=== PATIENT | female | born 1960 | race Caucasian/White ===

== ENCOUNTER 2016-05-03 08:12 | Day surgery (SDC) | payer MEDICAID ==
[~2016-05-03 08:12] MED LIST: Lactated Ringers 1,000 ML IV SCH; Lidocaine 1%/Sod Bicarbonate in NS 8.4% 1 ML Syringe IV PRN; Sodium Chloride 0.9% 10 ML Syringe FLUSH PRN
--- NOTE | 2016-05-03 09:00 | PCM.PREANE ---
Preanesthetic Assessment - Physical Assessment NPO Status Date: 05/02/16 NPO Status Time: 19:00 O2 Sat by Pulse Oximetry: 88 Respiratory Rate: 16 Vital Signs: Last Vital Signs Temp 36.2 C 05/03/16 08:25 Pulse 84 05/03/16 08:25 Resp 16 05/03/16 08:25 BP 141/78 H 05/03/16 08:25 Pulse Ox 88 L 05/03/16 08:25 Height: 1.63 m Weight: 106.594 kg - Allergies Allergies/Adverse Reactions: Allergies Allergy/AdvReac Type Severity Reaction Status Date / Time No Known Allergies Allergy Verified 05/03/16 08:53 PreAnesthesia Questionnaire Other HEENT History: dentures Cardiovascular History: Reports: High cholesterol, Hypertension, Other (see below) Other Cardiovascular History: edema Respiratory History: Reports: Asthma, COPD, SOB Gastrointestinal History: Reports: GERD Genitourinary History: Reports: Urinary incontinence Other Genitourinary History: benighn microscopic hematuria, kidney lesion [employer]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 Musculoskeletal History: Reports: None Neurological History: Reports: None Psychiatric History: Reports: Schizophrenia, Other (see below) Other Psychiatric History: schizophrenia Endocrine/Metabolic History: Reports: None Hematologic History: Reports: None Immunologic History: Reports: None Oncologic (Cancer) History: Reports: None Dermatologic History: Reports: None - Past Surgical History Head Surgeries/Procedures: Reports: None HEENT Surgical History: Reports: Oral surgery Female Surgical History: Reports: Tubal ligation - SUBSTANCE USE Smoking Status *Q: Current Every Day Smoker Recreational Drug Use History: No - HOME MEDS Home Medications: Home Meds Albuterol [Proair HFA] 2 puff INH Q4H PRN 05/02/16 [History] Aspirin 81 mg PO DAILY 05/02/16 [History] Benztropine Mesylate 1 mg PO BID 05/02/16 [History] Budesonide [Pulmicort] 1 dose NEB BID 05/02/16 [History] Enalapril [Vasotec] 10 mg PO DAILY 05/02/16 [History] Fish Oil/Friendship-3 Fatty Acids [Fish Oil 1,000 MG] 1,000 mg PO BID 05/02/16 [ History] Formoterol [Perforomist] 1 dose NEB BID 05/02/16 [History] Furosemide [Furosemide] 20 mg PO DAILY 05/02/16 [History] Lurasidone HCl [Latuda] 80 mg PO DAILY 05/02/16 [History] Naltrexone HCl [Revia] 50 mg PO DAILY 05/02/16 [History] Omeprazole Magnesium [Prilosec Otc] 20 mg PO DAILY 05/02/16 [History] Oxybutynin 5 mg PO DAILY 05/02/16 [History] PARoxetine HCl [Paroxetine HCl] 40 mg PO BEDTIME 05/02/16 [History] Tiotropium [Spiriva Handihaler] 1 puff INH DAILY 05/02/16 [History] amLODIPine [Norvasc] 5 mg PO DAILY 05/02/16 [History] atorvaSTATin Calcium [Atorvastatin Calcium] 20 mg PO DAILY 05/02/16 [History] hydrOXYzine Pamoate [Hydroxyzine Pamoate] 25 mg PO BID 05/02/16 [History] risperiDONE 3 mg PO BID 05/02/16 [History] - CURRENT (IN HOUSE) MEDS Current Meds: Current Medications Lactated Ringer's (Ringers, Lactated) 1,000 mls @ 125 mls/hr IV ASDIRECTED KENNETH Lidocaine/Sodium Bicarbonate (Buffered Lidocaine 1% In Ns 8.4%) 0.25 ml IV ONETIME PRN PRN Reason: Prior to IV Start Sodium Chloride (Saline Flush) 10 ml FLUSH ASDIRECTED PRN PRN Reason: Keep Vein Open Preanesthetic Assessment - ANESTHESIA/TRANSFUSION/FAMILY HX Anesthesia/Transfusion History: No Prior Transfusion(s), Prior Anesthesia ( reports no problems ) Family History of Anesthesia Reaction: No Type of Transfusion Reactions: Reports: Unknown - REVIEW OF SYSTEMS Constitutional: Reports: no symptoms SOLDERER FURNACE: Reports: no symptoms Respiratory: Reports: no symptoms (asthma), shortness of breath (COPD (used inhalers today)) Cardiovascular: Reports: no symptoms GI: Reports: no symptoms Other: Reports: None, Depression (ETOH abuse hx), Anxiety (Schizophrenia) - PHYSICAL ASSESSMENT O2 Sat by Pulse Oximetry: 88 RR: 16 Vital Signs: Last Vital Signs Temp 36.2 C 05/03/16 08:25 Pulse 84 05/03/16 08:25 Resp 16 05/03/16 08:25 BP 141/78 H 05/03/16 08:25 Pulse Ox 88 L 05/03/16 08:25 Height: 1.63 m Weight: 106.594 kg NPO Status Date: 05/02/16 NPO Status Time: 19:00 ASA Class: 3 Mental Status: Alert & Oriented x3 Airway Class: Mallampati = 2 Dentition: Reports: Dentures (upper and lower dentures ) ROM/Head Extension: Full Respiratory Status: lungs clear to auscultation bilaterally Cardiovascular Status: regular rate & rhythm, normal S1, S2, no murmur, blood pressure WNL - ALLERGIES Allergies/Adverse Reactions: Allergies Allergy/AdvReac Type Severity Reaction Status Date / Time No Known Allergies Allergy Verified 05/03/16 08:53 - BLOOD Blood Available: No Product(s) Available: None - ANESTHESIA PLAN Preop Beta Paul: No Anesthesia Type Planned: MAC - ACKNOWLEDGEMENTS Pt an Appropriate Candidate for the Planned Anesthesia: Yes Alternatives and Risks of Anesthesia Discussed w Pt/Guardian: Yes Pt/Guardian Understands and Agrees with Anesthesia Plan: Yes
[2016-05-03] MEDS ORDERED: Propofol 200 MG/20 ML SDV ONE ×2 (09:18→09:31)
[2016-05-03] MEDS ORDERED: fentaNYL 100 MCG/2 ML SDV ONE (09:19)
[2016-05-03] MEDS ORDERED: Lidocaine 1% 4 ML ONE (09:19)
[2016-05-03] MEDS ORDERED: Midazolam 1 MG/ML 2 ML SDV ONE (09:19)
--- NOTE | 2016-05-03 09:35 | PCM.OPNOTE ---
- General Post-Op/Procedure Note Date of Surgery/Procedure: 05/03/16 Operative Procedure(s): colonoscopy with sigmoid polypectomy using cold forceps Findings: 6 mm sigmoid polyp at 25 cm Pre Op Diagnosis: screening Post-Op Diagnosis: diminuitive sigmoid polyp Anesthesia Technique: General ET tube, Local Primary Surgeon: Dayne Arora Pathology: sigmoid polyp EBL in mLs: 0 Complications: None Condition: Good Free Text/Narrative:: after adequate IV sedation and analgesia was obtained the patient was placed on her left side. Perianal inspection and rectal examination were performed and were unremarkable. A lubricated colonoscope was inserted into the rectum then advanced under direct vision with air insufflation as necessary to the cecum without difficulty. The bowel preparation was adequate. The cecum, right colon, transverse, and descending colons were endoscopically normal with no mass lesions or inflammatory changes seen. The sigmoid at 26 cm from the anal verge had a 6 mm polyp, which was removed with cold forceps. The specimen was retrieved and the polypectomy site was hemostatic. The distal sigmoid and rectum in both views was endoscopically normal. Air was removed, as I finished the procedure, which she tolerated well. 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
--- NOTE | 2016-05-03 09:43 | PCM48HPAN ---
Post Anesthesia Note - EVALUATION WITHIN 48HRS OF ANESTHETIC Vital Signs in Normal Range: Yes Patient Participated in Evaluation: Yes Respiratory Function Stable: Yes Airway Patent: Yes Cardiovascular Function Stable: Yes Hydration Status Stable: Yes Pain Control Satisfactory: Yes Nausea and Vomiting Control Satisfactory: Yes Mental Status Recovered: Yes
[2016-05-03 10:13] VITALS: BP 137/98
== END 2016-05-03 10:01 | disposition home or self-care (01) ==
LOC: JD.SDS 08:12
PROVIDERS: ATTEND Surgery
DX: Z12.11 Encounter for screening for malignant neoplasm of colon (principal); D12.5 Benign neoplasm of sigmoid colon; J45.909 Unspecified asthma, uncomplicated; J44.9 Chronic obstructive pulmonary disease, unspecified; R60.0 Localized edema; R73.01 Impaired fasting glucose; K21.9 Gastro-esophageal reflux disease without esophagitis; F10.21 Alcohol dependence, in remission; E78.5 Hyperlipidemia, unspecified; N28.9 Disorder of kidney and ureter, unspecified; R06.02 Shortness of breath; F17.200 Nicotine dependence, unspecified, uncomplicated; R32 Unspecified urinary incontinence; Z79.899 Other long term (current) drug therapy; Z79.82 Long term (current) use of aspirin; Z79.51 Long term (current) use of inhaled steroids
CPT/HCPCS: 45380; J3010; J7120; 00810; J2250; J2704

== ENCOUNTER 2019-10-29 13:15 | Inpatient (IN) | payer MEDICAID ==
[2019-10-29] MEDS ORDERED: Sodium Chloride 0.9% 1,000 ML IV SCH (13:45)
[2019-10-29] MEDS: Sodium Chloride 0.9% 10 ML Syringe FLUSH PRN (14:01)
--- NOTE | 2019-10-29 14:01 | EDM.PDOC ---
ED HPI GENERAL MEDICAL PROBLEM - General Chief Complaint: Behavioral/Psych Stated Complaint: [facility] Time Seen by Provider: 10/29/19 13:43 Source of Information: Reports: EMS, RN Notes Reviewed - History of Present Illness INITIAL COMMENTS - FREE TEXT/NARRATIVE: 59 yr old female has been brought by EMS with AMS. The call was for abd pain and constipation. EMS found patient lying on bathroom floor, "unable to stand or walk" When EMS threatened to cut the wall to get a cot in to get her she did manage to get up and walk to the cot. Upon arrival to ED only mumbles when asked questions. Her nurse and I are unable to get any meaningful information from her. - Related Data Allergies Allergy/AdvReac Type Severity Reaction Status Date / Time No Known Allergies Allergy Verified 10/29/19 13:35 Home Meds: Home Meds Albuterol [Proair HFA] 2 puff INH Q4H PRN 05/02/16 [History] Aspirin 81 mg PO DAILY 05/02/16 [History] Benztropine Mesylate 1 mg PO BID 05/02/16 [History] Budesonide [Pulmicort] 1 dose NEB BID 05/02/16 [History] Enalapril [Vasotec] 10 mg PO DAILY 05/02/16 [History] Fish Oil/[place]-3 Fatty Acids [Fish Oil 1,000 MG] 1,000 mg PO BID 05/02/16 [History] Formoterol [Perforomist] 1 dose NEB BID 05/02/16 [History] Furosemide 20 mg PO DAILY 05/02/16 [History] Lurasidone HCl [Latuda] 80 mg PO DAILY 05/02/16 [History] Naltrexone HCl [Revia] 50 mg PO DAILY 05/02/16 [History] Omeprazole Magnesium [Prilosec Otc] 20 mg PO DAILY 05/02/16 [History] Oxybutynin 5 mg PO DAILY 05/02/16 [History] PARoxetine HCL [Paroxetine HCl] 40 mg PO BEDTIME 05/02/16 [History] Tiotropium [Spiriva Handihaler] 1 puff INH DAILY 05/02/16 [History] amLODIPine [Norvasc] 5 mg PO DAILY 05/02/16 [History] atorvaSTATin Calcium [Atorvastatin Calcium] 20 mg PO DAILY 05/02/16 [History] hydrOXYzine pamoate [Hydroxyzine Pamoate] 25 mg PO BID 05/02/16 [History] risperiDONE 3 mg PO BID 05/02/16 [History] Past Medical History Other HEENT History: dentures Cardiovascular History: Reports: High Cholesterol, Hypertension, Other (See Below) Other Cardiovascular History: edema Respiratory History: Reports: Asthma, COPD, SOB Gastrointestinal History: Reports: GERD Genitourinary History: Reports: Urinary Incontinence Other Genitourinary History: benighn microscopic hematuria, kidney lesion HANSARD REPORTER History: Reports: None Musculoskeletal History: Reports: None Neurological History: Reports: None Psychiatric History: Reports: Schizophrenia, Other (See Below) Other Psychiatric History: schizophrenia Endocrine/Metabolic History: Reports: None Hematologic History: Reports: None Immunologic History: Reports: None Oncologic (Cancer) History: Reports: None Dermatologic History: Reports: None - Past Surgical History Head Surgeries/Procedures: Reports: None HEENT Surgical History: Reports: Oral Surgery Female Surgical History: Reports: Tubal Ligation Social & Family History - Tobacco Use Smoking Status *Q: Current Every Day Smoker Years of Tobacco use: 40 Packs/Tins Daily: 1 - Caffeine Use Caffeine Use: Reports: None - Recreational Drug Use Recreational Drug Use: Yes Recreational Drug Type: Reports: Other (see below) Other Recreational Drug Type: Drain-O ED ROS GENERAL - Review of Systems Review Of Systems: Unable To Obtain Reason Not Obtained: altered mental status - Physical Exam Exam: See Below EKG INTERPRETATION EKG Date: 10/29/19 Rhythm: Other (sinus tachycardia) [place]: Normal P-Wave: Present QRS: Normal ST-T: Other (nonspecific st changes) Course - Vital Signs Last Recorded V/S: Last Vital Signs Temp Pulse 131 H 10/29/19 13:45 Resp 24 H 10/29/19 13:45 BP 78/44 L 10/29/19 13:45 Pulse Ox 93 L 10/29/19 13:45 - Orders/Labs/Meds Orders: Active Orders 24 hr Category Date Time Status EKG 12 Lead [EKG Documentation Completion] [RC] STAT Care 10/29/19 13:54 Active Insert Pickering Catheter [Insert Urinary Catheter] [OM.PC] Care 10/29/19 15:00 Ordered Q24H Peripheral IV Care [RC] . DIRECTED Care 10/29/19 13:45 Active Urinary Catheter Assessment [RC] ASDIRECTED Care 10/29/19 14:51 Active CULTURE BLOOD [BC] Stat Lab 10/29/19 14:53 Received CULTURE BLOOD [BC] Stat Lab 10/29/19 15:05 Received INR,PT,PROTHROMBIN TIME [COAG] Stat Lab 10/29/19 14:40 Ordered LACTIC ACID W/ REFLEX [LACTATE SEPSIS W/ REFLEX] [CHEM] Lab 10/29/19 16:45 Ordered Routine Lactated Ringers [Ringers, Lactated] 1,000 ml Med 10/29/19 16:38 Active IV .BOLUS Lactated Ringers [Ringers, Lactated] 1,000 ml Med 10/29/19 16:42 Ordered IV .BOLUS Sodium Chloride 0.9% [Normal Saline] 1,000 ml Med 10/29/19 13:45 Active IV ONETIME Sodium Chloride 0.9% [Saline Flush] Med 10/29/19 13:44 Active 10 ml FLUSH ASDIRECTED PRN Peripheral IV Insertion Adult [OM.PC] Stat Oth 10/29/19 13:44 Ordered Medication Orders Sodium Chloride (Normal Saline) 1,000 mls @ 999 mls/hr IV ONETIME KENNETH Last Admin: 10/29/19 14:01 Dose: 999 mls/hr Documented by: JEFF Lactated Ringer's (Ringers, Lactated) 1,000 mls @ 999 mls/hr IV .BOLUS ONE Stop: 10/29/19 17:38 Lactated Ringer's (Ringers, Lactated) 1,000 mls @ 999 mls/hr IV .BOLUS ONE Stop: 10/29/19 17:42 Sodium Chloride (Saline Flush) 10 ml FLUSH ASDIRECTED PRN PRN Reason: Keep Vein Open Last Admin: 10/29/19 14:01 Dose: 10 ml Documented by: JEFF Labs: Laboratory Tests 10/29/19 10/29/19 10/29/19 Range/Units 13:45 13:45 13:45 WBC 21.90 H (3.98-10.04) K/mm3 RBC 5.97 H (3.98-5.22) M/mm3 Hgb 17.0 H D (11.2-15.7) gm/dl Hct 51.1 H (34.1-44.9) % MCV 85.6 (79.4-94.8) fl MCH 28.5 (25.6-32.2) pg MCHC 33.3 (32.2-35.5) g/dl RDW Std Deviation 44.6 (36.4-46.3) fL Plt Count 532 H D (182-369) K/mm3 MPV 9.1 L (9.4-12.3) fl Neut % (Auto) 75.9 H (34.0-71.1) % Lymph % (Auto) 20.7 (19.3-51.7) % [place] % (Auto) 2.1 L (4.7-12.5) % Eos % (Auto) 0.6 L (0.7-5.8) Baso % (Auto) 0.2 (0.1-1.2) % Neut # (Auto) 16.63 H (1.56-6.13) K/mm3 Lymph # (Auto) 4.53 H (1.18-3.74) K/mm3 [place] # (Auto) 0.45 H (0.24-0.36) K/mm3 Eos # (Auto) 0.13 (0.04-0.36) K/mm3 Baso # (Auto) 0.05 (0.01-0.08) K/mm3 Manual Slide Review Abnormal smear Sodium 134 L (136-145) mEq/L Potassium 4.5 (3.5-5.1) mEq/L Chloride 98 (98-107) mEq/L Carbon Dioxide 21 (21-32) mEq/L Anion Gap 19.5 H (5-15) BUN 14 (7-18) mg/dL Creatinine 1.4 H (0.55-1.02) mg/dL Est Cr Clr Drug Dosing TNP Estimated GFR (MDRD) 38 (>60) mL/min BUN/Creatinine Ratio 10.0 L (14-18) Glucose 281 H (74-106) mg/dL Lactic Acid 4.0 H* (0.4-2.0) mmol/L Calcium 9.4 (8.5-10.1) mg/dL Total Bilirubin 1.0 (0.2-1.0) mg/dL AST 37 (15-37) U/L ALT 47 (14-59) U/L Alkaline Phosphatase 173 H (46-116) U/L C-Reactive Protein (<1.0) mg/dL NT-Pro-B Natriuret Pep (0-125) pg/mL Total Protein 7.3 (6.4-8.2) g/dl Albumin 3.3 L (3.4-5.0) g/dl Globulin 4.0 gm/dL Albumin/Globulin Ratio 0.8 L (1-2) Urine Color (Yellow) Urine Appearance (Clear) Urine pH (5.0-8.0) Ur Specific [place] (1.005-1.030) Urine Protein (Negative) Urine Glucose (UA) (Negative) Urine Ketones (Negative) Urine Occult Blood (Negative) Urine Nitrite (Negative) Urine Bilirubin (Negative) Urine Urobilinogen (0.2-1.0) Ur Leukocyte Esterase (Negative) U Hyaline Cast (Auto) (0-5) /lpf Urine RBC (0-5) /hpf Urine WBC (0-5) /hpf Ur Squamous Epith Cells (0-5) /hpf Urine Bacteria (FEW) /hpf Urine Mucus (FEW) /hpf Salicylates (2.8-20) mg/dL Urine Opiates Screen (FWROSH=703) Ur Buprenorphine Scrn (CUTOFF=10) Ur Oxycodone Screen (KIL1QV=010) Urine Methadone Screen (SAGSWO=742) Ur Propoxyphene Screen (BZUDXV=819) Acetaminophen (10-30) ug/mL Ur Barbiturates Screen (ABMGNP=351) Ur Tricyclics Screen (GYGJGS=114) Ur Phencyclidine Scrn (CUTOFF=25) Ur Amphetamine Screen (GHFDLT=850) U Methamphetamines Scrn (NRBUQL=809) U Benzodiazepines Scrn (KOFZQR=325) U Cocaine Metab Screen (ZXZLRU=599) U Marijuana (THC) Screen (CUTOFF=50) Ethyl Alcohol 0.00 (0.00) gm% SARS-CoV-2 RNA (ALEXIA) (NEGATIVE) 10/29/19 10/29/19 10/29/19 Range/Units 13:45 13:45 13:45 WBC (3.98-10.04) K/mm3 RBC (3.98-5.22) M/mm3 Hgb (11.2-15.7) gm/dl Hct (34.1-44.9) % MCV (79.4-94.8) fl MCH (25.6-32.2) pg MCHC (32.2-35.5) g/dl RDW Std Deviation (36.4-46.3) fL Plt Count (182-369) K/mm3 MPV (9.4-12.3) fl Neut % (Auto) (34.0-71.1) % Lymph % (Auto) (19.3-51.7) % [place] % (Auto) (4.7-12.5) % Eos % (Auto) (0.7-5.8) Baso % (Auto) (0.1-1.2) % Neut # (Auto) (1.56-6.13) K/mm3 Lymph # (Auto) (1.18-3.74) K/mm3 [place] # (Auto) (0.24-0.36) K/mm3 Eos # (Auto) (0.04-0.36) K/mm3 Baso # (Auto) (0.01-0.08) K/mm3 Manual Slide Review Sodium (136-145) mEq/L Potassium (3.5-5.1) mEq/L Chloride (98-107) mEq/L Carbon Dioxide (21-32) mEq/L Anion Gap (5-15) BUN (7-18) mg/dL Creatinine (0.55-1.02) mg/dL Est Cr Clr Drug Dosing Estimated GFR (MDRD) (>60) mL/min BUN/Creatinine Ratio (14-18) Glucose (74-106) mg/dL Lactic Acid (0.4-2.0) mmol/L Calcium (8.5-10.1) mg/dL Total Bilirubin (0.2-1.0) mg/dL AST (15-37) U/L ALT (14-59) U/L Alkaline Phosphatase (46-116) U/L C-Reactive Protein 1.6 H* (<1.0) mg/dL NT-Pro-B Natriuret Pep (0-125) pg/mL Total Protein (6.4-8.2) g/dl Albumin (3.4-5.0) g/dl Globulin gm/dL Albumin/Globulin Ratio (1-2) Urine Color (Yellow) Urine Appearance (Clear) Urine pH (5.0-8.0) Ur Specific [place] (1.005-1.030) Urine Protein (Negative) Urine Glucose (UA) (Negative) Urine Ketones (Negative) Urine Occult Blood (Negative) Urine Nitrite (Negative) Urine Bilirubin (Negative) Urine Urobilinogen (0.2-1.0) Ur Leukocyte Esterase (Negative) U Hyaline Cast (Auto) (0-5) /lpf Urine RBC (0-5) /hpf Urine WBC (0-5) /hpf Ur Squamous Epith Cells (0-5) /hpf Urine Bacteria (FEW) /hpf Urine Mucus (FEW) /hpf Salicylates 8.6 (2.8-20) mg/dL Urine Opiates Screen (AZBWWH=881) Ur Buprenorphine Scrn (CUTOFF=10) Ur Oxycodone Screen (PIY2ZJ=295) Urine Methadone Screen (CWMXZV=262) Ur Propoxyphene Screen (TOXREN=772) Acetaminophen 0 L (10-30) ug/mL Ur Barbiturates Screen (HUOCTN=111) Ur Tricyclics Screen (BGGVMJ=549) Ur Phencyclidine Scrn (CUTOFF=25) Ur Amphetamine Screen (MBJOJP=156) U Methamphetamines Scrn (KGKQZM=938) U Benzodiazepines Scrn (WNVJDJ=375) U Cocaine Metab Screen (NPPVSO=818) U Marijuana (THC) Screen (CUTOFF=50) Ethyl Alcohol (0.00) gm% SARS-CoV-2 RNA (ALEXIA) (NEGATIVE) 10/29/19 10/29/19 10/29/19 Range/Units 13:45 15:11 16:00 WBC (3.98-10.04) K/mm3 RBC (3.98-5.22) M/mm3 Hgb (11.2-15.7) gm/dl Hct (34.1-44.9) % MCV (79.4-94.8) fl MCH (25.6-32.2) pg MCHC (32.2-35.5) g/dl RDW Std Deviation (36.4-46.3) fL Plt Count (182-369) K/mm3 MPV (9.4-12.3) fl Neut % (Auto) (34.0-71.1) % Lymph % (Auto) (19.3-51.7) % [place] % (Auto) (4.7-12.5) % Eos % (Auto) (0.7-5.8) Baso % (Auto) (0.1-1.2) % Neut # (Auto) (1.56-6.13) K/mm3 Lymph # (Auto) (1.18-3.74) K/mm3 [place] # (Auto) (0.24-0.36) K/mm3 Eos # (Auto) (0.04-0.36) K/mm3 Baso # (Auto) (0.01-0.08) K/mm3 Manual Slide Review Sodium (136-145) mEq/L Potassium (3.5-5.1) mEq/L Chloride (98-107) mEq/L Carbon Dioxide (21-32) mEq/L Anion Gap (5-15) BUN (7-18) mg/dL Creatinine (0.55-1.02) mg/dL Est Cr Clr Drug Dosing Estimated GFR (MDRD) (>60) mL/min BUN/Creatinine Ratio (14-18) Glucose (74-106) mg/dL Lactic Acid (0.4-2.0) mmol/L Calcium (8.5-10.1) mg/dL Total Bilirubin (0.2-1.0) mg/dL AST (15-37) U/L ALT (14-59) U/L Alkaline Phosphatase (46-116) U/L C-Reactive Protein (<1.0) mg/dL NT-Pro-B Natriuret Pep 122 (0-125) pg/mL Total Protein (6.4-8.2) g/dl Albumin (3.4-5.0) g/dl Globulin gm/dL Albumin/Globulin Ratio (1-2) Urine Color (Yellow) Urine Appearance (Clear) Urine pH (5.0-8.0) Ur Specific [place] (1.005-1.030) Urine Protein (Negative) Urine Glucose (UA) (Negative) Urine Ketones (Negative) Urine Occult Blood (Negative) Urine Nitrite (Negative) Urine Bilirubin (Negative) Urine Urobilinogen (0.2-1.0) Ur Leukocyte Esterase (Negative) U Hyaline Cast (Auto) (0-5) /lpf Urine RBC (0-5) /hpf Urine WBC (0-5) /hpf Ur Squamous Epith Cells (0-5) /hpf Urine Bacteria (FEW) /hpf Urine Mucus (FEW) /hpf Salicylates (2.8-20) mg/dL Urine Opiates Screen Negative (DJVNNC=250) Ur Buprenorphine Scrn Negative (CUTOFF=10) Ur Oxycodone Screen Negative (KNF6EG=063) Urine Methadone Screen Negative (ORWWFH=612) Ur Propoxyphene Screen Negative (GCDYKP=446) Acetaminophen (10-30) ug/mL Ur Barbiturates Screen Negative (PQWGEJ=097) Ur Tricyclics Screen Negative (KPYAJK=849) Ur Phencyclidine Scrn Negative (CUTOFF=25) Ur Amphetamine Screen Negative (WAKXMZ=344) U Methamphetamines Scrn Negative (MEQSYB=296) U Benzodiazepines Scrn Negative (DNCQUR=953) U Cocaine Metab Screen Negative (WYXQFI=618) U Marijuana (THC) Screen Negative (CUTOFF=50) Ethyl Alcohol (0.00) gm% SARS-CoV-2 RNA (ALEXIA) Negative (NEGATIVE) 10/29/19 Range/Units 16:00 WBC (3.98-10.04) K/mm3 RBC (3.98-5.22) M/mm3 Hgb (11.2-15.7) gm/dl Hct (34.1-44.9) % MCV (79.4-94.8) fl MCH (25.6-32.2) pg MCHC (32.2-35.5) g/dl RDW Std Deviation (36.4-46.3) fL Plt Count (182-369) K/mm3 MPV (9.4-12.3) fl Neut % (Auto) (34.0-71.1) % Lymph % (Auto) (19.3-51.7) % [place] % (Auto) (4.7-12.5) % Eos % (Auto) (0.7-5.8) Baso % (Auto) (0.1-1.2) % Neut # (Auto) (1.56-6.13) K/mm3 Lymph # (Auto) (1.18-3.74) K/mm3 [place] # (Auto) (0.24-0.36) K/mm3 Eos # (Auto) (0.04-0.36) K/mm3 Baso # (Auto) (0.01-0.08) K/mm3 Manual Slide Review Sodium (136-145) mEq/L Potassium (3.5-5.1) mEq/L Chloride (98-107) mEq/L Carbon Dioxide (21-32) mEq/L Anion Gap (5-15) BUN (7-18) mg/dL Creatinine (0.55-1.02) mg/dL Est Cr Clr Drug Dosing Estimated GFR (MDRD) (>60) mL/min BUN/Creatinine Ratio (14-18) Glucose (74-106) mg/dL Lactic Acid (0.4-2.0) mmol/L Calcium (8.5-10.1) mg/dL Total Bilirubin (0.2-1.0) mg/dL AST (15-37) U/L ALT (14-59) U/L Alkaline Phosphatase (46-116) U/L C-Reactive Protein (<1.0) mg/dL NT-Pro-B Natriuret Pep (0-125) pg/mL Total Protein (6.4-8.2) g/dl Albumin (3.4-5.0) g/dl Globulin gm/dL Albumin/Globulin Ratio (1-2) Urine Color Lisa H (Yellow) Urine Appearance Slt cloudy H (Clear) Urine pH 7.0 (5.0-8.0) Ur Specific [place] 1.020 (1.005-1.030) Urine Protein 2+ H (Negative) Urine Glucose (UA) Trace H (Negative) Urine Ketones Trace H (Negative) Urine Occult Blood 2+ H (Negative) Urine Nitrite Negative (Negative) Urine Bilirubin 2+ H (Negative) Urine Urobilinogen 4.0 H (0.2-1.0) Ur Leukocyte Esterase Negative (Negative) U Hyaline Cast (Auto) 10-20 H (0-5) /lpf Urine RBC 30-40 H (0-5) /hpf Urine WBC 0-5 (0-5) /hpf Ur Squamous Epith Cells 5-10 H (0-5) /hpf Urine Bacteria Moderate H (FEW) /hpf Urine Mucus Moderate H (FEW) /hpf Salicylates (2.8-20) mg/dL Urine Opiates Screen (IFYGQV=443) Ur Buprenorphine Scrn (CUTOFF=10) Ur Oxycodone Screen (TZR4LT=314) Urine Methadone Screen (OGRIWT=066) Ur Propoxyphene Screen (DFWSIV=043) Acetaminophen (10-30) ug/mL Ur Barbiturates Screen (LAANKV=375) Ur Tricyclics Screen (SNISEO=773) Ur Phencyclidine Scrn (CUTOFF=25) Ur Amphetamine Screen (UPDGWG=187) U Methamphetamines Scrn (DGWIEF=005) U Benzodiazepines Scrn (DJNLRV=067) U Cocaine Metab Screen (JBDHWW=558) U Marijuana (THC) Screen (CUTOFF=50) Ethyl Alcohol (0.00) gm% SARS-CoV-2 RNA (ALEXIA) (NEGATIVE) Meds: Medications Generic Name Dose Route Start Last Admin Trade Name Freq PRN Reason Stop Dose Admin Sodium Chloride 1,000 mls @ 999 mls/hr 10/29/19 13:45 10/29/19 14:01 Normal Saline IV 999 mls/hr ONETIME KENNETH Administration Lactated Ringer's 1,000 mls @ 999 mls/hr 10/29/19 16:38 Ringers, Lactated IV 10/29/19 17:38 .BOLUS ONE Lactated Ringer's 1,000 mls @ 999 mls/hr 10/29/19 16:42 Ringers, Lactated IV 10/29/19 17:42 .BOLUS ONE Sodium Chloride 10 ml 10/29/19 13:44 10/29/19 14:01 Saline Flush FLUSH 10 ml ASDIRECTED PRN Administration Keep Vein Open Discontinued Medications Generic Name Dose Route Start Last Admin Trade Name Freq PRN Reason Stop Dose Admin Ceftriaxone Sodium 2 gm/ 100 mls @ 200 mls/hr 10/29/19 14:44 10/29/19 16:31 Sodium Chloride IV 10/29/19 15:13 200 mls/hr ONETIME ONE Administration Lactated Ringer's 1,000 mls @ 999 mls/hr 10/29/19 14:51 10/29/19 15:09 Ringers, Lactated IV 10/29/19 15:51 999 mls/hr .BOLUS ONE Administration - Re-Assessments/Exams Free Text/Narrative Re-Assessment/Exam: 10/29/19 14:12. BP has dropped to 60's systolic, however heart has dropped from low 130's on arrival to 126 and trending down, receiving IV NS bolus. Initial working dx was some type of overdose or toxic ingestion with strong psych. hx. and hx from EMS of "ingesting drano." Now I am more concerned for sepsis with WBC of 21,900. Lactic acid and other labs pending. Will continue to bolus fluid. Pt is more alert now from arrival, answering simple questions which she did not do on arrival. 14:45. Lactic acid is 4. Blood cultures times 2 have been ordered. CXR shows possible lower lobe infiltrates. Rocephin 2 grams IV given. Have ordered cath urine. Still not collected. Will get this collected as soon as possible, leave indwelling pickering to moniter urine output. 10/29/19 15:32. 102/63. heart rate 117. still no meaningful urine output. 10/29/19 16:12 Much more alert. vitals have continued to improve. 123/83 117. 10/29/19 16:35 Ua has some bacteria but otherwise neg for infection. Will order a urine culture. Urine drug screen neg. Covid neg. Pt has been admitted to ICU. As noted mental status has greatly improved from arrival. Good cap refill at time of last recheck about 15 minutes ago. 10/29/19 16:44. 2nd liter of fluid about it, fluid infusion slowed while rocephin infusing, 2nd liter of LR ordered for the next hr which will give her a total of 3 liters in the first 4 to 4 1/2 hrs. Departure - Departure Time of Disposition: 15:30 Disposition: Admitted As Inpatient 66 Condition: Critical Clinical Impression: Sepsis Qualifiers: Sepsis type: sepsis due to unspecified organism Sepsis acute organ dysfunction status: unspecified Qualified Code(s): A41.9 - Sepsis, unspecified organism Pneumonia Qualifiers: Pneumonia type: due to unspecified organism Altered mental status Qualifiers: Altered mental status type: unspecified Qualified Code(s): R41.82 - Altered mental status, unspecified Schizophrenia Qualifiers: Schizophrenia type: unspecified Qualified Code(s): F20.9 - Schizophrenia, unspecified - Discharge Information Referrals: PCP,Unknown [Primary Care Provider] - Forms: ED Department Discharge Sepsis Event Note (ED) - Evaluation Sepsis Screening Result: No Definite Risk - Focused Exam Vital Signs: Vital Signs Pulse Resp BP Pulse Ox Pulse Ox 10/29/19 13:45 131 H 24 H 78/44 L 93 L 10/29/19 13:39 88 L 10/29/19 13:29 135 H 28 H 100/84 92 L ED Communication - Discussed Case With (1) Discussed Case With (1): Admitting Provider (Dr Lopes, decision to admit at about 15:40.) - My Orders Last 24 Hours: My Active Orders 10/29/19 13:44 Sodium Chloride 0.9% [Saline Flush] 10 ml FLUSH ASDIRECTED PRN Peripheral IV Insertion Adult [OM.PC] Stat 10/29/19 13:45 Peripheral IV Care [RC] . DIRECTED Sodium Chloride 0.9% [Normal Saline] 1,000 ml IV ONETIME 10/29/19 13:54 EKG 12 Lead [EKG Documentation Completion] [RC] STAT 10/29/19 14:40 INR,PT,PROTHROMBIN TIME [COAG] Stat 10/29/19 14:51 Urinary Catheter Assessment [RC] ASDIRECTED 10/29/19 14:53 CULTURE BLOOD [BC] Stat 10/29/19 15:00 Insert Pickering Catheter [Insert Urinary Catheter] [OM.PC] Q24H 10/29/19 15:05 CULTURE BLOOD [BC] Stat 10/29/19 16:38 Lactated Ringers [Ringers, Lactated] 1,000 ml IV .BOLUS 10/29/19 16:42 Lactated Ringers [Ringers, Lactated] 1,000 ml IV .BOLUS 10/29/19 16:45 LACTIC ACID W/ REFLEX [LACTATE SEPSIS W/ REFLEX] [CHEM] Routine - Assessment/Plan Last 24 Hours: My Active Orders 10/29/19 13:44 Sodium Chloride 0.9% [Saline Flush] 10 ml FLUSH ASDIRECTED PRN Peripheral IV Insertion Adult [OM.PC] Stat 10/29/19 13:45 Peripheral IV Care [RC] . DIRECTED Sodium Chloride 0.9% [Normal Saline] 1,000 ml IV ONETIME 10/29/19 13:54 EKG 12 Lead [EKG Documentation Completion] [RC] STAT 10/29/19 14:40 INR,PT,PROTHROMBIN TIME [COAG] Stat 10/29/19 14:51 Urinary Catheter Assessment [RC] ASDIRECTED 10/29/19 14:53 CULTURE BLOOD [BC] Stat 10/29/19 15:00 Insert [place]ering Catheter [Insert Urinary Catheter] [OM.PC] Q24H 10/29/19 15:05 CULTURE BLOOD [BC] Stat 10/29/19 16:38 Lactated Ringers [Ringers, Lactated] 1,000 ml IV .BOLUS 10/29/19 16:42 Lactated Ringers [Ringers, Lactated] 1,000 ml IV .BOLUS 10/29/19 16:45 LACTIC ACID W/ REFLEX [LACTATE SEPSIS W/ REFLEX] [CHEM] Routine
--- NOTE | 2019-10-29 14:33 | CR ---
Chest: Portable view of the chest was obtained. Comparison: Prior chest x-ray of 09/1313 Haziness within both lung bases is seen. Difficult to exclude bibasilar areas of pneumonia. Heart is felt to be slightly prominent. Upper mediastinum is normal. Bony structures are grossly intact. Impression: 1. Possible bibasilar areas of pneumonia. Recommend follow-up PA and lateral views of the chest to confirm if patient can cooperate. Diagnostic code #3 This report was dictated in MDT
[2019-10-29] MEDS ORDERED: cefTRIAXone 2 GM in Sodium Chloride 0.9% 100 ML IV ONE (14:44)
[2019-10-29] MEDS ORDERED: Lactated Ringers 1,000 ML IV ONE ×3 (14:51→16:42)
[2019-10-29] MEDS ORDERED: Lactated Ringers 1,000 ML ONE (16:26)
[2019-10-29] MEDS ORDERED: cefTRIAXone 2 GM AdvVial IV ONE (16:26)
[2019-10-29] MEDS ORDERED: Sodium Chloride 0.9% 100 ML ONE (16:26)
[2019-10-29] MEDS ORDERED: Ondansetron 4 MG/2 ML SDV IV PRN (19:13)
[2019-10-29] MEDS ORDERED: Albuterol 0.083% 2.5 MG/3 ML Neb Soln NEB PRN (19:13)
[2019-10-29] MEDS ORDERED: Acetaminophen 325 MG Tab PO PRN (19:13)
--- NOTE | 2019-10-29 19:29 | PCM.HP.2 ---
H&P History of Present Illness - General Date of Service: 10/29/19 Admit Problem/Dx: Admission Diagnosis/Problem Admission Diagnosis/Problem Pneumonia - History of Present Illness Initial Comments - Free Text/Narative: 59-year-old patient with history of schizophrenia, asthma, COPD, benign microscopic hematuria, kidney lesion, hypertension was found on her bathroom floor by EMS with altered mental status. At time of interview patient did only give short answers therefore being a poor historian. Most of the history was obtained through the emergency department notes. Patient apparently called EMS secondary to abdominal pain and constipation. EMS found patient lying on the floor and unable to stand or walk. When EMS threatened to cut through the wall to get a cot in to get her out she did manage to get up and walk to the cot. Patient arrived to the emergency department and was only talking and mumbles at until given fluids. In the ICU patient was able to give short answers. She states that she had a seizure and that is why she was on the floor. Unknown when she last took her medications. In the emergency department patient was given a total of 3 L IV fluid boluses and she did have a little improvement in her mentation. On presentation to the emergency department pulse was 131, respiratory rate of 24, blood pressure was 78/44, pulse ox of 93. Initial labs showed WBC of 22, hemoglobin 17.0, platelet count 532, slightly low sodium at 134, anion gap of 19.5, BUN 14, creatinine 1.4. Initial lactic acid was 4.0. Glucose 281. Alcohol, salicylates, and acetaminophen were negative or therapeutic for salicylates. Urine drug screen was negative. UA was significant for 2+ protein, 2+ occult blood, 2+ bilirubin, urobilinogen elevated at 4.0, urine RBCs 30-40, urine WBC 0-5, hyaline casts 10- 20, epithelial cells 5-10, moderate bacteria and mucus. COVID negative initial C-reactive protein was 1.6 and BNP was 122. After fluid boluses in the emergency department the lactic acid actually went up to 5.3. Patient was given Rocephin in the emergency department, chest x-ray performed which showed possible bibasilar areas of pneumonia. Recommend follow-up PA and lateral views of the chest to confirm if patient can cooperate. - Related Data Allergies/Adverse Reactions: Allergies Allergy/AdvReac Type Severity Reaction Status Date / Time No Known Allergies Allergy Verified 10/30/19 01:10 Home Medications: Home Meds Albuterol [Proair HFA] 2 puff INH Q4H PRN 05/02/16 [History] Aspirin 81 mg PO DAILY 05/02/16 [History] Benztropine Mesylate 1 mg PO BID 05/02/16 [History] Budesonide [Pulmicort] 1 dose NEB BID 05/02/16 [History] Enalapril [Vasotec] 10 mg PO DAILY 05/02/16 [History] Fish Oil/[place]-3 Fatty Acids [Fish Oil 1,000 MG] 1,000 mg PO BID 05/02/16 [History] Formoterol [Perforomist] 1 dose NEB BID 05/02/16 [History] Furosemide 20 mg PO DAILY 05/02/16 [History] Lurasidone HCl [Latuda] 80 mg PO BEDTIME 05/02/16 [History] Naltrexone HCl [Revia] 50 mg PO DAILY 05/02/16 [History] Omeprazole Magnesium [Prilosec Otc] 20 mg PO DAILY 05/02/16 [History] Oxybutynin 5 mg PO DAILY 05/02/16 [History] PARoxetine HCL [Paroxetine HCl] 30 mg PO DAILY 05/02/16 [History] Tiotropium [Spiriva Handihaler] 1 puff INH DAILY 05/02/16 [History] amLODIPine [Norvasc] 5 mg PO DAILY 05/02/16 [History] atorvaSTATin Calcium [Atorvastatin Calcium] 20 mg PO DAILY 05/02/16 [History] hydrOXYzine pamoate [Hydroxyzine Pamoate] 25 mg PO BID 05/02/16 [History] risperiDONE 2 mg PO DAILY 05/02/16 [History] Potassium Chloride 20 meq PO DAILY 10/29/19 [History] risperiDONE [Risperdal] 1 mg PO BEDTIME 10/29/19 [History] Past Medical History Other HEENT History: dentures Cardiovascular History: Reports: High Cholesterol, Hypertension, Other (See Below) Other Cardiovascular History: edema Respiratory History: Reports: Asthma, COPD, SOB Gastrointestinal History: Reports: GERD Genitourinary History: Reports: Urinary Incontinence Other Genitourinary History: benighn microscopic hematuria, kidney lesion [employer] History: Reports: None Musculoskeletal History: Reports: None Neurological History: Reports: None Psychiatric History: Reports: Schizophrenia, Other (See Below) Other Psychiatric History: schizophrenia Endocrine/Metabolic History: Reports: None Hematologic History: Reports: None Immunologic History: Reports: None Oncologic (Cancer) History: Reports: None Dermatologic History: Reports: None - Past Surgical History Head Surgeries/Procedures: Reports: None HEENT Surgical History: Reports: Oral Surgery Female Surgical History: Reports: Tubal Ligation Social & Family History - Tobacco Use Smoking Status *Q: Current Every Day Smoker Years of Tobacco use: 40 Packs/Tins Daily: 1 - Caffeine Use Caffeine Use: Reports: None - Recreational Drug Use Recreational Drug Use: Yes Recreational Drug Type: Reports: Other (see below) Other Recreational Drug Type: Drain-O H&P Review of Systems - Review of Systems: Review Of Systems: Comprehensive ROS is negative, except as noted in HPI. Exam - Exam Exam: See Below - Vital Signs Vital Signs: Last Vital Signs Temp 97.8 F 10/29/19 18:17 Pulse 113 H 10/29/19 18:17 Resp 31 H 10/29/19 18:30 BP 117/81 10/29/19 18:30 Pulse Ox 94 L 10/29/19 18:30 Weight: 113.716 kg - Exam Quality Assessment: Supplemental Oxygen General: Severe Distress, Lethargic HEENT: Conjunctiva Clear, Mucosa Moist & [place] Neck: Supple, Trachea Midline Lungs: Rhonchi. No: Normal Respiratory Effort (Increased respiratory effort and rate with use of accessory muscles) Cardiovascular: Regular Rhythm, Tachycardia, Other (Difficult to auscultate secondary to morbid obesity and loud upper airway sounds) GI/Abdominal Exam: Distended (Morbidly obese), Tender (Diffusely tender without guarding or rebound.), Abnormal Bowel Sounds. No: Normal Bowel Sounds (Decreased bowel sounds) Neuro Extensive - Mental Status: Disorientation to Place, Disorientation to Time Psychiatric: Other - Patient Data Lab Results Last 24 hrs: Laboratory Results - last 24 hr 10/29/19 10/29/19 10/29/19 Range/Units 13:45 13:45 13:45 WBC 21.90 H (3.98-10.04) K/mm3 RBC 5.97 H (3.98-5.22) M/mm3 Hgb 17.0 H D (11.2-15.7) gm/dl Hct 51.1 H (34.1-44.9) % MCV 85.6 (79.4-94.8) fl MCH 28.5 (25.6-32.2) pg MCHC 33.3 (32.2-35.5) g/dl RDW Std Deviation 44.6 (36.4-46.3) fL Plt Count 532 H D (182-369) K/mm3 MPV 9.1 L (9.4-12.3) fl Neut % (Auto) 75.9 H (34.0-71.1) % Lymph % (Auto) 20.7 (19.3-51.7) % [place] % (Auto) 2.1 L (4.7-12.5) % Eos % (Auto) 0.6 L (0.7-5.8) Baso % (Auto) 0.2 (0.1-1.2) % Neut # (Auto) 16.63 H (1.56-6.13) K/mm3 Lymph # (Auto) 4.53 H (1.18-3.74) K/mm3 [place] # (Auto) 0.45 H (0.24-0.36) K/mm3 Eos # (Auto) 0.13 (0.04-0.36) K/mm3 Baso # (Auto) 0.05 (0.01-0.08) K/mm3 Manual Slide Review Abnormal smear PT (9.7-11.7) SECONDS INR Sodium 134 L (136-145) mEq/L Potassium 4.5 (3.5-5.1) mEq/L Chloride 98 (98-107) mEq/L Carbon Dioxide 21 (21-32) mEq/L Anion Gap 19.5 H (5-15) BUN 14 (7-18) mg/dL Creatinine 1.4 H (0.55-1.02) mg/dL Est Cr Clr Drug Dosing TNP Estimated GFR (MDRD) 38 (>60) mL/min BUN/Creatinine Ratio 10.0 L (14-18) Glucose 281 H (74-106) mg/dL Lactic Acid 4.0 H* (0.4-2.0) mmol/L Calcium 9.4 (8.5-10.1) mg/dL Total Bilirubin 1.0 (0.2-1.0) mg/dL AST 37 (15-37) U/L ALT 47 (14-59) U/L Alkaline Phosphatase 173 H (46-116) U/L C-Reactive Protein (<1.0) mg/dL NT-Pro-B Natriuret Pep (0-125) pg/mL Total Protein 7.3 (6.4-8.2) g/dl Albumin 3.3 L (3.4-5.0) g/dl Globulin 4.0 gm/dL Albumin/Globulin Ratio 0.8 L (1-2) Urine Color (Yellow) Urine Appearance (Clear) Urine pH (5.0-8.0) Ur Specific [place] (1.005-1.030) Urine Protein (Negative) Urine Glucose (UA) (Negative) Urine Ketones (Negative) Urine Occult Blood (Negative) Urine Nitrite (Negative) Urine Bilirubin (Negative) Urine Urobilinogen (0.2-1.0) Ur Leukocyte Esterase (Negative) U Hyaline Cast (Auto) (0-5) /lpf Urine RBC (0-5) /hpf Urine WBC (0-5) /hpf Ur Squamous Epith Cells (0-5) /hpf Urine Bacteria (FEW) /hpf Urine Mucus (FEW) /hpf Salicylates (2.8-20) mg/dL Urine Opiates Screen (CWGFLC=412) Ur Buprenorphine Scrn (CUTOFF=10) Ur Oxycodone Screen (KKM1CL=198) Urine Methadone Screen (ZKUCZS=067) Ur Propoxyphene Screen (IGVNEP=930) Acetaminophen (10-30) ug/mL Ur Barbiturates Screen (UCFTRG=908) Ur Tricyclics Screen (BQFQMC=281) Ur Phencyclidine Scrn (CUTOFF=25) Ur Amphetamine Screen (MTESJM=745) U Methamphetamines Scrn (MHBQLY=265) U Benzodiazepines Scrn (HCQCZP=010) U Cocaine Metab Screen (UJECPJ=745) U Marijuana (THC) Screen (CUTOFF=50) Ethyl Alcohol 0.00 (0.00) gm% SARS-CoV-2 RNA (ALEXIA) (NEGATIVE) 10/29/19 10/29/19 10/29/19 Range/Units 13:45 13:45 13:45 WBC (3.98-10.04) K/mm3 RBC (3.98-5.22) M/mm3 Hgb (11.2-15.7) gm/dl Hct (34.1-44.9) % MCV (79.4-94.8) fl MCH (25.6-32.2) pg MCHC (32.2-35.5) g/dl RDW Std Deviation (36.4-46.3) fL Plt Count (182-369) K/mm3 MPV (9.4-12.3) fl Neut % (Auto) (34.0-71.1) % Lymph % (Auto) (19.3-51.7) % [place] % (Auto) (4.7-12.5) % Eos % (Auto) (0.7-5.8) Baso % (Auto) (0.1-1.2) % Neut # (Auto) (1.56-6.13) K/mm3 Lymph # (Auto) (1.18-3.74) K/mm3 [place] # (Auto) (0.24-0.36) K/mm3 Eos # (Auto) (0.04-0.36) K/mm3 Baso # (Auto) (0.01-0.08) K/mm3 Manual Slide Review PT (9.7-11.7) SECONDS INR Sodium (136-145) mEq/L Potassium (3.5-5.1) mEq/L Chloride (98-107) mEq/L Carbon Dioxide (21-32) mEq/L Anion Gap (5-15) BUN (7-18) mg/dL Creatinine (0.55-1.02) mg/dL Est Cr Clr Drug Dosing Estimated GFR (MDRD) (>60) mL/min BUN/Creatinine Ratio (14-18) Glucose (74-106) mg/dL Lactic Acid (0.4-2.0) mmol/L Calcium (8.5-10.1) mg/dL Total Bilirubin (0.2-1.0) mg/dL AST (15-37) U/L ALT (14-59) U/L Alkaline Phosphatase (46-116) U/L C-Reactive Protein 1.6 H* (<1.0) mg/dL NT-Pro-B Natriuret Pep (0-125) pg/mL Total Protein (6.4-8.2) g/dl Albumin (3.4-5.0) g/dl Globulin gm/dL Albumin/Globulin Ratio (1-2) Urine Color (Yellow) Urine Appearance (Clear) Urine pH (5.0-8.0) Ur Specific [place] (1.005-1.030) Urine Protein (Negative) Urine Glucose (UA) (Negative) Urine Ketones (Negative) Urine Occult Blood (Negative) Urine Nitrite (Negative) Urine Bilirubin (Negative) Urine Urobilinogen (0.2-1.0) Ur Leukocyte Esterase (Negative) U Hyaline Cast (Auto) (0-5) /lpf Urine RBC (0-5) /hpf Urine WBC (0-5) /hpf Ur Squamous Epith Cells (0-5) /hpf Urine Bacteria (FEW) /hpf Urine Mucus (FEW) /hpf Salicylates 8.6 (2.8-20) mg/dL Urine Opiates Screen (XBMMXU=345) Ur Buprenorphine Scrn (CUTOFF=10) Ur Oxycodone Screen (NMJ1FF=776) Urine Methadone Screen (QJFJBU=832) Ur Propoxyphene Screen (IXAIJU=135) Acetaminophen 0 L (10-30) ug/mL Ur Barbiturates Screen (RAQGUR=083) Ur Tricyclics Screen (WKENIF=309) Ur Phencyclidine Scrn (CUTOFF=25) Ur Amphetamine Screen (HIXYIN=298) U Methamphetamines Scrn (RSLPZK=780) U Benzodiazepines Scrn (NPMOIR=414) U Cocaine Metab Screen (RKSXGH=621) U Marijuana (THC) Screen (CUTOFF=50) Ethyl Alcohol (0.00) gm% SARS-CoV-2 RNA (ALEXIA) (NEGATIVE) 10/29/19 10/29/19 10/29/19 Range/Units 13:45 15:11 16:00 WBC (3.98-10.04) K/mm3 RBC (3.98-5.22) M/mm3 Hgb (11.2-15.7) gm/dl Hct (34.1-44.9) % MCV (79.4-94.8) fl MCH (25.6-32.2) pg MCHC (32.2-35.5) g/dl RDW Std Deviation (36.4-46.3) fL Plt Count (182-369) K/mm3 MPV (9.4-12.3) fl Neut % (Auto) (34.0-71.1) % Lymph % (Auto) (19.3-51.7) % [place] % (Auto) (4.7-12.5) % Eos % (Auto) (0.7-5.8) Baso % (Auto) (0.1-1.2) % Neut # (Auto) (1.56-6.13) K/mm3 Lymph # (Auto) (1.18-3.74) K/mm3 [place] # (Auto) (0.24-0.36) K/mm3 Eos # (Auto) (0.04-0.36) K/mm3 Baso # (Auto) (0.01-0.08) K/mm3 Manual Slide Review PT (9.7-11.7) SECONDS INR Sodium (136-145) mEq/L Potassium (3.5-5.1) mEq/L Chloride (98-107) mEq/L Carbon Dioxide (21-32) mEq/L Anion Gap (5-15) BUN (7-18) mg/dL Creatinine (0.55-1.02) mg/dL Est Cr Clr Drug Dosing Estimated GFR (MDRD) (>60) mL/min BUN/Creatinine Ratio (14-18) Glucose (74-106) mg/dL Lactic Acid (0.4-2.0) mmol/L Calcium (8.5-10.1) mg/dL Total Bilirubin (0.2-1.0) mg/dL AST (15-37) U/L ALT (14-59) U/L Alkaline Phosphatase (46-116) U/L C-Reactive Protein (<1.0) mg/dL NT-Pro-B Natriuret Pep 122 (0-125) pg/mL Total Protein (6.4-8.2) g/dl Albumin (3.4-5.0) g/dl Globulin gm/dL Albumin/Globulin Ratio (1-2) Urine Color (Yellow) Urine Appearance (Clear) Urine pH (5.0-8.0) Ur Specific [place] (1.005-1.030) Urine Protein (Negative) Urine Glucose (UA) (Negative) Urine Ketones (Negative) Urine Occult Blood (Negative) Urine Nitrite (Negative) Urine Bilirubin (Negative) Urine Urobilinogen (0.2-1.0) Ur Leukocyte Esterase (Negative) U Hyaline Cast (Auto) (0-5) /lpf Urine RBC (0-5) /hpf Urine WBC (0-5) /hpf Ur Squamous Epith Cells (0-5) /hpf Urine Bacteria (FEW) /hpf Urine Mucus (FEW) /hpf Salicylates (2.8-20) mg/dL Urine Opiates Screen Negative (FPLXKO=384) Ur Buprenorphine Scrn Negative (CUTOFF=10) Ur Oxycodone Screen Negative (LZD9DV=009) Urine Methadone Screen Negative (PFOZNE=426) Ur Propoxyphene Screen Negative (OSKNCE=228) Acetaminophen (10-30) ug/mL Ur Barbiturates Screen Negative (JNLIHR=894) Ur Tricyclics Screen Negative (XUSSSG=025) Ur Phencyclidine Scrn Negative (CUTOFF=25) Ur Amphetamine Screen Negative (ZHZXNY=550) U Methamphetamines Scrn Negative (XIKWCV=036) U Benzodiazepines Scrn Negative (TVTTCB=752) U Cocaine Metab Screen Negative (NHEBHR=632) U Marijuana (THC) Screen Negative (CUTOFF=50) Ethyl Alcohol (0.00) gm% SARS-CoV-2 RNA (ALEXIA) Negative (NEGATIVE) 10/29/19 10/29/19 10/29/19 Range/Units 16:00 17:00 17:00 WBC (3.98-10.04) K/mm3 RBC (3.98-5.22) M/mm3 Hgb (11.2-15.7) gm/dl Hct (34.1-44.9) % MCV (79.4-94.8) fl MCH (25.6-32.2) pg MCHC (32.2-35.5) g/dl RDW Std Deviation (36.4-46.3) fL Plt Count (182-369) K/mm3 MPV (9.4-12.3) fl Neut % (Auto) (34.0-71.1) % Lymph % (Auto) (19.3-51.7) % [place] % (Auto) (4.7-12.5) % Eos % (Auto) (0.7-5.8) Baso % (Auto) (0.1-1.2) % Neut # (Auto) (1.56-6.13) K/mm3 Lymph # (Auto) (1.18-3.74) K/mm3 [place] # (Auto) (0.24-0.36) K/mm3 Eos # (Auto) (0.04-0.36) K/mm3 Baso # (Auto) (0.01-0.08) K/mm3 Manual Slide Review PT 12.1 H (9.7-11.7) SECONDS INR 1.13 Sodium (136-145) mEq/L Potassium (3.5-5.1) mEq/L Chloride (98-107) mEq/L Carbon Dioxide (21-32) mEq/L Anion Gap (5-15) BUN (7-18) mg/dL Creatinine (0.55-1.02) mg/dL Est Cr Clr Drug Dosing Estimated GFR (MDRD) (>60) mL/min BUN/Creatinine Ratio (14-18) Glucose (74-106) mg/dL Lactic Acid 5.3 H* (0.4-2.0) mmol/L Calcium (8.5-10.1) mg/dL Total Bilirubin (0.2-1.0) mg/dL AST (15-37) U/L ALT (14-59) U/L Alkaline Phosphatase (46-116) U/L C-Reactive Protein (<1.0) mg/dL NT-Pro-B Natriuret Pep (0-125) pg/mL Total Protein (6.4-8.2) g/dl Albumin (3.4-5.0) g/dl Globulin gm/dL Albumin/Globulin Ratio (1-2) Urine Color Lisa H (Yellow) Urine Appearance Slt cloudy H (Clear) Urine pH 7.0 (5.0-8.0) Ur Specific [place] 1.020 (1.005-1.030) Urine Protein 2+ H (Negative) Urine Glucose (UA) Trace H (Negative) Urine Ketones Trace H (Negative) Urine Occult Blood 2+ H (Negative) Urine Nitrite Negative (Negative) Urine Bilirubin 2+ H (Negative) Urine Urobilinogen 4.0 H (0.2-1.0) Ur Leukocyte Esterase Negative (Negative) U Hyaline Cast (Auto) 10-20 H (0-5) /lpf Urine RBC 30-40 H (0-5) /hpf Urine WBC 0-5 (0-5) /hpf Ur Squamous Epith Cells 5-10 H (0-5) /hpf Urine Bacteria Moderate H (FEW) /hpf Urine Mucus Moderate H (FEW) /hpf Salicylates (2.8-20) mg/dL Urine Opiates Screen (GDZINQ=393) Ur Buprenorphine Scrn (CUTOFF=10) Ur Oxycodone Screen (QSB5SG=715) Urine Methadone Screen (GPXYFN=378) Ur Propoxyphene Screen (THKRKX=291) Acetaminophen (10-30) ug/mL Ur Barbiturates Screen (HVCYNL=097) Ur Tricyclics Screen (AUZIFY=114) Ur Phencyclidine Scrn (CUTOFF=25) Ur Amphetamine Screen (GXDGXE=391) U Methamphetamines Scrn (ZANGKY=426) U Benzodiazepines Scrn (BACHFN=563) U Cocaine Metab Screen (TYIJNZ=353) U Marijuana (THC) Screen (CUTOFF=50) Ethyl Alcohol (0.00) gm% SARS-CoV-2 RNA (ALEXIA) (NEGATIVE) Result Diagrams: 10/30/19 05:58 10/30/19 05:58 EKG INTERPRETATION EKG Date: 10/29/19 Rhythm: Other [place]: Normal P-Wave: Present QRS: Normal ST-T: Other QT: Normal Comparison: NA - No Prior EKG Sepsis Event Note - Evaluation Sepsis Screening Result: Severe Sepsis Risk Current Stage of Sepsis: Septic Shock Possible Source of Sepsis: Pulmonary - Focused Exam Sepsis Event Note Statement: Focused Sepsis Exam Completed Vital Signs: Vital Signs Temp Pulse Pulse Resp BP BP Pulse Ox 10/29/19 18:30 31 H 117/81 94 L 10/29/19 18:17 97.8 F 113 H 34 H 122/69 94 L 10/29/19 18:15 33 H 145/97 H 10/29/19 18:00 31 H 152/116 H 10/29/19 17:45 27 H 141/79 H 10/29/19 17:30 29 H 142/93 H 92 L 10/29/19 17:15 32 H 118/85 92 L 10/29/19 16:45 33 H 132/118 H 10/29/19 16:30 30 H 123/83 93 L 10/29/19 16:15 33 H 136/99 H 91 L 10/29/19 16:00 32 H 110/77 91 L 10/29/19 15:45 32 H 98/64 92 L 10/29/19 15:30 30 H 102/63 10/29/19 15:15 33 H 75/28 L 91 L 10/29/19 14:45 35 H 66/43 L 92 L 10/29/19 14:30 35 H 64/38 L 92 L 10/29/19 14:00 32 H 56/47 L 93 L 10/29/19 13:45 131 H 24 H 78/44 L 93 L 10/29/19 13:39 10/29/19 13:29 135 H 28 H 100/84 92 L Pulse Ox 10/29/19 18:30 10/29/19 18:17 10/29/19 18:15 10/29/19 18:00 10/29/19 17:45 10/29/19 17:30 10/29/19 17:15 10/29/19 16:45 10/29/19 16:30 10/29/19 16:15 10/29/19 16:00 10/29/19 15:45 10/29/19 15:30 10/29/19 15:15 10/29/19 14:45 10/29/19 14:30 10/29/19 14:00 10/29/19 13:45 10/29/19 13:39 88 L 10/29/19 13:29 Respiratory Effort Without Exertion: Dyspneic, Hyperpnea, Labored Heart Sounds: Distant Capillary Refill, Detail: Greater than (>) 2 Seconds Pulse Description: 1+ [place] Peripheral Pulse Location: Posterior Tibial Skin Exam (Focused Sepsis): Normal Turgor, Unremarkable Date Exam was Performed: 10/29/19 Time Exam was Performed: 19:30 - Bedside Monitoring Fluid Bolus Goal: 3 L fluid bolus was given in the emergency department. Patient was started on 150 mL of normal saline in the ICU. Repeat lactic acid. Passive Leg Raise/Fluid Bolus: Not Performed Date Bedside Monitoring was Performed: 10/30/19 Time Bedside Monitoring was Performed: 13:04 - Problem List (1) Septic shock SNOMED Code(s): 42930166 ICD Code: A41.9 - SEPSIS, UNSPECIFIED ORGANISM; R65.21 - SEVERE SEPSIS WITH SEPTIC SHOCK Status: Acute Current Visit: Yes (2) Benign microscopic hematuria SNOMED Code(s): 453252143180216 ICD Code: R31.1 - BENIGN ESSENTIAL MICROSCOPIC HEMATURIA Status: Acute Current Visit: Yes (3) COPD (chronic obstructive pulmonary disease) SNOMED Code(s): 82812990 ICD Code: J44.9 - CHRONIC OBSTRUCTIVE PULMONARY DISEASE, UNSPECIFIED Status: Acute Current Visit: Yes (4) Pneumonia SNOMED Code(s): 981145283 ICD Code: J18.9 - PNEUMONIA, UNSPECIFIED ORGANISM Status: Acute Current Visit: Yes Qualifiers: Pneumonia type: due to unspecified organism (5) Schizophrenia SNOMED Code(s): 70018183 ICD Code: F20.9 - SCHIZOPHRENIA, UNSPECIFIED Status: Acute Current Visit: Yes Qualifiers: Schizophrenia type: unspecified Qualified Code(s): F20.9 - Schizophrenia, unspecified (6) Sepsis SNOMED Code(s): 89824531 ICD Code: A41.9 - SEPSIS, UNSPECIFIED ORGANISM Status: Acute Current Visit: Yes Qualifiers: Sepsis type: sepsis due to unspecified organism Sepsis acute organ dysfunction status: unspecified Qualified Code(s): A41.9 - Sepsis, unspecified organism (7) Abdominal pain SNOMED Code(s): 29261389 ICD Code: R10.9 - UNSPECIFIED ABDOMINAL PAIN Status: Acute Current Visit: Yes Problem List Initiated/Reviewed/Updated: Yes Orders Last 24hrs: Active Orders 24 hr Category Date Time Status Admission Status [Patient Status] [ADT] Routine ADT 10/29/19 18:06 Active EKG 12 Lead [EKG Documentation Completion] [RC] STAT Care 10/29/19 13:54 Active Insert [place] Catheter [Insert Urinary Catheter] [OM.PC] Care 10/29/19 15:00 Ordered Q24H Intake and Output Strict [RC] ASDIRECTED Care 10/29/19 19:23 Ordered Oxygen Therapy [RC] PRN Care 10/29/19 19:13 Ordered Peripheral IV Care [RC] . DIRECTED Care 10/29/19 13:45 Active RT Aerosol Therapy [RC] ASDIRECTED Care 10/29/19 19:19 Ordered Up With Assistance [RC] ASDIRECTED Care 10/29/19 19:13 Ordered Urinary Catheter Assessment [RC] ASDIRECTED Care 10/29/19 14:51 Active VTE/DVT Education [RC] PER UNIT ROUTINE Care 10/29/19 19:13 Ordered Vital Signs [RC] ASDIRECTED Care 10/29/19 19:13 Ordered OT Evaluation and Treatment [CONS] Routine Cons 10/29/19 19:24 Ordered PT Evaluation and Treatment [CONS] Routine Cons 10/29/19 19:24 Ordered Heart Healthy Diet [DIET] Diet 10/30/19 Breakfast Ordered BLOOD GAS ARTERIAL [BG] Routine Lab 10/29/19 19:17 Ordered C-REACTIVE PROTEIN [CHEM] AM Lab 10/30/19 05:11 Ordered C-REACTIVE PROTEIN [CHEM] AM Lab 10/31/19 05:11 Ordered C-REACTIVE PROTEIN [CHEM] AM Lab 11/01/19 05:11 Ordered C-REACTIVE PROTEIN [CHEM] AM Lab 11/02/19 05:11 Ordered CBC WITH AUTO DIFF [HEME] AM Lab 10/30/19 05:11 Ordered CBC WITH AUTO DIFF [HEME] AM Lab 10/31/19 05:11 Ordered CBC WITH AUTO DIFF [HEME] AM Lab 11/01/19 05:11 Ordered CBC WITH AUTO DIFF [HEME] AM Lab 11/02/19 05:11 Ordered COMPREHENSIVE METABOLIC PN,CMP [CHEM] AM Lab 10/30/19 05:11 Ordered COMPREHENSIVE METABOLIC PN,CMP [CHEM] AM Lab 10/31/19 05:11 Ordered COMPREHENSIVE METABOLIC PN,CMP [CHEM] AM Lab 11/01/19 05:11 Ordered COMPREHENSIVE METABOLIC PN,CMP [CHEM] AM Lab 11/02/19 05:11 Ordered CULTURE BLOOD [BC] Stat Lab 10/29/19 14:53 Received CULTURE BLOOD [BC] Stat Lab 10/29/19 15:05 Received CULTURE SPUTUM + SMEAR [RM] Routine Lab 10/29/19 19:17 Ordered GLYCOSYLATED HEMOGLOBIN,HGBA1C [CHEM] AM Lab 10/30/19 05:11 Ordered LACTATE SEPSIS W/ REFLEX [CHEM] Routine Lab 10/29/19 20:00 Ordered LEGIONELLA ANTIGEN [MREF] Routine Lab 10/29/19 19:23 Ordered MAGNESIUM [CHEM] AM Lab 10/30/19 05:11 Ordered MAGNESIUM [CHEM] AM Lab 10/31/19 05:11 Ordered MAGNESIUM [CHEM] AM Lab 11/01/19 05:11 Ordered MAGNESIUM [CHEM] AM Lab 11/02/19 05:11 Ordered PHOSPHORUS [CHEM] AM Lab 10/30/19 05:11 Ordered PHOSPHORUS [CHEM] AM Lab 10/31/19 05:11 Ordered PHOSPHORUS [CHEM] AM Lab 11/01/19 05:11 Ordered PHOSPHORUS [CHEM] AM Lab 11/02/19 05:11 Ordered PROCALCITONIN [REF] Routine Lab 10/29/19 19:24 Ordered REFLEX LACTIC ACID YES OR NO [CHEM] Routine Lab 10/29/19 17:35 Received STREP PNEUMONIAE ANTIGEN [MREF] Routine Lab 10/29/19 19:23 Ordered TSH [CHEM] AM Lab 10/30/19 05:11 Ordered UA W/MICROSCOPIC [URIN] Routine Lab 10/30/19 08:00 Ordered Acetaminophen [TylenoL] Med 10/29/19 19:13 Ordered 650 mg PO Q4H PRN Albuterol [Proventil Neb Soln] Med 10/29/19 19:13 Ordered 2.5 mg NEB Q2H PRN Albuterol/Ipratropium [DuoNeb 3.0-0.5 MG/3 ML] Med 10/29/19 19:13 Ordered 3 ml NEB Q4H PRN Azithromycin [Zithromax] 500 mg Med 10/29/19 19:30 Ordered Sodium Chloride 0.9% [Normal Saline (AdvBag)] 250 ml IV Q24H Enoxaparin [Lovenox] Med 10/29/19 19:15 Ordered 40 mg SUBCUT Q12H Ondansetron [Zofran] Med 10/29/19 19:13 Ordered 4 mg IV Q4H PRN Sodium Chloride 0.9% [Normal Saline] 1,000 ml Med 10/29/19 19:15 Ordered IV ASDIRECTED Sodium Chloride 0.9% [Normal Saline] 1,000 ml Med 10/29/19 13:45 Active IV ONETIME Sodium Chloride 0.9% [Saline Flush] Med 10/29/19 13:44 Active 10 ml FLUSH ASDIRECTED PRN cefTRIAXone [Rocephin] 2 gm Med 10/30/19 16:00 Ordered Sodium Chloride 0.9% [Normal Saline] 100 ml IV Q24H Peripheral IV Insertion Adult [OM.PC] Stat Oth 10/29/19 13:44 Ordered Resuscitation Status Routine Resus Stat 10/29/19 19:13 Ordered Medication Orders Acetaminophen (Tylenol) 650 mg PO Q4H PRN PRN Reason: Pain (Mild 1-3)/fever Albuterol (Proventil Neb Soln) 2.5 mg NEB Q2H PRN PRN Reason: Shortness Of Breath/wheezing Albuterol/Ipratropium (Duoneb 3.0-0.5 Mg/3 Ml) 3 ml NEB Q4H PRN PRN Reason: Shortness Of Breath/wheezing Enoxaparin Sodium (Lovenox) 40 mg SUBCUT Q12H [facility] Sodium Chloride (Normal Saline) 1,000 mls @ 999 mls/hr IV ONETIME KENNETH Last Admin: 10/29/19 14:01 Dose: 999 mls/hr Documented by: JEFF Sodium Chloride (Normal Saline) 1,000 mls @ 150 mls/hr IV ASDIRECTED KENNETH Azithromycin 500 mg/ Sodium (Chloride) 250 mls @ 250 mls/hr IV Q24H [facility] Stop: 11/01/19 19:31 Ceftriaxone Sodium 2 gm/ (Sodium Chloride) 100 mls @ 200 mls/hr IV Q24H [facility] Ondansetron HCl (Zofran) 4 mg IV Q4H PRN PRN Reason: Nausea/Vomiting Sodium Chloride (Saline Flush) 10 ml FLUSH ASDIRECTED PRN PRN Reason: Keep Vein Open Last Admin: 10/29/19 14:01 Dose: 10 ml Documented by: JEFF Assessment/Plan Comment:: Assessment Septic shock likely secondary to bilateral pneumonia History of COPD/asthma Altered mental status * Patient found on floor in the bathroom after possibly having a seizure. * Hypotensive, tachycardic, tachypneic and hypoxic on arrival to emergency department. * Patient received 3 L IV bolus in emergency department. * Initial lactic acid 4.0 increasing to 5.3 after fluid bolus. * Initial WBC 22,000, 76% neutrophils, no bandemia, C-reactive protein 1.6 * Altered mental status, patient is very lethargic. * Patient is in critical condition and currently has a poor outcome predicted. High risk of mortality. Plan * Patient will be made to the ICU for critical care. * Continue aggressive IV rehydration with normal saline at 150 mL/h. * Repeat lactic acid every 3 hours until 2.0 or below. * Continue Rocephin 2 g IV every 24 hours. * Start azithromycin 500 mg IV every 24 hours x3 days * Follow blood cultures. * Get sputum Gram stain and cultures. * Legionella and strep urinary antigens. * Procalcitonin. * Repeat UA in the morning. * PT and OT evaluation when stable. * RT to eval and treat. Incentive spirometry and Acapella when able to comply. * Consider BiPAP if not improving. * ABG * Strict I's and O's. * Repeat CBC, CMP, C-reactive protein, magnesium, and phosphorus in the morning. Abdominal pain Microscopic hematuria, benign * Patient's initial complaint when calling EMS was abdominal pain and constipation. * Patient does exhibit tenderness to palpation throughout the abdomen. * Bowel sounds difficult to appreciate secondary to upper airway noise. Plan * Monitor abdominal tenderness overnight. * If pain and tenderness seems to worsen will consider CT scan in the morning. * Monitor urine output closely. * Repeat UA in the morning. * Regular diet as tolerated. History of schizophrenia * Unknown last time she took her medications. Plan * Reconcile home meds and if able to take oral medication tonight. * Follow closely. VTE prophylaxis: Enoxaparin 40 mg subcu twice daily CODE STATUS: DNI - wants CPR. Patient was confused at time of CODE STATUS. Will clarify with boyfriend if she is ever discussed CODE STATUS with him in the past. Disposition: Admit to ICU in critical condition. Length of stay will likely be greater than 96 hours. - Mortality Measure Prognosis:: Poor
[2019-10-29] MEDS ORDERED: Azithromycin 500 MG in Sodium Chloride 0.9% 250 ML IV SCH (20:00)
[2019-10-29] MEDS ORDERED: Albuterol 6.7 GM Inhaler INH PRN (20:05)
[2019-10-29] MEDS: Sodium Chloride 0.9% 1,000 ML IV SCH (20:12)
[2019-10-29] MEDS: Enoxaparin 40 MG/0.4 ML Syringe SUBCUT SCH (20:24)
[2019-10-29] MEDS: hydrOXYzine HCl 25 MG Tab PO SCH (20:40)
[2019-10-29] MEDS: Benztropine 1 MG Tab PO SCH (20:40)
[2019-10-29] MEDS: risperiDONE 1 MG Tab PO SCH (20:45)
[2019-10-29] MEDS: Budesonide 0.5 MG/2 ML Neb Susp NEB SCH (21:16)
[2019-10-30] MEDS: Sodium Chloride 0.9% 1,000 ML IV SCH (02:47)
[2019-10-30] MEDS: Budesonide 0.5 MG/2 ML Neb Susp NEB SCH ×2 (05:58→18:09)
[2019-10-30 07:06] LABS: HEMOGLOBIN A1C 6.1 % (4.50-6.20)
[2019-10-30] MEDS ORDERED: LORazepam 2 MG/ML SDV IVPUSH PRN (07:48)
[2019-10-30] MEDS: Lurasidone Hcl [Latuda] 80 MG PO SCH ×2 (07:49→20:26)
[2019-10-30] MEDS ORDERED: Iopamidol 612 MG/ML 50 ML SDV IVPUSH ONE (07:52)
[2019-10-30] MEDS ORDERED: Iopamidol 612 MG/ML 100 ML Bottle IVPUSH ONE (07:52)
[2019-10-30] MEDS ORDERED: Sodium Chloride 0.9% 10 ML Syringe FLUSH PRN (07:52)
[2019-10-30] MEDS ORDERED: LORazepam 2 MG/ML SDV ONE (08:14)
[2019-10-30] MEDS: Enoxaparin 40 MG/0.4 ML Syringe SUBCUT SCH ×2 (08:46→20:08)
[2019-10-30] MEDS ORDERED: Glycopyrrolate 15.6 MCG Cap.W.Dev Kit of 6 IH SCH (09:00)
--- NOTE | 2019-10-30 09:06 | CT ---
CT abdomen and pelvis Technique: Multiple axial sections were obtained from above the dome of the diaphragm inferiorly through the pubic symphysis. Intravenous contrast was utilized. No oral contrast has been given. Delayed images were also obtained. Findings: Visualized lung bases shows mild right basilar atelectasis. Liver contains no focal parenchymal abnormality. Spleen appears within normal limits. Left adrenal gland appears nodular in appearance which is most likely benign if patient has no primary carcinoma. Right adrenal gland appears within normal limits. Pancreas appears within normal limits. Gallbladder contains no calcified gallstones. Kidneys show symmetric contrast enhancement. Several scattered low-density lesions are noted within the left kidney which are most likely due to small cysts. Contrast noted within both nondilated ureters on delayed images as well as contrast seen within the bladder. Noguera catheter is noted within the bladder. Inflammatory changes is seen around the descending colon and sigmoid colon. Diffuse bowel wall thickening is seen. These findings are suspicious for localized colitis. Increased stool is noted within portions of the rectosigmoid region. Minimal amount of fluid within the abdomen is seen involving the pelvis and right sided abdomen. Appendix not definitely visualized. Bone window settings were reviewed which show scattered degenerative change within the spine. No acute osseous finding is appreciated. Impression: 1. Findings as described above suspicious for colitis within portions of the descending and sigmoid colon. Fluid is seen within the pelvis and right abdomen most likely reactive from the colonic process. 2. Increased stool within the rectosigmoid region. 3. Nodularity within the left adrenal gland most likely benign if patient has no primary carcinoma. 4. Other findings believed to be nonacute as noted above. Diagnostic code #3 This report was dictated in MDT
[2019-10-30] MEDS: risperiDONE 1 MG Tab PO SCH (09:56)
[2019-10-30] MEDS: Aspirin 81 MG Tab.Chew PO SCH (09:56)
[2019-10-30] MEDS: Benztropine 1 MG Tab PO SCH ×2 (09:56→20:26)
[2019-10-30] MEDS: PARoxetine 20 MG Tab PO SCH (09:56)
[2019-10-30] MEDS: hydrOXYzine HCl 25 MG Tab PO SCH ×2 (09:56→20:25)
[2019-10-30] MEDS ORDERED: Furosemide 20 MG/2 ML VIAL IVPUSH ONE ×2 (10:36→12:09)
[2019-10-30] MEDS ORDERED: Sodium Chloride 0.9% 1,000 ML IV SCH (10:45)
[2019-10-30] MEDS: Nicotine 21 MG/24 Hr Patch TRDERM SCH (10:53)
[2019-10-30] MEDS ORDERED: LORazepam 2 MG/ML SDV IVPUSH ONE (11:51)
[2019-10-30] MEDS ORDERED: Albuterol/Ipratropium 3.0-0.5 MG/3 ML Neb Soln ONE (12:20)
[2019-10-30] MEDS: Albuterol/Ipratropium 3.0-0.5 MG/3 ML Neb Soln NEB SCH ×4 (12:28→21:20)
--- NOTE | 2019-10-30 13:15 | PCM.PN ---
- General Info Date of Service: 10/30/19 Admission Dx/Problem (Free Text): Admission Diagnosis/Problem Admission Diagnosis/Problem Pneumonia Subjective Update: Patient continues to have significant tachypnea, tachycardia, and altered mental status. She is afebrile. Blood pressure has been stable. This morning was noted that she continued to have abdominal pain, therefore CT scan of the abdomen was performed with contrast. Findings suspicious for colitis within portions of the descending and sigmoid colon. Fluid is seen within the pelvis and right abdomen most likely reactive from the colonic process. Increased stool within the rectosigmoid region. Nodularity with in the left adrenal gland most likely benign if patient has no primary carcinoma. Patient was very raspy early on and was felt that she had fluid overload. Lasix a total of 40 mg were given IV. RT did deep suctioning, DuoNeb every 4 hours, and we placed her on BiPAP. Patient did have improvement in her work of breathing but she did not have a significant improvement in her tachypnea. CT of the head was performed which showed no acute process. I spoke with her Sister Rosalva Miller about her CODE STATUS. I was concerned that Rosita did not understand the implications of a DO NOT INTUBATE when I discussed with her on the night of admission. Rosalva agreed to that her sister would want to be intubated if it was in anticipation of a reversible process. Therefore, I will change her back to full code with intubation if necessary. Functional Status: Denies: Pain Controlled - Review of Systems General: Reports: Weakness. Denies: Fever Neurological: Reports: Confusion - Patient Data Vitals - Most Recent: Last Vital Signs Temp 97.5 F 10/30/19 11:56 Pulse 113 H 10/29/19 18:17 Resp 52 H 10/30/19 11:56 BP 107/79 10/30/19 11:56 Pulse Ox 91 L 10/30/19 12:46 Weight - Most Recent: 113.716 kg I&O - Last 24 Hours: Intake & Output 10/29/19 10/30/19 10/30/19 22:59 06:59 14:59 Intake Total 250 4315 Output Total 1150 600 550 Balance -900 3715 -550 Lab Results Last 24 Hours: Laboratory Results - last 24 hr 10/29/19 10/29/19 10/29/19 Range/Units 13:45 13:45 13:45 WBC 21.90 H (3.98-10.04) K/mm3 RBC 5.97 H (3.98-5.22) M/mm3 Hgb 17.0 H D (11.2-15.7) gm/dl Hct 51.1 H (34.1-44.9) % MCV 85.6 (79.4-94.8) fl MCH 28.5 (25.6-32.2) pg MCHC 33.3 (32.2-35.5) g/dl RDW Std Deviation 44.6 (36.4-46.3) fL Plt Count 532 H D (182-369) K/mm3 MPV 9.1 L (9.4-12.3) fl Neut % (Auto) 75.9 H (34.0-71.1) % Lymph % (Auto) 20.7 (19.3-51.7) % Dickens % (Auto) 2.1 L (4.7-12.5) % Eos % (Auto) 0.6 L (0.7-5.8) Baso % (Auto) 0.2 (0.1-1.2) % Neut # (Auto) 16.63 H (1.56-6.13) K/mm3 Lymph # (Auto) 4.53 H (1.18-3.74) K/mm3 Dickens # (Auto) 0.45 H (0.24-0.36) K/mm3 Eos # (Auto) 0.13 (0.04-0.36) K/mm3 Baso # (Auto) 0.05 (0.01-0.08) K/mm3 Manual Slide Review Abnormal smear PT (9.7-11.7) SECONDS INR Puncture Site ABG pH (7.35-7.45) ABG pCO2 (35.0-45.0) mmHg ABG pO2 (80.0-100.0) mmHg ABG HCO3 (22.0-26.0) meq/L ABG O2 Saturation (96.0-97.0) % ABG Base Excess (-2-2.0) VBG pH (7.30-7.40) VBG pCO2 (41-51) mmHg VBG pO2 (40-80) mmHG VBG HCO3 (22-26) meq/L VBG O2 Saturation VBG Base Excess (-4.0-2.0) A-a Gradient mmHg O2 Delivery Device Oxygen Flow Rate FiO2 (21.00-100.00) % Sodium 134 L (136-145) mEq/L Potassium 4.5 (3.5-5.1) mEq/L Chloride 98 (98-107) mEq/L Carbon Dioxide 21 (21-32) mEq/L Anion Gap 19.5 H (5-15) BUN 14 (7-18) mg/dL Creatinine 1.4 H (0.55-1.02) mg/dL Est Cr Clr Drug Dosing TNP Estimated GFR (MDRD) 38 (>60) mL/min BUN/Creatinine Ratio 10.0 L (14-18) Glucose 281 H (74-106) mg/dL Hemoglobin A1c (4.50-6.20) % Lactic Acid 4.0 H* (0.4-2.0) mmol/L Calcium 9.4 (8.5-10.1) mg/dL Phosphorus (2.6-4.7) mg/dL Magnesium (1.8-2.4) mg/dl Total Bilirubin 1.0 (0.2-1.0) mg/dL AST 37 (15-37) U/L ALT 47 (14-59) U/L Alkaline Phosphatase 173 H (46-116) U/L Creatine Kinase (26-192) U/L C-Reactive Protein (<1.0) mg/dL NT-Pro-B Natriuret Pep (0-125) pg/mL Total Protein 7.3 (6.4-8.2) g/dl Albumin 3.3 L (3.4-5.0) g/dl Globulin 4.0 gm/dL Albumin/Globulin Ratio 0.8 L (1-2) TSH 3rd Generation (0.358-3.74) uIU/mL Urine Color (Yellow) Urine Appearance (Clear) Urine pH (5.0-8.0) Ur Specific [place] (1.005-1.030) Urine Protein (Negative) Urine Glucose (UA) (Negative) Urine Ketones (Negative) Urine Occult Blood (Negative) Urine Nitrite (Negative) Urine Bilirubin (Negative) Urine Urobilinogen (0.2-1.0) Ur Leukocyte Esterase (Negative) U Hyaline Cast (Auto) (0-5) /lpf Urine RBC (0-5) /hpf Urine WBC (0-5) /hpf Ur Epithelial Cells (0-5) /hpf Ur Squamous Epith Cells (0-5) /hpf Urine Bacteria (FEW) /hpf Urine Mucus (FEW) /hpf Salicylates (2.8-20) mg/dL Urine Opiates Screen (INOASF=542) Ur Buprenorphine Scrn (CUTOFF=10) Ur Oxycodone Screen (YZS7ZS=205) Urine Methadone Screen (HIQZUV=806) Ur Propoxyphene Screen (DQQXJN=212) Acetaminophen (10-30) ug/mL Ur Barbiturates Screen (EZMFCW=755) Ur Tricyclics Screen (TEFFSC=737) Ur Phencyclidine Scrn (CUTOFF=25) Ur Amphetamine Screen (XCVTYG=082) U Methamphetamines Scrn (DKCRBE=382) U Benzodiazepines Scrn (CAMUAJ=688) U Cocaine Metab Screen (BBEYPM=871) U Marijuana (THC) Screen (CUTOFF=50) Ethyl Alcohol 0.00 (0.00) gm% SARS-CoV-2 RNA (ALEXIA) (NEGATIVE) 10/29/19 10/29/19 10/29/19 Range/Units 13:45 13:45 13:45 WBC (3.98-10.04) K/mm3 RBC (3.98-5.22) M/mm3 Hgb (11.2-15.7) gm/dl Hct (34.1-44.9) % MCV (79.4-94.8) fl MCH (25.6-32.2) pg MCHC (32.2-35.5) g/dl RDW Std Deviation (36.4-46.3) fL Plt Count (182-369) K/mm3 MPV (9.4-12.3) fl Neut % (Auto) (34.0-71.1) % Lymph % (Auto) (19.3-51.7) % Dickens % (Auto) (4.7-12.5) % Eos % (Auto) (0.7-5.8) Baso % (Auto) (0.1-1.2) % Neut # (Auto) (1.56-6.13) K/mm3 Lymph # (Auto) (1.18-3.74) K/mm3 Dickens # (Auto) (0.24-0.36) K/mm3 Eos # (Auto) (0.04-0.36) K/mm3 Baso # (Auto) (0.01-0.08) K/mm3 Manual Slide Review PT (9.7-11.7) SECONDS INR Puncture Site ABG pH (7.35-7.45) ABG pCO2 (35.0-45.0) mmHg ABG pO2 (80.0-100.0) mmHg ABG HCO3 (22.0-26.0) meq/L ABG O2 Saturation (96.0-97.0) % ABG Base Excess (-2-2.0) VBG pH (7.30-7.40) VBG pCO2 (41-51) mmHg VBG pO2 (40-80) mmHG VBG HCO3 (22-26) meq/L VBG O2 Saturation VBG Base Excess (-4.0-2.0) A-a Gradient mmHg O2 Delivery Device Oxygen Flow Rate FiO2 (21.00-100.00) % Sodium (136-145) mEq/L Potassium (3.5-5.1) mEq/L Chloride (98-107) mEq/L Carbon Dioxide (21-32) mEq/L Anion Gap (5-15) BUN (7-18) mg/dL Creatinine (0.55-1.02) mg/dL Est Cr Clr Drug Dosing Estimated GFR (MDRD) (>60) mL/min BUN/Creatinine Ratio (14-18) Glucose (74-106) mg/dL Hemoglobin A1c (4.50-6.20) % Lactic Acid (0.4-2.0) mmol/L Calcium (8.5-10.1) mg/dL Phosphorus (2.6-4.7) mg/dL Magnesium (1.8-2.4) mg/dl Total Bilirubin (0.2-1.0) mg/dL AST (15-37) U/L ALT (14-59) U/L Alkaline Phosphatase (46-116) U/L Creatine Kinase (26-192) U/L C-Reactive Protein 1.6 H* (<1.0) mg/dL NT-Pro-B Natriuret Pep (0-125) pg/mL Total Protein (6.4-8.2) g/dl Albumin (3.4-5.0) g/dl Globulin gm/dL Albumin/Globulin Ratio (1-2) TSH 3rd Generation (0.358-3.74) uIU/mL Urine Color (Yellow) Urine Appearance (Clear) Urine pH (5.0-8.0) Ur Specific [place] (1.005-1.030) Urine Protein (Negative) Urine Glucose (UA) (Negative) Urine Ketones (Negative) Urine Occult Blood (Negative) Urine Nitrite (Negative) Urine Bilirubin (Negative) Urine Urobilinogen (0.2-1.0) Ur Leukocyte Esterase (Negative) U Hyaline Cast (Auto) (0-5) /lpf Urine RBC (0-5) /hpf Urine WBC (0-5) /hpf Ur Epithelial Cells (0-5) /hpf Ur Squamous Epith Cells (0-5) /hpf Urine Bacteria (FEW) /hpf Urine Mucus (FEW) /hpf Salicylates 8.6 (2.8-20) mg/dL Urine Opiates Screen (ZGDODD=651) Ur Buprenorphine Scrn (CUTOFF=10) Ur Oxycodone Screen (CQL8FP=365) Urine Methadone Screen (VQFWKC=447) Ur Propoxyphene Screen (DWYGBW=838) Acetaminophen 0 L (10-30) ug/mL Ur Barbiturates Screen (MVJGDU=634) Ur Tricyclics Screen (XTVIWG=893) Ur Phencyclidine Scrn (CUTOFF=25) Ur Amphetamine Screen (RZUZGW=798) U Methamphetamines Scrn (NFBILM=761) U Benzodiazepines Scrn (BQNAFU=804) U Cocaine Metab Screen (UPYIKC=991) U Marijuana (THC) Screen (CUTOFF=50) Ethyl Alcohol (0.00) gm% SARS-CoV-2 RNA (ALEXIA) (NEGATIVE) 10/29/19 10/29/19 10/29/19 Range/Units 13:45 13:45 15:11 WBC (3.98-10.04) K/mm3 RBC (3.98-5.22) M/mm3 Hgb (11.2-15.7) gm/dl Hct (34.1-44.9) % MCV (79.4-94.8) fl MCH (25.6-32.2) pg MCHC (32.2-35.5) g/dl RDW Std Deviation (36.4-46.3) fL Plt Count (182-369) K/mm3 MPV (9.4-12.3) fl Neut % (Auto) (34.0-71.1) % Lymph % (Auto) (19.3-51.7) % Dickens % (Auto) (4.7-12.5) % Eos % (Auto) (0.7-5.8) Baso % (Auto) (0.1-1.2) % Neut # (Auto) (1.56-6.13) K/mm3 Lymph # (Auto) (1.18-3.74) K/mm3 Dickens # (Auto) (0.24-0.36) K/mm3 Eos # (Auto) (0.04-0.36) K/mm3 Baso # (Auto) (0.01-0.08) K/mm3 Manual Slide Review PT (9.7-11.7) SECONDS INR Puncture Site ABG pH (7.35-7.45) ABG pCO2 (35.0-45.0) mmHg ABG pO2 (80.0-100.0) mmHg ABG HCO3 (22.0-26.0) meq/L ABG O2 Saturation (96.0-97.0) % ABG Base Excess (-2-2.0) VBG pH (7.30-7.40) VBG pCO2 (41-51) mmHg VBG pO2 (40-80) mmHG VBG HCO3 (22-26) meq/L VBG O2 Saturation VBG Base Excess (-4.0-2.0) A-a Gradient mmHg O2 Delivery Device Oxygen Flow Rate FiO2 (21.00-100.00) % Sodium (136-145) mEq/L Potassium (3.5-5.1) mEq/L Chloride (98-107) mEq/L Carbon Dioxide (21-32) mEq/L Anion Gap (5-15) BUN (7-18) mg/dL Creatinine (0.55-1.02) mg/dL Est Cr Clr Drug Dosing Estimated GFR (MDRD) (>60) mL/min BUN/Creatinine Ratio (14-18) Glucose (74-106) mg/dL Hemoglobin A1c (4.50-6.20) % Lactic Acid (0.4-2.0) mmol/L Calcium (8.5-10.1) mg/dL Phosphorus (2.6-4.7) mg/dL Magnesium (1.8-2.4) mg/dl Total Bilirubin (0.2-1.0) mg/dL AST (15-37) U/L ALT (14-59) U/L Alkaline Phosphatase (46-116) U/L Creatine Kinase 126 (26-192) U/L C-Reactive Protein (<1.0) mg/dL NT-Pro-B Natriuret Pep 122 (0-125) pg/mL Total Protein (6.4-8.2) g/dl Albumin (3.4-5.0) g/dl Globulin gm/dL Albumin/Globulin Ratio (1-2) TSH 3rd Generation (0.358-3.74) uIU/mL Urine Color (Yellow) Urine Appearance (Clear) Urine pH (5.0-8.0) Ur Specific [place] (1.005-1.030) Urine Protein (Negative) Urine Glucose (UA) (Negative) Urine Ketones (Negative) Urine Occult Blood (Negative) Urine Nitrite (Negative) Urine Bilirubin (Negative) Urine Urobilinogen (0.2-1.0) Ur Leukocyte Esterase (Negative) U Hyaline Cast (Auto) (0-5) /lpf Urine RBC (0-5) /hpf Urine WBC (0-5) /hpf Ur Epithelial Cells (0-5) /hpf Ur Squamous Epith Cells (0-5) /hpf Urine Bacteria (FEW) /hpf Urine Mucus (FEW) /hpf Salicylates (2.8-20) mg/dL Urine Opiates Screen (NZGTDC=604) Ur Buprenorphine Scrn (CUTOFF=10) Ur Oxycodone Screen (DQW1PZ=473) Urine Methadone Screen (LDLNNR=818) Ur Propoxyphene Screen (WGNPGI=656) Acetaminophen (10-30) ug/mL Ur Barbiturates Screen (LOKUHW=023) Ur Tricyclics Screen (MHVWZA=351) Ur Phencyclidine Scrn (CUTOFF=25) Ur Amphetamine Screen (PWRFID=602) U Methamphetamines Scrn (SKBWKT=211) U Benzodiazepines Scrn (QBYMVV=884) U Cocaine Metab Screen (JFLGUP=521) U Marijuana (THC) Screen (CUTOFF=50) Ethyl Alcohol (0.00) gm% SARS-CoV-2 RNA (ALEXIA) Negative (NEGATIVE) 10/29/19 10/29/1910/28/20 Range/Units 16:00 16:00 17:00 WBC (3.98-10.04) K/mm3 RBC (3.98-5.22) M/mm3 Hgb (11.2-15.7) gm/dl Hct (34.1-44.9) % MCV (79.4-94.8) fl MCH (25.6-32.2) pg MCHC (32.2-35.5) g/dl RDW Std Deviation (36.4-46.3) fL Plt Count (182-369) K/mm3 MPV (9.4-12.3) fl Neut % (Auto) (34.0-71.1) % Lymph % (Auto) (19.3-51.7) % Dickens % (Auto) (4.7-12.5) % Eos % (Auto) (0.7-5.8) Baso % (Auto) (0.1-1.2) % Neut # (Auto) (1.56-6.13) K/mm3 Lymph # (Auto) (1.18-3.74) K/mm3 Dick[place] # (Auto) (0.24-0.36) K/mm3 Eos # (Auto) (0.04-0.36) K/mm3 Baso # (Auto) (0.01-0.08) K/mm3 Manual Slide Review PT 12.1 H (9.7-11.7) SECONDS INR 1.13 Puncture Site ABG pH (7.35-7.45) ABG pCO2 (35.0-45.0) mmHg ABG pO2 (80.0-100.0) mmHg ABG HCO3 (22.0-26.0) meq/L ABG O2 Saturation (96.0-97.0) % ABG Base Excess (-2-2.0) VBG pH (7.30-7.40) VBG pCO2 (41-51) mmHg VBG pO2 (40-80) mmHG VBG HCO3 (22-26) meq/L VBG O2 Saturation VBG Base Excess (-4.0-2.0) A-a Gradient mmHg O2 Delivery Device Oxygen Flow Rate FiO2 (21.00-100.00) % Sodium (136-145) mEq/L Potassium (3.5-5.1) mEq/L Chloride (98-107) mEq/L Carbon Dioxide (21-32) mEq/L Anion Gap (5-15) BUN (7-18) mg/dL Creatinine (0.55-1.02) mg/dL Est Cr Clr Drug Dosing Estimated GFR (MDRD) (>60) mL/min BUN/Creatinine Ratio (14-18) Glucose (74-106) mg/dL Hemoglobin A1c (4.50-6.20) % Lactic Acid (0.4-2.0) mmol/L Calcium (8.5-10.1) mg/dL Phosphorus (2.6-4.7) mg/dL Magnesium (1.8-2.4) mg/dl Total Bilirubin (0.2-1.0) mg/dL AST (15-37) U/L ALT (14-59) U/L Alkaline Phosphatase (46-116) U/L Creatine Kinase (26-192) U/L C-Reactive Protein (<1.0) mg/dL NT-Pro-B Natriuret Pep (0-125) pg/mL Total Protein (6.4-8.2) g/dl Albumin (3.4-5.0) g/dl Globulin gm/dL Albumin/Globulin Ratio (1-2) TSH 3rd Generation (0.358-3.74) uIU/mL Urine Color Lisa H (Yellow) Urine Appearance Slt cloudy H (Clear) Urine pH 7.0 (5.0-8.0) Ur Specific [place] 1.020 (1.005-1.030) Urine Protein 2+ H (Negative) Urine Glucose (UA) Trace H (Negative) Urine Ketones Trace H (Negative) Urine Occult Blood 2+ H (Negative) Urine Nitrite Negative (Negative) Urine Bilirubin 2+ H (Negative) Urine Urobilinogen 4.0 H (0.2-1.0) Ur Leukocyte Esterase Negative (Negative) U Hyaline Cast (Auto) 10-20 H (0-5) /lpf Urine RBC 30-40 H (0-5) /hpf Urine WBC 0-5 (0-5) /hpf Ur Epithelial Cells (0-5) /hpf Ur Squamous Epith Cells 5-10 H (0-5) /hpf Urine Bacteria Moderate H (FEW) /hpf Urine Mucus Moderate H (FEW) /hpf Salicylates (2.8-20) mg/dL Urine Opiates Screen Negative (CXIQUP=385) Ur Buprenorphine Scrn Negative (CUTOFF=10) Ur Oxycodone Screen Negative (WLT6TX=898) Urine Methadone Screen Negative (UNIFGS=873) Ur Propoxyphene Screen Negative (GPTXFH=632) Acetaminophen (10-30) ug/mL Ur Barbiturates Screen Negative (YNJHAW=075) Ur Tricyclics Screen Negative (KGVOYS=201) Ur Phencyclidine Scrn Negative (CUTOFF=25) Ur Amphetamine Screen Negative (INURAC=838) U Methamphetamines Scrn Negative (PJQDBQ=456) U Benzodiazepines Scrn Negative (NEMMYQ=226) U Cocaine Metab Screen Negative (FKGPOW=177) U Marijuana (THC) Screen Negative (CUTOFF=50) Ethyl Alcohol (0.00) gm% SARS-CoV-2 RNA (ALEXIA) (NEGATIVE) 10/29/19 10/29/19 10/29/19 Range/Units 17:00 19:45 22:50 WBC (3.98-10.04) K/mm3 RBC (3.98-5.22) M/mm3 Hgb (11.2-15.7) gm/dl Hct (34.1-44.9) % MCV (79.4-94.8) fl MCH (25.6-32.2) pg MCHC (32.2-35.5) g/dl RDW Std Deviation (36.4-46.3) fL Plt Count (182-369) K/mm3 MPV (9.4-12.3) fl Neut % (Auto) (34.0-71.1) % Lymph % (Auto) (19.3-51.7) % [place] % (Auto) (4.7-12.5) % Eos % (Auto) (0.7-5.8) Baso % (Auto) (0.1-1.2) % Neut # (Auto) (1.56-6.13) K/mm3 Lymph # (Auto) (1.18-3.74) K/mm3 [place] # (Auto) (0.24-0.36) K/mm3 Eos # (Auto) (0.04-0.36) K/mm3 Baso # (Auto) (0.01-0.08) K/mm3 Manual Slide Review PT (9.7-11.7) SECONDS INR Puncture Site ABG pH (7.35-7.45) ABG pCO2 (35.0-45.0) mmHg ABG pO2 (80.0-100.0) mmHg ABG HCO3 (22.0-26.0) meq/L ABG O2 Saturation (96.0-97.0) % ABG Base Excess (-2-2.0) VBG pH 7.36 (7.30-7.40) VBG pCO2 39.1 L (41-51) mmHg VBG pO2 47.0 (40-80) mmHG VBG HCO3 21.6 L (22-26) meq/L VBG O2 Saturation 78.0 VBG Base Excess -3.0 (-4.0-2.0) A-a Gradient mmHg O2 Delivery Device Nasal cannula Oxygen Flow Rate 3.0 FiO2 (21.00-100.00) % Sodium (136-145) mEq/L Potassium (3.5-5.1) mEq/L Chloride (98-107) mEq/L Carbon Dioxide (21-32) mEq/L Anion Gap (5-15) BUN (7-18) mg/dL Creatinine (0.55-1.02) mg/dL Est Cr Clr Drug Dosing Estimated GFR (MDRD) (>60) mL/min BUN/Creatinine Ratio (14-18) Glucose (74-106) mg/dL Hemoglobin A1c (4.50-6.20) % Lactic Acid 5.3 H* 3.3 H* (0.4-2.0) mmol/L Calcium (8.5-10.1) mg/dL Phosphorus (2.6-4.7) mg/dL Magnesium (1.8-2.4) mg/dl Total Bilirubin (0.2-1.0) mg/dL AST (15-37) U/L ALT (14-59) U/L Alkaline Phosphatase (46-116) U/L Creatine Kinase (26-192) U/L C-Reactive Protein (<1.0) mg/dL NT-Pro-B Natriuret Pep (0-125) pg/mL Total Protein (6.4-8.2) g/dl Albumin (3.4-5.0) g/dl Globulin gm/dL Albumin/Globulin Ratio (1-2) TSH 3rd Generation (0.358-3.74) uIU/mL Urine Color (Yellow) Urine Appearance (Clear) Urine pH (5.0-8.0) Ur Specific [place] (1.005-1.030) Urine Protein (Negative) Urine Glucose (UA) (Negative) Urine Ketones (Negative) Urine Occult Blood (Negative) Urine Nitrite (Negative) Urine Bilirubin (Negative) Urine Urobilinogen (0.2-1.0) Ur Leukocyte Esterase (Negative) U Hyaline Cast (Auto) (0-5) /lpf Urine RBC (0-5) /hpf Urine WBC (0-5) /hpf Ur Epithelial Cells (0-5) /hpf Ur Squamous Epith Cells (0-5) /hpf Urine Bacteria (FEW) /hpf Urine Mucus (FEW) /hpf Salicylates (2.8-20) mg/dL Urine Opiates Screen (XCDCUE=198) Ur Buprenorphine Scrn (CUTOFF=10) Ur Oxycodone Screen (RWX0YH=607) Urine Methadone Screen (NVLBIU=016) Ur Propoxyphene Screen (RGIMIH=792) Acetaminophen (10-30) ug/mL Ur Barbiturates Screen (WCGGWO=866) Ur Tricyclics Screen (YHOJRJ=215) Ur Phencyclidine Scrn (CUTOFF=25) Ur Amphetamine Screen (IQEIRD=770) U Methamphetamines Scrn (GTFCBA=511) U Benzodiazepines Scrn (FLPKKH=031) U Cocaine Metab Screen (KOVIQD=582) U Marijuana (THC) Screen (CUTOFF=50) Ethyl Alcohol (0.00) gm% SARS-CoV-2 RNA (ALEXIA) (NEGATIVE) 10/29/19 10/30/19 10/30/19 Range/Units 22:53 02:36 05:58 WBC 23.62 H (3.98-10.04) K/mm3 RBC 5.75 H (3.98-5.22) M/mm3 Hgb 16.3 H (11.2-15.7) gm/dl Hct 48.4 H (34.1-44.9) % MCV 84.2 (79.4-94.8) fl MCH 28.3 (25.6-32.2) pg MCHC 33.7 (32.2-35.5) g/dl RDW Std Deviation 43.8 (36.4-46.3) fL Plt Count 346 D (182-369) K/mm3 MPV 9.2 L (9.4-12.3) fl Neut % (Auto) 91.4 H (34.0-71.1) % Lymph % (Auto) 3.6 L (19.3-51.7) % Dick[place] % (Auto) 4.5 L (4.7-12.5) % Eos % (Auto) 0 L (0.7-5.8) Baso % (Auto) 0.1 (0.1-1.2) % Neut # (Auto) 21.60 H (1.56-6.13) K/mm3 Lymph # (Auto) 0.84 L (1.18-3.74) K/mm3 [place] # (Auto) 1.07 H (0.24-0.36) K/mm3 Eos # (Auto) 0.00 L (0.04-0.36) K/mm3 Baso # (Auto) 0.02 (0.01-0.08) K/mm3 Manual Slide Review Abnormal smear PT (9.7-11.7) SECONDS INR Puncture Site ABG pH (7.35-7.45) ABG pCO2 (35.0-45.0) mmHg ABG pO2 (80.0-100.0) mmHg ABG HCO3 (22.0-26.0) meq/L ABG O2 Saturation (96.0-97.0) % ABG Base Excess (-2-2.0) VBG pH (7.30-7.40) VBG pCO2 (41-51) mmHg VBG pO2 (40-80) mmHG VBG HCO3 (22-26) meq/L VBG O2 Saturation VBG Base Excess (-4.0-2.0) A-a Gradient mmHg O2 Delivery Device Oxygen Flow Rate FiO2 (21.00-100.00) % Sodium (136-145) mEq/L Potassium (3.5-5.1) mEq/L Chloride (98-107) mEq/L Carbon Dioxide (21-32) mEq/L Anion Gap (5-15) BUN (7-18) mg/dL Creatinine (0.55-1.02) mg/dL Est Cr Clr Drug Dosing Estimated GFR (MDRD) (>60) mL/min BUN/Creatinine Ratio (14-18) Glucose (74-106) mg/dL Hemoglobin A1c (4.50-6.20) % Lactic Acid 2.9 H* 2.3 H* (0.4-2.0) mmol/L Calcium (8.5-10.1) mg/dL Phosphorus (2.6-4.7) mg/dL Magnesium (1.8-2.4) mg/dl Total Bilirubin (0.2-1.0) mg/dL AST (15-37) U/L ALT (14-59) U/L Alkaline Phosphatase (46-116) U/L Creatine Kinase (26-192) U/L C-Reactive Protein (<1.0) mg/dL NT-Pro-B Natriuret Pep (0-125) pg/mL Total Protein (6.4-8.2) g/dl Albumin (3.4-5.0) g/dl Globulin gm/dL Albumin/Globulin Ratio (1-2) TSH 3rd Generation (0.358-3.74) uIU/mL Urine Color (Yellow) Urine Appearance (Clear) Urine pH (5.0-8.0) Ur Specific [place] (1.005-1.030) Urine Protein (Negative) Urine Glucose (UA) (Negative) Urine Ketones (Negative) Urine Occult Blood (Negative) Urine Nitrite (Negative) Urine Bilirubin (Negative) Urine Urobilinogen (0.2-1.0) Ur Leukocyte Esterase (Negative) U Hyaline Cast (Auto) (0-5) /lpf Urine RBC (0-5) /hpf Urine WBC (0-5) /hpf Ur Epithelial Cells (0-5) /hpf Ur Squamous Epith Cells (0-5) /hpf Urine Bacteria (FEW) /hpf Urine Mucus (FEW) /hpf Salicylates (2.8-20) mg/dL Urine Opiates Screen (DWEJQP=920) Ur Buprenorphine Scrn (CUTOFF=10) Ur Oxycodone Screen (NCH6VD=942) Urine Methadone Screen (WYZHLM=593) Ur Propoxyphene Screen (YWAPXM=479) Acetaminophen (10-30) ug/mL Ur Barbiturates Screen (YMGROK=535) Ur Tricyclics Screen (CZBHVD=700) Ur Phencyclidine Scrn (CUTOFF=25) Ur Amphetamine Screen (YJSVHL=601) U Methamphetamines Scrn (NSVCSX=103) U Benzodiazepines Scrn (TCTUED=013) U Cocaine Metab Screen (KXCLSP=158) U Marijuana (THC) Screen (CUTOFF=50) Ethyl Alcohol (0.00) gm% SARS-CoV-2 RNA (ALEXIA) (NEGATIVE) 10/30/19 10/30/19 10/30/19 Range/Units 05:58 05:58 05:58 WBC (3.98-10.04) K/mm3 RBC (3.98-5.22) M/mm3 Hgb (11.2-15.7) gm/dl Hct (34.1-44.9) % MCV (79.4-94.8) fl MCH (25.6-32.2) pg MCHC (32.2-35.5) g/dl RDW Std Deviation (36.4-46.3) fL Plt Count (182-369) K/mm3 MPV (9.4-12.3) fl Neut % (Auto) (34.0-71.1) % Lymph % (Auto) (19.3-51.7) % [place] % (Auto) (4.7-12.5) % Eos % (Auto) (0.7-5.8) Baso % (Auto) (0.1-1.2) % Neut # (Auto) (1.56-6.13) K/mm3 Lymph # (Auto) (1.18-3.74) K/mm3 [place] # (Auto) (0.24-0.36) K/mm3 Eos # (Auto) (0.04-0.36) K/mm3 Baso # (Auto) (0.01-0.08) K/mm3 Manual Slide Review PT (9.7-11.7) SECONDS INR Puncture Site ABG pH (7.35-7.45) ABG pCO2 (35.0-45.0) mmHg ABG pO2 (80.0-100.0) mmHg ABG HCO3 (22.0-26.0) meq/L ABG O2 Saturation (96.0-97.0) % ABG Base Excess (-2-2.0) VBG pH (7.30-7.40) VBG pCO2 (41-51) mmHg VBG pO2 (40-80) mmHG VBG HCO3 (22-26) meq/L VBG O2 Saturation VBG Base Excess (-4.0-2.0) A-a Gradient mmHg O2 Delivery Device Oxygen Flow Rate FiO2 (21.00-100.00) % Sodium 137 (136-145) mEq/L Potassium 4.3 (3.5-5.1) mEq/L Chloride 104 (98-107) mEq/L Carbon Dioxide 20 L (21-32) mEq/L Anion Gap 17.3 H (5-15) BUN 19 H (7-18) mg/dL Creatinine 1.2 H (0.55-1.02) mg/dL Est Cr Clr Drug Dosing 45.42 Estimated GFR (MDRD) 46 (>60) mL/min BUN/Creatinine Ratio 15.8 (14-18) Glucose 188 H (74-106) mg/dL Hemoglobin A1c 6.10 (4.50-6.20) % Lactic Acid 2.1 H* (0.4-2.0) mmol/L Calcium 8.0 L (8.5-10.1) mg/dL Phosphorus 2.7 (2.6-4.7) mg/dL Magnesium 1.9 (1.8-2.4) mg/dl Total Bilirubin 1.2 H (0.2-1.0) mg/dL AST 56 H (15-37) U/L ALT 41 (14-59) U/L Alkaline Phosphatase 121 H (46-116) U/L Creatine Kinase (26-192) U/L C-Reactive Protein 18.2 H* (<1.0) mg/dL NT-Pro-B Natriuret Pep (0-125) pg/mL Total Protein 5.9 L (6.4-8.2) g/dl Albumin 2.4 L (3.4-5.0) g/dl Globulin 3.5 gm/dL Albumin/Globulin Ratio 0.7 L (1-2) TSH 3rd Generation 0.866 (0.358-3.74) uIU/mL Urine Color (Yellow) Urine Appearance (Clear) Urine pH (5.0-8.0) Ur Specific [place] (1.005-1.030) Urine Protein (Negative) Urine Glucose (UA) (Negative) Urine Ketones (Negative) Urine Occult Blood (Negative) Urine Nitrite (Negative) Urine Bilirubin (Negative) Urine Urobilinogen (0.2-1.0) Ur Leukocyte Esterase (Negative) U Hyaline Cast (Auto) (0-5) /lpf Urine RBC (0-5) /hpf Urine WBC (0-5) /hpf Ur Epithelial Cells (0-5) /hpf Ur Squamous Epith Cells (0-5) /hpf Urine Bacteria (FEW) /hpf Urine Mucus (FEW) /hpf Salicylates (2.8-20) mg/dL Urine Opiates Screen (DUMXMK=906) Ur Buprenorphine Scrn (CUTOFF=10) Ur Oxycodone Screen (GBL9EG=117) Urine Methadone Screen (ZPLLPK=317) Ur Propoxyphene Screen (SASOXX=469) Acetaminophen (10-30) ug/mL Ur Barbiturates Screen (HARPAR=737) Ur Tricyclics Screen (ONKMZQ=987) Ur Phencyclidine Scrn (CUTOFF=25) Ur Amphetamine Screen (YQOSDK=695) U Methamphetamines Scrn (ADCGTJ=583) U Benzodiazepines Scrn (THEXNC=444) U Cocaine Metab Screen (GUGCWM=088) U Marijuana (THC) Screen (CUTOFF=50) Ethyl Alcohol (0.00) gm% SARS-CoV-2 RNA (ALEXIA) (NEGATIVE) 10/30/19 10/30/19 10/30/19 Range/Units 06:55 09:11 12:53 WBC (3.98-10.04) K/mm3 RBC (3.98-5.22) M/mm3 Hgb (11.2-15.7) gm/dl Hct (34.1-44.9) % MCV (79.4-94.8) fl MCH (25.6-32.2) pg MCHC (32.2-35.5) g/dl RDW Std Deviation (36.4-46.3) fL Plt Count (182-369) K/mm3 MPV (9.4-12.3) fl Neut % (Auto) (34.0-71.1) % Lymph % (Auto) (19.3-51.7) % [place] % (Auto) (4.7-12.5) % Eos % (Auto) (0.7-5.8) Baso % (Auto) (0.1-1.2) % Neut # (Auto) (1.56-6.13) K/mm3 Lymph # (Auto) (1.18-3.74) K/mm3 [place] # (Auto) (0.24-0.36) K/mm3 Eos # (Auto) (0.04-0.36) K/mm3 Baso # (Auto) (0.01-0.08) K/mm3 Manual Slide Review PT (9.7-11.7) SECONDS INR Puncture Site Rt radial ABG pH 7.39 (7.35-7.45) ABG pCO2 37.4 (35.0-45.0) mmHg ABG pO2 66.0 L (80.0-100.0) mmHg ABG HCO3 22.0 (22.0-26.0) meq/L ABG O2 Saturation 92.1 L (96.0-97.0) % ABG Base Excess -2.0 (-2-2.0) VBG pH (7.30-7.40) VBG pCO2 (41-51) mmHg VBG pO2 (40-80) mmHG VBG HCO3 (22-26) meq/L VBG O2 Saturation VBG Base Excess (-4.0-2.0) A-a Gradient 101 mmHg O2 Delivery Device Bipap 12/6 Oxygen Flow Rate FiO2 30.00 (21.00-100.00) % Sodium (136-145) mEq/L Potassium (3.5-5.1) mEq/L Chloride (98-107) mEq/L Carbon Dioxide (21-32) mEq/L Anion Gap (5-15) BUN (7-18) mg/dL Creatinine (0.55-1.02) mg/dL Est Cr Clr Drug Dosing Estimated GFR (MDRD) (>60) mL/min BUN/Creatinine Ratio (14-18) Glucose (74-106) mg/dL Hemoglobin A1c (4.50-6.20) % Lactic Acid 2.0 (0.4-2.0) mmol/L Calcium (8.5-10.1) mg/dL Phosphorus (2.6-4.7) mg/dL Magnesium (1.8-2.4) mg/dl Total Bilirubin (0.2-1.0) mg/dL AST (15-37) U/L ALT (14-59) U/L Alkaline Phosphatase (46-116) U/L Creatine Kinase (26-192) U/L C-Reactive Protein (<1.0) mg/dL NT-Pro-B Natriuret Pep (0-125) pg/mL Total Protein (6.4-8.2) g/dl Albumin (3.4-5.0) g/dl Globulin gm/dL Albumin/Globulin Ratio (1-2) TSH 3rd Generation (0.358-3.74) uIU/mL Urine Color Lisa H (Yellow) Urine Appearance Slt cloudy H (Clear) Urine pH 5.5 (5.0-8.0) Ur Specific [place] 1.025 (1.005-1.030) Urine Protein 1+ H (Negative) Urine Glucose (UA) Negative (Negative) Urine Ketones 1+ H (Negative) Urine Occult Blood Trace-intact H (Negative) Urine Nitrite Positive H (Negative) Urine Bilirubin 2+ H (Negative) Urine Urobilinogen >=8.0 H (0.2-1.0) Ur Leukocyte Esterase Negative (Negative) U Hyaline Cast (Auto) (0-5) /lpf Urine RBC 0-5 (0-5) /hpf Urine WBC 0-5 (0-5) /hpf Ur Epithelial Cells Not seen (0-5) /hpf Ur Squamous Epith Cells (0-5) /hpf Urine Bacteria Few (FEW) /hpf Urine Mucus Not seen (FEW) /hpf Salicylates (2.8-20) mg/dL Urine Opiates Screen (YHNVAR=029) Ur Buprenorphine Scrn (CUTOFF=10) Ur Oxycodone Screen (JYE4CS=679) Urine Methadone Screen (XIYTAN=968) Ur Propoxyphene Screen (SFJSNK=990) Acetaminophen (10-30) ug/mL Ur Barbiturates Screen (OWLIVN=128) Ur Tricyclics Screen (DIGBLH=758) Ur Phencyclidine Scrn (CUTOFF=25) Ur Amphetamine Screen (FLIXYQ=934) U Methamphetamines Scrn (HNQZZG=355) U Benzodiazepines Scrn (AJXIZX=502) U Cocaine Metab Screen (APDJJC=207) U Marijuana (THC) Screen (CUTOFF=50) Ethyl Alcohol (0.00) gm% SARS-CoV-2 RNA (ALEXIA) (NEGATIVE) Luis Miguel Results Last 24 Hours: Microbiology 10/29/19 14:53 Anaerobic Blood Culture - Final Blood Med Orders - Current: Current Medications Acetaminophen (Tylenol) 650 mg PO Q4H PRN PRN Reason: Pain (Mild 1-3)/fever Albuterol (Proventil Neb Soln) 2.5 mg NEB Q2H PRN PRN Reason: Shortness Of Breath/wheezing Albuterol (Proventil Hfa) 0 gm INH Q4H PRN PRN Reason: Shortness of Breath Albuterol/Ipratropium (Duoneb 3.0-0.5 Mg/3 Ml) 3 ml NEB Q4H PRN PRN Reason: Shortness Of Breath/wheezing Albuterol/Ipratropium (Duoneb 3.0-0.5 Mg/3 Ml) 3 ml NEB Q4HRRT [facility] Last Admin: 10/30/19 12:28 Dose: 3 ml Documented by: Aspirin (Aspirin) 81 mg PO DAILY [facility] Last Admin: 10/30/19 09:56 Dose: Not Given Documented by: Benztropine Mesylate (Cogentin) 1 mg PO BID [facility] Last Admin: 10/30/19 09:56 Dose: Not Given Documented by: Budesonide (Pulmicort) 0.5 mg NEB BIDRT [facility] Last Admin: 10/30/19 05:58 Dose: 0.5 mg Documented by: Enoxaparin Sodium (Lovenox) 40 mg SUBCUT Q12H [facility] Last Admin: 10/30/19 08:46 Dose: 40 mg Documented by: Glycopyrrolate (Seebri Neohaler) 15.6 mcg IH BID [facility] Last Admin: 10/30/19 09:12 Dose: Not Given Documented by: Hydroxyzine HCl (Atarax) 25 mg PO BID [facility] Last Admin: 10/30/19 09:56 Dose: Not Given Documented by: Ceftriaxone Sodium 2 gm/ (Sodium Chloride) 100 mls @ 200 mls/hr IV Q24H [facility] Azithromycin 500 mg/ Sodium (Chloride) 250 mls @ 250 mls/hr IV Q24H [facility] Stop: 10/31/19 20:59 Lorazepam (Ativan) 1 mg IVPUSH Q15M PRN PRN Reason: Other Last Admin: 10/30/19 08:47 Dose: 1 mg Documented by: Miscellaneous Information (Remove Patch) 1 ea TRDERM Q24H [facility] Nicotine (Habitrol) 21 mg TRDERM Q24H [facility] Last Admin: 10/30/19 10:53 Dose: 21 mg Documented by: Ondansetron HCl (Zofran) 4 mg IV Q4H PRN PRN Reason: Nausea/Vomiting Paroxetine HCl (Paxil) 30 mg PO DAILY [facility] Last Admin: 10/30/19 09:56 Dose: Not Given Documented by: Lurasidone Hcl [ (Latuda] 80 Mg) 0 each PO BEDTIME [facility] Last Admin: 10/30/19 07:49 Dose: Not Given Documented by: Risperidone (Risperidal) 2 mg PO DAILY [facility] Last Admin: 10/30/19 09:56 Dose: Not Given Documented by: Sodium Chloride (Saline Flush) 10 ml FLUSH ASDIRECTED PRN PRN Reason: Keep Vein Open Last Admin: 10/29/19 14:01 Dose: 10 ml Documented by: Discontinued Medications Albuterol/Ipratropium (Duoneb 3.0-0.5 Mg/3 Ml) Confirm Administered Dose 3 ml .ROUTE .STK-MED ONE Stop: 10/30/19 12:21 Last Admin: 10/30/19 12:24 Dose: Not Given Documented by: Ceftriaxone Sodium (Rocephin) Confirm Administered Dose 2 gm IV .STK-MED ONE Stop: 10/29/19 16:27 Last Admin: 10/29/19 19:17 Dose: Not Given Documented by: Furosemide (Lasix) 20 mg IVPUSH ONETIME ONE Stop: 10/30/19 10:37 Last Admin: 10/30/19 10:53 Dose: 20 mg Documented by: Furosemide (Lasix) 20 mg IVPUSH NOW ONE Stop: 10/30/19 12:10 Last Admin: 10/30/19 12:20 Dose: 20 mg Documented by: Sodium Chloride (Normal Saline) 1,000 mls @ 999 mls/hr IV ONETIME [facility] Last Admin: 10/29/19 14:01 Dose: 999 mls/hr Documented by: Ceftriaxone Sodium 2 gm/ (Sodium Chloride) 100 mls @ 200 mls/hr IV ONETIME ONE Stop: 10/29/19 15:13 Last Admin: 10/29/19 16:31 Dose: 200 mls/hr Documented by: Lactated Ringer's (Ringers, Lactated) 1,000 mls @ 999 mls/hr IV .BOLUS ONE Stop: 10/29/19 15:51 Last Admin: 10/29/19 15:09 Dose: 999 mls/hr Documented by: Lactated Ringer's (Ringers, Lactated) 1,000 mls @ 999 mls/hr IV .BOLUS ONE Stop: 10/29/19 17:38 Last Admin: 10/29/19 17:05 Dose: 999 mls/hr Documented by: Lactated Ringer's (Ringers, Lactated) 1,000 mls @ 999 mls/hr IV .BOLUS ONE Stop: 10/29/19 17:42 Last Admin: 10/29/19 17:33 Dose: Not Given Documented by: Sodium Chloride (Normal Saline) Confirm Administered Dose 100 mls @ as directed .ROUTE .STK-MED ONE Stop: 10/29/19 16:27 Last Admin: 10/29/19 19:17 Dose: Not Given Documented by: Lactated Ringer's (Ringers, Lactated) Confirm Administered Dose 1,000 mls @ as directed .ROUTE .STK-MED ONE Stop: 10/29/19 16:27 Last Admin: 10/29/19 19:17 Dose: Not Given Documented by: Sodium Chloride (Normal Saline) 1,000 mls @ 150 mls/hr IV ASDIRECTED KENNETH Last Admin: 10/30/19 02:47 Dose: 150 mls/hr Documented by: Azithromycin 500 mg/ Sodium (Chloride) 250 mls @ 250 mls/hr IV Q24H [facility] Stop: 11/01/19 20:01 Last Admin: 10/29/19 20:18 Dose: 250 mls/hr Documented by: Sodium Chloride (Normal Saline) 1,000 mls @ 75 mls/hr IV ASDIRECTED KENNETH Iopamidol (Isovue-300 (61%)) 50 ml IVPUSH ONETIME ONE Stop: 10/30/19 07:53 Last Admin: 10/30/19 08:36 Dose: 50 ml Documented by: Iopamidol (Isovue-300 (61%)) 100 ml IVPUSH ONETIME ONE Stop: 10/30/19 07:53 Last Admin: 10/30/19 08:37 Dose: 100 ml Documented by: Lorazepam (Ativan) Confirm Administered Dose 2 mg .ROUTE .STK-MED ONE Stop: 10/30/19 08:15 Last Admin: 10/30/19 08:47 Dose: Not Given Documented by: Lorazepam (Ativan) 1 mg IVPUSH ONETIME ONE Stop: 10/30/19 11:52 Last Admin: 10/30/19 11:58 Dose: 1 mg Documented by: Atorvastatin 20 Mg 0 each PO DAILY [facility] Sodium Chloride (Saline Flush) 10 ml FLUSH ONETIME PRN PRN Reason: IV FLUSH Last Admin: 10/30/19 08:37 Dose: 10 ml Documented by: - Exam General: Alert, Oriented HEENT: Pupils Equal, Mucous Membr. Moist/[place] Lungs: Crackles (Throughout), Rhonchi. No: Normal Respiratory Effort (Increased respiratory rate with abdominal breathing and retractions.) Cardiovascular: Regular Rhythm, Tachycardia GI/Abdominal Exam: Distended, Tender (Diffusely tender worse in the left lower quadrant), Abnormal Bowel Sounds (Decreased) Extremities: Normal Capillary Refill, Pedal Edema (1-2+.) Peripheral Pulses: 1+: Posterior Tibial (L), Posterior Tibial (R), Dorsalis Pedis (L), Dorsalis Pedis (R) Skin: Warm, Dry, Intact Psy/Mental Status: Other (Obtunded) Sepsis Event Note - Evaluation Sepsis Screening Result: Severe Sepsis Risk - Focused Exam Vital Signs: Vital Signs Temp Resp BP Pulse Ox Pulse Ox Pulse Ox 10/30/19 12:46 91 L 10/30/19 12:40 90 L 10/30/19 12:28 91 L 10/30/19 11:56 97.5 F 52 H 107/79 93 L 10/30/19 08:00 97.5 F 18 112/76 92 L 10/30/19 07:00 25 H 91 L 10/30/19 05:59 95 10/30/19 05:00 27 H 95 10/30/19 04:01 94 L 10/30/19 04:00 97.8 F 30 H 110/75 94 L 10/30/19 03:00 93 L 10/30/19 02:00 35 H - Problem List & Annotations (1) Septic shock SNOMED Code(s): 47727781 Code(s): A41.9 - SEPSIS, UNSPECIFIED ORGANISM; R65.21 - SEVERE SEPSIS WITH SEPTIC SHOCK Status: Acute Current Visit: Yes (2) Benign microscopic hematuria SNOMED Code(s): 657423741862263 Code(s): R31.1 - BENIGN ESSENTIAL MICROSCOPIC HEMATURIA Status: Acute Current Visit: Yes (3) COPD (chronic obstructive pulmonary disease) SNOMED Code(s): 30354326 Code(s): J44.9 - CHRONIC OBSTRUCTIVE PULMONARY DISEASE, UNSPECIFIED Status: Acute Current Visit: Yes (4) Pneumonia SNOMED Code(s): 246197520 Code(s): J18.9 - PNEUMONIA, UNSPECIFIED ORGANISM Status: Acute Current Visit: Yes Qualifiers: Pneumonia type: due to unspecified organism (5) Schizophrenia SNOMED Code(s): 01338326 Code(s): F20.9 - SCHIZOPHRENIA, UNSPECIFIED Status: Acute Current Visit: Yes Qualifiers: Schizophrenia type: unspecified Qualified Code(s): F20.9 - Schizophrenia, unspecified (6) Sepsis SNOMED Code(s): 03814119 Code(s): A41.9 - SEPSIS, UNSPECIFIED ORGANISM Status: Acute Current Visit: Yes Qualifiers: Sepsis type: sepsis due to unspecified organism Sepsis acute organ dysfunct ion status: unspecified Qualified Code(s): A41.9 - Sepsis, unspecified organism (7) Abdominal pain SNOMED Code(s): 34869913 Code(s): R10.9 - UNSPECIFIED ABDOMINAL PAIN Status: Acute Current Visit: Yes - Problem List Review Problem List Initiated/Reviewed/Updated: Yes - My Orders Last 24 Hours: My Active Orders 10/29/19 16:00 LEGIONELLA ANTIGEN [MREF] Routine STREP PNEUMONIAE ANTIGEN [MREF] Routine 10/29/19 17:00 PROCALCITONIN [REF] Routine 10/29/19 19:13 Oxygen Therapy [RC] PRN Up With Assistance [RC] ASDIRECTED VTE/DVT Education [RC] Vital Signs [RC] Q4HR Acetaminophen [TylenoL] 650 mg PO Q4H PRN Albuterol [Proventil Neb Soln] 2.5 mg NEB Q2H PRN Albuterol/Ipratropium [DuoNeb 3.0-0.5 MG/3 ML] 3 ml NEB Q4H PRN Ondansetron [Zofran] 4 mg IV Q4H PRN Resuscitation Status Routine 10/29/19 19:17 CULTURE SPUTUM + SMEAR [RM] Routine 10/29/19 19:19 RT Aerosol Therapy [RC] ASDIRECTED 10/29/19 19:23 Intake and Output Strict [RC] Q2HR 10/29/19 19:24 OT Evaluation and Treatment [CONS] Routine PT Evaluation and Treatment [CONS] Routine 10/29/19 20:00 Enoxaparin [Lovenox] 40 mg SUBCUT Q12H 10/29/19 20:05 Albuterol [Proventil HFA] 0 gm INH Q4H PRN 10/29/19 20:45 risperiDONE [RisperiDAL] 2 mg PO DAILY 10/29/19 21:00 Benztropine [Cogentin] 1 mg PO BID Budesonide [Pulmicort] 0.5 mg NEB BIDRT Patient's Own Medication [Ptom] 0 each PO BEDTIME hydrOXYzine HCL [Atarax] 25 mg PO BID 10/30/19 Breakfast Heart Healthy Diet [DIET] 10/30/19 07:48 LORazepam [Ativan] 1 mg IVPUSH Q15M PRN 10/30/19 09:00 Aspirin 81 mg PO DAILY Glycopyrrolate [Seebri Neohaler] 15.6 mcg IH BID PARoxetine [Paxil] 30 mg PO DAILY 10/30/19 11:00 Nicotine [Habitrol] 21 mg TRDERM Q24H 10/30/19 12:15 RT BiPAP/CPAP [RC] ASDIRECTED Suction Nasopharyngeal (RT) [RT Suction Artificial Airway] [RC] ASDIRECTED 10/30/19 12:40 Head wo Cont [CT] Stat 10/30/19 13:13 CXR [Chest 1V Frontal] [CR] Routine 10/30/19 14:00 Albuterol/Ipratropium [DuoNeb 3.0-0.5 MG/3 ML] 3 ml NEB Q4HRRT 10/30/19 16:00 cefTRIAXone [Rocephin] 2 gm Sodium Chloride 0.9% [Normal Saline] 100 ml IV Q24H 10/30/19 20:00 Azithromycin [Zithromax] 500 mg Sodium Chloride 0.9% [Normal Saline] 250 ml IV Q24H 10/31/19 05:11 C-REACTIVE PROTEIN [CHEM] AM CBC WITH AUTO DIFF [HEME] AM COMPREHENSIVE METABOLIC PN,CMP [CHEM] AM MAGNESIUM [CHEM] AM PHOSPHORUS [CHEM] AM 10/31/19 11:00 Remove Patch 1 ea TRDERM Q24H 11/01/19 05:11 C-REACTIVE PROTEIN [CHEM] AM CBC WITH AUTO DIFF [HEME] AM COMPREHENSIVE METABOLIC PN,CMP [CHEM] AM MAGNESIUM [CHEM] AM PHOSPHORUS [CHEM] AM 11/02/19 05:11 C-REACTIVE PROTEIN [CHEM] AM CBC WITH AUTO DIFF [HEME] AM COMPREHENSIVE METABOLIC PN,CMP [CHEM] AM MAGNESIUM [CHEM] AM PHOSPHORUS [CHEM] AM - Assessment Assessment:: 10/29/2019 Septic shock likely secondary to bilateral pneumonia History of COPD/asthma Altered mental status * Patient found on floor in the bathroom after possibly having a seizure. * Hypotensive, tachycardic, tachypneic and hypoxic on arrival to emergency department. * Patient received 3 L IV bolus in emergency department. * Initial lactic acid 4.0 increasing to 5.3 after fluid bolus. * Initial WBC 22,000, 76% neutrophils, no bandemia, C-reactive protein 1.6 * Altered mental status, patient is very lethargic. * Patient is in critical condition and currently has a poor outcome predicted. High risk of mortality. Abdominal pain Microscopic hematuria, benign * Patient's initial complaint when calling EMS was abdominal pain and constipation. * Patient does exhibit tenderness to palpation throughout the abdomen. * Bowel sounds difficult to appreciate secondary to upper airway noise. 10/30/2019 * Patient is not improved with the large amount of IV fluids. She has actually had worsening respiratory status requiring IV Lasix. Respiratory rate has had some improvement with vigorous pulmonary toilet, bronchodilation, and diuretics. Unfortunately, this is likely going to cause some intravascular hypovolemia. * Lactic acid did drop to 2.0 this morning with the IV fluids. * This afternoon renal function did worsen with a creatinine of 1.6. * WBC worsened and has been stable today at 23,000. Still no bands or toxic granulations. Neutrophils 90%, absolute neutrophils 21,000. * ABG on BiPAP: pH 7.39, PCO2 37.4, PO2 of 66, bicarb 22 -which is reassuring. * Respiratory rate still in the upper 30s to 40s and heart rate 120s to 130s. * Confirmed CODE STATUS with sister. She states that Rosita has several mental health issues and she likely did not understand the catastrophic results of not being intubated. * CT abdomen and pelvis with contrast. Findings suspicious for colitis within portions of the descending and sigmoid colon. Fluid is seen within the pelvis and right abdomen most likely reactive from the colonic process. Increased stool within the rectosigmoid region. Nodularity with in the left adrenal gland most likely benign if patient has no primary carcinoma. * CT of the of the head: No acute findings - Plan Plan:: Plan * Patient will be made to the ICU for critical care. * Restart IV fluids at D5 half-normal saline at 50 mL/h * Give 500 mL normal saline bolus * Monitor urine output, renal function, vital signs, bedside monitoring to determine fluid status. * Switch antibiotics to more broad-spectrum because of increasing C-reactive protein and white count. * Start Levaquin, cefepime, and vancomycin. * Follow blood cultures. * Get sputum Gram stain and cultures. * Legionella and strep urinary antigens pending * Procalcitonin pending * Incentive spirometry and Acapella when able to comply. * Continue BiPAP * ABG as needed * Strict I's and O's. * Repeat CBC, CMP, C-reactive protein, magnesium, and phosphorus in the morning. * Repeat UA in the morning. * N.p.o. until tomorrow alert VTE prophylaxis: Enoxaparin 40 mg subcu twice daily CODE STATUS: DNI - wants CPR. Patient was confused at time of CODE STATUS. Will clarify with boyfriend if she is ever discussed CODE STATUS with him in the past. Disposition: Admit to ICU in critical condition. Length of stay will likely be greater than 96 hours.
--- NOTE | 2019-10-30 13:39 | CT ---
Head CT Technique: Multiple axial sections through the brain were obtained. Intravenous contrast was not utilized. Comparison: No prior intracranial imaging is available. Findings: Ventricles along with basal cisterns and sulci over the convexities are within normal limits for the patient's age. No abnormal parenchymal densities are seen. No evidence of intracranial hemorrhage. No midline shift or mass-effect is appreciated. Bone window settings were reviewed. Mild mucosal thickening is seen within the anterior ethmoid and frontal sinuses. Minimal mucosal thickening is seen within the right maxillary sinus. Visualized mastoid sinuses are clear. No acute calvarial finding is seen. Impression: 1. Nothing acute is appreciated on noncontrast head CT exam. 2. Minimal sinus findings most likely chronic. Diagnostic code #2 This report was dictated in MDT
--- NOTE | 2019-10-30 13:39 | CR ---
Chest: Portable view of the chest was obtained. Comparison: Prior chest x-ray of 10/29/19 is available. Slight parenchymal density is seen within the right lung base. This appears to be improved from previous exam. Minimal parenchymal density with the left lung base which is also felt to be improved from prior exam. Upper lungs are clear. Heart size is normal. Tortuous thoracic aorta is seen. Bony structures are grossly intact. Impression: 1. Mild areas of increased density within both lung bases which are improved from previous study. 2. Nothing acute is otherwise seen. Diagnostic code #3 This report was dictated in MDT
[2019-10-30] MEDS: LORazepam 2 MG/ML SDV IVPUSH PRN ×2 (15:21→20:20)
[2019-10-30] MEDS ORDERED: cefTRIAXone 2 GM in Sodium Chloride 0.9% 100 ML IV SCH (16:00)
[2019-10-30] MEDS ORDERED: Cefepime 2 GM in Premix Bag 1 BAG IV SCH (19:30)
[2019-10-30] MEDS ORDERED: Vancomycin 1.5 GM in Sodium Chloride 0.9% 500 ML IV ONE (19:45)
[2019-10-30] MEDS ORDERED: Azithromycin 500 MG in Sodium Chloride 0.9% 250 ML IV SCH (20:00)
[2019-10-30] MEDS ORDERED: Levofloxacin/Dextrose 5%-Water 750 MG in Premix Bag 1 BAG IV SCH (20:00)
[2019-10-30] MEDS: Dextrose 5%-0.45% NaCl 1,000 ML IV SCH (20:05)
[2019-10-30] MEDS: Sodium Chloride 0.9% 10 ML Syringe FLUSH PRN (20:09)
[2019-10-30] MEDS ORDERED: Sodium Chloride 0.9% 500 ML IV ONE (21:10)
[2019-10-30] MEDS ORDERED: 50% Dextrose in Water 50 ML Syringe IVPUSH PRN (21:12)
[2019-10-30] MEDS: Glycopyrrolate 15.6 MCG Cap.W.Dev Kit of 6 IH SCH (21:21)
[2019-10-30] MEDS: Insulin Lispro 100 Units/ML 3 ML Vial SUBCUT SCH (22:25)
[2019-10-31] MEDS: LORazepam 2 MG/ML SDV IVPUSH PRN ×6 (01:32→21:06)
[2019-10-31] MEDS: Albuterol/Ipratropium 3.0-0.5 MG/3 ML Neb Soln NEB SCH ×4 (05:17→20:38)
[2019-10-31] MEDS: Budesonide 0.5 MG/2 ML Neb Susp NEB SCH ×2 (05:17→18:19)
[2019-10-31] MEDS: Insulin Lispro 100 Units/ML 3 ML Vial SUBCUT SCH ×3 (06:30→17:37)
[2019-10-31 07:30] LABS: HEMOGLOBIN A1C 6.1 % (4.50-6.20)
[2019-10-31] MEDS: Enoxaparin 40 MG/0.4 ML Syringe SUBCUT SCH ×2 (07:58→21:06)
[2019-10-31] MEDS: Aspirin 81 MG Tab.Chew PO SCH (08:03)
[2019-10-31] MEDS: Benztropine 1 MG Tab PO SCH ×2 (08:03→20:28)
[2019-10-31] MEDS: risperiDONE 1 MG Tab PO SCH (08:03)
[2019-10-31] MEDS: PARoxetine 20 MG Tab PO SCH (08:03)
[2019-10-31] MEDS: hydrOXYzine HCl 25 MG Tab PO SCH ×2 (08:03→20:28)
[2019-10-31] MEDS ORDERED: metroNIDAZOLE/Normal Saline 500 MG in Premix Bag 1 BAG IV SCH (09:30)
[2019-10-31] MEDS ORDERED: Cefepime 2 GM in Premix Bag 1 BAG IV SCH ×2 (09:45→10:00)
[2019-10-31] MEDS: Glycopyrrolate 15.6 MCG Cap.W.Dev Kit of 6 IH SCH ×2 (09:47→22:35)
[2019-10-31] MEDS: Dextrose 5%-0.45% NaCl 1,000 ML IV SCH (09:50)
[2019-10-31] MEDS ORDERED: Iopamidol 755 Mg/ML 100 ML Bottle IVPUSH ONE (11:20)
[2019-10-31] MEDS ORDERED: Sodium Chloride 0.9% 10 ML Syringe FLUSH PRN (11:20)
[2019-10-31] MEDS ORDERED: Piperacillin/Tazobactam 4.5 GM in Sodium Chloride 0.9% 100 ML IV ONE (11:30)
[2019-10-31] MEDS ORDERED: Sodium Chloride 0.9% 100 ML IV SCH (11:30)
[2019-10-31] MEDS: Nicotine 21 MG/24 Hr Patch TRDERM SCH (11:39)
[2019-10-31] MEDS: Vancomycin 1 GM, Vancomycin 250 MG in Sodium Chloride 0.9% 250 ML IV SCH ×2 (11:39→21:05)
--- NOTE | 2019-10-31 11:41 | CT ---
CT chest Technique: Multiple axial sections through the chest were obtained. Intravenous contrast was utilized. Findings: Pulmonary arteries are fairly well opacified. No filling defects are seen to indicate pulmonary embolism. Aorta shows atherosclerotic plaque with no aneurysm or dissection. No ulcerating plaque is seen. Mediastinum shows small lymph nodes which are believed to be within normal limits. No axillary adenopathy is seen. No pericardial thickening is seen. Small amount of ascites is seen around the liver. Mild increased density noted within the right lung base with differential including pneumonia as well as atelectasis. Lungs otherwise are clear. Bone window settings were reviewed which shows mild scattered degenerative change within the spine. No acute osseous finding is appreciated. Impression: 1. No findings of pulmonary embolism. 2. Aorta shows atherosclerotic change with no dissection or aneurysm. No discrete ulcerating plaque is seen. 3. Increased density within the right lung base which may represent pneumonia or prominent atelectasis. 4. Other findings as noted above believed to be nonacute and incidental. Diagnostic code #3 This report was dictated in MDT
[2019-10-31] MEDS: Piperacillin/Tazobactam 4.5 GM in Sodium Chloride 0.9% 100 ML IV SCH (19:03)
--- NOTE | 2019-10-31 20:01 | PCM.PN ---
- General Info Date of Service: 10/31/19 Admission Dx/Problem (Free Text): Admission Diagnosis/Problem Admission Diagnosis/Problem Pneumonia Subjective Update: Patient continues to be minimally responsive. She is getting Ativan for anxiety and to help her regulate on the BiPAP. She has been afebrile overnight. Yesterday her strep pneumoniae antigen was positive and her MRSA screen today was positive. Functional Status: Reports: Other (Sedated) - Patient Data Vitals - Most Recent: Last Vital Signs Temp 97.5 F 10/31/19 16:00 Pulse 113 H 10/29/19 18:17 Resp 35 H 10/31/19 16:00 BP 113/72 10/31/19 16:00 Pulse Ox 96 10/31/19 18:20 Weight - Most Recent: 113.716 kg I&O - Last 24 Hours: Intake & Output 10/31/19 10/31/19 10/31/19 06:59 14:59 22:59 Intake Total 1131 1019 Output Total 450 450 250 Balance 681 -450 769 Imaging Impressions - Last 24 Hours: CT angio chest: 1. No findings of pulmonary embolism. 2. Aorta shows atherosclerotic changes with no dissection or aneurysm. No discrete ulcerating plaque is seen. 3. Increased density within the right lung base which may represent pneumonia or prominent atelectasis. 4. Other findings as noted. Not believed to be acute. Lab Results Last 24 Hours: Laboratory Results - last 24 hr 10/30/19 10/31/19 10/31/19 Range/Units 22:08 04:45 04:47 WBC 23.17 H (3.98-10.04) K/mm3 RBC 5.63 H (3.98-5.22) M/mm3 Hgb 15.6 (11.2-15.7) gm/dl Hct 48.3 H (34.1-44.9) % MCV 85.8 (79.4-94.8) fl MCH 27.7 (25.6-32.2) pg MCHC 32.3 (32.2-35.5) g/dl RDW Std Deviation 46.8 H (36.4-46.3) fL Plt Count 359 (182-369) K/mm3 MPV 10.0 (9.4-12.3) fl Neut % (Auto) 88.3 H (34.0-71.1) % Lymph % (Auto) 5.3 L (19.3-51.7) % [place] % (Auto) 6.0 (4.7-12.5) % Eos % (Auto) 0 L (0.7-5.8) Baso % (Auto) 0.1 (0.1-1.2) % Neut # (Auto) 20.45 H (1.56-6.13) K/mm3 Lymph # (Auto) 1.22 (1.18-3.74) K/mm3 [place] # (Auto) 1.40 H (0.24-0.36) K/mm3 Eos # (Auto) 0.01 L (0.04-0.36) K/mm3 Baso # (Auto) 0.02 (0.01-0.08) K/mm3 Manual Slide Review Abnormal smear D-Dimer, Quantitative 1.26 H (0.19-0.50) mg/L Puncture Site ABG pH (7.35-7.45) ABG pCO2 (35.0-45.0) mmHg ABG pO2 (80.0-100.0) mmHg ABG HCO3 (22.0-26.0) meq/L ABG O2 Saturation (96.0-97.0) % ABG Base Excess (-2-2.0) A-a Gradient mmHg O2 Delivery Device Oxygen Flow Rate FiO2 (21.00-100.00) % Sodium (136-145) mEq/L Potassium (3.5-5.1) mEq/L Chloride (98-107) mEq/L Carbon Dioxide (21-32) mEq/L Anion Gap (5-15) BUN (7-18) mg/dL Creatinine (0.55-1.02) mg/dL Est Cr Clr Drug Dosing mL/min Estimated GFR (MDRD) (>60) mL/min BUN/Creatinine Ratio (14-18) Glucose (74-106) mg/dL POC Glucose 189 H (70-105) mg/dL Hemoglobin A1c (4.50-6.20) % Lactic Acid (0.4-2.0) mmol/L Calcium (8.5-10.1) mg/dL Phosphorus (2.6-4.7) mg/dL Magnesium (1.8-2.4) mg/dl Total Bilirubin (0.2-1.0) mg/dL AST (15-37) U/L ALT (14-59) U/L Alkaline Phosphatase (46-116) U/L Ammonia (11-32) umol/L C-Reactive Protein (<1.0) mg/dL Total Protein (6.4-8.2) g/dl Albumin (3.4-5.0) g/dl Globulin gm/dL Albumin/Globulin Ratio (1-2) Procalcitonin (<0.10) ng/mL SARS-CoV-2 RNA (ALEXIA) (NEGATIVE) MRSA (PCR) 10/31/19 10/31/19 10/31/19 Range/Units 04:47 04:47 04:47 WBC (3.98-10.04) K/mm3 RBC (3.98-5.22) M/mm3 Hgb (11.2-15.7) gm/dl Hct (34.1-44.9) % MCV (79.4-94.8) fl MCH (25.6-32.2) pg MCHC (32.2-35.5) g/dl RDW Std Deviation (36.4-46.3) fL Plt Count (182-369) K/mm3 MPV (9.4-12.3) fl Neut % (Auto) (34.0-71.1) % Lymph % (Auto) (19.3-51.7) % [place] % (Auto) (4.7-12.5) % Eos % (Auto) (0.7-5.8) Baso % (Auto) (0.1-1.2) % Neut # (Auto) (1.56-6.13) K/mm3 Lymph # (Auto) (1.18-3.74) K/mm3 [place] # (Auto) (0.24-0.36) K/mm3 Eos # (Auto) (0.04-0.36) K/mm3 Baso # (Auto) (0.01-0.08) K/mm3 Manual Slide Review D-Dimer, Quantitative (0.19-0.50) mg/L Puncture Site ABG pH (7.35-7.45) ABG pCO2 (35.0-45.0) mmHg ABG pO2 (80.0-100.0) mmHg ABG HCO3 (22.0-26.0) meq/L ABG O2 Saturation (96.0-97.0) % ABG Base Excess (-2-2.0) A-a Gradient mmHg O2 Delivery Device Oxygen Flow Rate FiO2 (21.00-100.00) % Sodium 141 (136-145) mEq/L Potassium 3.4 L (3.5-5.1) mEq/L Chloride 106 (98-107) mEq/L Carbon Dioxide 26 (21-32) mEq/L Anion Gap 12.4 (5-15) BUN 23 H (7-18) mg/dL Creatinine 1.3 H (0.55-1.02) mg/dL Est Cr Clr Drug Dosing 41.93 mL/min Estimated GFR (MDRD) 42 (>60) mL/min BUN/Creatinine Ratio 17.7 (14-18) Glucose 195 H (74-106) mg/dL POC Glucose (70-105) mg/dL Hemoglobin A1c 6.10 (4.50-6.20) % Lactic Acid (0.4-2.0) mmol/L Calcium 8.2 L (8.5-10.1) mg/dL Phosphorus 2.4 L (2.6-4.7) mg/dL Magnesium 2.1 (1.8-2.4) mg/dl Total Bilirubin 1.1 H (0.2-1.0) mg/dL AST 61 H (15-37) U/L ALT 40 (14-59) U/L Alkaline Phosphatase 103 (46-116) U/L Ammonia (11-32) umol/L C-Reactive Protein 35.8 H* (<1.0) mg/dL Total Protein 5.9 L (6.4-8.2) g/dl Albumin 1.9 L (3.4-5.0) g/dl Globulin 4.0 gm/dL Albumin/Globulin Ratio 0.5 L (1-2) Procalcitonin 12.07 H (<0.10) ng/mL SARS-CoV-2 RNA (ALEXIA) (NEGATIVE) MRSA (PCR) 10/31/19 10/31/19 10/31/19 Range/Units 06:28 08:10 08:40 WBC (3.98-10.04) K/mm3 RBC (3.98-5.22) M/mm3 Hgb (11.2-15.7) gm/dl Hct (34.1-44.9) % MCV (79.4-94.8) fl MCH (25.6-32.2) pg MCHC (32.2-35.5) g/dl RDW Std Deviation (36.4-46.3) fL Plt Count (182-369) K/mm3 MPV (9.4-12.3) fl Neut % (Auto) (34.0-71.1) % Lymph % (Auto) (19.3-51.7) % [place] % (Auto) (4.7-12.5) % Eos % (Auto) (0.7-5.8) Baso % (Auto) (0.1-1.2) % Neut # (Auto) (1.56-6.13) K/mm3 Lymph # (Auto) (1.18-3.74) K/mm3 [place] # (Auto) (0.24-0.36) K/mm3 Eos # (Auto) (0.04-0.36) K/mm3 Baso # (Auto) (0.01-0.08) K/mm3 Manual Slide Review D-Dimer, Quantitative (0.19-0.50) mg/L Puncture Site ABG pH (7.35-7.45) ABG pCO2 (35.0-45.0) mmHg ABG pO2 (80.0-100.0) mmHg ABG HCO3 (22.0-26.0) meq/L ABG O2 Saturation (96.0-97.0) % ABG Base Excess (-2-2.0) A-a Gradient mmHg O2 Delivery Device Oxygen Flow Rate FiO2 (21.00-100.00) % Sodium (136-145) mEq/L Potassium (3.5-5.1) mEq/L Chloride (98-107) mEq/L Carbon Dioxide (21-32) mEq/L Anion Gap (5-15) BUN (7-18) mg/dL Creatinine (0.55-1.02) mg/dL Est Cr Clr Drug Dosing mL/min Estimated GFR (MDRD) (>60) mL/min BUN/Creatinine Ratio (14-18) Glucose (74-106) mg/dL POC Glucose 165 H (70-105) mg/dL Hemoglobin A1c (4.50-6.20) % Lactic Acid (0.4-2.0) mmol/L Calcium (8.5-10.1) mg/dL Phosphorus (2.6-4.7) mg/dL Magnesium (1.8-2.4) mg/dl Total Bilirubin (0.2-1.0) mg/dL AST (15-37) U/L ALT (14-59) U/L Alkaline Phosphatase (46-116) U/L Ammonia (11-32) umol/L C-Reactive Protein (<1.0) mg/dL Total Protein (6.4-8.2) g/dl Albumin (3.4-5.0) g/dl Globulin gm/dL Albumin/Globulin Ratio (1-2) Procalcitonin (<0.10) ng/mL SARS-CoV-2 RNA ([facility]EXIA) Negative (NEGATIVE) MRSA (PCR) Positive H 10/31/19 10/31/19 10/31/19 Range/Units 09:55 10:00 10:00 WBC (3.98-10.04) K/mm3 RBC (3.98-5.22) M/mm3 Hgb (11.2-15.7) gm/dl Hct (34.1-44.9) % MCV (79.4-94.8) fl MCH (25.6-32.2) pg MCHC (32.2-35.5) g/dl RDW Std Deviation (36.4-46.3) fL Plt Count (182-369) K/mm3 MPV (9.4-12.3) fl Neut % (Auto) (34.0-71.1) % Lymph % (Auto) (19.3-51.7) % [place] % (Auto) (4.7-12.5) % Eos % (Auto) (0.7-5.8) Baso % (Auto) (0.1-1.2) % Neut # (Auto) (1.56-6.13) K/mm3 Lymph # (Auto) (1.18-3.74) K/mm3 [place] # (Auto) (0.24-0.36) K/mm3 Eos # (Auto) (0.04-0.36) K/mm3 Baso # (Auto) (0.01-0.08) K/mm3 Manual Slide Review D-Dimer, Quantitative (0.19-0.50) mg/L Puncture Site Lt radial ABG pH 7.41 (7.35-7.45) ABG pCO2 38.0 (35.0-45.0) mmHg ABG pO2 69.0 L (80.0-100.0) mmHg ABG HCO3 23.9 (22.0-26.0) meq/L ABG O2 Saturation 93.5 L (96.0-97.0) % ABG Base Excess 0.1 (-2-2.0) A-a Gradient 111 mmHg O2 Delivery Device Bipap Oxygen Flow Rate 3.0 FiO2 32.00 (21.00-100.00) % Sodium (136-145) mEq/L Potassium (3.5-5.1) mEq/L Chloride (98-107) mEq/L Carbon Dioxide (21-32) mEq/L Anion Gap (5-15) BUN (7-18) mg/dL Creatinine (0.55-1.02) mg/dL Est Cr Clr Drug Dosing mL/min Estimated GFR (MDRD) (>60) mL/min BUN/Creatinine Ratio (14-18) Glucose (74-106) mg/dL POC Glucose (70-105) mg/dL Hemoglobin A1c (4.50-6.20) % Lactic Acid 1.6 (0.4-2.0) mmol/L Calcium (8.5-10.1) mg/dL Phosphorus (2.6-4.7) mg/dL Magnesium (1.8-2.4) mg/dl Total Bilirubin (0.2-1.0) mg/dL AST (15-37) U/L ALT (14-59) U/L Alkaline Phosphatase (46-116) U/L Ammonia < 10 L (11-32) umol/L C-Reactive Protein (<1.0) mg/dL Total Protein (6.4-8.2) g/dl Albumin (3.4-5.0) g/dl Globulin gm/dL Albumin/Globulin Ratio (1-2) Procalcitonin (<0.10) ng/mL SARS-CoV-2 RNA (ALEXIA) (NEGATIVE) MRSA (PCR) 10/31/19 10/31/19 Range/Units 11:46 17:29 WBC (3.98-10.04) K/mm3 RBC (3.98-5.22) M/mm3 Hgb (11.2-15.7) gm/dl Hct (34.1-44.9) % MCV (79.4-94.8) fl MCH (25.6-32.2) pg MCHC (32.2-35.5) g/dl RDW Std Deviation (36.4-46.3) fL Plt Count (182-369) K/mm3 MPV (9.4-12.3) fl Neut % (Auto) (34.0-71.1) % Lymph % (Auto) (19.3-51.7) % [place] % (Auto) (4.7-12.5) % Eos % (Auto) (0.7-5.8) Baso % (Auto) (0.1-1.2) % Neut # (Auto) (1.56-6.13) K/mm3 Lymph # (Auto) (1.18-3.74) K/mm3 [place] # (Auto) (0.24-0.36) K/mm3 Eos # (Auto) (0.04-0.36) K/mm3 Baso # (Auto) (0.01-0.08) K/mm3 Manual Slide Review D-Dimer, Quantitative (0.19-0.50) mg/L Puncture Site ABG pH (7.35-7.45) ABG pCO2 (35.0-45.0) mmHg ABG pO2 (80.0-100.0) mmHg ABG HCO3 (22.0-26.0) meq/L ABG O2 Saturation (96.0-97.0) % ABG Base Excess (-2-2.0) A-a Gradient mmHg O2 Delivery Device Oxygen Flow Rate FiO2 (21.00-100.00) % Sodium (136-145) mEq/L Potassium (3.5-5.1) mEq/L Chloride (98-107) mEq/L Carbon Dioxide (21-32) mEq/L Anion Gap (5-15) BUN (7-18) mg/dL Creatinine (0.55-1.02) mg/dL Est Cr Clr Drug Dosing mL/min Estimated GFR (MDRD) (>60) mL/min BUN/Creatinine Ratio (14-18) Glucose (74-106) mg/dL POC Glucose 159 H 148 H (70-105) mg/dL Hemoglobin A1c (4.50-6.20) % Lactic Acid (0.4-2.0) mmol/L Calcium (8.5-10.1) mg/dL Phosphorus (2.6-4.7) mg/dL Magnesium (1.8-2.4) mg/dl Total Bilirubin (0.2-1.0) mg/dL AST (15-37) U/L ALT (14-59) U/L Alkaline Phosphatase (46-116) U/L Ammonia (11-32) umol/L C-Reactive Protein (<1.0) mg/dL Total Protein (6.4-8.2) g/dl Albumin (3.4-5.0) g/dl Globulin gm/dL Albumin/Globulin Ratio (1-2) Procalcitonin (<0.10) ng/mL SARS-CoV-2 RNA ([facility]EXIA) (NEGATIVE) MRSA (PCR) Luis Miguel Results Last 24 Hours: Microbiology 10/29/19 14:53 Aerobic Blood Culture - Preliminary Blood NO GROWTH AFTER 2 DAYS Anaerobic Blood Culture - Final 10/29/19 15:05 Aerobic Blood Culture - Preliminary Blood NO GROWTH AFTER 2 DAYS Anaerobic Blood Culture - Preliminary NO GROWTH AFTER 2 DAYS 10/29/19 16:00 Streptococcus pneumoniae Antigen (M - Final Urine 10/29/19 16:00 Legionella Urinary Antigen - Final Urine Med Orders - Current: Current Medications Acetaminophen (Tylenol) 650 mg PO Q4H PRN PRN Reason: Pain (Mild 1-3)/fever Albuterol (Proventil Neb Soln) 2.5 mg NEB Q2H PRN PRN Reason: Shortness Of Breath/wheezing Albuterol (Proventil Hfa) 0 gm INH Q4H PRN PRN Reason: Shortness of Breath Albuterol/Ipratropium (Duoneb 3.0-0.5 Mg/3 Ml) 3 ml NEB Q4H PRN PRN Reason: Shortness Of Breath/wheezing Albuterol/Ipratropium (Duoneb 3.0-0.5 Mg/3 Ml) 3 ml NEB Q6HRRT [facility] Last Admin: 10/31/19 16:46 Dose: 3 ml Documented by: Aspirin (Aspirin) 81 mg PO DAILY [facility] Last Admin: 10/31/19 08:03 Dose: Not Given Documented by: Benztropine Mesylate (Cogentin) 1 mg PO BID [facility] Last Admin: 10/31/19 08:03 Dose: Not Given Documented by: Budesonide (Pulmicort) 0.5 mg NEB BID@0600,1800 [facility] Last Admin: 10/31/19 18:19 Dose: 0.5 mg Documented by: Dextrose/Water (Dextrose 50% In Water) 50 ml IVPUSH ASDIRECTED PRN PRN Reason: Hypoglycemia Enoxaparin Sodium (Lovenox) 40 mg SUBCUT Q12H [facility] Last Admin: 10/31/19 07:58 Dose: 40 mg Documented by: Glycopyrrolate (Seebri Neohaler) 15.6 mcg IH BID@1000,2200 [facility] Last Admin: 10/31/19 09:47 Dose: Not Given Documented by: Hydroxyzine HCl (Atarax) 25 mg PO BID [facility] Last Admin: 10/31/19 08:03 Dose: Not Given Documented by: Dextrose/Sodium Chloride (Dextrose 5%-1/2 Ns) 1,000 mls @ 100 mls/hr IV ASDIRECTED [facility] Last Infusion: 10/31/19 16:13 Dose: 100 mls/hr Documented by: Vancomycin HCl 1 gm/Vancomycin HCl 250 mg/ Sodium Chloride 250 mls @ 166.667 mls/hr IV Q12H [facility] Last Admin: 10/31/19 11:39 Dose: 166.667 mls/hr Documented by: Levofloxacin/Dextrose 750 mg/ (Premix) 150 mls @ 100 mls/hr IV Q24H [facility] Piperacillin Sod/Tazobactam (Sod 4.5 gm/ Sodium Chloride) 100 mls @ 25 mls/hr IV Q8H [facility] Last Admin: 10/31/19 19:03 Dose: 25 mls/hr Documented by: Insulin Human Lispro (Humalog) 0 unit SUBCUT Q6HR [facility]; Protocol Last Admin: 10/31/19 17:37 Dose: Not Given Documented by: Lorazepam (Ativan) 1 mg IVPUSH Q2H PRN PRN Reason: Anxiety Last Admin: 10/31/19 17:58 Dose: 1 mg Documented by: Miscellaneous Information (Remove Patch) 1 ea TRDERM Q24H [facility] Last Admin: 10/31/19 11:39 Dose: 1 ea Documented by: Nicotine (Habitrol) 21 mg TRDERM Q24H [facility] Last Admin: 10/31/19 11:39 Dose: 21 mg Documented by: Ondansetron HCl (Zofran) 4 mg IV Q4H PRN PRN Reason: Nausea/Vomiting Paroxetine HCl (Paxil) 30 mg PO DAILY [facility] Last Admin: 10/31/19 08:03 Dose: Not Given Documented by: Lurasidone Hcl [ (Latuda] 80 Mg) 0 each PO BEDTIME [facility] Last Admin: 10/30/19 20:26 Dose: Not Given Documented by: Risperidone (Risperidal) 2 mg PO DAILY [facility] Last Admin: 10/31/19 08:03 Dose: Not Given Documented by: Sodium Chloride (Saline Flush) 10 ml FLUSH ASDIRECTED PRN PRN Reason: Keep Vein Open Last Admin: 10/30/19 20:09 Dose: 10 ml Documented by: Vancomycin HCl (Pharmacy To Dose - Vancomycin) 1 dose .XX ASDIRECTED PRN PRN Reason: RX TO DOSE VANCO Discontinued Medications Albuterol/Ipratropium (Duoneb 3.0-0.5 Mg/3 Ml) 3 ml NEB Q4HRRT [facility] Last Admin: 10/30/19 21:20 Dose: 3 ml Documented by: Albuterol/Ipratropium (Duoneb 3.0-0.5 Mg/3 Ml) Confirm Administered Dose 3 ml .ROUTE .STK-MED ONE Stop: 10/30/19 12:21 Last Admin: 10/30/19 12:24 Dose: Not Given Documented by: Budesonide (Pulmicort) 0.5 mg NEB BIDRT [facility] Last Admin: 10/30/19 05:58 Dose: 0.5 mg Documented by: Ceftriaxone Sodium (Rocephin) Confirm Administered Dose 2 gm IV .STK-MED ONE Stop: 10/29/19 16:27 Last Admin: 10/29/19 19:17 Dose: Not Given Documented by: Furosemide (Lasix) 20 mg IVPUSH ONETIME ONE Stop: 10/30/19 10:37 Last Admin: 10/30/19 10:53 Dose: 20 mg Documented by: Furosemide (Lasix) 20 mg IVPUSH NOW ONE Stop: 10/30/19 12:10 Last Admin: 10/30/19 12:20 Dose: 20 mg Documented by: Glycopyrrolate (Seebri Neohaler) 15.6 mcg IH BID [facility] Last Admin: 10/30/19 09:12 Dose: Not Given Documented by: Sodium Chloride (Normal Saline) 1,000 mls @ 999 mls/hr IV ONETIME [facility] Last Admin: 10/29/19 14:01 Dose: 999 mls/hr Documented by: Ceftriaxone Sodium 2 gm/ (Sodium Chloride) 100 mls @ 200 mls/hr IV ONETIME ONE Stop: 10/29/19 15:13 Last Admin: 10/29/19 16:31 Dose: 200 mls/hr Documented by: Lactated Ringer's (Ringers, Lactated) 1,000 mls @ 999 mls/hr IV .BOLUS ONE Stop: 10/29/19 15:51 Last Admin: 10/29/19 15:09 Dose: 999 mls/hr Documented by: Lactated Ringer's (Ringers, Lactated) 1,000 mls @ 999 mls/hr IV .BOLUS ONE Stop: 10/29/19 17:38 Last Admin: 10/29/19 17:05 Dose: 999 mls/hr Documented by: Lactated Ringer's (Ringers, Lactated) 1,000 mls @ 999 mls/hr IV .BOLUS ONE Stop: 10/29/19 17:42 Last Admin: 10/29/19 17:33 Dose: Not Given Documented by: Sodium Chloride (Normal Saline) Confirm Administered Dose 100 mls @ as directed .ROUTE .STK-MED ONE Stop: 10/29/19 16:27 Last Admin: 10/29/19 19:17 Dose: Not Given Documented by: Lactated Ringer's (Ringers, Lactated) Confirm Administered Dose 1,000 mls @ as directed .ROUTE .STK-MED ONE Stop: 10/29/19 16:27 Last Admin: 10/29/19 19:17 Dose: Not Given Documented by: Sodium Chloride (Normal Saline) 1,000 mls @ 150 mls/hr IV ASDIRECTED [facility] Last Admin: 10/30/19 02:47 Dose: 150 mls/hr Documented by: Azithromycin 500 mg/ Sodium (Chloride) 250 mls @ 250 mls/hr IV Q24H [facility] Stop: 11/01/19 20:01 Last Admin: 10/29/19 20:18 Dose: 250 mls/hr Documented by: Ceftriaxone Sodium 2 gm/ (Sodium Chloride) 100 mls @ 200 mls/hr IV Q24H [facility] Last Admin: 10/30/19 15:25 Dose: 200 mls/hr Documented by: Azithromycin 500 mg/ Sodium (Chloride) 250 mls @ 250 mls/hr IV Q24H [facility] Stop: 10/31/19 20:59 Sodium Chloride (Normal Saline) 1,000 mls @ 75 mls/hr IV ASDIRECTED [facility] Cefepime HCl 2 gm/ Premix 50 mls @ 100 mls/hr IV Q24H [facility] Last Admin: 10/30/19 20:13 Dose: 100 mls/hr Documented by: Levofloxacin/Dextrose 750 mg/ (Premix) 150 mls @ 100 mls/hr IV Q48H [facility] Last Admin: 10/30/19 20:45 Dose: 100 mls/hr Documented by: Vancomycin HCl 1.5 gm/ Sodium (Chloride) 500 mls @ 250 mls/hr IV ONETIME ONE Stop: 10/30/19 21:44 Last Admin: 10/30/19 22:28 Dose: 250 mls/hr Documented by: Sodium Chloride (Normal Saline) 500 mls @ 500 mls/hr IV BOLUS ONE Stop: 10/30/19 22:09 Last Admin: 10/30/19 21:36 Dose: 500 mls/hr Documented by: Vancomycin HCl 1 gm/ Sodium (Chloride) 250 mls @ 250 mls/hr IV Q12H [facility] Piperacillin Sod/Tazobactam (Sod 4.5 gm/ Sodium Chloride) 100 mls @ 200 mls/hr IV ONETIME ONE Stop: 10/31/19 11:59 Last Admin: 10/31/19 11:39 Dose: 200 mls/hr Documented by: Sodium Chloride (Normal Saline) 100 mls @ 75 mls/hr IV ASDIRECTED [facility] Stop: 10/31/19 13:00 Last Admin: 10/31/19 11:29 Dose: 75 mls/hr Documented by: Insulin Human Lispro ([facility]alog) [facility] Protocol Last Admin: 10/31/19 12:44 Dose: Not Given Documented by: Iopamidol (Isovue-300 (61%)) 50 ml IVPUSH ONETIME ONE Stop: 10/30/19 07:53 Last Admin: 10/30/19 08:36 Dose: 50 ml Documented by: Iopamidol (Isovue-300 (61%)) 100 ml IVPUSH ONETIME ONE Stop: 10/30/19 07:53 Last Admin: 10/30/19 08:37 Dose: 100 ml Documented by: Iopamidol (Isovue-370 (76%)) 100 ml IVPUSH ONETIME ONE Stop: 10/31/19 11:21 Last Admin: 10/31/19 11:28 Dose: 100 ml Documented by: Lorazepam (Ativan) 1 mg IVPUSH Q15M PRN PRN Reason: Other Last Admin: 10/30/19 08:47 Dose: 1 mg Documented by: Lorazepam (Ativan) Confirm Administered Dose 2 mg .ROUTE .STK-MED ONE Stop: 10/30/19 08:15 Last Admin: 10/30/19 08:47 Dose: Not Given Documented by: Lorazepam (Ativan) 1 mg IVPUSH ONETIME ONE Stop: 10/30/19 11:52 Last Admin: 10/30/19 11:58 Dose: 1 mg Documented by: Atorvastatin 20 Mg 0 each PO DAILY [facility] Sodium Chloride (Saline Flush) 10 ml FLUSH ONETIME PRN PRN Reason: IV FLUSH Last Admin: 10/30/19 08:37 Dose: 10 ml Documented by: Sodium Chloride (Saline Flush) 10 ml FLUSH ONETIME PRN PRN Reason: IV FLUSH Stop: 10/31/19 13:00 Last Admin: 10/31/19 11:29 Dose: 10 ml Documented by: - Exam Quality Assessment: Supplemental Oxygen (BiPAP) General: Moderate Distress, Sedated HEENT: Pupils Equal Neck: Supple Lungs: Normal Respiratory Effort (Increased respiratory rate and effort with increased use of accessory muscles) Cardiovascular: Regular Rhythm, No Murmurs, Tachycardia GI/Abdominal Exam: Soft, Distended (Morbidly obese), Tender (Diffusely tender), Abnormal Bowel Sounds (Decreased) Extremities: Normal Capillary Refill, Pedal Edema (1-2+) Skin: Warm, Dry, Intact Psy/Mental Status: Alert, Normal Affect, Normal Mood Sepsis Event Note - Evaluation Sepsis Screening Result: Severe Sepsis Risk - Focused Exam Vital Signs: Vital Signs Temp Resp BP Pulse Ox Pulse Ox 10/31/19 18:20 96 10/31/19 16:50 94 L 10/31/19 16:47 93 L 10/31/19 16:00 97.5 F 35 H 113/72 92 L 10/31/19 12:00 97.5 F 33 H 119/79 93 L 10/31/19 08:28 98 10/31/19 08:25 98 10/31/19 08:00 97.5 F 39 H 110/63 94 L - Problem List & Annotations (1) Septic shock SNOMED Code(s): 57852961 Code(s): A41.9 - SEPSIS, UNSPECIFIED ORGANISM; R65.21 - SEVERE SEPSIS WITH SEPTIC SHOCK Status: Acute Current Visit: Yes (2) Benign microscopic hematuria SNOMED Code(s): 171790174976497 Code(s): R31.1 - BENIGN ESSENTIAL MICROSCOPIC HEMATURIA Status: Acute Current Visit: Yes (3) COPD (chronic obstructive pulmonary disease) SNOMED Code(s): 25415730 Code(s): J44.9 - CHRONIC OBSTRUCTIVE PULMONARY DISEASE, UNSPECIFIED Status: Acute Current Visit: Yes (4) Pneumonia SNOMED Code(s): 743226773 Code(s): J18.9 - PNEUMONIA, UNSPECIFIED ORGANISM Status: Acute Current Visit: Yes Qualifiers: Pneumonia type: due to unspecified organism (5) Schizophrenia SNOMED Code(s): 48297678 Code(s): F20.9 - SCHIZOPHRENIA, UNSPECIFIED Status: Acute Current Visit: Yes Qualifiers: Schizophrenia type: unspecified Qualified Code(s): F20.9 - Schizophrenia, unspecified (6) Sepsis SNOMED Code(s): 04131718 Code(s): A41.9 - SEPSIS, UNSPECIFIED ORGANISM Status: Acute Current Visit: Yes Qualifiers: Sepsis type: sepsis due to unspecified organism Sepsis acute organ dysfunction status: unspecified Qualified Code(s): A41.9 - Sepsis, unspecified organism (7) Abdominal pain SNOMED Code(s): 77191744 Code(s): R10.9 - UNSPECIFIED ABDOMINAL PAIN Status: Acute Current Visit: Yes - Problem List Review Problem List Initiated/Reviewed/Updated: Yes - My Orders Last 24 Hours: My Active Orders 10/30/19 19:30 Dextrose 5%-0.45% NaCl [Dextrose 5%-1/2 NS] 1,000 ml IV ASDIRECTED Pharmacy to Dose - Vancomycin 1 dose .XX ASDIRECTED PRN 10/30/19 21:12 Blood Glucose Check, Bedside [RC] Q6HR Dextrose 50% in Water 50 ml IVPUSH ASDIRECTED PRN 10/30/19 22:00 Glycopyrrolate [Seebri Neohaler] 15.6 mcg IH BID@1000,2200 10/31/19 05:00 Albuterol/Ipratropium [DuoNeb 3.0-0.5 MG/3 ML] 3 ml NEB Q6HRRT 10/31/19 10:00 Vancomycin 1 gm Vancomycin 250 mg Sodium Chloride 0.9% [Normal Saline] 250 ml IV Q12H 10/31/19 11:00 Remove Patch 1 ea TRDERM Q24H 10/31/19 18:00 Insulin Lispro [HumaLOG] See Protocol SUBCUT Q6HR 10/31/19 19:30 Piperacillin/Tazobactam [Piperacil-Tazobact] 4.5 gm Sodium Chloride 0.9% [Normal Saline] 100 ml IV Q8H 10/31/19 20:00 Levofloxacin/Dextrose 5%-Water [Levaquin in D5W 750 MG/150 ML] 750 mg Premix Bag 1 bag IV Q24H 11/01/19 05:11 C-REACTIVE PROTEIN [CHEM] AM CBC WITH AUTO DIFF [HEME] AM COMPREHENSIVE METABOLIC PN,CMP [CHEM] AM MAGNESIUM [CHEM] AM PHOSPHORUS [CHEM] AM 11/01/19 09:00 VANCOMYCIN TROUGH [CHEM] Timed 11/02/19 05:11 C-REACTIVE PROTEIN [CHEM] AM CBC WITH AUTO DIFF [HEME] AM COMPREHENSIVE METABOLIC PN,CMP [CHEM] AM MAGNESIUM [CHEM] AM PHOSPHORUS [CHEM] AM - Assessment Assessment:: 10/29/2019 Septic shock likely secondary to bilateral pneumonia History of COPD/asthma Altered mental status * Patient found on floor in the bathroom after possibly having a seizure. * Hypotensive, tachycardic, tachypneic and hypoxic on arrival to emergency department. * Patient received 3 L IV bolus in emergency department. * Initial lactic acid 4.0 increasing to 5.3 after fluid bolus. * Initial WBC 22,000, 76% neutrophils, no bandemia, C-reactive protein 1.6 * Altered mental status, patient is very lethargic. * Patient is in critical condition and currently has a poor outcome predicted. High risk of mortality. Abdominal pain Microscopic hematuria, benign * Patient's initial complaint when calling EMS was abdominal pain and constipation. * Patient does exhibit tenderness to palpation throughout the abdomen. * Bowel sounds difficult to appreciate secondary to upper airway noise. 10/30/2019 * Patient is not improved with the large amount of IV fluids. She has actually had worsening respiratory status requiring IV Lasix. Respiratory rate has had some improvement with vigorous pulmonary toilet, bronchodilation, and d iuretics. Unfortunately, this is likely going to cause some intravascular hypovolemia. * Lactic acid did drop to 2.0 this morning with the IV fluids. * This afternoon renal function did worsen with a creatinine of 1.6. * WBC worsened and has been stable today at 23,000. Still no bands or toxic granulations. Neutrophils 90%, absolute neutrophils 21,000. * ABG on BiPAP: pH 7.39, PCO2 37.4, PO2 of 66, bicarb 22 -which is reassuring. * Respiratory rate still in the upper 30s to 40s and heart rate 120s to 130s. * Confirmed CODE STATUS with sister. She states that Rosita has several mental health issues and she likely did not understand the catastrophic results of not being intubated. * CT abdomen and pelvis with contrast. Findings suspicious for colitis within portions of the descending and sigmoid colon. Fluid is seen within the pelvis and right abdomen most likely reactive from the colonic process. Increased stool within the rectosigmoid region. Nodularity with in the left adrenal gland most likely benign if patient has no primary carcinoma. * CT of the of the head: No acute findings 10/31/2019 * Rosita is making some improvement today. Respiratory rate has decreased and her tachycardia has decreased. * Antibiotics were switched to Zosyn to cover both strep pneumoniae and colitis. * MRSA screen was positive. * Patient continues on vancomycin. * D-dimer was elevated at 1.[address] angio was done of the chest * CT angio chest: 1. No findings of pulmonary embolism. * 2. Aorta shows atherosclerotic changes with no dissection or aneurysm. No discrete ulcerating plaque is seen. * 3. Increased density within the right lung base which may represent pneumonia or prominent atelectasis. * 4. Other findings as noted. Not believed to be acute. * ABGs normal pH, PCO2, bicarb with a slightly low PO2. These are surprisingly good considering her respiratory rate. * Repeat lactic acid was 1.6. White count continues to be significantly elevated at 23,000. CRP 35.8. * Patient has significant hypoalbuminemia with albumin of 1.9 * Hypokalemiapotassium 3.4 * Hemoglobin A1c is 6.1 - Plan Plan:: Plan * D5 half-normal saline at 75 mL/h will increase to 100 mL/h if she does not take well p.o. throughout the day * Monitor urine output, renal function, vital signs, bedside monitoring to determine fluid status. * Switch antibiotics to more broad-spectrum because of increasing C-reactive protein and white count. * Levaquin, vancomycin, and Zosyn. * Follow blood cultures. * Unable to collect sputum for Gram stain and culture * Repeat procalcitonin * Incentive spirometry and Acapella when able to comply. * Continue BiPAP at 12/8 * ABG as needed * Strict I's and O's. * Repeat CBC, CMP, C-reactive protein, magnesium, and phosphorus in the morning. * Offer food and water when off BiPAP VTE prophylaxis: Enoxaparin 40 mg subcu twice daily CODE STATUS: Full code. Patient was confused at time of CODE STATUS. Clarified CODE STATUS with sister who stated that she would want to be a full code and likely did not understand the implications of DNI. Disposition: Admit to ICU in critical condition. Length of stay will likely be greater than 96 hours.
[2019-10-31] MEDS: Lurasidone Hcl [Latuda] 80 MG PO SCH (20:28)
[2019-10-31] MEDS: Levofloxacin/Dextrose 5%-Water 750 MG in Premix Bag 1 BAG IV SCH (21:06)
[2019-11-01] MEDS: Dextrose 5%-0.45% NaCl 1,000 ML IV SCH ×2 (00:44→12:20)
[2019-11-01] MEDS: Insulin Lispro 100 Units/ML 3 ML Vial SUBCUT SCH ×4 (00:48→18:20)
[2019-11-01] MEDS: Albuterol/Ipratropium 3.0-0.5 MG/3 ML Neb Soln NEB SCH ×4 (02:35→20:35)
[2019-11-01] MEDS: LORazepam 2 MG/ML SDV IVPUSH PRN ×2 (03:37→22:57)
[2019-11-01] MEDS: Piperacillin/Tazobactam 4.5 GM in Sodium Chloride 0.9% 100 ML IV SCH ×3 (03:38→19:41)
[2019-11-01] MEDS: Budesonide 0.5 MG/2 ML Neb Susp NEB SCH (06:01)
[2019-11-01] MEDS: Benztropine 1 MG Tab PO SCH ×3 (09:00→21:08)
[2019-11-01] MEDS: PARoxetine 20 MG Tab PO SCH ×2 (09:00→11:44)
[2019-11-01] MEDS: Glycopyrrolate 15.6 MCG Cap.W.Dev Kit of 6 IH SCH ×2 (09:28→21:36)
[2019-11-01] MEDS: Enoxaparin 40 MG/0.4 ML Syringe SUBCUT SCH ×2 (10:00→19:41)
[2019-11-01] MEDS ORDERED: Potassium Phosphates 30 MMOLE in Sodium Chloride 0.9% 500 ML IV ONE (10:30)
[2019-11-01] MEDS: Vancomycin 1 GM, Vancomycin 250 MG in Sodium Chloride 0.9% 250 ML IV SCH ×3 (10:57→19:31)
[2019-11-01] MEDS: risperiDONE 1 MG Tab PO SCH (11:40)
[2019-11-01] MEDS: hydrOXYzine HCl 25 MG Tab PO SCH ×2 (11:40→21:08)
[2019-11-01] MEDS: Aspirin 81 MG Tab.Chew PO SCH ×2 (11:44→12:22)
[2019-11-01] MEDS: Nicotine 21 MG/24 Hr Patch TRDERM SCH (11:44)
[2019-11-01] MEDS ORDERED: Furosemide 20 MG/2 ML VIAL IVPUSH ONE (12:44)
--- NOTE | 2019-11-01 16:08 | PCM.PN ---
- General Info Date of Service: 11/01/19 Admission Dx/Problem (Free Text): Admission Diagnosis/Problem Admission Diagnosis/Problem Pneumonia Subjective Update: Patient continues to be lethargic. She is waking up, but she is not following commands. She has had improvement in her respiratory and cardiac status. Functional Status: Reports: Other (Lethargic and not communicating) - Patient Data Vitals - Most Recent: Last Vital Signs Temp 97.5 F 11/01/19 12:00 Pulse 113 H 10/29/19 18:17 Resp 26 H 11/01/19 12:00 BP 125/75 11/01/19 12:00 Pulse Ox 94 L 11/01/19 12:00 Weight - Most Recent: 115.258 kg I&O - Last 24 Hours: Intake & Output 11/01/19 11/01/19 11/01/19 06:59 14:59 22:59 Intake Total 1425 240 Output Total 450 620 Balance 975 -380 Lab Results Last 24 Hours: Laboratory Results - last 24 hr 10/31/19 10/31/19 11/01/19 Range/Units 04:47 17:29 00:42 WBC (3.98-10.04) K/mm3 RBC (3.98-5.22) M/mm3 Hgb (11.2-15.7) gm/dl Hct (34.1-44.9) % MCV (79.4-94.8) fl MCH (25.6-32.2) pg MCHC (32.2-35.5) g/dl RDW Std Deviation (36.4-46.3) fL Plt Count (182-369) K/mm3 MPV (9.4-12.3) fl Neut % (Auto) (34.0-71.1) % Lymph % (Auto) (19.3-51.7) % [place] % (Auto) (4.7-12.5) % Eos % (Auto) (0.7-5.8) Baso % (Auto) (0.1-1.2) % Neut # (Auto) (1.56-6.13) K/mm3 Lymph # (Auto) (1.18-3.74) K/mm3 [place] # (Auto) (0.24-0.36) K/mm3 Eos # (Auto) (0.04-0.36) K/mm3 Baso # (Auto) (0.01-0.08) K/mm3 Manual Slide Review Sodium (136-145) mEq/L Potassium (3.5-5.1) mEq/L Chloride (98-107) mEq/L Carbon Dioxide (21-32) mEq/L Anion Gap (5-15) BUN (7-18) mg/dL Creatinine (0.55-1.02) mg/dL Est Cr Clr Drug Dosing mL/min Estimated GFR (MDRD) (>60) mL/min BUN/Creatinine Ratio (14-18) Glucose (74-106) mg/dL POC Glucose 148 H 109 H (70-105) mg/dL Calcium (8.5-10.1) mg/dL Phosphorus (2.6-4.7) mg/dL Magnesium (1.8-2.4) mg/dl Total Bilirubin (0.2-1.0) mg/dL AST (15-37) U/L ALT (14-59) U/L Alkaline Phosphatase (46-116) U/L C-Reactive Protein (<1.0) mg/dL Total Protein (6.4-8.2) g/dl Albumin (3.4-5.0) g/dl Globulin gm/dL Albumin/Globulin Ratio (1-2) Procalcitonin 12.07 H (<0.10) ng/mL Vancomycin Trough (10.0-20.0) 11/01/19 11/01/19 11/01/19 Range/Units 04:40 04:40 05:19 WBC 18.92 H (3.98-10.04) K/mm3 RBC 4.88 (3.98-5.22) M/mm3 Hgb 13.8 D (11.2-15.7) gm/dl Hct 42.1 (34.1-44.9) % MCV 86.3 (79.4-94.8) fl MCH 28.3 (25.6-32.2) pg MCHC 32.8 (32.2-35.5) g/dl RDW Std Deviation 45.9 (36.4-46.3) fL Plt Count 289 (182-369) K/mm3 MPV 10.0 (9.4-12.3) fl Neut % (Auto) 89.4 H (34.0-71.1) % Lymph % (Auto) 5.6 L (19.3-51.7) % [place] % (Auto) 4.2 L (4.7-12.5) % Eos % (Auto) 0.3 L (0.7-5.8) Baso % (Auto) 0.1 (0.1-1.2) % Neut # (Auto) 16.90 H (1.56-6.13) K/mm3 Lymph # (Auto) 1.06 L (1.18-3.74) K/mm3 [place] # (Auto) 0.80 H (0.24-0.36) K/mm3 Eos # (Auto) 0.06 (0.04-0.36) K/mm3 Baso # (Auto) 0.02 (0.01-0.08) K/mm3 Manual Slide Review Abnormal smear Sodium 143 (136-145) mEq/L Potassium 3.2 L (3.5-5.1) mEq/L Chloride 107 (98-107) mEq/L Carbon Dioxide 26 (21-32) mEq/L Anion Gap 13.2 (5-15) BUN 18 (7-18) mg/dL Creatinine 1.0 (0.55-1.02) mg/dL Est Cr Clr Drug Dosing 54.51 mL/min Estimated GFR (MDRD) 57 (>60) mL/min BUN/Creatinine Ratio 18.0 (14-18) Glucose 106 (74-106) mg/dL POC Glucose 89 (70-105) mg/dL Calcium 8.1 L (8.5-10.1) mg/dL Phosphorus 1.8 L (2.6-4.7) mg/dL Magnesium 2.2 (1.8-2.4) mg/dl Total Bilirubin 0.9 (0.2-1.0) mg/dL AST 48 H (15-37) U/L ALT 30 (14-59) U/L Alkaline Phosphatase 101 (46-116) U/L C-Reactive Protein 34.2 H* (<1.0) mg/dL Total Protein 5.6 L (6.4-8.2) g/dl Albumin 1.6 L (3.4-5.0) g/dl Globulin 4.0 gm/dL Albumin/Globulin Ratio 0.4 L (1-2) Procalcitonin (<0.10) ng/mL Vancomycin Trough (10.0-20.0) 11/01/19 11/01/19 Range/Units 09:27 11:50 WBC (3.98-10.04) K/mm3 RBC (3.98-5.22) M/mm3 Hgb (11.2-15.7) gm/dl Hct (34.1-44.9) % MCV (79.4-94.8) fl MCH (25.6-32.2) pg MCHC (32.2-35.5) g/dl RDW Std Deviation (36.4-46.3) fL Plt Count (182-369) K/mm3 MPV (9.4-12.3) fl Neut % (Auto) (34.0-71.1) % Lymph % (Auto) (19.3-51.7) % [place] % (Auto) (4.7-12.5) % Eos % (Auto) (0.7-5.8) Baso % (Auto) (0.1-1.2) % Neut # (Auto) (1.56-6.13) K/mm3 Lymph # (Auto) (1.18-3.74) K/mm3 [place] # (Auto) (0.24-0.36) K/mm3 Eos # (Auto) (0.04-0.36) K/mm3 Baso # (Auto) (0.01-0.08) K/mm3 Manual Slide Review Sodium (136-145) mEq/L Potassium (3.5-5.1) mEq/L Chloride (98-107) mEq/L Carbon Dioxide (21-32) mEq/L Anion Gap (5-15) BUN (7-18) mg/dL Creatinine (0.55-1.02) mg/dL Est Cr Clr Drug Dosing mL/min Estimated GFR (MDRD) (>60) mL/min BUN/Creatinine Ratio (14-18) Glucose (74-106) mg/dL POC Glucose 123 H (70-105) mg/dL Calcium (8.5-10.1) mg/dL Phosphorus (2.6-4.7) mg/dL Magnesium (1.8-2.4) mg/dl Total Bilirubin (0.2-1.0) mg/dL AST (15-37) U/L ALT (14-59) U/L Alkaline Phosphatase (46-116) U/L C-Reactive Protein (<1.0) mg/dL Total Protein (6.4-8.2) g/dl Albumin (3.4-5.0) g/dl Globulin gm/dL Albumin/Globulin Ratio (1-2) Procalcitonin (<0.10) ng/mL Vancomycin Trough 7.5 L (10.0-20.0) Luis Miguel Results Last 24 Hours: Microbiology 10/29/19 14:53 Aerobic Blood Culture - Preliminary Blood NO GROWTH AFTER 3 DAYS Anaerobic Blood Culture - Final 10/29/19 15:05 Aerobic Blood Culture - Preliminary Blood NO GROWTH AFTER 3 DAYS Anaerobic Blood Culture - Preliminary NO GROWTH AFTER 3 DAYS Med Orders - Current: Current Medications Acetaminophen (Tylenol) 650 mg PO Q4H PRN PRN Reason: Pain (Mild 1-3)/fever Albuterol (Proventil Neb Soln) 2.5 mg NEB Q2H PRN PRN Reason: Shortness Of Breath/wheezing Albuterol (Proventil Hfa) 0 gm INH Q4H PRN PRN Reason: Shortness of Breath Albuterol/Ipratropium (Duoneb 3.0-0.5 Mg/3 Ml) 3 ml NEB Q4H PRN PRN Reason: Shortness Of Breath/wheezing Albuterol/Ipratropium (Duoneb 3.0-0.5 Mg/3 Ml) 3 ml NEB Q6HRRT [facility] Last Admin: 11/01/19 09:21 Dose: 3 ml Documented by: Aspirin (Aspirin) 81 mg PO DAILY [facility] Last Admin: 11/01/19 12:22 Dose: Not Given Documented by: Benztropine Mesylate (Cogentin) 1 mg PO BID [facility] Last Admin: 11/01/19 09:00 Dose: Not Given Documented by: Budesonide (Pulmicort) 0.5 mg NEB BID@0600,1800 [facility] Last Admin: 11/01/19 06:01 Dose: 0.5 mg Documented by: Dextrose/Water (Dextrose 50% In Water) 50 ml IVPUSH ASDIRECTED PRN PRN Reason: Hypoglycemia Enoxaparin Sodium (Lovenox) 40 mg SUBCUT Q12H [facility] Last Admin: 11/01/19 10:00 Dose: 40 mg Documented by: Glycopyrrolate (Seebri Neohaler) 15.6 mcg IH BID@1000,2200 [facility] Last Admin: 11/01/19 09:28 Dose: Not Given Documented by: Hydroxyzine HCl (Atarax) 25 mg PO BID [facility] Last Admin: 11/01/19 11:40 Dose: Not Given Documented by: Dextrose/Sodium Chloride (Dextrose 5%-1/2 Ns) 1,000 mls @ 100 mls/hr IV ASDIRECTED [facility] Last Admin: 11/01/19 12:20 Dose: 100 mls/hr Documented by: Levofloxacin/Dextrose 750 mg/ (Premix) 150 mls @ 100 mls/hr IV Q24H [facility] Last Admin: 10/31/19 21:06 Dose: 100 mls/hr Documented by: Piperacillin Sod/Tazobactam (Sod 4.5 gm/ Sodium Chloride) 100 mls @ 25 mls/hr IV Q8H [facility] Last Admin: 11/01/19 12:28 Dose: 25 mls/hr Documented by: Vancomycin HCl 1 gm/Vancomycin HCl 250 mg/ Sodium Chloride 250 mls @ 166.667 mls/hr IV Q8H [facility] Last Admin: 11/01/19 10:57 Dose: 166.667 mls/hr Documented by: Insulin Human Lispro (Humalog) 0 unit SUBCUT Q6HR [facility]; Protocol Last Admin: 11/01/19 12:16 Dose: Not Given Documented by: Lorazepam (Ativan) 1 mg IVPUSH Q2H PRN PRN Reason: Anxiety Last Admin: 11/01/19 03:37 Dose: 1 mg Documented by: Miscellaneous Information (Remove Patch) 1 ea TRDERM Q24H [facility] Last Admin: 11/01/19 11:44 Dose: 1 ea Documented by: Nicotine (Habitrol) 21 mg TRDERM Q24H [facility] Last Admin: 11/01/19 11:44 Dose: 21 mg Documented by: Ondansetron HCl (Zofran) 4 mg IV Q4H PRN PRN Reason: Nausea/Vomiting Paroxetine HCl (Paxil) 30 mg PO DAILY [facility] Last Admin: 11/01/19 09:00 Dose: Not Given Documented by: Lurasidone Hcl [ (Latuda] 80 Mg) 0 each PO BEDTIME [facility] Last Admin: 10/31/19 20:28 Dose: Not Given Documented by: Risperidone (Risperidal) 2 mg PO DAILY [facility] Last Admin: 11/01/19 11:40 Dose: Not Given Documented by: Sodium Chloride (Saline Flush) 10 ml FLUSH ASDIRECTED PRN PRN Reason: Keep Vein Open Last Admin: 10/30/19 20:09 Dose: 10 ml Documented by: Vancomycin HCl (Pharmacy To Dose - Vancomycin) 1 dose .XX ASDIRECTED PRN PRN Reason: RX TO DOSE VANCO Discontinued Medications Albuterol/Ipratropium (Duoneb 3.0-0.5 Mg/3 Ml) 3 ml NEB Q4HRRT [facility] Last Admin: 10/30/19 21:20 Dose: 3 ml Documented by: Albuterol/Ipratropium (Duoneb 3.0-0.5 Mg/3 Ml) Confirm Administered Dose 3 ml .ROUTE .STK-MED ONE Stop: 10/30/19 12:21 Last Admin: 10/30/19 12:24 Dose: Not Given Documented by: Budesonide (Pulmicort) 0.5 mg NEB BIDRT [facility] Last Admin: 10/30/19 05:58 Dose: 0.5 mg Documented by: Ceftriaxone Sodium (Rocephin) Confirm Administered Dose 2 gm IV .STK-MED ONE Stop: 10/29/19 16:27 Last Admin: 10/29/19 19:17 Dose: Not Given Documented by: Furosemide (Lasix) 20 mg IVPUSH ONETIME ONE Stop: 10/30/19 10:37 Last Admin: 10/30/19 10:53 Dose: 20 mg Documented by: Furosemide (Lasix) 20 mg IVPUSH NOW ONE Stop: 10/30/19 12:10 Last Admin: 10/30/19 12:20 Dose: 20 mg Documented by: Furosemide (Lasix) 20 mg IVPUSH NOW ONE Stop: 11/01/19 12:45 Last Admin: 11/01/19 13:11 Dose: 20 mg Documented by: Glycopyrrolate (Seebri Neohaler) 15.6 mcg IH BID [facility] Last Admin: 10/30/19 09:12 Dose: Not Given Documented by: Sodium Chloride (Normal Saline) 1,000 mls @ 999 mls/hr IV ONETIME [facility] Last Admin: 10/29/19 14:01 Dose: 999 mls/hr Documented by: Ceftriaxone Sodium 2 gm/ (Sodium Chloride) 100 mls @ 200 mls/hr IV ONETIME ONE Stop: 10/29/19 15:13 Last Admin: 10/29/19 16:31 Dose: 200 mls/hr Documented by: Lactated Ringer's (Ringers, Lactated) 1,000 mls @ 999 mls/hr IV .BOLUS ONE Stop: 10/29/19 15:51 Last Admin: 10/29/19 15:09 Dose: 999 mls/hr Documented by: Lactated Ringer's (Ringers, Lactated) 1,000 mls @ 999 mls/hr IV .BOLUS ONE Stop: 10/29/19 17:38 Last Admin: 10/29/19 17:05 Dose: 999 mls/hr Documented by: Lactated Ringer's (Ringers, Lactated) 1,000 mls @ 999 mls/hr IV .BOLUS ONE Stop: 10/29/19 17:42 Last Admin: 10/29/19 17:33 Dose: Not Given Documented by: Sodium Chloride (Normal Saline) Confirm Administered Dose 100 mls @ as directed .ROUTE .STK-MED ONE Stop: 10/29/19 16:27 Last Admin: 10/29/19 19:17 Dose: Not Given Documented by: Lactated Ringer's (Ringers, Lactated) Confirm Administered Dose 1,000 mls @ as directed .ROUTE .STK-MED ONE Stop: 10/29/19 16:27 Last Admin: 10/29/19 19:17 Dose: Not Given Documented by: Sodium Chloride (Normal Saline) 1,000 mls @ 150 mls/hr IV ASDIRECTED [facility] Last Admin: 10/30/19 02:47 Dose: 150 mls/hr Documented by: Azithromycin 500 mg/ Sodium (Chloride) 250 mls @ 250 mls/hr IV Q24H [facility] Stop: 11/01/19 20:01 Last Admin: 10/29/19 20:18 Dose: 250 mls/hr Documented by: Ceftriaxone Sodium 2 gm/ (Sodium Chloride) 100 mls @ 200 mls/hr IV Q24H [facility] Last Admin: 10/30/19 15:25 Dose: 200 mls/hr Documented by: Azithromycin 500 mg/ Sodium (Chloride) 250 mls @ 250 mls/hr IV Q24H [facility] Stop: 10/31/19 20:59 Sodium Chloride (Normal Saline) 1,000 mls @ 75 mls/hr IV ASDIRECTED [facility] Cefepime HCl 2 gm/ Premix 50 mls @ 100 mls/hr IV Q24H [facility] Last Admin: 10/30/19 20:13 Dose: 100 mls/hr Documented by: Levofloxacin/Dextrose 750 mg/ (Premix) 150 mls @ 100 mls/hr IV Q48H [facility] Last Admin: 10/30/19 20:45 Dose: 100 mls/hr Documented by: Vancomycin HCl 1.5 gm/ Sodium (Chloride) 500 mls @ 250 mls/hr IV ONETIME ONE Stop: 10/30/19 21:44 Last Admin: 10/30/19 22:28 Dose: 250 mls/hr Documented by: Sodium Chloride (Normal Saline) 500 mls @ 500 mls/hr IV BOLUS ONE Stop: 10/30/19 22:09 Last Admin: 10/30/19 21:36 Dose: 500 mls/hr Documented by: Vancomycin HCl 1 gm/ Sodium (Chloride) 250 mls @ 250 mls/hr IV Q12H [facility] Vancomycin HCl 1 gm/Vancomycin HCl 250 mg/ Sodium Chloride 250 mls @ 166.667 mls/hr IV Q12H [facility] Last Admin: 11/01/19 12:17 Dose: Not Given Documented by: Piperacillin Sod/Tazobactam (Sod 4.5 gm/ Sodium Chloride) 100 mls @ 200 mls/hr IV ONETIME ONE Stop: 10/31/19 11:59 Last Admin: 10/31/19 11:39 Dose: 200 mls/hr Documented by: Sodium Chloride (Normal Saline) 100 mls @ 75 mls/hr IV ASDIRECTED [facility] Stop: 10/31/19 13:00 Last Admin: 10/31/19 11:29 Dose: 75 mls/hr Documented by: Potassium Phosphate 30 mmole/ (Sodium Chloride) 510 mls @ 102 mls/hr IV ONETIME ONE Stop: 11/01/19 15:29 Last Admin: 11/01/19 10:58 Dose: 102 mls/hr Documented by: Insulin Human Lispro (Humalog) 0 unit SUBCUT QIDACANDBED [facility]; Protocol Last Admin: 10/31/19 12:44 Dose: Not Given Documented by: Iopamidol (Isovue-300 (61%)) 50 ml IVPUSH ONETIME ONE Stop: 10/30/19 07:53 Last Admin: 10/30/19 08:36 Dose: 50 ml Documented by: Iopamidol (Isovue-300 (61%)) 100 ml IVPUSH ONETIME ONE Stop: 10/30/19 07:53 Last Admin: 10/30/19 08:37 Dose: 100 ml Documented by: Iopamidol (Isovue-370 (76%)) 100 ml IVPUSH ONETIME ONE Stop: 10/31/19 11:21 Last Admin: 10/31/19 11:28 Dose: 100 ml Documented by: Lorazepam (Ativan) 1 mg IVPUSH Q15M PRN PRN Reason: Other Last Admin: 10/30/19 08:47 Dose: 1 mg Documented by: Lorazepam (Ativan) Confirm Administered Dose 2 mg .ROUTE .STK-MED ONE Stop: 10/30/19 08:15 Last Admin: 10/30/19 08:47 Dose: Not Given Documented by: Lorazepam (Ativan) 1 mg IVPUSH ONETIME ONE Stop: 10/30/19 11:52 Last Admin: 10/30/19 11:58 Dose: 1 mg Documented by: Atorvastatin 20 Mg 0 each PO DAILY [facility] Sodium Chloride (Saline Flush) 10 ml FLUSH ONETIME PRN PRN Reason: IV FLUSH Last Admin: 10/30/19 08:37 Dose: 10 ml Documented by: Sodium Chloride (Saline Flush) 10 ml FLUSH ONETIME PRN PRN Reason: IV FLUSH Stop: 10/31/19 13:00 Last Admin: 10/31/19 11:29 Dose: 10 ml Documented by: - Exam Quality Assessment: Supplemental Oxygen, Urine Catheter General: Moderate Distress, Lethargic HEENT: Pupils Equal, Mucous Membr. Moist/[place] Neck: Supple Lungs: No: Normal Respiratory Effort (Increased respiratory rate and effort) Cardiovascular: Regular Rhythm, Tachycardia GI/Abdominal Exam: Distended (Morbidly obese), Tender (Diffusely tender) Extremities: Normal Capillary Refill, Pedal Edema Skin: Warm, Dry, Intact Sepsis Event Note - Evaluation Sepsis Screening Result: No Definite Risk - Focused Exam Vital Signs: Vital Signs Temp Resp BP Pulse Ox Pulse Ox 11/01/19 12:00 97.5 F 26 H 125/75 94 L 11/01/19 09:33 92 L 11/01/19 09:26 96 11/01/19 09:22 95 11/01/19 08:00 97.5 F 28 H 108/57 L 92 L 11/01/19 06:01 91 L - Problem List & Annotations (1) Septic shock SNOMED Code(s): 36218980 Code(s): A41.9 - SEPSIS, UNSPECIFIED ORGANISM; R65.21 - SEVERE SEPSIS WITH SEPTIC SHOCK Status: Acute Current Visit: Yes (2) Benign microscopic hematuria SNOMED Code(s): 208440485332996 Code(s): R31.1 - BENIGN ESSENTIAL MICROSCOPIC HEMATURIA Status: Acute Current Visit: Yes (3) COPD (chronic obstructive pulmonary disease) SNOMED Code(s): 09139832 Code(s): J44.9 - CHRONIC OBSTRUCTIVE PULMONARY DISEASE, UNSPECIFIED Status: Acute Current Visit: Yes (4) Pneumonia SNOMED Code(s): 484387458 Code(s): J18.9 - PNEUMONIA, UNSPECIFIED ORGANISM Status: Acute Current Visit: Yes Qualifiers: Pneumonia type: due to unspecified organism (5) Schizophrenia SNOMED Code(s): 65992252 Code(s): F20.9 - SCHIZOPHRENIA, UNSPECIFIED Status: Acute Current Visit: Yes Qualifiers: Schizophrenia type: unspecified Qualified Code(s): F20.9 - Schizophrenia, unspecified (6) Sepsis SNOMED Code(s): 38854574 Code(s): A41.9 - SEPSIS, UNSPECIFIED ORGANISM Status: Acute Current Visit: Yes Qualifiers: Sepsis type: sepsis due to unspecified organism Sepsis acute organ dysfunction status: unspecified Qualified Code(s): A41.9 - Sepsis, unspecified organism (7) Abdominal pain SNOMED Code(s): 13457926 Code(s): R10.9 - UNSPECIFIED ABDOMINAL PAIN Status: Acute Current Visit: Yes (8) Streptococcal pneumonia SNOMED Code(s): 58899074 Code(s): J15.4 - PNEUMONIA DUE TO OTHER STREPTOCOCCI Status: Acute Current Visit: Yes (9) Positive result for methicillin resistant Staphylococcus aureus (MRSA) screening SNOMED Code(s): 197790723 Code(s): Z22.322 - CARRIER OR SUSPECTED CARRIER OF METHICILLIN RESIS STAPH Status: Acute Current Visit: Yes - Problem List Review Problem List Initiated/Reviewed/Updated: Yes - My Orders Last 24 Hours: My Active Orders 10/31/19 18:00 Insulin Lispro [HumaLOG] See Protocol SUBCUT Q6HR 10/31/19 19:30 Piperacillin/Tazobactam [Piperacil-Tazobact] 4.5 gm Sodium Chloride 0.9% [Normal Saline] 100 ml IV Q8H 10/31/19 20:00 Levofloxacin/Dextrose 5%-Water [Levaquin in D5W 750 MG/150 ML] 750 mg Premix Bag 1 bag IV Q24H 11/01/19 10:30 Vancomycin 1 gm Vancomycin 250 mg Sodium Chloride 0.9% [Normal Saline] 250 ml IV Q8H 11/02/19 05:11 C-REACTIVE PROTEIN [CHEM] AM CBC WITH AUTO DIFF [HEME] AM COMPREHENSIVE METABOLIC PN,CMP [CHEM] AM MAGNESIUM [CHEM] AM PHOSPHORUS [CHEM] AM 11/03/19 09:30 VANCOMYCIN TROUGH [CHEM] Timed - Assessment Assessment:: 10/29/2019 Septic shock likely secondary to bilateral pneumonia History of COPD/asthma Altered mental status * Patient found on floor in the bathroom after possibly having a seizure. * Hypotensive, tachycardic, tachypneic and hypoxic on arrival to emergency department. * Patient received 3 L IV bolus in emergency department. * Initial lactic acid 4.0 increasing to 5.3 after fluid bolus. * Initial WBC 22,000, 76% neutrophils, no bandemia, C-reactive protein 1.6 * Altered mental status, patient is very lethargic. * Patient is in critical condition and currently has a poor outcome predicted. High risk of mortality. Abdominal pain Microscopic hematuria, benign * Patient's initial complaint when calling EMS was abdominal pain and constipation. * Patient does exhibit tenderness to palpation throughout the abdomen. * Bowel sounds difficult to appreciate secondary to upper airway noise. 10/30/2019 * Patient is not improved with the large amount of IV fluids. She has actually had worsening respiratory status requiring IV Lasix. Respiratory rate has had some improvement with vigorous pulmonary toilet, bronchodilation, and diuretics. Unfortunately, this is likely going to cause some intravascular h ypovolemia. * Lactic acid did drop to 2.0 this morning with the IV fluids. * This afternoon renal function did worsen with a creatinine of 1.6. * WBC worsened and has been stable today at 23,000. Still no bands or toxic granulations. Neutrophils 90%, absolute neutrophils 21,000. * ABG on BiPAP: pH 7.39, PCO2 37.4, PO2 of 66, bicarb 22 -which is reassuring. * Respiratory rate still in the upper 30s to 40s and heart rate 120s to 130s. * Confirmed CODE STATUS with sister. She states that Rosita has several mental health issues and she likely did not understand the catastrophic results of not being intubated. * CT abdomen and pelvis with contrast. Findings suspicious for colitis within portions of the descending and sigmoid colon. Fluid is seen within the pelvis and right abdomen most likely reactive from the colonic process. Increased stool within the rectosigmoid region. Nodularity with in the left adrenal gland most likely benign if patient has no primary carcinoma. * CT of the of the head: No acute findings 10/31/2019 * Rosita is making some improvement today. Respiratory rate has decreased and her tachycardia has decreased. * Antibiotics were switched to Zosyn to cover both strep pneumoniae and colitis. * MRSA screen was positive. * Patient continues on vancomycin. * D-dimer was elevated at 1.[address] angio was done of the chest * CT angio chest: 1. No findings of pulmonary embolism. * 2. Aorta shows atherosclerotic changes with no dissection or aneurysm. No discrete ulcerating plaque is seen. * 3. Increased density within the right lung base which may represent pneumonia or prominent atelectasis. * 4. Other findings as noted. Not believed to be acute. * ABGs normal pH, PCO2, bicarb with a slightly low PO2. These are surprisingly good considering her respiratory rate. * Repeat lactic acid was 1.6. White count continues to be significantly elevated at 23,000. CRP 35.8. * Patient has significant hypoalbuminemia with albumin of 1.9 * Hypokalemiapotassium 3.4 * Hemoglobin A1c is 6.1 11/01/2019 * Decrease in respiratory rate and tachycardia. * Patient weaned off of BiPAP and now on nasal cannula. * On Zosyn, Levaquin, and vancomycin. * Slowly improving mentation. * WBC 18.9, CRP 34.2, procalcitonin from yesterday 10/31 2011.07, phosphorus 1.8, potassium 3.2, estimated GFR 57, albumin 1.6 - Plan Plan:: Plan * D5 half-normal saline at 75 mL/h * Lasix 20 mg IV twice daily * Monitor urine output, renal function, vital signs, bedside monitoring to determine fluid status. * Levaquin, vancomycin, and Zosyn. * Follow blood cultures. * Unable to collect sputum for Gram stain and culture * Repeat procalcitonin tomorrow * Incentive spirometry and Acapella when able to comply. * FiO2 to keep SPO2 greater than 92% * ABG as needed * Strict I's and O's. * Repeat CBC, CMP, C-reactive protein, magnesium, and phosphorus in the morning. * Offer food and water when off BiPAP VTE prophylaxis: Enoxaparin 40 mg subcu twice daily CODE STATUS: Full code. Patient was confused at time of CODE STATUS. Clarified CODE STATUS with sister who stated that she would want to be a full code and likely did not understand the implications of DNI. Disposition: Admit to ICU in critical condition. Length of stay greater than 96 hours secondary to slow resolution and altered mental status..
[2019-11-01] MEDS: Levofloxacin/Dextrose 5%-Water 750 MG in Premix Bag 1 BAG IV SCH (19:41)
[2019-11-01] MEDS ORDERED: Furosemide 20 MG/2 ML VIAL IVPUSH SCH (21:00)
[2019-11-01] MEDS: Lurasidone Hcl [Latuda] 80 MG PO SCH (21:08)
[2019-11-02] MEDS: Insulin Lispro 100 Units/ML 3 ML Vial SUBCUT SCH ×4 (00:57→18:34)
[2019-11-02] MEDS: Dextrose 5%-0.45% NaCl 1,000 ML IV SCH (02:30)
[2019-11-02] MEDS: Piperacillin/Tazobactam 4.5 GM in Sodium Chloride 0.9% 100 ML IV SCH ×3 (02:36→20:12)
[2019-11-02] MEDS: Vancomycin 1 GM, Vancomycin 250 MG in Sodium Chloride 0.9% 250 ML IV SCH ×3 (02:36→18:34)
[2019-11-02] MEDS: Albuterol/Ipratropium 3.0-0.5 MG/3 ML Neb Soln NEB SCH ×4 (03:43→20:31)
[2019-11-02] MEDS: Budesonide 0.5 MG/2 ML Neb Susp NEB SCH ×5 (03:43→20:31)
[2019-11-02] MEDS: Potassium Chloride 10 MEQ in Premix Bag 1 BAG IV SCH ×4 (09:34→13:26)
[2019-11-02] MEDS: Aspirin 81 MG Tab.Chew PO SCH (09:35)
[2019-11-02] MEDS: risperiDONE 1 MG Tab PO SCH (09:35)
[2019-11-02] MEDS: Enoxaparin 40 MG/0.4 ML Syringe SUBCUT SCH ×2 (09:35→20:11)
[2019-11-02] MEDS: PARoxetine 20 MG Tab PO SCH (09:36)
[2019-11-02] MEDS: hydrOXYzine HCl 25 MG Tab PO SCH ×2 (09:37→20:11)
[2019-11-02] MEDS: Benztropine 1 MG Tab PO SCH ×2 (09:37→20:11)
[2019-11-02] MEDS: Furosemide 20 MG/2 ML VIAL IVPUSH SCH ×2 (09:37→20:11)
[2019-11-02] MEDS: Glycopyrrolate 15.6 MCG Cap.W.Dev Kit of 6 IH SCH ×2 (10:47→23:06)
[2019-11-02] MEDS: Nicotine 21 MG/24 Hr Patch TRDERM SCH (11:02)
[2019-11-02] MEDS ORDERED: Potassium Phosphates 30 MMOLE in Sodium Chloride 0.9% 500 ML IV ONE (13:00)
--- NOTE | 2019-11-02 14:26 | PCM.PN ---
- General Info Date of Service: 11/02/19 Admission Dx/Problem (Free Text): Admission Diagnosis/Problem Admission Diagnosis/Problem Pneumonia Subjective Update: Rosita is more awake, able to take orally, and is now off BiPAP. Functional Status: Reports: Pain Controlled. Denies: Ambulating - Review of Systems General: Reports: Weakness, Fatigue Pulmonary: Reports: Shortness of Breath, Cough - Patient Data Vitals - Most Recent: Last Vital Signs Temp 98.8 F 11/02/19 12:00 Pulse 113 H 10/29/19 18:17 Resp 34 H 11/02/19 12:00 BP 119/71 11/02/19 12:00 Pulse Ox 93 L 11/02/19 12:00 Weight - Most Recent: 115.345 kg I&O - Last 24 Hours: Intake & Output 11/01/19 11/02/19 11/02/19 22:59 06:59 14:59 Intake Total 1675 1275 Output Total 675 1025 845 Balance 1000 250 -845 Lab Results Last 24 Hours: Laboratory Results - last 24 hr 11/01/19 11/01/19 11/02/19 Range/Units 18:12 23:54 04:41 WBC 17.66 H (3.98-10.04) K/mm3 RBC 4.13 (3.98-5.22) M/mm3 Hgb 11.8 D (11.2-15.7) gm/dl Hct 36.0 (34.1-44.9) % MCV 87.2 (79.4-94.8) fl MCH 28.6 (25.6-32.2) pg MCHC 32.8 (32.2-35.5) g/dl RDW Std Deviation 45.6 (36.4-46.3) fL Plt Count 276 (182-369) K/mm3 MPV 10.0 (9.4-12.3) fl Neut % (Auto) 86.1 H (34.0-71.1) % Lymph % (Auto) 8.0 L (19.3-51.7) % [place] % (Auto) 5.4 (4.7-12.5) % Eos % (Auto) 0.1 L (0.7-5.8) Baso % (Auto) 0.1 (0.1-1.2) % Neut # (Auto) 15.20 H (1.56-6.13) K/mm3 Lymph # (Auto) 1.41 (1.18-3.74) K/mm3 [place] # (Auto) 0.96 H (0.24-0.36) K/mm3 Eos # (Auto) 0.02 L (0.04-0.36) K/mm3 Baso # (Auto) 0.01 (0.01-0.08) K/mm3 Manual Slide Review Abnormal smear Sodium (136-145) mEq/L Potassium (3.5-5.1) mEq/L Chloride (98-107) mEq/L Carbon Dioxide (21-32) mEq/L Anion Gap (5-15) BUN (7-18) mg/dL Creatinine (0.55-1.02) mg/dL Est Cr Clr Drug Dosing mL/min Estimated GFR (MDRD) (>60) mL/min BUN/Creatinine Ratio (14-18) Glucose (74-106) mg/dL POC Glucose 119 H 110 H (70-105) mg/dL Calcium (8.5-10.1) mg/dL Phosphorus (2.6-4.7) mg/dL Magnesium (1.8-2.4) mg/dl Total Bilirubin (0.2-1.0) mg/dL AST (15-37) U/L ALT (14-59) U/L Alkaline Phosphatase (46-116) U/L C-Reactive Protein (<1.0) mg/dL Total Protein (6.4-8.2) g/dl Albumin (3.4-5.0) g/dl Globulin gm/dL Albumin/Globulin Ratio (1-2) 11/02/19 11/02/19 11/02/19 Range/Units 04:41 06:16 12:17 WBC (3.98-10.04) K/mm3 RBC (3.98-5.22) M/mm3 Hgb (11.2-15.7) gm/dl Hct (34.1-44.9) % MCV (79.4-94.8) fl MCH (25.6-32.2) pg MCHC (32.2-35.5) g/dl RDW Std Deviation (36.4-46.3) fL Plt Count (182-369) K/mm3 MPV (9.4-12.3) fl Neut % (Auto) (34.0-71.1) % Lymph % (Auto) (19.3-51.7) % [place] % (Auto) (4.7-12.5) % Eos % (Auto) (0.7-5.8) Baso % (Auto) (0.1-1.2) % Neut # (Auto) (1.56-6.13) K/mm3 Lymph # (Auto) (1.18-3.74) K/mm3 [place] # (Auto) (0.24-0.36) K/mm3 Eos # (Auto) (0.04-0.36) K/mm3 Baso # (Auto) (0.01-0.08) K/mm3 Manual Slide Review Sodium 145 (136-145) mEq/L Potassium 2.8 L (3.5-5.1) mEq/L Chloride 108 H (98-107) mEq/L Carbon Dioxide 30 (21-32) mEq/L Anion Gap 9.8 (5-15) BUN 15 (7-18) mg/dL Creatinine 0.8 (0.55-1.02) mg/dL Est Cr Clr Drug Dosing 68.13 mL/min Estimated GFR (MDRD) > 60 (>60) mL/min BUN/Creatinine Ratio 18.8 H (14-18) Glucose 108 H (74-106) mg/dL POC Glucose 119 H 148 H (70-105) mg/dL Calcium 7.8 L (8.5-10.1) mg/dL Phosphorus 1.7 L (2.6-4.7) mg/dL Magnesium 1.9 (1.8-2.4) mg/dl Total Bilirubin 0.9 (0.2-1.0) mg/dL AST 65 H (15-37) U/L ALT 45 (14-59) U/L Alkaline Phosphatase 111 (46-116) U/L C-Reactive Protein 22.1 H* (<1.0) mg/dL Total Protein 5.3 L (6.4-8.2) g/dl Albumin 1.4 L (3.4-5.0) g/dl Globulin 3.9 gm/dL Albumin/Globulin Ratio 0.4 L (1-2) [place] Results Last 24 Hours: Microbiology 10/29/19 14:53 Aerobic Blood Culture - Preliminary Blood NO GROWTH AFTER 3 DAYS Anaerobic Blood Culture - Final 10/29/19 15:05 Aerobic Blood Culture - Preliminary Blood NO GROWTH AFTER 3 DAYS Anaerobic Blood Culture - Preliminary NO GROWTH AFTER 3 DAYS Med Orders - Current: Current Medications Acetaminophen (Tylenol) 650 mg PO Q4H PRN PRN Reason: Pain (Mild 1-3)/fever Albuterol (Proventil Neb Soln) 2.5 mg NEB Q2H PRN PRN Reason: Shortness Of Breath/wheezing Albuterol (Proventil Hfa) 0 gm INH Q4H PRN PRN Reason: Shortness of Breath Albuterol/Ipratropium (Duoneb 3.0-0.5 Mg/3 Ml) 3 ml NEB Q4H PRN PRN Reason: Shortness Of Breath/wheezing Albuterol/Ipratropium (Duoneb 3.0-0.5 Mg/3 Ml) 3 ml NEB Q6HRRT [facility] Last Admin: 11/02/19 08:07 Dose: 3 ml Documented by: Aspirin (Aspirin) 81 mg PO DAILY [facility] Last Admin: 11/02/19 09:35 Dose: 81 mg Documented by: Benztropine Mesylate (Cogentin) 1 mg PO BID [facility] Last Admin: 11/02/19 09:37 Dose: 1 mg Documented by: Budesonide (Pulmicort) 0.5 mg NEB BID [facility] Last Admin: 11/02/19 08:07 Dose: 0.5 mg Documented by: Dextrose/Water (Dextrose 50% In Water) 50 ml IVPUSH ASDIRECTED PRN PRN Reason: Hypoglycemia Enoxaparin Sodium (Lovenox) 40 mg SUBCUT Q12H [facility] Last Admin: 11/02/19 09:35 Dose: 40 mg Documented by: Furosemide (Lasix) 20 mg IVPUSH BID [facility] Last Admin: 11/02/19 09:37 Dose: 20 mg Documented by: Glycopyrrolate (Seebri Neohaler) 15.6 mcg IH BID@1000,2200 [facility] Last Admin: 11/02/19 10:47 Dose: Not Given Documented by: Hydroxyzine HCl (Atarax) 25 mg PO BID [facility] Last Admin: 11/02/19 09:37 Dose: 25 mg Documented by: Levofloxacin/Dextrose 750 mg/ (Premix) 150 mls @ 100 mls/hr IV Q24H [facility] Last Admin: 11/01/19 19:41 Dose: 100 mls/hr Documented by: Piperacillin Sod/Tazobactam (Sod 4.5 gm/ Sodium Chloride) 100 mls @ 25 mls/hr IV Q8H [facility] Last Admin: 11/02/19 11:01 Dose: 25 mls/hr Documented by: Vancomycin HCl 1 gm/Vancomycin HCl 250 mg/ Sodium Chloride 250 mls @ 166.667 mls/hr IV Q8H [facility] Last Admin: 11/02/19 10:58 Dose: 166.667 mls/hr Documented by: Potassium Phosphate 30 mmole/ (Sodium Chloride) 510 mls @ 102 mls/hr IV ONETIME ONE Stop: 11/02/19 17:59 Last Admin: 11/02/19 13:27 Dose: 102 mls/hr Documented by: Insulin Human Lispro (Humalog) 0 unit SUBCUT Q6HR [facility]; Protocol Last Admin: 11/02/19 12:24 Dose: Not Given Documented by: Lorazepam (Ativan) 1 mg IVPUSH Q2H PRN PRN Reason: Anxiety Last Admin: 11/01/19 22:57 Dose: 1 mg Documented by: Miscellaneous Information (Remove Patch) 1 ea TRDERM Q24H [facility] Last Admin: 11/02/19 11:02 Dose: 1 ea Documented by: Nicotine (Habitrol) 21 mg TRDERM Q24H [facility] Last Admin: 11/02/19 11:02 Dose: 21 mg Documented by: Ondansetron HCl (Zofran) 4 mg IV Q4H PRN PRN Reason: Nausea/Vomiting Paroxetine HCl (Paxil) 30 mg PO DAILY [facility] Last Admin: 11/02/19 09:36 Dose: 30 mg Documented by: Lurasidone Hcl [ (Latuda] 80 Mg) 0 each PO BEDTIME [facility] Last Admin: 11/01/19 21:08 Dose: Not Given Documented by: Potassium Chloride (Klor-Con M20) 40 meq PO ONETIME ONE Stop: 11/02/19 17:01 Risperidone (Risperidal) 2 mg PO DAILY [facility] Last Admin: 11/02/19 09:35 Dose: 2 mg Documented by: Sodium Chloride (Saline Flush) 10 ml FLUSH ASDIRECTED PRN PRN Reason: Keep Vein Open Last Admin: 10/30/19 20:09 Dose: 10 ml Documented by: Vancomycin HCl (Pharmacy To Dose - Vancomycin) 1 dose .XX ASDIRECTED PRN PRN Reason: RX TO DOSE VANCO Discontinued Medications Albuterol/Ipratropium (Duoneb 3.0-0.5 Mg/3 Ml) 3 ml NEB Q4HRRT [facility] Last Admin: 10/30/19 21:20 Dose: 3 ml Documented by: Albuterol/Ipratropium (Duoneb 3.0-0.5 Mg/3 Ml) Confirm Administered Dose 3 ml .ROUTE .STK-MED ONE Stop: 10/30/19 12:21 Last Admin: 10/30/19 12:24 Dose: Not Given Documented by: Budesonide (Pulmicort) 0.5 mg NEB BIDRT [facility] Last Admin: 10/30/19 05:58 Dose: 0.5 mg Documented by: Budesonide (Pulmicort) 0.5 mg NEB BID@0600,1800 [facility] Last Admin: 11/02/19 07:08 Dose: Not Given Documented by: Ceftriaxone Sodium (Rocephin) Confirm Administered Dose 2 gm IV .STK-MED ONE Stop: 10/29/19 16:27 Last Admin: 10/29/19 19:17 Dose: Not Given Documented by: Furosemide (Lasix) 20 mg IVPUSH ONETIME ONE Stop: 10/30/19 10:37 Last Admin: 10/30/19 10:53 Dose: 20 mg Documented by: Furosemide (Lasix) 20 mg IVPUSH NOW ONE Stop: 10/30/19 12:10 Last Admin: 10/30/19 12:20 Dose: 20 mg Documented by: Furosemide (Lasix) 20 mg IVPUSH NOW ONE Stop: 11/01/19 12:45 Last Admin: 11/01/19 13:11 Dose: 20 mg Documented by: Furosemide (Lasix) 20 mg IVPUSH BIDDIURETIC [facility] Last Admin: 11/01/19 21:04 Dose: 20 mg Documented by: Glycopyrrolate (Seebri Neohaler) 15.6 mcg IH BID [facility] Last Admin: 10/30/19 09:12 Dose: Not Given Documented by: Sodium Chloride (Normal Saline) 1,000 mls @ 999 mls/hr IV ONETIME [facility] Last Admin: 10/29/19 14:01 Dose: 999 mls/hr Documented by: Ceftriaxone Sodium 2 gm/ (Sodium Chloride) 100 mls @ 200 mls/hr IV ONETIME ONE Stop: 10/29/19 15:13 Last Admin: 10/29/19 16:31 Dose: 200 mls/hr Documented by: Lactated Ringer's (Ringers, Lactated) 1,000 mls @ 999 mls/hr IV .BOLUS ONE Stop: 10/29/19 15:51 Last Admin: 10/29/19 15:09 Dose: 999 mls/hr Documented by: Lactated Ringer's (Ringers, Lactated) 1,000 mls @ 999 mls/hr IV .BOLUS ONE Stop: 10/29/19 17:38 Last Admin: 10/29/19 17:05 Dose: 999 mls/hr Documented by: Lactated Ringer's (Ringers, Lactated) 1,000 mls @ 999 mls/hr IV .BOLUS ONE Stop: 10/29/19 17:42 Last Admin: 10/29/19 17:33 Dose: Not Given Documented by: Sodium Chloride (Normal Saline) Confirm Administered Dose 100 mls @ as directed .ROUTE .STK-MED ONE Stop: 10/29/19 16:27 Last Admin: 10/29/19 19:17 Dose: Not Given Documented by: Lactated Ringer's (Ringers, Lactated) Confirm Administered Dose 1,000 mls @ as directed .ROUTE .STK-MED ONE Stop: 10/29/19 16:27 Last Admin: 10/29/19 19:17 Dose: Not Given Documented by: Sodium Chloride (Normal Saline) 1,000 mls @ 150 mls/hr IV ASDIRECTED [facility] Last Admin: 10/30/19 02:47 Dose: 150 mls/hr Documented by: Azithromycin 500 mg/ Sodium (Chloride) 250 mls @ 250 mls/hr IV Q24H [facility] Stop: 11/01/19 20:01 Last Admin: 10/29/19 20:18 Dose: 250 mls/hr Documented by: Ceftriaxone Sodium 2 gm/ (Sodium Chloride) 100 mls @ 200 mls/hr IV Q24H [facility] Last Admin: 10/30/19 15:25 Dose: 200 mls/hr Documented by: Azithromycin 500 mg/ Sodium (Chloride) 250 mls @ 250 mls/hr IV Q24H [facility] Stop: 10/31/19 20:59 Sodium Chloride (Normal Saline) 1,000 mls @ 75 mls/hr IV ASDIRECTED [facility] Cefepime HCl 2 gm/ Premix 50 mls @ 100 mls/hr IV Q24H [facility] Last Admin: 10/30/19 20:13 Dose: 100 mls/hr Documented by: Levofloxacin/Dextrose 750 mg/ (Premix) 150 mls @ 100 mls/hr IV Q48H [facility] Last Admin: 10/30/19 20:45 Dose: 100 mls/hr Documented by: Dextrose/Sodium Chloride (Dextrose 5%-1/2 Ns) 1,000 mls @ 100 mls/hr IV ASDIRECTED [facility] Last Admin: 11/02/19 02:30 Dose: 100 mls/hr Documented by: Vancomycin HCl 1.5 gm/ Sodium (Chloride) 500 mls @ 250 mls/hr IV ONETIME ONE Stop: 10/30/19 21:44 Last Admin: 10/30/19 22:28 Dose: 250 mls/hr Documented by: Sodium Chloride (Normal Saline) 500 mls @ 500 mls/hr IV BOLUS ONE Stop: 10/30/19 22:09 Last Admin: 10/30/19 21:36 Dose: 500 mls/hr Documented by: Vancomycin HCl 1 gm/ Sodium (Chloride) 250 mls @ 250 mls/hr IV Q12H [facility] Vancomycin HCl 1 gm/Vancomycin HCl 250 mg/ Sodium Chloride 250 mls @ 166.667 mls/hr IV Q12H [facility] Last Admin: 11/01/19 12:17 Dose: Not Given Documented by: Piperacillin Sod/Tazobactam (Sod 4.5 gm/ Sodium Chloride) 100 mls @ 200 mls/hr IV ONETIME ONE Stop: 10/31/19 11:59 Last Admin: 10/31/19 11:39 Dose: 200 mls/hr Documented by: Sodium Chloride (Normal Saline) 100 mls @ 75 mls/hr IV ASDIRECTED [facility] Stop: 10/31/19 13:00 Last Admin: 10/31/19 11:29 Dose: 75 mls/hr Documented by: Potassium Phosphate 30 mmole/ (Sodium Chloride) 510 mls @ 102 mls/hr IV ONETIME ONE Stop: 11/01/19 15:29 Last Admin: 11/01/19 10:58 Dose: 102 mls/hr Documented by: Potassium Chloride 10 meq/ (Premix) 100 mls @ 100 mls/hr IV Q1H [facility] Stop: 11/02/19 12:59 Last Admin: 11/02/19 13:26 Dose: 100 mls/hr Documented by: Insulin Human Lispro (Humalog) 0 unit SUBCUT QIDACANDBED [facility]; Protocol Last Admin: 10/31/19 12:44 Dose: Not Given Documented by: Iopamidol (Isovue-300 (61%)) 50 ml IVPUSH ONETIME ONE Stop: 10/30/19 07:53 Last Admin: 10/30/19 08:36 Dose: 50 ml Documented by: Iopamidol (Isovue-300 (61%)) 100 ml IVPUSH ONETIME ONE Stop: 10/30/19 07:53 Last Admin: 10/30/19 08:37 Dose: 100 ml Documented by: Iopamidol (Isovue-370 (76%)) 100 ml IVPUSH ONETIME ONE Stop: 10/31/19 11:21 Last Admin: 10/31/19 11:28 Dose: 100 ml Documented by: Lorazepam (Ativan) 1 mg IVPUSH Q15M PRN PRN Reason: Other Last Admin: 10/30/19 08:47 Dose: 1 mg Documented by: Lorazepam (Ativan) Confirm Administered Dose 2 mg .ROUTE .STK-MED ONE Stop: 10/30/19 08:15 Last Admin: 10/30/19 08:47 Dose: Not Given Documented by: Lorazepam (Ativan) 1 mg IVPUSH ONETIME ONE Stop: 10/30/19 11:52 Last Admin: 10/30/19 11:58 Dose: 1 mg Documented by: Atorvastatin 20 Mg 0 each PO DAILY [facility] Sodium Chloride (Saline Flush) 10 ml FLUSH ONETIME PRN PRN Reason: IV FLUSH Last Admin: 10/30/19 08:37 Dose: 10 ml Documented by: Sodium Chloride (Saline Flush) 10 ml FLUSH ONETIME PRN PRN Reason: IV FLUSH Stop: 10/31/19 13:00 Last Admin: 10/31/19 11:29 Dose: 10 ml Documented by: - Exam Quality Assessment: Supplemental Oxygen (Nasal cannula), Urine Catheter General: Alert HEENT: Pupils Equal, Mucous Membr. Moist/[place] Neck: Supple Lungs: Decreased Breath Sounds, Rhonchi (Coarse rhonchi throughout). No: Normal Respiratory Effort (Increased respiratory effort and rate) Cardiovascular: Regular Rate, Regular Rhythm GI/Abdominal Exam: Normal Bowel Sounds, No Distention (Morbidly obese), Tender (Diffusely tender) Extremities: No Pedal Edema, Normal Capillary Refill Skin: Warm, Dry, Intact Sepsis Event Note - Evaluation Sepsis Screening Result: No Definite Risk - Focused Exam Vital Signs: Vital Signs Temp Resp BP Pulse Ox Pulse Ox Pulse Ox 11/02/19 12:00 98.8 F 34 H 119/71 93 L 11/02/19 08:08 97 11/02/19 08:00 97.6 F 23 H 125/62 94 L 11/02/19 04:00 98.0 F 28 H 125/68 93 L 11/02/19 03:35 93 L - Problem List & Annotations (1) Septic shock SNOMED Code(s): 21358191 Code(s): A41.9 - SEPSIS, UNSPECIFIED ORGANISM; R65.21 - SEVERE SEPSIS WITH SEPTIC SHOCK Status: Acute Current Visit: Yes (2) Benign microscopic hematuria SNOMED Code(s): 304945182856391 Code(s): R31.1 - BENIGN ESSENTIAL MICROSCOPIC HEMATURIA Status: Acute Current Visit: Yes (3) COPD (chronic obstructive pulmonary disease) SNOMED Code(s): 01038152 Code(s): J44.9 - CHRONIC OBSTRUCTIVE PULMONARY DISEASE, UNSPECIFIED Status: Acute Current Visit: Yes (4) Pneumonia SNOMED Code(s): 145344387 Code(s): J18.9 - PNEUMONIA, UNSPECIFIED ORGANISM Status: Acute Current Visit: Yes Qualifiers: Pneumonia type: due to unspecified organism (5) Schizophrenia SNOMED Code(s): 24267863 Code(s): F20.9 - SCHIZOPHRENIA, UNSPECIFIED Status: Acute Current Visit: Yes Qualifiers: Schizophrenia type: unspecified Qualified Code(s): F20.9 - Schizophrenia, unspecified (6) Sepsis SNOMED Code(s): 28744969 Code(s): A41.9 - SEPSIS, UNSPECIFIED ORGANISM Status: Acute Current Visit: Yes Qualifiers: Sepsis type: sepsis due to unspecified organism Sepsis acute organ dysfunction status: unspecified Qualified Code(s): A41.9 - Sepsis, unspecified organism (7) Abdominal pain SNOMED Code(s): 54080545 Code(s): R10.9 - UNSPECIFIED ABDOMINAL PAIN Status: Acute Current Visit: Yes (8) Streptococcal pneumonia SNOMED Code(s): 50849300 Code(s): J15.4 - PNEUMONIA DUE TO OTHER STREPTOCOCCI Status: Acute Current Visit: Yes (9) Positive result for methicillin resistant Staphylococcus aureus (MRSA) screening SNOMED Code(s): 459342226 Code(s): Z22.322 - CARRIER OR SUSPECTED CARRIER OF METHICILLIN RESIS STAPH Status: Acute Current Visit: Yes - Problem List Review Problem List Initiated/Reviewed/Updated: Yes - My Orders Last 24 Hours: My Active Orders 11/02/19 09:00 Budesonide [Pulmicort] 0.5 mg NEB BID Furosemide [Lasix] 20 mg IVPUSH BID 11/02/19 13:00 Potassium Phosphates 30 mmole Sodium Chloride 0.9% [Normal Saline] 500 ml IV ONETIME 11/02/19 17:00 Potassium Chloride [Klor-Con M20] 40 meq PO ONETIME ONE 11/03/19 09:30 VANCOMYCIN TROUGH [CHEM] Timed - Assessment Assessment:: 10/29/2019 Septic shock likely secondary to bilateral pneumonia History of COPD/asthma Altered mental status * Patient found on floor in the bathroom after possibly having a seizure. * Hypotensive, tachycardic, tachypneic and hypoxic on arrival to emergency department. * Patient received 3 L IV bolus in emergency department. * Initial lactic acid 4.0 increasing to 5.3 after fluid bolus. * Initial WBC 22,000, 76% neutrophils, no bandemia, C-reactive protein 1.6 * Altered mental status, patient is very lethargic. * Patient is in critical condition and currently has a poor outcome predicted. High risk of mortality. Abdominal pain Microscopic hematuria, benign * Patient's initial complaint when calling EMS was abdominal pain and constipation. * Patient does exhibit tenderness to palpation throughout the abdomen. * Bowel sounds difficult to appreciate secondary to upper airway noise. 10/30/2019 * Patient is not improved with the large amount of IV fluids. She has actually had worsening respiratory status requiring IV Lasix. Respiratory rate has had some improvement with vigorous pulmonary toilet, bronchodilation, and d iuretics. Unfortunately, this is likely going to cause some intravascular hypovolemia. * Lactic acid did drop to 2.0 this morning with the IV fluids. * This afternoon renal function did worsen with a creatinine of 1.6. * WBC worsened and has been stable today at 23,000. Still no bands or toxic granulations. Neutrophils 90%, absolute neutrophils 21,000. * ABG on BiPAP: pH 7.39, PCO2 37.4, PO2 of 66, bicarb 22 -which is reassuring. * Respiratory rate still in the upper 30s to 40s and heart rate 120s to 130s. * Confirmed CODE STATUS with sister. She states that Rosita has several mental health issues and she likely did not understand the catastrophic results of not being intubated. * CT abdomen and pelvis with contrast. Findings suspicious for colitis within portions of the descending and sigmoid colon. Fluid is seen within the pelvis and right abdomen most likely reactive from the colonic process. Increased stool within the rectosigmoid region. Nodularity with in the left adrenal gland most likely benign if patient has no primary carcinoma. * CT of the of the head: No acute findings 10/31/2019 * Rosita is making some improvement today. Respiratory rate has decreased and her tachycardia has decreased. * Antibiotics were switched to Zosyn to cover both strep pneumoniae and colitis. * MRSA screen was positive. * Patient continues on vancomycin. * D-dimer was elevated at 1.[address] angio was done of the chest * CT angio chest: 1. No findings of pulmonary embolism. * 2. Aorta shows atherosclerotic changes with no dissection or aneurysm. No discrete ulcerating plaque is seen. * 3. Increased density within the right lung base which may represent pneumonia or prominent atelectasis. * 4. Other findings as noted. Not believed to be acute. * ABGs normal pH, PCO2, bicarb with a slightly low PO2. These are surprisingly good considering her respiratory rate. * Repeat lactic acid was 1.6. White count continues to be significantly elevated at 23,000. CRP 35.8. * Patient has significant hypoalbuminemia with albumin of 1.9 * Hypokalemiapotassium 3.4 * Hemoglobin A1c is 6.1 11/01/2019 * Decrease in respiratory rate and tachycardia. * Patient weaned off of BiPAP and now on nasal cannula. * On Zosyn, Levaquin, and vancomycin. * Slowly improving mentation. * WBC 18.9, CRP 34.2, procalcitonin from yesterday 10/31 2011.07, phosphorus 1.8, potassium 3.2, estimated GFR 57, albumin 1.6 11/02/2019 * Significant improvement today. * More awake, alert, and talking. * Afebrile, map greater than 65, on 2 L nasal cannula to keep SPO2 in the mid 90s * WBC 17.7, C-reactive protein 22.1. * Estimated GFR greater than 60. * Hypokalemia. Potassium 2.8. * Hypophosphatemia. Phosphorus 1.7. * Hypoalbuminemia. Albumin down to 1.4. She did eat some today. * Zosyn, Levaquin, and vancomycin. - Plan Plan:: Plan * DC IV fluids * Lasix 20 mg IV twice daily * Monitor urine output, renal function, vital signs, bedside monitoring to determine fluid status. * Levaquin, vancomycin, and Zosyn. * Follow blood cultures. Negative so far * Unable to collect sputum for Gram stain and culture * Encourage greater p.o. intake. Dietary consult in the morning. * Nicotine patch * Incentive spirometry and Acapella when able to comply. * FiO2 to keep SPO2 greater than 92% * ABG as needed * Strict I's and O's. * Repeat CBC, CMP, C-reactive protein, magnesium, and phosphorus in the morning. VTE prophylaxis: Enoxaparin 40 mg subcu twice daily CODE STATUS: Full code. Patient was confused at time of CODE STATUS. Clarified CODE STATUS with sister who stated that she would want to be a full code and likely did not understand the implications of DNI. Disposition: Admit to ICU in critical condition. Length of stay greater than 96 hours secondary to slow resolution and altered mental status..
[2019-11-02] MEDS ORDERED: Potassium Chloride 20 MEQ Tab.ER PO ONE (17:00)
[2019-11-02] MEDS: Levofloxacin/Dextrose 5%-Water 750 MG in Premix Bag 1 BAG IV SCH (20:11)
[2019-11-02] MEDS: Lurasidone Hcl [Latuda] 80 MG PO SCH (20:12)
[2019-11-02] MEDS: LORazepam 2 MG/ML SDV IVPUSH PRN (22:26)
[2019-11-03] MEDS: Vancomycin 1 GM, Vancomycin 250 MG in Sodium Chloride 0.9% 250 ML IV SCH ×3 (01:36→18:13)
[2019-11-03] MEDS: LORazepam 2 MG/ML SDV IVPUSH PRN (02:01)
[2019-11-03] MEDS: Piperacillin/Tazobactam 4.5 GM in Sodium Chloride 0.9% 100 ML IV SCH ×3 (03:13→22:40)
[2019-11-03] MEDS: Albuterol/Ipratropium 3.0-0.5 MG/3 ML Neb Soln NEB SCH ×4 (03:16→21:27)
[2019-11-03] MEDS: Budesonide 0.5 MG/2 ML Neb Susp NEB SCH ×2 (08:45→21:27)
[2019-11-03] MEDS: Glycopyrrolate 15.6 MCG Cap.W.Dev Kit of 6 IH SCH ×2 (09:00→22:48)
[2019-11-03] MEDS: Enoxaparin 40 MG/0.4 ML Syringe SUBCUT SCH ×2 (09:17→20:28)
[2019-11-03] MEDS: risperiDONE 1 MG Tab PO SCH (09:19)
[2019-11-03] MEDS: hydrOXYzine HCl 25 MG Tab PO SCH (09:20)
[2019-11-03] MEDS: Benztropine 1 MG Tab PO SCH (09:20)
[2019-11-03] MEDS: Aspirin 81 MG Tab.Chew PO SCH (09:20)
[2019-11-03] MEDS: PARoxetine 20 MG Tab PO SCH (09:21)
[2019-11-03] MEDS: Furosemide 20 MG/2 ML VIAL IVPUSH SCH ×2 (09:25→20:29)
[2019-11-03] MEDS: Potassium Chloride 20 MEQ Tab.ER PO SCH ×2 (11:29→20:29)
[2019-11-03] MEDS: Nicotine 21 MG/24 Hr Patch TRDERM SCH (11:37)
[2019-11-03] MEDS ORDERED: Furosemide 20 MG/2 ML VIAL IVPUSH ONE (15:00)
[2019-11-03] MEDS: Saccharomyces Boulardii (Probiotic) 250 MG Cap PO SCH ×3 (15:35→20:29)
--- NOTE | 2019-11-03 17:14 | PCM.PN ---
- General Info Date of Service: 11/03/19 Admission Dx/Problem (Free Text): Admission Diagnosis/Problem Admission Diagnosis/Problem Pneumonia Subjective Update: Patient continues to be lethargic, but arousable. She does answer simple questions, knows where she is, does not know the day of the week, she knows her boyfriend is, but she is difficult to understand and mumbles. LP has not been done secondary to her inability to sit still long enough for the procedure to be done. It is also unlikely that this is an infectious encephalopathy. Nursing states she is having vaginal bleeding last two days. Functional Status: Reports: Pain Controlled - Review of Systems General: Reports: No Symptoms Pulmonary: Reports: Shortness of Breath, Cough Cardiovascular: Reports: No Symptoms Gastrointestinal: Reports: Diarrhea Musculoskeletal: Reports: No Symptoms Neurological: Reports: No Symptoms - Patient Data Vitals - Most Recent: Last Vital Signs Temp 97.1 F 11/03/19 08:00 Pulse 106 H 11/03/19 08:00 Resp 20 11/03/19 12:00 BP 119/81 11/03/19 09:14 Pulse Ox 93 L 11/03/19 14:23 Weight - Most Recent: 116.42 kg I&O - Last 24 Hours: Intake & Output 11/03/19 11/03/19 11/03/19 06:59 14:59 22:59 Intake Total 1320 800 Output Total 575 1075 325 Balance 745 -275 -325 Lab Results Last 24 Hours: Laboratory Results - last 24 hr 11/02/19 11/03/19 11/03/19 Range/Units 17:53 09:52 09:52 WBC 14.06 H (3.98-10.04) K/mm3 RBC 4.87 (3.98-5.22) M/mm3 Hgb 13.7 D (11.2-15.7) gm/dl Hct 41.9 (34.1-44.9) % MCV 86.0 (79.4-94.8) fl MCH 28.1 (25.6-32.2) pg MCHC 32.7 (32.2-35.5) g/dl RDW Std Deviation 46.2 (36.4-46.3) fL Plt Count 301 (182-369) K/mm3 MPV 9.6 (9.4-12.3) fl Neut % (Auto) 80.1 H (34.0-71.1) % Lymph % (Auto) 9.8 L (19.3-51.7) % [place] % (Auto) 7.3 (4.7-12.5) % Eos % (Auto) 0.9 (0.7-5.8) Baso % (Auto) 0.3 (0.1-1.2) % Neut # (Auto) 11.26 H (1.56-6.13) K/mm3 Lymph # (Auto) 1.38 (1.18-3.74) K/mm3 [place] # (Auto) 1.03 H (0.24-0.36) K/mm3 Eos # (Auto) 0.12 (0.04-0.36) K/mm3 Baso # (Auto) 0.04 (0.01-0.08) K/mm3 Manual Slide Review Abnormal smear Sodium (136-145) mEq/L Potassium (3.5-5.1) mEq/L Chloride (98-107) mEq/L Carbon Dioxide (21-32) mEq/L Anion Gap (5-15) BUN (7-18) mg/dL Creatinine (0.55-1.02) mg/dL Est Cr Clr Drug Dosing mL/min Estimated GFR (MDRD) (>60) mL/min BUN/Creatinine Ratio (14-18) Glucose (74-106) mg/dL POC Glucose 120 H (70-105) mg/dL Calcium (8.5-10.1) mg/dL Phosphorus (2.6-4.7) mg/dL Magnesium (1.8-2.4) mg/dl Total Bilirubin (0.2-1.0) mg/dL AST (15-37) U/L ALT (14-59) U/L Alkaline Phosphatase (46-116) U/L C-Reactive Protein (<1.0) mg/dL Total Protein (6.4-8.2) g/dl Albumin (3.4-5.0) g/dl Globulin gm/dL Albumin/Globulin Ratio (1-2) Vancomycin Trough 18.3 (10.0-20.0) / Range/Units 09:52 WBC (3.98-10.04) K/mm3 RBC (3.98-5.22) M/mm3 Hgb (11.2-15.7) gm/dl Hct (34.1-44.9) % MCV (79.4-94.8) fl MCH (25.6-32.2) pg MCHC (32.2-35.5) g/dl RDW Std Deviation (36.4-46.3) fL Plt Count (182-369) K/mm3 MPV (9.4-12.3) fl Neut % (Auto) (34.0-71.1) % Lymph % (Auto) (19.3-51.7) % [place] % (Auto) (4.7-12.5) % Eos % (Auto) (0.7-5.8) Baso % (Auto) (0.1-1.2) % Neut # (Auto) (1.56-6.13) K/mm3 Lymph # (Auto) (1.18-3.74) K/mm3 [place] # (Auto) (0.24-0.36) K/mm3 Eos # (Auto) (0.04-0.36) K/mm3 Baso # (Auto) (0.01-0.08) K/mm3 Manual Slide Review Sodium 142 (136-145) mEq/L Potassium 3.2 L (3.5-5.1) mEq/L Chloride 103 (98-107) mEq/L Carbon Dioxide 31 (21-32) mEq/L Anion Gap 11.2 (5-15) BUN 16 (7-18) mg/dL Creatinine 0.8 (0.55-1.02) mg/dL Est Cr Clr Drug Dosing 68.13 mL/min Estimated GFR (MDRD) > 60 (>60) mL/min BUN/Creatinine Ratio 20.0 H (14-18) Glucose 123 H (74-106) mg/dL POC Glucose (70-105) mg/dL Calcium 8.5 (8.5-10.1) mg/dL Phosphorus 2.8 (2.6-4.7) mg/dL Magnesium 2.0 (1.8-2.4) mg/dl Total Bilirubin 1.2 H (0.2-1.0) mg/dL AST 69 H (15-37) U/L ALT 57 (14-59) U/L Alkaline Phosphatase 150 H (46-116) U/L C-Reactive Protein 8.8 H* (<1.0) mg/dL Total Protein 5.9 L (6.4-8.2) g/dl Albumin 1.7 L (3.4-5.0) g/dl Globulin 4.2 gm/dL Albumin/Globulin Ratio 0.4 L (1-2) Vancomycin Trough (10.0-20.0) Luis Miguel Results Last 24 Hours: Microbiology 10/29/19 14:53 Aerobic Blood Culture - Preliminary Blood NO GROWTH AFTER 5 DAYS Anaerobic Blood Culture - Final 10/29/19 15:05 Aerobic Blood Culture - Preliminary Blood NO GROWTH AFTER 5 DAYS Anaerobic Blood Culture - Preliminary NO GROWTH AFTER 5 DAYS Med Orders - Current: Current Medications Acetaminophen (Tylenol) 650 mg PO Q4H PRN PRN Reason: Pain (Mild 1-3)/fever Albuterol (Proventil Neb Soln) 2.5 mg NEB Q2H PRN PRN Reason: Shortness Of Breath/wheezing Albuterol (Proventil Hfa) 0 gm INH Q4H PRN PRN Reason: Shortness of Breath Albuterol/Ipratropium (Duoneb 3.0-0.5 Mg/3 Ml) 3 ml NEB Q4H PRN PRN Reason: Shortness Of Breath/wheezing Albuterol/Ipratropium (Duoneb 3.0-0.5 Mg/3 Ml) 3 ml NEB Q6HRRT [facility] Last Admin: 11/03/19 14:21 Dose: 3 ml Documented by: Aspirin (Aspirin) 81 mg PO DAILY [facility] Last Admin: 11/03/19 09:20 Dose: 81 mg Documented by: Benztropine Mesylate (Cogentin) 1 mg PO BID [facility] Last Admin: 11/03/19 09:20 Dose: 1 mg Documented by: Budesonide (Pulmicort) 0.5 mg NEB BID [facility] Last Admin: 11/03/19 08:45 Dose: 0.5 mg Documented by: Dextrose/Water (Dextrose 50% In Water) 50 ml IVPUSH ASDIRECTED PRN PRN Reason: Hypoglycemia Enoxaparin Sodium (Lovenox) 40 mg SUBCUT Q12H [facility] Last Admin: 11/03/19 09:17 Dose: 40 mg Documented by: Furosemide (Lasix) 20 mg IVPUSH BID [facility] Last Admin: 11/03/19 09:25 Dose: 20 mg Documented by: Glycopyrrolate (Seebri Neohaler) 15.6 mcg IH BID@1000,2200 [facility] Last Admin: 11/03/19 09:00 Dose: Not Given Documented by: Hydroxyzine HCl (Atarax) 25 mg PO BID [facility] Last Admin: 11/03/19 09:20 Dose: 25 mg Documented by: Levofloxacin/Dextrose 750 mg/ (Premix) 150 mls @ 100 mls/hr IV Q24H [facility] Last Admin: 11/02/19 20:11 Dose: 100 mls/hr Documented by: Piperacillin Sod/Tazobactam (Sod 4.5 gm/ Sodium Chloride) 100 mls @ 25 mls/hr IV Q8H [facility] Last Admin: 11/03/19 13:30 Dose: 25 mls/hr Documented by: Vancomycin HCl 1 gm/Vancomycin HCl 250 mg/ Sodium Chloride 250 mls @ 166.667 mls/hr IV Q8H [facility] Last Admin: 11/03/19 11:32 Dose: 166.667 mls/hr Documented by: Albumin Human (Flexbumin 25%) 25 gm in 100 mls @ 100 mls/hr IV ONETIME ONE Stop: 11/03/19 18:10 Albumin Human (Flexbumin 25%) 12.5 gm in 50 mls @ 100 mls/hr IV ONETIME ONE Stop: 11/04/19 01:29 Lorazepam (Ativan) 1 mg IVPUSH Q2H PRN PRN Reason: Anxiety Last Admin: 11/03/19 02:01 Dose: 1 mg Documented by: Miscellaneous Information (Remove Patch) 1 ea TRDERM Q24H [facility] Last Admin: 11/03/19 11:39 Dose: 1 ea Documented by: Nicotine (Habitrol) 21 mg TRDERM Q24H [facility] Last Admin: 11/03/19 11:37 Dose: 21 mg Documented by: Ondansetron HCl (Zofran) 4 mg IV Q4H PRN PRN Reason: Nausea/Vomiting Paroxetine HCl (Paxil) 30 mg PO DAILY [facility] Last Admin: 11/03/19 09:21 Dose: 30 mg Documented by: Lurasidone Hcl [ (Latuda] 80 Mg) 0 each PO BEDTIME [facility] Last Admin: 11/02/19 20:12 Dose: Not Given Documented by: Potassium Chloride (Klor-Con M20) 40 meq PO BID [facility] Stop: 11/03/19 21:01 Last Admin: 11/03/19 11:29 Dose: 40 meq Documented by: Risperidone (Risperidal) 2 mg PO DAILY [facility] Last Admin: 11/03/19 09:19 Dose: 2 mg Documented by: Saccharomyces Boulardii (Florastor) 500 mg PO TID [facility] Last Admin: 11/03/19 15:46 Dose: Not Given Documented by: Sodium Chloride (Saline Flush) 10 ml FLUSH ASDIRECTED PRN PRN Reason: Keep Vein Open Last Admin: 10/30/19 20:09 Dose: 10 ml Documented by: Vancomycin HCl (Pharmacy To Dose - Vancomycin) 1 dose .XX ASDIRECTED PRN PRN Reason: RX TO DOSE VANCO Discontinued Medications Albuterol/Ipratropium (Duoneb 3.0-0.5 Mg/3 Ml) 3 ml NEB Q4HRRT [facility] Last Admin: 10/30/19 21:20 Dose: 3 ml Documented by: Albuterol/Ipratropium (Duoneb 3.0-0.5 Mg/3 Ml) Confirm Administered Dose 3 ml .ROUTE .STK-MED ONE Stop: 10/30/19 12:21 Last Admin: 10/30/19 12:24 Dose: Not Given Documented by: Budesonide (Pulmicort) 0.5 mg NEB BIDRT [facility] Last Admin: 10/30/19 05:58 Dose: 0.5 mg Documented by: Budesonide (Pulmicort) 0.5 mg NEB BID@0600,1800 [facility] Last Admin: 11/02/19 07:08 Dose: Not Given Documented by: Ceftriaxone Sodium (Rocephin) Confirm Administered Dose 2 gm IV .STK-MED ONE Stop: 10/29/19 16:27 Last Admin: 10/29/19 19:17 Dose: Not Given Documented by: Furosemide (Lasix) 20 mg IVPUSH ONETIME ONE Stop: 10/30/19 10:37 Last Admin: 10/30/19 10:53 Dose: 20 mg Documented by: Furosemide (Lasix) 20 mg IVPUSH NOW ONE Stop: 10/30/19 12:10 Last Admin: 09/17/20 12:20 Dose: 20 mg Documented by: Furosemide (Lasix) 20 mg IVPUSH NOW ONE Stop: 11/01/19 12:45 Last Admin: 11/01/19 13:11 Dose: 20 mg Documented by: Furosemide (Lasix) 20 mg IVPUSH BIDDIURETIC [facility] Last Admin: 11/01/19 21:04 Dose: 20 mg Documented by: Furosemide (Lasix) 20 mg IVPUSH ONETIME ONE Stop: 11/03/19 15:01 Last Admin: 11/03/19 15:28 Dose: 20 mg Documented by: Glycopyrrolate (Seebri Neohaler) 15.6 mcg IH BID [facility] Last Admin: 10/30/19 09:12 Dose: Not Given Documented by: Sodium Chloride (Normal Saline) 1,000 mls @ 999 mls/hr IV ONETIME [facility] Last Admin: 10/29/19 14:01 Dose: 999 mls/hr Documented by: Ceftriaxone Sodium 2 gm/ (Sodium Chloride) 100 mls @ 200 mls/hr IV ONETIME ONE Stop: 10/29/19 15:13 Last Admin: 10/29/19 16:31 Dose: 200 mls/hr Documented by: Lactated Ringer's (Ringers, Lactated) 1,000 mls @ 999 mls/hr IV .BOLUS ONE Stop: 10/29/19 15:51 Last Admin: 10/29/19 15:09 Dose: 999 mls/hr Documented by: Lactated Ringer's (Ringers, Lactated) 1,000 mls @ 999 mls/hr IV .BOLUS ONE Stop: 10/29/19 17:38 Last Admin: 10/29/19 17:05 Dose: 999 mls/hr Documented by: Lactated Ringer's (Ringers, Lactated) 1,000 mls @ 999 mls/hr IV .BOLUS ONE Stop: 10/29/19 17:42 Last Admin: 10/29/19 17:33 Dose: Not Given Documented by: Sodium Chloride (Normal Saline) Confirm Administered Dose 100 mls @ as directed .ROUTE .STK-MED ONE Stop: 10/29/19 16:27 Last Admin: 10/29/19 19:17 Dose: Not Given Documented by: Lactated Ringer's (Ringers, Lactated) Confirm Administered Dose 1,000 mls @ as directed .ROUTE .STK-MED ONE Stop: 10/29/19 16:27 Last Admin: 10/29/19 19:17 Dose: Not Given Documented by: Sodium Chloride (Normal Saline) 1,000 mls @ 150 mls/hr IV ASDIRECTED [facility] Last Admin: 10/30/19 02:47 Dose: 150 mls/hr Documented by: Azithromycin 500 mg/ Sodium (Chloride) 250 mls @ 250 mls/hr IV Q24H [facility] Stop: 11/01/19 20:01 Last Admin: 10/29/19 20:18 Dose: 250 mls/hr Documented by: Ceftriaxone Sodium 2 gm/ (Sodium Chloride) 100 mls @ 200 mls/hr IV Q24H [facility] Last Admin: 10/30/19 15:25 Dose: 200 mls/hr Documented by: Azithromycin 500 mg/ Sodium (Chloride) 250 mls @ 250 mls/hr IV Q24H [facility] Stop: 10/31/19 20:59 Sodium Chloride (Normal Saline) 1,000 mls @ 75 mls/hr IV ASDIRECTED [facility] Cefepime HCl 2 gm/ Premix 50 mls @ 100 mls/hr IV Q24H [facility] Last Admin: 10/30/19 20:13 Dose: 100 mls/hr Documented by: Levofloxacin/Dextrose 750 mg/ (Premix) 150 mls @ 100 mls/hr IV Q48H [facility] Last Admin: 10/30/19 20:45 Dose: 100 mls/hr Documented by: Dextrose/Sodium Chloride (Dextrose 5%-1/2 Ns) 1,000 mls @ 100 mls/hr IV ASDIRECTED [facility] Last Admin: 11/02/19 02:30 Dose: 100 mls/hr Documented by: Vancomycin HCl 1.5 gm/ Sodium (Chloride) 500 mls @ 250 mls/hr IV ONETIME ONE Stop: 10/30/19 21:44 Last Admin: 10/30/19 22:28 Dose: 250 mls/hr Documented by: Sodium Chloride (Normal Saline) 500 mls @ 500 mls/hr IV BOLUS ONE Stop: 10/30/19 22:09 Last Admin: 10/30/19 21:36 Dose: 500 mls/hr Documented by: Vancomycin HCl 1 gm/ Sodium (Chloride) 250 mls @ 250 mls/hr IV Q12H [facility] Vancomycin HCl 1 gm/Vancomycin HCl 250 mg/ Sodium Chloride 250 mls @ 166.667 mls/hr IV Q12H [facility] Last Admin: 11/01/19 12:17 Dose: Not Given Documented by: Piperacillin Sod/Tazobactam (Sod 4.5 gm/ Sodium Chloride) 100 mls @ 200 mls/hr IV ONETIME ONE Stop: 10/31/19 11:59 Last Admin: 10/31/19 11:39 Dose: 200 mls/hr Documented by: Sodium Chloride (Normal Saline) 100 mls @ 75 mls/hr IV ASDIRECTED [facility] Stop: 10/31/19 13:00 Last Admin: 10/31/19 11:29 Dose: 75 mls/hr Documented by: Potassium Phosphate 30 mmole/ (Sodium Chloride) 510 mls @ 102 mls/hr IV ONETIME ONE Stop: 11/01/19 15:29 Last Admin: 11/01/19 10:58 Dose: 102 mls/hr Documented by: Potassium Chloride 10 meq/ (Premix) 100 mls @ 100 mls/hr IV Q1H [facility] Stop: 11/02/19 12:59 Last Admin: 11/02/19 13:26 Dose: 100 mls/hr Documented by: Potassium Phosphate 30 mmole/ (Sodium Chloride) 510 mls @ 102 mls/hr IV ONETIME ONE Stop: 11/02/19 17:59 Last Admin: 11/02/19 13:27 Dose: 102 mls/hr Documented by: Insulin Human Lispro (Humalog) 0 unit SUBCUT QIDACANDBED [facility]; Protocol Last Admin: 10/31/19 12:44 Dose: Not Given Documented by: Insulin Human Lispro (Humalog) 0 unit SUBCUT Q6HR [facility]; Protocol Last Admin: 11/02/19 18:34 Dose: Not Given Documented by: Iopamidol (Isovue-300 (61%)) 50 ml IVPUSH ONETIME ONE Stop: 10/30/19 07:53 Last Admin: 10/30/19 08:36 Dose: 50 ml Documented by: Iopamidol (Isovue-300 (61%)) 100 ml IVPUSH ONETIME ONE Stop: 10/30/19 07:53 Last Admin: 10/30/19 08:37 Dose: 100 ml Documented by: Iopamidol (Isovue-370 (76%)) 100 ml IVPUSH ONETIME ONE Stop: 10/31/19 11:21 Last Admin: 10/31/19 11:28 Dose: 100 ml Documented by: Lorazepam (Ativan) 1 mg IVPUSH Q15M PRN PRN Reason: Other Last Admin: 10/30/19 08:47 Dose: 1 mg Documented by: Lorazepam (Ativan) Confirm Administered Dose 2 mg .ROUTE .STK-MED ONE Stop: 10/30/19 08:15 Last Admin: 10/30/19 08:47 Dose: Not Given Documented by: Lorazepam (Ativan) 1 mg IVPUSH ONETIME ONE Stop: 10/30/19 11:52 Last Admin: 10/30/19 11:58 Dose: 1 mg Documented by: Atorvastatin 20 Mg 0 each PO DAILY [facility] Potassium Chloride (Klor-Con M20) 40 meq PO ONETIME ONE Stop: 11/02/19 17:01 Last Admin: 11/02/19 18:25 Dose: 40 meq Documented by: Sodium Chloride (Saline Flush) 10 ml FLUSH ONETIME PRN PRN Reason: IV FLUSH Last Admin: 10/30/19 08:37 Dose: 10 ml Documented by: Sodium Chloride (Saline Flush) 10 ml FLUSH ONETIME PRN PRN Reason: IV FLUSH Stop: 10/31/19 13:00 Last Admin: 10/31/19 11:29 Dose: 10 ml Documented by: - Exam Quality Assessment: Supplemental Oxygen General: Mild Distress, Lethargic HEENT: Pupils Equal Neck: Supple Lungs: Rhonchi (Coarse rhonchi but improved). No: Normal Respiratory Effort (Increased respiratory rate) Cardiovascular: Regular Rhythm, Tachycardia GI/Abdominal Exam: Normal Bowel Sounds, Soft, No Distention, Tender (Minimal tenderness. No left lower quadrant tenderness, but she does have right upper quadrant tenderness. There is no guarding or rebound.) (Female) Exam: Other (Bleeding coming from around the [place] catheter out of the urethra.) Extremities: Normal Inspection, Normal Capillary Refill, Pedal Edema (1+) Skin: Warm, Dry, Intact Neurological: No New Focal Deficit Sepsis Event Note - Evaluation Sepsis Screening Result: Severe Sepsis Risk - Focused Exam Vital Signs: Vital Signs Temp Pulse Resp BP BP Pulse Ox Pulse Ox 11/03/19 14:23 93 L 11/03/19 12:00 20 93 L 11/03/19 11:00 32 H 90 L 11/03/19 10:00 25 H 91 L 11/03/19 09:14 23 H 119/81 90 L 11/03/19 09:13 35 H 90 L 11/03/19 09:00 33 H 92 L 11/03/19 08:57 92 L 11/03/19 08:47 93 L 11/03/19 08:00 97.1 F 106 H 32 H 119/81 92 L 11/03/19 07:00 35 H 96 11/03/19 06:00 20 95 - Problem List & Annotations (1) Septic shock SNOMED Code(s): 72651403 Code(s): A41.9 - SEPSIS, UNSPECIFIED ORGANISM; R65.21 - SEVERE SEPSIS WITH SEPTIC SHOCK Status: Acute Current Visit: Yes (2) Benign microscopic hematuria SNOMED Code(s): 669825429150584 Code(s): R31.1 - BENIGN ESSENTIAL MICROSCOPIC HEMATURIA Status: Acute Current Visit: Yes (3) COPD (chronic obstructive pulmonary disease) SNOMED Code(s): 34165760 Code(s): J44.9 - CHRONIC OBSTRUCTIVE PULMONARY DISEASE, UNSPECIFIED Status: Acute Current Visit: Yes (4) Pneumonia SNOMED Code(s): 876526781 Code(s): J18.9 - PNEUMONIA, UNSPECIFIED ORGANISM Status: Acute Current Visit: Yes Qualifiers: Pneumonia type: due to unspecified organism (5) Schizophrenia SNOMED Code(s): 34812878 Code(s): F20.9 - SCHIZOPHRENIA, UNSPECIFIED Status: Acute Current Visit: Yes Qualifiers: Schizophrenia type: unspecified Qualified Code(s): F20.9 - Schizophrenia, unspecified (6) Sepsis SNOMED Code(s): 79786588 Code(s): A41.9 - SEPSIS, UNSPECIFIED ORGANISM Status: Acute Current Visit: Yes Qualifiers: Sepsis type: sepsis due to unspecified organism Sepsis acute organ dysfunction status: unspecified Qualified Code(s): A41.9 - Sepsis, unspecified organism (7) Abdominal pain SNOMED Code(s): 21858137 Code(s): R10.9 - UNSPECIFIED ABDOMINAL PAIN Status: Acute Current Visit: Yes (8) Streptococcal pneumonia SNOMED Code(s): 73559862 Code(s): J15.4 - PNEUMONIA DUE TO OTHER STREPTOCOCCI Status: Acute Current Visit: Yes (9) Positive result for methicillin resistant Staphylococcus aureus (MRSA) screening SNOMED Code(s): 184773793 Code(s): Z22.322 - CARRIER OR SUSPECTED CARRIER OF METHICILLIN RESIS STAPH Status: Acute Current Visit: Yes - Problem List Review Problem List Initiated/Reviewed/Updated: Yes - My Orders Last 24 Hours: My Active Orders 11/03/19 Breakfast Heart Healthy Diet [DIET] 11/03/19 11:00 Potassium Chloride [Klor-Con M20] 40 meq PO BID 11/03/19 11:24 Patient Status [ADT] Routine 11/03/19 15:00 Saccharomyces Boulardii [Florastor] 500 mg PO TID 11/03/19 17:11 Albumin 25% 100 ML IVPB Over 60 Min Albumin 25% [Flexbumin 25%] 25 gm in 100 ml IV ONETIME 11/04/19 01:00 Albumin 25% 50 ML IVPB Over 30 Min Albumin 25% [Flexbumin 25%] 12.5 gm in 50 ml IV ONETIME 11/05/19 09:30 VANCOMYCIN TROUGH [CHEM] Timed - Assessment Assessment:: 10/29/2019 Septic shock likely secondary to bilateral pneumonia History of COPD/asthma Altered mental status * Patient found on floor in the bathroom after possibly having a seizure. * Hypotensive, tachycardic, tachypneic and hypoxic on arrival to emergency department. * Patient received 3 L IV bolus in emergency department. * Initial lactic acid 4.0 increasing to 5.3 after fluid bolus. * Initial WBC 22,000, 76% neutrophils, no bandemia, C-reactive protein 1.6 * Altered mental status, patient is very lethargic. * Patient is in critical condition and currently has a poor outcome predicted. High risk of mortality. Abdominal pain Microscopic hematuria, benign * Patient's initial complaint when calling EMS was abdominal pain and constipation. * Patient does exhibit tenderness to palpation throughout the abdomen. * Bowel sounds difficult to appreciate secondary to upper airway noise. 10/30/2019 * Patient is not improved with the large amount of IV fluids. She has actually had worsening respiratory status requiring IV Lasix. Respiratory rate has had some improvement with vigorous pulmonary toilet, bronchodilation, and diure tics. Unfortunately, this is likely going to cause some intravascular hypovolemia. * Lactic acid did drop to 2.0 this morning with the IV fluids. * This afternoon renal function did worsen with a creatinine of 1.6. * WBC worsened and has been stable today at 23,000. Still no bands or toxic granulations. Neutrophils 90%, absolute neutrophils 21,000. * ABG on BiPAP: pH 7.39, PCO2 37.4, PO2 of 66, bicarb 22 -which is reassuring. * Respiratory rate still in the upper 30s to 40s and heart rate 120s to 130s. * Confirmed CODE STATUS with sister. She states that Rosita has several mental health issues and she likely did not understand the catastrophic results of not being intubated. * CT abdomen and pelvis with contrast. Findings suspicious for colitis within portions of the descending and sigmoid colon. Fluid is seen within the pelvis and right abdomen most likely reactive from the colonic process. Increased stool within the rectosigmoid region. Nodularity with in the left adrenal gland most likely benign if patient has no primary carcinoma. * CT of the of the head: No acute findings 10/31/2019 * Rosita is making some improvement today. Respiratory rate has decreased and her tachycardia has decreased. * Antibiotics were switched to Zosyn to cover both strep pneumoniae and colitis. * MRSA screen was positive. * Patient continues on vancomycin. * D-dimer was elevated at 1.[address] angio was done of the chest * CT angio chest: 1. No findings of pulmonary embolism. * 2. Aorta shows atherosclerotic changes with no dissection or aneurysm. No discrete ulcerating plaque is seen. * 3. Increased density within the right lung base which may represent pneumonia or prominent atelectasis. * 4. Other findings as noted. Not believed to be acute. * ABGs normal pH, PCO2, bicarb with a slightly low PO2. These are surprisingly good considering her respiratory rate. * Repeat lactic acid was 1.6. White count continues to be significantly elevated at 23,000. CRP 35.8. * Patient has significant hypoalbuminemia with albumin of 1.9 * Hypokalemiapotassium 3.4 * Hemoglobin A1c is 6.1 11/01/2019 * Decrease in respiratory rate and tachycardia. * Patient weaned off of BiPAP and now on nasal cannula. * On Zosyn, Levaquin, and vancomycin. * Slowly improving mentation. * WBC 18.9, CRP 34.2, procalcitonin from yesterday 10/31 2011.07, phosphorus 1.8, potassium 3.2, estimated GFR 57, albumin 1.6 11/02/2019 * Significant improvement today. * More awake, alert, and talking. * Afebrile, map greater than 65, on 2 L nasal cannula to keep SPO2 in the mid 90s * WBC 17.7, C-reactive protein 22.1. * Estimated GFR greater than 60. * Hypokalemia. Potassium 2.8. * Hypophosphatemia. Phosphorus 1.7. * Hypoalbuminemia. Albumin down to 1.4. She did eat some today. * Zosyn, Levaquin, and vancomycin. 11/03/2019 Bilateral pneumonia streptococcal pneumonia Sepsis resolved COPD * Patient is off BiPAP and on 2 to 3 L nasal cannula to keep her SPO2 in the mid 90s. * Significant improvement in her respiratory status and pneumonia. * She continues to have some congestion likely from pulmonary congestion. * White count 14, CRP 8.8 * On Zosyn, Levaquin, and vancomycin * Patient is a pack to 2 per day smoker. She does have a nicotine patch. * Positive streptococcal pneumonia urine antigen Altered mental status * Slow but progressive improvement in her mentation. She appears to be having some clearing although she is still very lethargic. * Unable to do LP secondary to her not being cooperative or awake enough to be able to perform the procedure. * Unlikely that this is secondary to infectious process. Colitis * Patient has had a significant decrease in her abdominal pain. * She is now having multiple loose and watery diarrhea. * Bowel movements have decreased over the afternoon. * Patient had significant stool on CT scan on admission. Gross hematuria. * Patient has dark orange, tea colored urine and what appears to be vaginal bleeding. On exam she has blood coming from the urethra around the Noguera catheter. Patient states that she has had hematuria in the past and it has been worked up. She does have a history of hematuria. * Enoxaparin may be worsening the hematuria. At this time we will continue on enoxaparin because her risk of clot is greater than her risk of a significant bleed. Hypokalemia * Potassium 3.2 Elevated LFTs. * Bilirubin 1.2, AST 69, ALT 57, alkaline phosphatase 150 Hypoalbuminemia * Albumin 1.7 Schizophrenia * On Latuda, Risperdal, Paxil * Only receiving risperidone, and Paxil in the hospital * There is no substitute for her Latuda * These medications may be contributing to her mental status changes. Hypertension/hyperlipidemia * Amlodipine and enalapril on hold * Atorvastatin is nonformulary - Plan Plan:: Plan * Lasix 20 mg IV 3 times today * Albumin 25 g x 1 then 12.5 g 6 hours later. * Hold risperidone, hydroxyzine, and Cogentin secondary to altered mental status, but continue Paxil * Monitor urine output, renal function, vital signs, bedside monitoring to determine fluid status. * Levaquin, vancomycin, and Zosyn. * Follow blood cultures. Negative so far * Unable to collect sputum for Gram stain and culture * Encourage greater p.o. intake. Dietary consult. * Nicotine patch * Incentive spirometry and Acapella when able to comply. * FiO2 to keep SPO2 greater than 92% * ABG as needed * Strict I's and O's. * Repeat CBC, CMP, C-reactive protein, procalcitonin, magnesium, and phosphorus in the morning. VTE prophylaxis: Enoxaparin 40 mg subcu twice daily CODE STATUS: Full code. Patient was confused at time of CODE STATUS. Clarified CODE STATUS with sister who stated that she would want to be a full code and likely did not understand the implications of DNI. Disposition: Admit to ICU in critical condition. Length of stay greater than 96 hours secondary to slow resolution and altered mental status..
[2019-11-03] MEDS: Levofloxacin/Dextrose 5%-Water 750 MG in Premix Bag 1 BAG IV SCH (20:18)
[2019-11-03] MEDS: Lurasidone Hcl [Latuda] 80 MG PO SCH (23:26)
[2019-11-04] MEDS ORDERED: Albumin 25% 12.5 GM/50 ML BAG IV ONE (01:00)
[2019-11-04] MEDS: Albuterol/Ipratropium 3.0-0.5 MG/3 ML Neb Soln NEB SCH ×4 (03:21→20:56)
[2019-11-04] MEDS: Vancomycin 1 GM, Vancomycin 250 MG in Sodium Chloride 0.9% 250 ML IV SCH ×3 (03:33→19:53)
[2019-11-04] MEDS: Piperacillin/Tazobactam 4.5 GM in Sodium Chloride 0.9% 100 ML IV SCH ×3 (05:30→22:52)
[2019-11-04] MEDS: Furosemide 20 MG/2 ML VIAL IVPUSH SCH ×2 (09:04→20:40)
[2019-11-04] MEDS: Enoxaparin 40 MG/0.4 ML Syringe SUBCUT SCH ×2 (09:04→20:39)
[2019-11-04] MEDS: Budesonide 0.5 MG/2 ML Neb Susp NEB SCH ×2 (09:18→21:03)
[2019-11-04] MEDS: Glycopyrrolate 15.6 MCG Cap.W.Dev Kit of 6 IH SCH ×2 (09:18→21:04)
[2019-11-04] MEDS: Nicotine 21 MG/24 Hr Patch TRDERM SCH (11:02)
[2019-11-04] MEDS: PARoxetine 20 MG Tab PO SCH (11:05)
[2019-11-04] MEDS: Saccharomyces Boulardii (Probiotic) 250 MG Cap PO SCH ×3 (11:06→20:40)
[2019-11-04] MEDS: Aspirin 81 MG Tab.Chew PO SCH (11:09)
--- NOTE | 2019-11-04 13:02 | PCM.PN ---
- General Info Date of Service: 11/04/19 Admission Dx/Problem (Free Text): Admission Diagnosis/Problem Admission Diagnosis/Problem Pneumonia Subjective Update: Rosita had several episodes of vomiting overnight and 1 significant episode this afternoon. This afternoon there was concern that she may have aspirated. Vomitus was characterized as brown. Patient did eat some of her lunch and had one bowel movement. Patient did complain of some chest pain following vomiting. EKG, troponin, proBNP, CBC, CMP, and chest x-ray were performed. She is acting more alert and awake today. Making much more appropriate comments and able to hold a conversation. Functional Status: Denies: Tolerating Diet - Review of Systems General: Reports: Fatigue Pulmonary: Reports: Cough Cardiovascular: Reports: Chest Pain Gastrointestinal: Reports: Nausea, Vomiting. Denies: Abdominal Pain Musculoskeletal: Reports: No Symptoms Psychiatric: Reports: No Symptoms - Patient Data Vitals - Most Recent: Last Vital Signs Temp 97.5 F 11/04/19 08:24 Pulse 97 11/04/19 08:24 Resp 28 H 11/04/19 08:24 BP 135/80 11/04/19 08:24 Pulse Ox 96 11/04/19 09:18 Weight - Most Recent: 115.847 kg I&O - Last 24 Hours: Intake & Output 11/03/19 11/04/19 11/04/19 22:59 06:59 14:59 Intake Total 1271 995 800 Output Total 1050 425 675 Balance 221 570 125 Lab Results Last 24 Hours: Laboratory Results - last 24 hr 11/04/19 11/04/19 Range/Units 06:15 06:15 WBC 13.29 H (3.98-10.04) K/mm3 RBC 4.44 (3.98-5.22) M/mm3 Hgb 12.3 (11.2-15.7) gm/dl Hct 38.7 (34.1-44.9) % MCV 87.2 (79.4-94.8) fl MCH 27.7 (25.6-32.2) pg MCHC 31.8 L (32.2-35.5) g/dl RDW Std Deviation 46.4 H (36.4-46.3) fL Plt Count 290 (182-369) K/mm3 MPV 9.5 (9.4-12.3) fl Neut % (Auto) 70.4 (34.0-71.1) % Lymph % (Auto) 13.8 L (19.3-51.7) % Eagle % (Auto) 9.0 (4.7-12.5) % Eos % (Auto) 1.4 (0.7-5.8) Baso % (Auto) 0.8 (0.1-1.2) % Neut # (Auto) 9.36 H (1.56-6.13) K/mm3 Lymph # (Auto) 1.83 (1.18-3.74) K/mm3 Eagle # (Auto) 1.19 H (0.24-0.36) K/mm3 Eos # (Auto) 0.19 (0.04-0.36) K/mm3 Baso # (Auto) 0.11 H (0.01-0.08) K/mm3 Manual Slide Review Abnormal smear Sodium 143 (136-145) mEq/L Potassium 3.4 L (3.5-5.1) mEq/L Chloride 104 (98-107) mEq/L Carbon Dioxide 32 (21-32) mEq/L Anion Gap 10.4 (5-15) BUN 17 (7-18) mg/dL Creatinine 0.8 (0.55-1.02) mg/dL Est Cr Clr Drug Dosing 68.13 mL/min Estimated GFR (MDRD) > 60 (>60) mL/min BUN/Creatinine Ratio 21.3 H (14-18) Glucose 116 H (74-106) mg/dL Calcium 8.4 L (8.5-10.1) mg/dL Phosphorus 2.6 (2.6-4.7) mg/dL Magnesium 1.9 (1.8-2.4) mg/dl Total Bilirubin 1.0 (0.2-1.0) mg/dL AST 37 (15-37) U/L ALT 39 (14-59) U/L Alkaline Phosphatase 102 (46-116) U/L C-Reactive Protein 5.2 H* (<1.0) mg/dL Total Protein 5.7 L (6.4-8.2) g/dl Albumin 2.2 L (3.4-5.0) g/dl Globulin 3.5 gm/dL Albumin/Globulin Ratio 0.6 L (1-2) Luis Miguel Results Last 24 Hours: Microbiology 10/29/19 14:53 Aerobic Blood Culture - Preliminary Blood NO GROWTH AFTER 5 DAYS Anaerobic Blood Culture - Final 10/29/19 15:05 Aerobic Blood Culture - Preliminary Blood NO GROWTH AFTER 5 DAYS Anaerobic Blood Culture - Preliminary NO GROWTH AFTER 5 DAYS Med Orders - Current: Current Medications Acetaminophen (Tylenol) 650 mg PO Q4H PRN PRN Reason: Pain (Mild 1-3)/fever Albuterol (Proventil Neb Soln) 2.5 mg NEB Q2H PRN PRN Reason: Shortness Of Breath/wheezing Albuterol (Proventil Hfa) 0 gm INH Q4H PRN PRN Reason: Shortness of Breath Albuterol/Ipratropium (Duoneb 3.0-0.5 Mg/3 Ml) 3 ml NEB Q4H PRN PRN Reason: Shortness Of Breath/wheezing Albuterol/Ipratropium (Duoneb 3.0-0.5 Mg/3 Ml) 3 ml NEB Q6HRRT [facility] Last Admin: 11/04/19 09:18 Dose: 3 ml Documented by: Aspirin (Aspirin) 81 mg PO DAILY [facility] Last Admin: 11/04/19 11:09 Dose: 81 mg Documented by: Budesonide (Pulmicort) 0.5 mg NEB BID [facility] Last Admin: 11/04/19 09:18 Dose: 0.5 mg Documented by: Dextrose/Water (Dextrose 50% In Water) 50 ml IVPUSH ASDIRECTED PRN PRN Reason: Hypoglycemia Enoxaparin Sodium (Lovenox) 40 mg SUBCUT Q12H [facility] Last Admin: 11/04/19 09:04 Dose: 40 mg Documented by: Furosemide (Lasix) 20 mg IVPUSH BID [facility] Last Admin: 11/04/19 09:04 Dose: 20 mg Documented by: Glycopyrrolate (Seebri Neohaler) 15.6 mcg IH BID@1000,2200 [facility] Last Admin: 11/04/19 09:18 Dose: 1 cap Documented by: Vancomycin HCl 1 gm/Vancomycin HCl 250 mg/ Sodium Chloride 250 mls @ 166.667 mls/hr IV Q8H [facility] Last Admin: 11/04/19 11:02 Dose: 166.667 mls/hr Documented by: Piperacillin Sod/Tazobactam (Sod 4.5 gm/ Sodium Chloride) 100 mls @ 25 mls/hr IV Q8H [facility] Last Admin: 11/04/19 05:30 Dose: 25 mls/hr Documented by: Lorazepam (Ativan) 1 mg IVPUSH Q2H PRN PRN Reason: Anxiety Last Admin: 11/03/19 02:01 Dose: 1 mg Documented by: Miscellaneous Information (Remove Patch) 1 ea TRDERM Q24H [facility] Last Admin: 11/03/19 11:39 Dose: 1 ea Documented by: Nicotine (Habitrol) 21 mg TRDERM Q24H [facility] Last Admin: 11/04/19 11:02 Dose: 21 mg Documented by: Ondansetron HCl (Zofran) 4 mg IV Q4H PRN PRN Reason: Nausea/Vomiting Paroxetine HCl (Paxil) 30 mg PO DAILY [facility] Last Admin: 11/04/19 11:05 Dose: 30 mg Documented by: Lurasidone Hcl [ (Latuda] 80 Mg) 0 each PO BEDTIME [facility] Last Admin: 11/03/19 23:26 Dose: Not Given Documented by: Saccharomyces Boulardii (Florastor) 500 mg PO TID [facility] Last Admin: 11/04/19 11:06 Dose: 500 mg Documented by: Sodium Chloride (Saline Flush) 10 ml FLUSH ASDIRECTED PRN PRN Reason: Keep Vein Open Last Admin: 10/30/19 20:09 Dose: 10 ml Documented by: Vancomycin HCl (Pharmacy To Dose - Vancomycin) 1 dose .XX ASDIRECTED PRN PRN Reason: RX TO DOSE VANCO Discontinued Medications Albuterol/Ipratropium (Duoneb 3.0-0.5 Mg/3 Ml) 3 ml NEB Q4HRRT [facility] Last Admin: 10/30/19 21:20 Dose: 3 ml Documented by: Albuterol/Ipratropium (Duoneb 3.0-0.5 Mg/3 Ml) Confirm Administered Dose 3 ml .ROUTE .STK-MED ONE Stop: 10/30/19 12:21 Last Admin: 10/30/19 12:24 Dose: Not Given Documented by: Benztropine Mesylate (Cogentin) 1 mg PO BID [facility] Last Admin: 11/03/19 09:20 Dose: 1 mg Documented by: Budesonide (Pulmicort) 0.5 mg NEB BIDRT [facility] Last Admin: 10/30/19 05:58 Dose: 0.5 mg Documented by: Budesonide (Pulmicort) 0.5 mg NEB BID@0600,1800 [facility] Last Admin: 11/02/19 07:08 Dose: Not Given Documented by: Ceftriaxone Sodium (Rocephin) Confirm Administered Dose 2 gm IV .STK-MED ONE Stop: 10/29/19 16:27 Last Admin: 10/29/19 19:17 Dose: Not Given Documented by: Furosemide (Lasix) 20 mg IVPUSH ONETIME ONE Stop: 10/30/19 10:37 Last Admin: 10/30/19 10:53 Dose: 20 mg Documented by: Furosemide (Lasix) 20 mg IVPUSH NOW ONE Stop: 10/30/19 12:10 Last Admin: 10/30/19 12:20 Dose: 20 mg Documented by: Furosemide (Lasix) 20 mg IVPUSH NOW ONE Stop: 11/01/19 12:45 Last Admin: 11/01/19 13:11 Dose: 20 mg Documented by: Furosemide (Lasix) 20 mg IVPUSH BIDDIURETIC [facility] Last Admin: 11/01/19 21:04 Dose: 20 mg Documented by: Furosemide (Lasix) 20 mg IVPUSH ONETIME ONE Stop: 11/03/19 15:01 Last Admin: 11/03/19 15:28 Dose: 20 mg Documented by: Glycopyrrolate (Seebri Neohaler) 15.6 mcg IH BID [facility] Last Admin: 10/30/19 09:12 Dose: Not Given Documented by: Hydroxyzine HCl (Atarax) 25 mg PO BID [facility] Last Admin: 11/03/19 09:20 Dose: 25 mg Documented by: Sodium Chloride (Normal Saline) 1,000 mls @ 999 mls/hr IV ONETIME [facility] Last Admin: 10/29/19 14:01 Dose: 999 mls/hr Documented by: Ceftriaxone Sodium 2 gm/ (Sodium Chloride) 100 mls @ 200 mls/hr IV ONETIME ONE Stop: 10/29/19 15:13 Last Admin: 10/29/19 16:31 Dose: 200 mls/hr Documented by: Lactated Ringer's (Ringers, Lactated) 1,000 mls @ 999 mls/hr IV .BOLUS ONE Stop: 10/29/19 15:51 Last Admin: 10/29/19 15:09 Dose: 999 mls/hr Documented by: Lactated Ringer's (Ringers, Lactated) 1,000 mls @ 999 mls/hr IV .BOLUS ONE Stop: 10/29/19 17:38 Last Admin: 10/29/19 17:05 Dose: 999 mls/hr Documented by: Lactated Ringer's (Ringers, Lactated) 1,000 mls @ 999 mls/hr IV .BOLUS ONE Stop: 10/29/19 17:42 Last Admin: 10/29/19 17:33 Dose: Not Given Documented by: Sodium Chloride (Normal Saline) Confirm Administered Dose 100 mls @ as directed .ROUTE .[facility] ONE Stop: 10/29/19 16:27 Last Admin: 10/29/19 19:17 Dose: Not Given Documented by: Lactated Ringer's (Ringers, Lactated) Confirm Administered Dose 1,000 mls @ as directed .ROUTE .[facility] ONE Stop: 10/29/19 16:27 Last Admin: 10/29/19 19:17 Dose: Not Given Documented by: Sodium Chloride (Normal Saline) 1,000 mls @ 150 mls/hr IV ASDIRECTED [facility] Last Admin: 10/30/19 02:47 Dose: 150 mls/hr Documented by: Azithromycin 500 mg/ Sodium (Chloride) 250 mls @ 250 mls/hr IV Q24H [facility] Stop: 11/01/19 20:01 Last Admin: 10/29/19 20:18 Dose: 250 mls/hr Documented by: Ceftriaxone Sodium 2 gm/ (Sodium Chloride) 100 mls @ 200 mls/hr IV Q24H [facility] Last Admin: 10/30/19 15:25 Dose: 200 mls/hr Documented by: Azithromycin 500 mg/ Sodium (Chloride) 250 mls @ 250 mls/hr IV Q24H [facility] Stop: 10/31/19 20:59 Sodium Chloride (Normal Saline) 1,000 mls @ 75 mls/hr IV ASDIRECTED [facility] Cefepime HCl 2 gm/ Premix 50 mls @ 100 mls/hr IV Q24H [facility] Last Admin: 10/30/19 20:13 Dose: 100 mls/hr Documented by: Levofloxacin/Dextrose 750 mg/ (Premix) 150 mls @ 100 mls/hr IV Q48H [facility] Last Admin: 10/30/19 20:45 Dose: 100 mls/hr Documented by: Dextrose/Sodium Chloride (Dextrose 5%-1/2 Ns) 1,000 mls @ 100 mls/hr IV ASDIRECTED [facility] Last Admin: 11/02/19 02:30 Dose: 100 mls/hr Documented by: Vancomycin HCl 1.5 gm/ Sodium (Chloride) 500 mls @ 250 mls/hr IV ONETIME ONE Stop: 10/30/19 21:44 Last Admin: 10/30/19 22:28 Dose: 250 mls/hr Documented by: Sodium Chloride (Normal Saline) 500 mls @ 500 mls/hr IV BOLUS ONE Stop: 10/30/19 22:09 Last Admin: 10/30/19 21:36 Dose: 500 mls/hr Documented by: Vancomycin HCl 1 gm/ Sodium (Chloride) 250 mls @ 250 mls/hr IV Q12H [facility] Vancomycin HCl 1 gm/Vancomycin HCl 250 mg/ Sodium Chloride 250 mls @ 166.667 mls/hr IV Q12H [facility] Last Admin: 11/01/19 12:17 Dose: Not Given Documented by: Levofloxacin/Dextrose 750 mg/ (Premix) 150 mls @ 100 mls/hr IV Q24H [facility] Stop: 11/04/19 21:29 Last Admin: 11/03/19 20:18 Dose: 100 mls/hr Documented by: Piperacillin Sod/Tazobactam (Sod 4.5 gm/ Sodium Chloride) 100 mls @ 200 mls/hr IV ONETIME ONE Stop: 10/31/19 11:59 Last Admin: 10/31/19 11:39 Dose: 200 mls/hr Documented by: Piperacillin Sod/Tazobactam (Sod 4.5 gm/ Sodium Chloride) 100 mls @ 25 mls/hr IV Q8H [facility] Last Admin: 11/03/19 13:30 Dose: 25 mls/hr Documented by: Sodium Chloride (Normal Saline) 100 mls @ 75 mls/hr IV ASDIRECTED [facility] Stop: 10/31/19 13:00 Last Admin: 10/31/19 11:29 Dose: 75 mls/hr Documented by: Potassium Phosphate 30 mmole/ (Sodium Chloride) 510 mls @ 102 mls/hr IV ONETIME ONE Stop: 11/01/19 15:29 Last Admin: 11/01/19 10:58 Dose: 102 mls/hr Documented by: Potassium Chloride 10 meq/ (Premix) 100 mls @ 100 mls/hr IV Q1H [facility] Stop: 11/02/19 12:59 Last Admin: 11/02/19 13:26 Dose: 100 mls/hr Documented by: Potassium Phosphate 30 mmole/ (Sodium Chloride) 510 mls @ 102 mls/hr IV ONETIME ONE Stop: 11/02/19 17:59 Last Admin: 11/02/19 13:27 Dose: 102 mls/hr Documented by: Albumin Human (Flexbumin 25%) 25 gm in 100 mls @ 100 mls/hr IV Q1H [facility] Stop: 11/03/19 19:29 Last Admin: 11/03/19 20:02 Dose: Not Given Documented by: Albumin Human (Flexbumin 25%) 12.5 gm in 50 mls @ 50 mls/hr IV ONETIME ONE Stop: 11/04/19 01:59 Last Admin: 11/04/19 00:01 Dose: 50 mls/hr Documented by: Albumin Human (Flexbumin 25%) 25 gm in 100 mls @ 100 mls/hr IV Q1H [facility] Stop: 11/03/19 21:59 Last Admin: 11/03/19 23:20 Dose: 100 mls/hr Documented by: Insulin Human Lispro (Humalog) 0 unit SUBCUT QIDACANDBED [facility]; Protocol Last Admin: 10/31/19 12:44 Dose: Not Given Documented by: Insulin Human Lispro (Humalog) 0 unit SUBCUT Q6HR [facility]; Protocol Last Admin: 11/02/19 18:34 Dose: Not Given Documented by: Iopamidol (Isovue-300 (61%)) 50 ml IVPUSH ONETIME ONE Stop: 10/30/19 07:53 Last Admin: 10/30/19 08:36 Dose: 50 ml Documented by: Iopamidol (Isovue-300 (61%)) 100 ml IVPUSH ONETIME ONE Stop: 10/30/19 07:53 Last Admin: 10/30/19 08:37 Dose: 100 ml Documented by: Iopamidol (Isovue-370 (76%)) 100 ml IVPUSH ONETIME ONE Stop: 10/31/19 11:21 Last Admin: 10/31/19 11:28 Dose: 100 ml Documented by: Lorazepam (Ativan) 1 mg IVPUSH Q15M PRN PRN Reason: Other Last Admin: 10/30/19 08:47 Dose: 1 mg Documented by: Lorazepam (Ativan) Confirm Administered Dose 2 mg .ROUTE .STK-MED ONE Stop: 10/30/19 08:15 Last Admin: 10/30/19 08:47 Dose: Not Given Documented by: Lorazepam (Ativan) 1 mg IVPUSH ONETIME ONE Stop: 10/30/19 11:52 Last Admin: 10/30/19 11:58 Dose: 1 mg Documented by: Atorvastatin 20 Mg 0 each PO DAILY [facility] Potassium Chloride (Klor-Con M20) 40 meq PO ONETIME ONE Stop: 11/02/19 17:01 Last Admin: 11/02/19 18:25 Dose: 40 meq Documented by: Potassium Chloride (Klor-Con M20) 40 meq PO BID [facility] Stop: 11/03/19 21:01 Last Admin: 11/03/19 20:29 Dose: 40 meq Documented by: Risperidone (Risperidal) 2 mg PO DAILY [facility] Last Admin: 11/03/19 09:19 Dose: 2 mg Documented by: Sodium Chloride (Saline Flush) 10 ml FLUSH ONETIME PRN PRN Reason: IV FLUSH Last Admin: 10/30/19 08:37 Dose: 10 ml Documented by: Sodium Chloride (Saline Flush) 10 ml FLUSH ONETIME PRN PRN Reason: IV FLUSH Stop: 10/31/19 13:00 Last Admin: 10/31/19 11:29 Dose: 10 ml Documented by: - Exam Quality Assessment: Supplemental Oxygen General: Lethargic HEENT: Pupils Equal Neck: Supple Lungs: Normal Respiratory Effort, Rhonchi Cardiovascular: Regular Rate, Regular Rhythm GI/Abdominal Exam: Normal Bowel Sounds, Soft, Non-Tender, No Distention Extremities: Non-Tender, No Pedal Edema, Normal Capillary Refill Skin: Warm, Dry, Intact Sepsis Event Note - Evaluation Sepsis Screening Result: Severe Sepsis Risk - Focused Exam Vital Signs: Vital Signs Temp Pulse Resp BP Pulse Ox Pulse Ox 11/04/19 09:18 96 11/04/19 08:24 97.5 F 97 28 H 135/80 96 11/04/19 05:20 97.7 F 105 H 20 130/52 L 91 L 11/04/19 03:39 98 92 L 11/04/19 03:36 98.2 F 95 24 H 116/62 90 L 11/04/19 03:21 94 L - Problem List & Annotations (1) Septic shock SNOMED Code(s): 54913311 Code(s): A41.9 - SEPSIS, UNSPECIFIED ORGANISM; R65.21 - SEVERE SEPSIS WITH SEPTIC SHOCK Status: Acute Current Visit: Yes (2) Benign microscopic hematuria SNOMED Code(s): 422107326779228 Code(s): R31.1 - BENIGN ESSENTIAL MICROSCOPIC HEMATURIA Status: Acute Current Visit: Yes (3) COPD (chronic obstructive pulmonary disease) SNOMED Code(s): 89567977 Code(s): J44.9 - CHRONIC OBSTRUCTIVE PULMONARY DISEASE, UNSPECIFIED Status: Acute Current Visit: Yes (4) Pneumonia SNOMED Code(s): 874536576 Code(s): J18.9 - PNEUMONIA, UNSPECIFIED ORGANISM Status: Acute Current Visit: Yes Qualifiers: Pneumonia type: due to unspecified organism (5) Schizophrenia SNOMED Code(s): 81832996 Code(s): F20.9 - SCHIZOPHRENIA, UNSPECIFIED Status: Acute Current Visit: Yes Qualifiers: Schizophrenia type: unspecified Qualified Code(s): F20.9 - Schizophrenia, unspecified (6) Sepsis SNOMED Code(s): 62399357 Code(s): A41.9 - SEPSIS, UNSPECIFIED ORGANISM Status: Acute Current Visit: Yes Qualifiers: Sepsis type: sepsis due to unspecified organism Sepsis acute organ dysfunction status: unspecified Qualified Code(s): A41.9 - Sepsis, unspecified organism (7) Abdominal pain SNOMED Code(s): 41670783 Code(s): R10.9 - UNSPECIFIED ABDOMINAL PAIN Status: Acute Current Visit: Yes (8) Streptococcal pneumonia SNOMED Code(s): 55424507 Code(s): J15.4 - PNEUMONIA DUE TO OTHER STREPTOCOCCI Status: Acute Current Visit: Yes (9) Positive result for methicillin resistant Staphylococcus aureus (MRSA) screening SNOMED Code(s): 455845569 Code(s): Z22.322 - CARRIER OR SUSPECTED CARRIER OF METHICILLIN RESIS STAPH Status: Acute Current Visit: Yes - Problem List Review Problem List Initiated/Reviewed/Updated: Yes - My Orders Last 24 Hours: My Active Orders 11/03/19 15:00 Saccharomyces Boulardii [Florastor] 500 mg PO TID 11/03/19 22:00 Piperacillin/Tazobactam [Piperacil-Tazobact] 4.5 gm Sodium Chloride 0.9% [Normal Saline] 100 ml IV Q8H 11/04/19 06:15 PROCALCITONIN [REF] DAILY 11/04/19 10:55 Brain wo Cont [MR] Routine 11/04/19 11:36 Consult to Speech Language Pathology [ADDICTION NURSE Evaluation and Treatment] [CONS] Routine 11/04/19 Dinner Regular Diet [DIET] 11/05/19 09:30 VANCOMYCIN TROUGH [CHEM] Timed - Assessment Assessment:: 10/29/2019 Septic shock likely secondary to bilateral pneumonia History of COPD/asthma Altered mental status * Patient found on floor in the bathroom after possibly having a seizure. * Hypotensive, tachycardic, tachypneic and hypoxic on arrival to emergency department. * Patient received 3 L IV bolus in emergency department. * Initial lactic acid 4.0 increasing to 5.3 after fluid bolus. * Initial WBC 22,000, 76% neutrophils, no bandemia, C-reactive protein 1.6 * Altered mental status, patient is very lethargic. * Patient is in critical condition and currently has a poor outcome predicted. High risk of mortality. Abdominal pain Microscopic hematuria, benign * Patient's initial complaint when calling EMS was abdominal pain and constipation. * Patient does exhibit tenderness to palpation throughout the abdomen. * Bowel sounds difficult to appreciate secondary to upper airway noise. 10/30/2019 * Patient is not improved with the large amount of IV fluids. She has actually had worsening respiratory status requiring IV Lasix. Respiratory rate has had some improvement with vigorous pulmonary toilet, bronchodilation, and diuretics. Unfortunately, this is likely going to cause some intravascular hypovolemia. * Lactic acid did drop to 2.0 this morning with the IV fluids. * This afternoon renal function did worsen with a creatinine of 1.6. * WBC worsened and has been stable today at 23,000. Still no bands or toxic granulations. Neutrophils 90%, absolute neutrophils 21,000. * ABG on BiPAP: pH 7.39, PCO2 37.4, PO2 of 66, bicarb 22 -which is reassuring. * Respiratory rate still in the upper 30s to 40s and heart rate 120s to 130s. * Confirmed CODE STATUS with sister. She states that Rosita has several mental health issues and she likely did not understand the catastrophic results of not being intubated. * CT abdomen and pelvis with contrast. Findings suspicious for colitis within portions of the descending and sigmoid colon. Fluid is seen within the pelvis and right abdomen most likely reactive from the colonic process. Increased stool within the rectosigmoid region. Nodularity with in the left adrenal gland most likely benign if patient has no primary carcinoma. * CT of the of the head: No acute findings 10/31/2019 * Rosita is making some improvement today. Respiratory rate has decreased and her tachycardia has decreased. * Antibiotics were switched to Zosyn to cover both strep pneumoniae and colitis. * MRSA screen was positive. * Patient continues on vancomycin. * D-dimer was elevated at 1.[address] angio was done of the chest * CT angio chest: 1. No findings of pulmonary embolism. * 2. Aorta shows atherosclerotic changes with no dissection or aneurysm. No discrete ulcerating plaque is seen. * 3. Increased density within the right lung base which may represent pneumonia or prominent atelectasis. * 4. Other findings as noted. Not believed to be acute. * ABGs normal pH, PCO2, bicarb with a slightly low PO2. These are surprisingly good considering her respiratory rate. * Repeat lactic acid was 1.6. White count continues to be significantly elevated at 23,000. CRP 35.8. * Patient has significant hypoalbuminemia with albumin of 1.9 * Hypokalemiapotassium 3.4 * Hemoglobin A1c is 6.1 11/01/2019 * Decrease in respiratory rate and tachycardia. * Patient weaned off of BiPAP and now on nasal cannula. * On Zosyn, Levaquin, and vancomycin. * Slowly improving mentation. * WBC 18.9, CRP 34.2, procalcitonin from yesterday 10/30 2012.07, phosphorus 1.8, potassium 3.2, estimated GFR 57, albumin 1.6 11/02/2019 * Significant improvement today. * More awake, alert, and talking. * Afebrile, map greater than 65, on 2 L nasal cannula to keep SPO2 in the mid 90s * WBC 17.7, C-reactive protein 22.1. * Estimated GFR greater than 60. * Hypokalemia. Potassium 2.8. * Hypophosphatemia. Phosphorus 1.7. * Hypoalbuminemia. Albumin down to 1.4. She did eat some today. * Zosyn, Levaquin, and vancomycin. 11/03/2019 Bilateral pneumonia streptococcal pneumonia Sepsis resolved COPD * Patient is off BiPAP and on 2 to 3 L nasal cannula to keep her SPO2 in the mid 90s. * Significant improvement in her respiratory status and pneumonia. * She continues to have some congestion likely from pulmonary congestion. * White count 14, CRP 8.8 * On Zosyn, Levaquin, and vancomycin * Patient is a pack to 2 per day smoker. She does have a nicotine patch. * Positive streptococcal pneumonia urine antigen Altered mental status * Slow but progressive improvement in her mentation. She appears to be having some clearing although she is still very lethargic. * Unable to do LP secondary to her not being cooperative or awake enough to be able to perform the procedure. * Unlikely that this is secondary to infectious process. Colitis * Patient has had a significant decrease in her abdominal pain. * She is now having multiple loose and watery diarrhea. * Bowel movements have decreased over the afternoon. * Patient had significant stool on CT scan on admission. Gross hematuria. * Patient has dark orange, tea colored urine and what appears to be vaginal bleeding. On exam she has blood coming from the urethra around the Noguera catheter. Patient states that she has had hematuria in the past and it has been worked up. She does have a history of hematuria. * Enoxaparin may be worsening the hematuria. At this time we will continue on enoxaparin because her risk of clot is greater than her risk of a significant bleed. Hypokalemia * Potassium 3.2 Elevated LFTs. * Bilirubin 1.2, AST 69, ALT 57, alkaline phosphatase 150 Hypoalbuminemia * Albumin 1.7 Schizophrenia * On Latuda, Risperdal, Paxil * Only receiving risperidone, and Paxil in the hospital * There is no substitute for her Latuda * These medications may be contributing to her mental status changes. Hypertension/hyperlipidemia * Amlodipine and enalapril on hold * Atorvastatin is nonformulary 11/04/2019 Bilateral pneumonia streptococcal pneumonia Sepsis resolved COPD * Episode of vomiting and possible aspiration. * Chest x-ray showed no change. * No change in 2 to 3 L nasal cannula to keep her SPO2 in the mid 90s. * Significant improvement in her respiratory status and pneumonia. * She continues to have some congestion likely from pulmonary congestion. * WBC decreased to 12.8 by afternoon but had stopped few toxic granulations. * Procalcitonin down to 2 on yesterday's blood draw. * On Zosyn and vancomycin * Last day of Levaquin, day 5 * Patient is a pack to 2 per day smoker. She does have a nicotine patch. * Positive streptococcal pneumonia urine antigen Altered mental status * Slow but progressive improvement in her mentation. She appears to be having some clearing although she is still very lethargic. * Unable to do LP secondary to her not being cooperative or awake enough to be able to perform the procedure. * MRI of the brain today showed no acute findings. * Improvement in mental status since stopping Risperdal, but likely coincidental. She is likely having improvement in her mental status secondary to improvement in her condition. Colitis * Abdominal pain resolved * Multiple episodes of vomiting early this morning and 1 this afternoon. Gross hematuria. * Noguera catheter removed today. * She did require straight catheter. Hypokalemia * Potassium 3.2 Elevated LFTs. * Resolved Hypoalbuminemia * Albumin 2.2 after receiving albumin yesterday Schizophrenia * Home meds include Latuda, Risperdal, Paxil * Yesterday stopped Risperdal * There is no substitute for her Latuda, therefore not on second-generation antipsychotic * Improvement in mental status since stopping Risperdal, but likely coincide ntal. She is likely having improvement in her mental status secondary to improvement in her condition. Hypertension/hyperlipidemia * Amlodipine and enalapril on hold * Atorvastatin is nonformulary - Plan Plan:: Plan * Lasix 20 mg IV twice daily * Hold risperidone, hydroxyzine, and Cogentin secondary to altered mental status, but continue Paxil * Monitor urine output, renal function, vital signs, bedside monitoring to determine fluid status. * Continue vancomycin and Zosyn. * Follow blood cultures. Negative so far * Unable to collect sputum for Gram stain and culture * Encourage greater p.o. intake. Dietary consult. * Cognitive evaluation order but our speech therapist is out sick. * Nicotine patch * Incentive spirometry and Acapella when able to comply. * FiO2 to keep SPO2 greater than 92% * ABG as needed * Strict I's and O's. * Repeat CBC, CMP, C-reactive protein, magnesium, and phosphorus in the morning. VTE prophylaxis: Enoxaparin 40 mg subcu twice daily CODE STATUS: Full code. Disposition: Patient may need fdc facility. Length of stay greater than 96 hours secondary to slow resolution and altered mental status..
--- NOTE | 2019-11-04 16:15 | MR ---
MRI brain Technique: T1 sagittal; T2, FLAIR, diffusion and T1 axial; T1 and gradient echo coronal images were obtained of the brain. Findings: Motion artifact is seen on multiple sequences. No acute diffusion abnormalities are seen. Ventricles along with basal cisterns and sulci over the convexities appear within normal limits for the patient's age. Mild areas of increased signal are seen within the periventricular white matter. Most prominent area of increased signal is next to the left frontal horn within the white matter measuring 1.5 cm. These areas of increased signal are nonspecific regarding etiology but are compatible with areas of white matter demyelination. Impression: 1. Motion artifact limiting details. 2. Areas of increased signal within the periventricular white matter which are nonspecific and represent mild white matter demyelination. These findings are likely not acute as no acute diffusion abnormalities are seen. Contrast study could be considered to make sure these do not enhance when patient's condition allows less motion. Diagnostic code #3 Study was dictated in MDT
--- NOTE | 2019-11-04 17:16 | CR ---
Chest: Portable view of the chest was obtained. Comparison: Prior chest x-ray of 10/30/19. Improving aeration of the right lung base from prior study. Slight persisting atelectasis within the left base. Heart and mediastinum appear stable. Bony structures are grossly intact. Impression: 1. Improved aeration of the right lung base from prior study. 2. Slight persisting atelectasis within the left base. Diagnostic code #2 Study was dictated in MDT
[2019-11-04] MEDS: Potassium Chloride 10 MEQ in Premix Bag 1 BAG IV SCH ×4 (20:15→23:55)
[2019-11-04] MEDS ORDERED: Potassium Chloride 10 MEQ in Premix Bag 1 BAG IV SCH (22:00)
[2019-11-04] MEDS: Lurasidone Hcl [Latuda] 80 MG PO SCH (22:04)
[2019-11-04] MEDS: Aluminum Hydroxide/Magnesium Hydroxide/Simethicone Susp 30 ML Cup PO PRN (23:32)
[2019-11-05] MEDS: Potassium Chloride 10 MEQ in Premix Bag 1 BAG IV SCH ×2 (01:16→02:25)
[2019-11-05] MEDS: Albuterol/Ipratropium 3.0-0.5 MG/3 ML Neb Soln NEB SCH ×4 (02:31→21:03)
[2019-11-05] MEDS: Vancomycin 1 GM, Vancomycin 250 MG in Sodium Chloride 0.9% 250 ML IV SCH ×2 (03:27→19:27)
[2019-11-05] MEDS: Aluminum Hydroxide/Magnesium Hydroxide/Simethicone Susp 30 ML Cup PO PRN ×2 (03:29→10:13)
[2019-11-05] MEDS: Piperacillin/Tazobactam 4.5 GM in Sodium Chloride 0.9% 100 ML IV SCH ×3 (05:33→22:36)
[2019-11-05] MEDS: Glycopyrrolate 15.6 MCG Cap.W.Dev Kit of 6 IH SCH ×2 (09:32→21:03)
[2019-11-05] MEDS: Budesonide 0.5 MG/2 ML Neb Susp NEB SCH ×2 (09:33→21:03)
[2019-11-05] MEDS: Furosemide 20 MG/2 ML VIAL IVPUSH SCH (10:13)
[2019-11-05] MEDS: Enoxaparin 40 MG/0.4 ML Syringe SUBCUT SCH ×2 (10:13→21:24)
[2019-11-05] MEDS: Nicotine 21 MG/24 Hr Patch TRDERM SCH (10:14)
[2019-11-05] MEDS: PARoxetine 20 MG Tab PO SCH (10:14)
[2019-11-05] MEDS: Aspirin 81 MG Tab.Chew PO SCH (10:14)
[2019-11-05] MEDS: Saccharomyces Boulardii (Probiotic) 250 MG Cap PO SCH ×3 (10:25→21:24)
--- NOTE | 2019-11-05 10:44 | PCM.PN ---
- General Info Date of Service: 11/05/19 Admission Dx/Problem (Free Text): Admission Diagnosis/Problem Admission Diagnosis/Problem Pneumonia Functional Status: Reports: Pain Controlled, Tolerating Diet, Urinating, Incentive Spirometry, Other (acapella ). Denies: New Symptoms - Review of Systems General: Reports: Weakness, Fatigue. Denies: Fever, Malaise, Chills HEENT: Reports: No Symptoms. Denies: Headaches, Sore Throat Pulmonary: Reports: Shortness of Breath, Cough. Denies: Pleuritic Chest Pain, Sputum, Wheezing Cardiovascular: Reports: Dyspnea on Exertion. Denies: Chest Pain, Palpitations Gastrointestinal: Reports: Other (Reports "GERD"). Denies: Abdominal Pain, Constipation, Diarrhea, Nausea, Vomiting (single episode this AM. Nothing since ) Genitourinary: Reports: No Symptoms Musculoskeletal: Reports: No Symptoms Skin: Reports: No Symptoms Neurological: Reports: Pre-Existing Deficit Psychiatric: Reports: No Symptoms - Patient Data Weight - Most Recent: 263 lb 6.4 oz - Exam Quality Assessment: Supplemental Oxygen (3L), DVT Prophylaxis General: Alert, Oriented, Cooperative, No Acute Distress HEENT: Pupils Equal, Pupils Reactive, Mucous Membr. Moist/[place] Neck: Supple, Trachea Midline Lungs: Normal Respiratory Effort, Decreased Breath Sounds, Rhonchi Cardiovascular: Regular Rate, Regular Rhythm GI/Abdominal Exam: Normal Bowel Sounds, Soft, Non-Tender, No Distention (Female) Exam: Deferred Back Exam: Normal Inspection, Decreased Range of Motion Extremities: Other (Multiple healed wounds on arms consistent with "cutting." Blisters on bilateral hands. Wound on right chest in semicircular pattern. ) Skin: Warm, Dry, Intact Wound/Incisions: Healing Well Neurological: No New Focal Deficit Psy/Mental Status: Alert Sepsis Event Note - Evaluation Sepsis Screening Result: No Definite Risk - Problem List & Annotations (1) Abdominal pain SNOMED Code(s): 24661557 Code(s): R10.9 - UNSPECIFIED ABDOMINAL PAIN Status: Acute Priority: High Current Visit: Yes Qualifiers: Abdominal location: unspecified location Qualified Code(s): R10.9 - Unspecified abdominal pain (2) Benign microscopic hematuria SNOMED Code(s): 188693804666132 Code(s): R31.1 - BENIGN ESSENTIAL MICROSCOPIC HEMATURIA Status: Acute Priority: Medium Current Visit: Yes (3) COPD (chronic obstructive pulmonary disease) SNOMED Code(s): 33414433 Code(s): J44.9 - CHRONIC OBSTRUCTIVE PULMONARY DISEASE, UNSPECIFIED Status: Chronic Priority: Medium Current Visit: Yes Qualifiers: COPD type: unspecified COPD Qualified Code(s): J44.9 - Chronic obstructive pulmonary disease, unspecified (4) Pneumonia SNOMED Code(s): 034101305 Code(s): J18.9 - PNEUMONIA, UNSPECIFIED ORGANISM Status: Acute Priority: High Current Visit: Yes Qualifiers: Pneumonia type: due to unspecified organism Laterality: unspecified laterality Lung location: unspecified part of lung Qualified Code(s): J18.9 - Pneumonia, unspecified organism (5) Positive result for methicillin resistant Staphylococcus aureus (MRSA) screening SNOMED Code(s): 907682732 Code(s): Z22.322 - CARRIER OR SUSPECTED CARRIER OF METHICILLIN RESIS STAPH Status: Acute Priority: Medium Current Visit: Yes (6) Schizophrenia SNOMED Code(s): 42433592 Code(s): F20.9 - SCHIZOPHRENIA, UNSPECIFIED Status: Chronic Priority: High Current Visit: Yes Qualifiers: Schizophrenia type: unspecified Qualified Code(s): F20.9 - Schizophrenia, unspecified (7) Sepsis SNOMED Code(s): 70055785 Code(s): A41.9 - SEPSIS, UNSPECIFIED ORGANISM Status: Resolved Priority: High Current Visit: Yes Qualifiers: Sepsis type: sepsis due to unspecified organism Sepsis acute organ dysfunction status: unspecified Qualified Code(s): A41.9 - Sepsis, unspecified organism (8) Septic shock SNOMED Code(s): 88980812 Code(s): A41.9 - SEPSIS, UNSPECIFIED ORGANISM; R65.21 - SEVERE SEPSIS WITH SEPTIC SHOCK Status: Resolved Priority: High Current Visit: Yes (9) Streptococcal pneumonia SNOMED Code(s): 09385280 Code(s): J15.4 - PNEUMONIA DUE TO OTHER STREPTOCOCCI Status: Acute Priority: High Current Visit: Yes (10) Colitis SNOMED Code(s): 39609243 Code(s): K52.9 - NONINFECTIVE GASTROENTERITIS AND COLITIS, UNSPECIFIED Status: Acute Priority: High Current Visit: Yes (11) Hypokalemia SNOMED Code(s): 52408704 Code(s): E87.6 - HYPOKALEMIA Status: Resolved Priority: High Current Visit: Yes (12) Transaminitis SNOMED Code(s): 129570747, 120960527 Code(s): R74.0 - NONSPEC ELEV OF LEVELS OF TRANSAMNS & LACTIC ACID DEHYDRGNSE Status: Acute Priority: High Current Visit: Yes (13) Hypoalbuminemia SNOMED Code(s): 747440989 Code(s): E88.09 - OTH DISORDERS OF PLASMA-PROTEIN METABOLISM, NEC Status: Acute Priority: Medium Current Visit: Yes (14) HTN (hypertension) SNOMED Code(s): 31451509 Code(s): I10 - ESSENTIAL (PRIMARY) HYPERTENSION Status: Chronic Priority: Medium Current Visit: No Qualifiers: Hypertension type: unspecified Qualified Code(s): I10 - Essential (primary) hypertension (15) HLD (hyperlipidemia) SNOMED Code(s): 66608252 Code(s): E78.5 - HYPERLIPIDEMIA, UNSPECIFIED Status: Chronic Priority: Low Current Visit: No Qualifiers: Hyperlipidemia type: unspecified Qualified Code(s): E78.5 - Hyperlipidemia, unspecified (16) Altered mental status SNOMED Code(s): 185973870 Code(s): R41.82 - ALTERED MENTAL STATUS, UNSPECIFIED Status: Acute Priority: High Current Visit: Yes Qualifiers: Altered mental status type: unspecified Qualified Code(s): R41.82 - Altered mental status, unspecified - Problem List Review Problem List Initiated/Reviewed/Updated: Yes - Assessment Assessment:: 10/29/2019 Septic shock likely secondary to bilateral pneumonia History of COPD/asthma Altered mental status * Patient found on floor in the bathroom after possibly having a seizure. * Hypotensive, tachycardic, tachypneic and hypoxic on arrival to emergency department. * Patient received 3 L IV bolus in emergency department. * Initial lactic acid 4.0 increasing to 5.3 after fluid bolus. * Initial WBC 22,000, 76% neutrophils, no bandemia, C-reactive protein 1.6 * Altered mental status, patient is very lethargic. * Patient is in critical condition and currently has a poor outcome predicted. High risk of mortality. Abdominal pain Microscopic hematuria, benign * Patient's initial complaint when calling EMS was abdominal pain and constipation. * Patient does exhibit tenderness to palpation throughout the abdomen. * Bowel sounds difficult to appreciate secondary to upper airway noise. 10/30/2019 * Patient is not improved with the large amount of IV fluids. She has actually had worsening respiratory status requiring IV Lasix. Respiratory rate has had some improvement with vigorous pulmonary toilet, bronchodilation, and diuretics. Unfortunately, this is likely going to cause some intravascular hypovolemia. * Lactic acid did drop to 2.0 this morning with the IV fluids. * This afternoon renal function did worsen with a creatinine of 1.6. * WBC worsened and has been stable today at 23,000. Still no bands or toxic granulations. Neutrophils 90%, absolute neutrophils 21,000. * ABG on BiPAP: pH 7.39, PCO2 37.4, PO2 of 66, bicarb 22 -which is reassuring. * Respiratory rate still in the upper 30s to 40s and heart rate 120s to 130s. * Confirmed CODE STATUS with sister. She states that Rosita has several mental health issues and she likely did not understand the catastrophic results of not being intubated. * CT abdomen and pelvis with contrast. Findings suspicious for colitis within portions of the descending and sigmoid colon. Fluid is seen within the pelvis and right abdomen most likely reactive from the colonic process. Increased stool within the rectosigmoid region. Nodularity with in the left adrenal gland most likely benign if patient has no primary carcinoma. * CT of the of the head: No acute findings 10/31/2019 * Rosita is making some improvement today. Respiratory rate has decreased and her tachycardia has decreased. * Antibiotics were switched to Zosyn to cover both strep pneumoniae and colitis. * MRSA screen was positive. * Patient continues on vancomycin. * D-dimer was elevated at 1.[address] angio was done of the chest * CT angio chest: 1. No findings of pulmonary embolism. * 2. Aorta shows atherosclerotic changes with no dissection or aneurysm. No discrete ulcerating plaque is seen. * 3. Increased density within the right lung base which may represent pneumonia or prominent atelectasis. * 4. Other findings as noted. Not believed to be acute. * ABGs normal pH, PCO2, bicarb with a slightly low PO2. These are surprisingly good considering her respiratory rate. * Repeat lactic acid was 1.6. White count continues to be significantly elevated at 23,000. CRP 35.8. * Patient has significant hypoalbuminemia with albumin of 1.9 * Hypokalemiapotassium 3.4 * Hemoglobin A1c is 6.1 11/01/2019 * Decrease in respiratory rate and tachycardia. * Patient weaned off of BiPAP and now on nasal cannula. * On Zosyn, Levaquin, and vancomycin. * Slowly improving mentation. * WBC 18.9, CRP 34.2, procalcitonin from yesterday 10/30 2012.07, phosphorus 1.8, potassium 3.2, estimated GFR 57, albumin 1.6 11/02/2019 * Significant improvement today. * More awake, alert, and talking. * Afebrile, map greater than 65, on 2 L nasal cannula to keep SPO2 in the mid 90s * WBC 17.7, C-reactive protein 22.1. * Estimated GFR greater than 60. * Hypokalemia. Potassium 2.8. * Hypophosphatemia. Phosphorus 1.7. * Hypoalbuminemia. Albumin down to 1.4. She did eat some today. * Zosyn, Levaquin, and vancomycin. 11/03/2019 Bilateral pneumonia streptococcal pneumonia Sepsis resolved COPD * Patient is off BiPAP and on 2 to 3 L nasal cannula to keep her SPO2 in the mid 90s. * Significant improvement in her respiratory status and pneumonia. * She continues to have some congestion likely from pulmonary congestion. * White count 14, CRP 8.8 * On Zosyn, Levaquin, and vancomycin * Patient is a pack to 2 per day smoker. She does have a nicotine patch. * Positive streptococcal pneumonia urine antigen Altered mental status * Slow but progressive improvement in her mentation. She appears to be having some clearing although she is still very lethargic. * Unable to do LP secondary to her not being cooperative or awake enough to be able to perform the procedure. * Unlikely that this is secondary to infectious process. Colitis * Patient has had a significant decrease in her abdominal pain. * She is now having multiple loose and watery diarrhea. * Bowel movements have decreased over the afternoon. * Patient had significant stool on CT scan on admission. Gross hematuria. * Patient has dark orange, tea colored urine and what appears to be vaginal bleeding. On exam she has blood coming from the urethra around the Noguera catheter. Patient states that she has had hematuria in the past and it has been worked up. She does have a history of hematuria. * Enoxaparin may be worsening the hematuria. At this time we will continue on enoxaparin because her risk of clot is greater than her risk of a significant bleed. Hypokalemia * Potassium 3.2 Elevated LFTs. * Bilirubin 1.2, AST 69, ALT 57, alkaline phosphatase 150 Hypoalbuminemia * Albumin 1.7 Schizophrenia * On Latuda, Risperdal, Paxil * Only receiving risperidone, and Paxil in the hospital * There is no substitute for her Latuda * These medications may be contributing to her mental status changes. Hypertension/hyperlipidemia * Amlodipine and enalapril on hold * Atorvastatin is nonformulary 11/04/2019 Bilateral pneumonia streptococcal pneumonia Sepsis resolved COPD * Episode of vomiting and possible aspiration. * Chest x-ray showed no change. * No change in 2 to 3 L nasal cannula to keep her SPO2 in the mid 90s. * Significant improvement in her respiratory status and pneumonia. * She continues to have some congestion likely from pulmonary congestion. * WBC decreased to 12.8 by afternoon but had stopped few toxic granulations. * Procalcitonin down to 2 on yesterday's blood draw. * On Zosyn and vancomycin * Last day of Levaquin, day 5 * Patient is a pack to 2 per day smoker. She does have a nicotine patch. * Positive streptococcal pneumonia urine antigen Altered mental status * Slow but progressive improvement in her mentation. She appears to be having some clearing although she is still very lethargic. * Unable to do LP secondary to her not being cooperative or awake enough to be able to perform the procedure. * MRI of the brain today showed no acute findings. * Improvement in mental status since stopping Risperdal, but likely coincidental. She is likely having improvement in her mental status secondary to improvement in her condition. Colitis * Abdominal pain resolved * Multiple episodes of vomiting early this morning and 1 this afternoon. Gross hematuria. * Noguera catheter removed today. * She did require straight catheter. Hypokalemia * Potassium 3.2 Elevated LFTs. * Resolved Hypoalbuminemia * Albumin 2.2 after receiving albumin yesterday Schizophrenia * Home meds include Latuda, Risperdal, Paxil * Yesterday stopped Risperdal * There is no substitute for her Latuda, therefore not on second-generation antipsychotic * Improvement in mental status since stopping Risperdal, but likely coincidental. She is likely having improvement in her mental status secondary to improvement in her condition. Hypertension/hyperlipidemia * Amlodipine and enalapril on hold * Atorvastatin is nonformulary 11/05/2019 Bilateral pneumonia streptococcal pneumonia Sepsis resolved COPD MRSA positive * Only one episode of emesis early today * Requiring 3L o2 to maintain saturations in mid 90's * Continued improvement in her respiratory status and pneumonia. * She continues to have some congestion likely from pulmonary congestion. * WBC decreased to 12.68 * Repeat procalcitonin today * Last day of Zosyn and vancomycin today * Completed Levaquin treatment * Patient is a pack to 2 per day smoker. She does have a nicotine patch. * Positive streptococcal pneumonia urine antigen * Contact precautions Altered mental status * Improved mentation but will fall asleep while talking with staff. * MRI of the brain on 11/04/19 showed no acute findings. * Improvement in mental status since stopping Risperdal, but likely coincidental. She is likely having improvement in her mental status secondary to improvement in her condition. Colitis * Abdominal pain resolved * Single episode of vomiting today * Started on scheduled BID famotidine today Gross hematuria. * Noguera catheter removed 11/04/19. Hypokalemia * Potassium 3.5 - resolved Elevated LFTs. * Resolved Hypoalbuminemia * Albumin 2.0 from 2.2 yesterday today * Received albumin on 11/03/19 Schizophrenia * Home meds include Latuda, Risperdal, Paxil * 11/03/19- stopped Risperdal * There is no substitute for her Latuda, therefore not on second-generation antipsychotic * Improvement in mental status since stopping Risperdal, but likely coincidental. She is likely having improvement in her mental status secondary to improvement in her condition. Hypertension/hyperlipidemia * Amlodipine and enalapril on hold * Atorvastatin is nonformulary Vital signs trend: Tmax 98.1, HR 87-91, BP 130-138/64-81, RR 16-21, Oxygen saturations 94-95% on 3L Last BM today - Plan Plan:: Plan * Continue lasix 20 mg IV twice daily * Hold risperidone, hydroxyzine, and Cogentin secondary to altered mental status, but continue Paxil * Monitor urine output, renal function, vital signs, bedside monitoring to determine fluid status. * Continue vancomycin and Zosyn today - discontinue tomorrow * Follow blood cultures. Negative so far * Encourage greater p.o. intake. Dietary consult. * Cognitive evaluation order but our speech therapist is out sick. * Nicotine patch * Incentive spirometry and Acapella starting today * FiO2 to keep SPO2 greater than 92% * Cancel strict I's and O's. * AM labs as ordered * Start famotidine BID scheduled * Aspiration precautions and HOB elevation * Continue contact precautions for MRSA positive screen VTE prophylaxis: Enoxaparin 40 mg subcu twice daily GI prophylaxis: Famotidine BID CODE STATUS: Full code. Disposition: Patient will likely need long-term facility. Length of stay greater than 96 hours secondary to slow resolution and altered mental status.
[2019-11-05] MEDS: Famotidine 10 MG Tab PO SCH (17:58)
[2019-11-05] MEDS: Vancomycin 1 GM, Vancomycin 500 MG in Sodium Chloride 0.9% 500 ML IV SCH (19:27)
[2019-11-05] MEDS: Lurasidone Hcl [Latuda] 80 MG PO SCH (21:24)
[2019-11-06] MEDS: Albuterol/Ipratropium 3.0-0.5 MG/3 ML Neb Soln NEB SCH ×4 (03:22→21:24)
[2019-11-06] MEDS: Vancomycin 1 GM, Vancomycin 500 MG in Sodium Chloride 0.9% 500 ML IV SCH (04:36)
[2019-11-06] MEDS: Furosemide 20 MG/2 ML VIAL IVPUSH SCH ×2 (06:46→13:47)
[2019-11-06] MEDS: Famotidine 10 MG Tab PO SCH ×3 (06:46→17:21)
[2019-11-06] MEDS: Piperacillin/Tazobactam 4.5 GM in Sodium Chloride 0.9% 100 ML IV SCH (06:46)
--- NOTE | 2019-11-06 07:14 | PCM.PN ---
- General Info Date of Service: 11/06/19 Admission Dx/Problem (Free Text): Admission Diagnosis/Problem Admission Diagnosis/Problem Pneumonia Functional Status: Reports: Pain Controlled, Tolerating Diet, Urinating, Incentive Spirometry. Denies: Ambulating (Елена lift ), New Symptoms - Review of Systems General: Reports: Weakness, Fatigue, Malaise. Denies: Fever, Chills HEENT: Reports: No Symptoms. Denies: Headaches, Sore Throat, Visual Changes Pulmonary: Reports: Shortness of Breath, Cough, Wheezing Cardiovascular: Reports: Dyspnea on Exertion. Denies: Chest Pain, Palpitations, Edema Gastrointestinal: Reports: No Symptoms. Denies: Abdominal Pain, Constipation, Diarrhea, Nausea, Vomiting Genitourinary: Reports: No Symptoms. Denies: Pain Musculoskeletal: Reports: No Symptoms Skin: Reports: No Symptoms. Denies: Cyanosis Neurological: Reports: Difficulty Walking, Weakness. Denies: Confusion, Headache, Numbness, Seizure, Syncope, Tingling, Trouble Speaking Psychiatric: Reports: No Symptoms - Patient Data Vitals - Most Recent: Last Vital Signs Temp 97.9 F 11/06/19 02:49 Pulse 79 11/06/19 02:49 Resp 20 11/06/19 02:49 BP 119/60 11/06/19 02:49 Pulse Ox 95 11/06/19 05:25 Weight - Most Recent: 266 lb 12.8 oz I&O - Last 24 Hours: Intake & Output 11/05/19 11/06/19 11/06/19 22:59 06:59 14:59 Intake Total 1140 1800 Output Total 300 Balance 840 1800 - Exam Quality Assessment: Supplemental Oxygen (3L), DVT Prophylaxis. No: Urine Catheter General: Alert, Oriented, Cooperative, No Acute Distress HEENT: Pupils Equal, Pupils Reactive, Mucous Membr. Moist/Joaquin Neck: Supple, Trachea Midline Lungs: Clear to Auscultation, Normal Respiratory Effort Cardiovascular: Regular Rate, Regular Rhythm GI/Abdominal Exam: Normal Bowel Sounds, Non-Tender, Distended, Guarding (Female) Exam: Deferred Extremities: Normal Inspection, Normal Range of Motion, No Pedal Edema Skin: Warm, Dry, Intact Neurological: No New Focal Deficit Psy/Mental Status: Alert Sepsis Event Note - Evaluation Sepsis Screening Result: No Definite Risk - Problem List & Annotations (1) Abdominal pain SNOMED Code(s): 93972591 Code(s): R10.9 - UNSPECIFIED ABDOMINAL PAIN Status: Acute Priority: High Current Visit: Yes Qualifiers: Abdominal location: unspecified location Qualified Code(s): R10.9 - Unspecified abdominal pain (2) Benign microscopic hematuria SNOMED Code(s): 230823984192012 Code(s): R31.1 - BENIGN ESSENTIAL MICROSCOPIC HEMATURIA Status: Acute Priority: Medium Current Visit: Yes (3) COPD (chronic obstructive pulmonary disease) SNOMED Code(s): 63899315 Code(s): J44.9 - CHRONIC OBSTRUCTIVE PULMONARY DISEASE, UNSPECIFIED Status: Chronic Priority: Medium Current Visit: Yes Qualifiers: COPD type: unspecified COPD Qualified Code(s): J44.9 - Chronic obstructive pulmonary disease, unspecified (4) Pneumonia SNOMED Code(s): 998068238 Code(s): J18.9 - PNEUMONIA, UNSPECIFIED ORGANISM Status: Acute Priority: High Current Visit: Yes Qualifiers: Pneumonia type: due to unspecified organism Laterality: unspecified laterality Lung location: unspecified part of lung Qualified Code(s): J18.9 - Pneumonia, unspecified organism (5) Positive result for methicillin resistant Staphylococcus aureus (MRSA) screening SNOMED Code(s): 131563919 Code(s): Z22.322 - CARRIER OR SUSPECTED CARRIER OF METHICILLIN RESIS STAPH Status: Acute Priority: Medium Current Visit: Yes (6) Schizophrenia SNOMED Code(s): 49615031 Code(s): F20.9 - SCHIZOPHRENIA, UNSPECIFIED Status: Chronic Priority: High Current Visit: Yes Qualifiers: Schizophrenia type: unspecified Qualified Code(s): F20.9 - Schizophrenia, unspecified (7) Sepsis SNOMED Code(s): 26839874 Code(s): A41.9 - SEPSIS, UNSPECIFIED ORGANISM Status: Resolved Priority: High Current Visit: Yes Qualifiers: Sepsis type: sepsis due to unspecified organism Sepsis acute organ dysfunction status: unspecified Qualified Code(s): A41.9 - Sepsis, unspecified organism (8) Septic shock SNOMED Code(s): 95784033 Code(s): A41.9 - SEPSIS, UNSPECIFIED ORGANISM; R65.21 - SEVERE SEPSIS WITH SEPTIC SHOCK Status: Resolved Priority: High Current Visit: Yes (9) Streptococcal pneumonia SNOMED Code(s): 48275405 Code(s): J15.4 - PNEUMONIA DUE TO OTHER STREPTOCOCCI Status: Acute Priority: High Current Visit: Yes (10) Colitis SNOMED Code(s): 27793654 Code(s): K52.9 - NONINFECTIVE GASTROENTERITIS AND COLITIS, UNSPECIFIED Status: Acute Priority: High Current Visit: Yes (11) Hypokalemia SNOMED Code(s): 62756581 Code(s): E87.6 - HYPOKALEMIA Status: Resolved Priority: High Current Visit: Yes (12) Transaminitis SNOMED Code(s): 150231938, 414009229 Code(s): R74.0 - NONSPEC ELEV OF LEVELS OF TRANSAMNS & LACTIC ACID DEHYDRGNSE Status: Acute Priority: High Current Visit: Yes (13) Hypoalbuminemia SNOMED Code(s): 604593800 Code(s): E88.09 - OTH DISORDERS OF PLASMA-PROTEIN METABOLISM, NEC Status: Acute Priority: Medium Current Visit: Yes (14) HTN (hypertension) SNOMED Code(s): 86405306 Code(s): I10 - ESSENTIAL (PRIMARY) HYPERTENSION Status: Chronic Priority: Medium Current Visit: No Qualifiers: Hypertension type: unspecified Qualified Code(s): I10 - Essential (primary) hypertension (15) HLD (hyperlipidemia) SNOMED Code(s): 45118382 Code(s): E78.5 - HYPERLIPIDEMIA, UNSPECIFIED Status: Chronic Priority: Low Current Visit: No Qualifiers: Hyperlipidemia type: unspecified Qualified Code(s): E78.5 - Hyperlipidemia, unspecified (16) Altered mental status SNOMED Code(s): 685237900 Code(s): R41.82 - ALTERED MENTAL STATUS, UNSPECIFIED Status: Acute Priority: High Current Visit: Yes Qualifiers: Altered mental status type: unspecified Qualified Code(s): R41.82 - Altered mental status, unspecified - Problem List Review Problem List Initiated/Reviewed/Updated: Yes - My Orders Last 24 Hours: My Active Orders 11/05/19 11:52 Aspiration Precautions [RC] ASDIRECTED HOB [Head of Bed Elevation] [RC] ASDIRECTED 11/05/19 15:05 RT Incentive Spirometry [RC] ASDIRECTED RT Acapella [RESPCARE] Routine 11/06/19 05:11 BASIC METABOLIC PANEL,BMP [CHEM] AM CBC WITH AUTO DIFF [HEME] AM MAGNESIUM [CHEM] AM PROCALCITONIN [REF] Routine - Assessment Assessment:: 10/29/2019 Septic shock likely secondary to bilateral pneumonia History of COPD/asthma Altered mental status * Patient found on floor in the bathroom after possibly having a seizure. * Hypotensive, tachycardic, tachypneic and hypoxic on arrival to emergency department. * Patient received 3 L IV bolus in emergency department. * Initial lactic acid 4.0 increasing to 5.3 after fluid bolus. * Initial WBC 22,000, 76% neutrophils, no bandemia, C-reactive protein 1.6 * Altered mental status, patient is very lethargic. * Patient is in critical condition and currently has a poor outcome predicted. High risk of mortality. Abdominal pain Microscopic hematuria, benign * Patient's initial complaint when calling EMS was abdominal pain and constipation. * Patient does exhibit tenderness to palpation throughout the abdomen. * Bowel sounds difficult to appreciate secondary to upper airway noise. 10/30/2019 * Patient is not improved with the large amount of IV fluids. She has actually had worsening respiratory status requiring IV Lasix. Respiratory rate has had some improvement with vigorous pulmonary toilet, bronchodilation, and diuretics. Unfortunately, this is likely going to cause some intravascular hypovolemia. * Lactic acid did drop to 2.0 this morning with the IV fluids. * This afternoon renal function did worsen with a creatinine of 1.6. * WBC worsened and has been stable today at 23,000. Still no bands or toxic granulations. Neutrophils 90%, absolute neutrophils 21,000. * ABG on BiPAP: pH 7.39, PCO2 37.4, PO2 of 66, bicarb 22 -which is reassuring. * Respiratory rate still in the upper 30s to 40s and heart rate 120s to 130s. * Confirmed CODE STATUS with sister. She states that Rosita has several mental health issues and she likely did not understand the catastrophic results of not being intubated. * CT abdomen and pelvis with contrast. Findings suspicious for colitis within portions of the descending and sigmoid colon. Fluid is seen within the pelvis and right abdomen most likely reactive from the colonic process. Increased stool within the rectosigmoid region. Nodularity with in the left adrenal gland most likely benign if patient has no primary carcinoma. * CT of the of the head: No acute findings 10/31/2019 * Rosita is making some improvement today. Respiratory rate has decreased and her tachycardia has decreased. * Antibiotics were switched to Zosyn to cover both strep pneumoniae and colitis. * MRSA screen was positive. * Patient continues on vancomycin. * D-dimer was elevated at 1.[address] angio was done of the chest * CT angio chest: 1. No findings of pulmonary embolism. * 2. Aorta shows atherosclerotic changes with no dissection or aneurysm. No discrete ulcerating plaque is seen. * 3. Increased density within the right lung base which may represent pneumonia or prominent atelectasis. * 4. Other findings as noted. Not believed to be acute. * ABGs normal pH, PCO2, bicarb with a slightly low PO2. These are surprisingly good considering her respiratory rate. * Repeat lactic acid was 1.6. White count continues to be significantly elevated at 23,000. CRP 35.8. * Patient has significant hypoalbuminemia with albumin of 1.9 * Hypokalemiapotassium 3.4 * Hemoglobin A1c is 6.1 11/01/2019 * Decrease in respiratory rate and tachycardia. * Patient weaned off of BiPAP and now on nasal cannula. * On Zosyn, Levaquin, and vancomycin. * Slowly improving mentation. * WBC 18.9, CRP 34.2, procalcitonin from yesterday 10/31 2011.07, phosphorus 1.8, potassium 3.2, estimated GFR 57, albumin 1.6 11/02/2019 * Significant improvement today. * More awake, alert, and talking. * Afebrile, map greater than 65, on 2 L nasal cannula to keep SPO2 in the mid 90s * WBC 17.7, C-reactive protein 22.1. * Estimated GFR greater than 60. * Hypokalemia. Potassium 2.8. * Hypophosphatemia. Phosphorus 1.7. * Hypoalbuminemia. Albumin down to 1.4. She did eat some today. * Zosyn, Levaquin, and vancomycin. 11/03/2019 Bilateral pneumonia streptococcal pneumonia Sepsis resolved COPD * Patient is off BiPAP and on 2 to 3 L nasal cannula to keep her SPO2 in the mid 90s. * Significant improvement in her respiratory status and pneumonia. * She continues to have some congestion likely from pulmonary congestion. * White count 14, CRP 8.8 * On Zosyn, Levaquin, and vancomycin * Patient is a pack to 2 per day smoker. She does have a nicotine patch. * Positive streptococcal pneumonia urine antigen Altered mental status * Slow but progressive improvement in her mentation. She appears to be having some clearing although she is still very lethargic. * Unable to do LP secondary to her not being cooperative or awake enough to be able to perform the procedure. * Unlikely that this is secondary to infectious process. Colitis * Patient has had a significant decrease in her abdominal pain. * She is now having multiple loose and watery diarrhea. * Bowel movements have decreased over the afternoon. * Patient had significant stool on CT scan on admission. Gross hematuria. * Patient has dark orange, tea colored urine and what appears to be vaginal bleeding. On exam she has blood coming from the urethra around the Noguera catheter. Patient states that she has had hematuria in the past and it has been worked up. She does have a history of hematuria. * Enoxaparin may be worsening the hematuria. At this time we will continue on enoxaparin because her risk of clot is greater than her risk of a significant bleed. Hypokalemia * Potassium 3.2 Elevated LFTs. * Bilirubin 1.2, AST 69, ALT 57, alkaline phosphatase 150 Hypoalbuminemia * Albumin 1.7 Schizophrenia * On Latuda, Risperdal, Paxil * Only receiving risperidone, and Paxil in the hospital * There is no substitute for her Latuda * These medications may be contributing to her mental status changes. Hypertension/hyperlipidemia * Amlodipine and enalapril on hold * Atorvastatin is nonformulary 11/04/2019 Bilateral pneumonia streptococcal pneumonia Sepsis resolved COPD * Episode of vomiting and possible aspiration. * Chest x-ray showed no change. * No change in 2 to 3 L nasal cannula to keep her SPO2 in the mid 90s. * Significant improvement in her respiratory status and pneumonia. * She continues to have some congestion likely from pulmonary congestion. * WBC decreased to 12.8 by afternoon but had stopped few toxic granulations. * Procalcitonin down to 2 on yesterday's blood draw. * On Zosyn and vancomycin * Last day of Levaquin, day 5 * Patient is a pack to 2 per day smoker. She does have a nicotine patch. * Positive streptococcal pneumonia urine antigen Altered mental status * Slow but progressive improvement in her mentation. She appears to be having some clearing although she is still very lethargic. * Unable to do LP secondary to her not being cooperative or awake enough to be able to perform the procedure. * MRI of the brain today showed no acute findings. * Improvement in mental status since stopping Risperdal, but likely coincidental. She is likely having improvement in her mental status secondary to improvement in her condition. Colitis * Abdominal pain resolved * Multiple episodes of vomiting early this morning and 1 this afternoon. Gross hematuria. * Noguera catheter removed today. * She did require straight catheter. Hypokalemia * Potassium 3.2 Elevated LFTs. * Resolved Hypoalbuminemia * Albumin 2.2 after receiving albumin yesterday Schizophrenia * Home meds include Latuda, Risperdal, Paxil * Yesterday stopped Risperdal * There is no substitute for her Latuda, therefore not on second-generation antipsychotic * Improvement in mental status since stopping Risperdal, but likely coincidental. She is likely having improvement in her mental status secondary to improvement in her condition. Hypertension/hyperlipidemia * Amlodipine and enalapril on hold * Atorvastatin is nonformulary 11/05/2019 Bilateral pneumonia streptococcal pneumonia Sepsis resolved COPD MRSA positive * Only one episode of emesis early today * Requiring 3L o2 to maintain saturations in mid 90's * Continued improvement in her respiratory status and pneumonia. * She continues to have some congestion likely from pulmonary congestion. * WBC decreased to 12.68 * Repeat procalcitonin today * Last day of Zosyn and vancomycin today * Completed Levaquin treatment * Patient is a pack to 2 per day smoker. She does have a nicotine patch. * Positive streptococcal pneumonia urine antigen * Contact precautions Altered mental status * Improved mentation but will fall asleep while talking with staff. * MRI of the brain on 11/04/19 showed no acute findings. * Improvement in mental status since stopping Risperdal, but likely coincidental. She is likely having improvement in her mental status secondary to improvement in her condition. Colitis * Abdominal pain resolved * Single episode of vomiting today * Started on scheduled BID famotidine today Gross hematuria. * Noguera catheter removed 11/04/19. Hypokalemia * Potassium 3.5 - resolved Elevated LFTs. * Resolved Hypoalbuminemia * Albumin 2.0 from 2.2 yesterday today * Received albumin on 11/03/19 Schizophrenia * Home meds include Latuda, Risperdal, Paxil * 11/03/19- stopped Risperdal * There is no substitute for her Latuda, therefore not on second-generation antipsychotic * Improvement in mental status since stopping Risperdal, but likely coincidental. She is likely having improvement in her mental status secondary to improvement in her condition. Hypertension/hyperlipidemia * Amlodipine and enalapril on hold * Atorvastatin is nonformulary Vital signs trend: Tmax 98.1, HR 87-91, BP 130-138/64-81, RR 16-21, Oxygen saturations 94-95% on 3L Last BM today 11/06/2019 Bilateral pneumonia streptococcal pneumonia Sepsis resolved COPD MRSA positive * Requiring 3L o2 to maintain saturations in mid 90s * Continued improvement in her respiratory status and pneumonia. * She continues to have some congestion likely from pulmonary congestion. * WBC 15.89 today * Repeat procalcitonin pending * Last day of Zosyn and vancomycin today * Completed Levaquin treatment * Patient is a pack to 2 per day smoker. She does have a nicotine patch. * Positive streptococcal pneumonia urine antigen * Contact precautions Altered mental status * Improved mentation but will fall asleep while talking with staff. * MRI of the brain on 11/04/19 showed no acute findings. * Improvement in mental status since stopping Risperdal, but likely co incidental. She is likely having improvement in her mental status secondary to improvement in her condition. * MRI with contrast ordered today Colitis * Resolved * No abdominal pain * No emesis since yesterday * Continue scheduled BID famotidine Gross hematuria * Resolved * Noguera catheter removed 11/04/19. Hypokalemia * Resolved Elevated LFTs. * Resolved Hypoalbuminemia * Stable * Received albumin on 11/03/19 Schizophrenia * Home meds include Latuda, Risperdal, Paxil * 11/03/19- stopped Risperdal * There is no substitute for her Latuda, therefore not on second-generation antipsychotic * Improvement in mental status since stopping Risperdal, but likely co incidental. She is likely having improvement in her mental status secondary to improvement in her condition. Hypertension/hyperlipidemia * Amlodipine and enalapril on hold * Atorvastatin is nonformulary Vital signs trend: Tmax 98.2, HR 79-88, BP 138-117/78-60, RR 16-21, Oxygen saturations 94-96% on 3L Last BM today - Plan Plan:: Plan * Continue lasix 20 mg IV twice daily * Hold risperidone, hydroxyzine, and Cogentin secondary to altered mental status, but continue Paxil * Monitor urine output, renal function, vital signs, bedside monitoring to determine fluid status. * Discontinue vancomycin and Zosyn today * Encourage greater p.o. intake. Dietary consult. * Cognitive evaluation order but our speech therapist is out sick. * Nicotine patch * Continue incentive spirometry and Acapella * FiO2 to keep SPO2 greater than 92% * AM labs as ordered * Continue famotidine BID scheduled * Aspiration precautions and HOB elevation * Continue contact precautions for MRSA positive screen * MRI with contrast ordered due frequently falling asleep while talking VTE prophylaxis: Enoxaparin 40 mg subcut twice daily GI prophylaxis: Famotidine BID CODE STATUS: Full code. Disposition: Patient will likely need intermediate facility. Length of stay greater than 96 hours secondary to slow resolution and altered mental status.
[2019-11-06] MEDS: Budesonide 0.5 MG/2 ML Neb Susp NEB SCH ×2 (08:23→21:26)
[2019-11-06] MEDS: Glycopyrrolate 15.6 MCG Cap.W.Dev Kit of 6 IH SCH ×3 (08:23→21:32)
[2019-11-06] MEDS: Saccharomyces Boulardii (Probiotic) 250 MG Cap PO SCH ×3 (08:51→20:47)
[2019-11-06] MEDS: Aspirin 81 MG Tab.Chew PO SCH (08:51)
[2019-11-06] MEDS: PARoxetine 20 MG Tab PO SCH (08:51)
[2019-11-06] MEDS: Enoxaparin 40 MG/0.4 ML Syringe SUBCUT SCH ×2 (08:56→20:46)
[2019-11-06] MEDS: Nicotine 21 MG/24 Hr Patch TRDERM SCH (10:11)
[2019-11-06] MEDS ORDERED: Gadobenate Dimeglumine 529 MG/ML 20 ML SDV IVPUSH ONE (12:17)
[2019-11-06] MEDS ORDERED: Sodium Chloride 0.9% 10 ML Syringe FLUSH SCH (12:30)
--- NOTE | 2019-11-06 13:23 | MR ---
MRI brain (with contrast). Comparison: Previous noncontrast MRI brain of 11/04/19. Findings: No abnormal enhancement is seen within the brain. Areas of white matter abnormalities show no abnormal enhancement. Impression: 1. No abnormal enhancement. Areas of increased signal seen on prior MRI are felt to represent chronic white matter demyelination. Diagnostic code #1 Study was dictated in MDT
[2019-11-06] MEDS: Lurasidone Hcl [Latuda] 80 MG PO SCH (20:47)
[2019-11-07] MEDS: Albuterol/Ipratropium 3.0-0.5 MG/3 ML Neb Soln NEB SCH ×3 (03:12→20:51)
[2019-11-07] MEDS: Famotidine 10 MG Tab PO SCH ×3 (06:39→18:15)
[2019-11-07] MEDS: Furosemide 20 MG/2 ML VIAL IVPUSH SCH (06:40)
--- NOTE | 2019-11-07 07:53 | PCM.PN ---
- General Info Date of Service: 11/07/19 Admission Dx/Problem (Free Text): Admission Diagnosis/Problem Admission Diagnosis/Problem Pneumonia Functional Status: Reports: Pain Controlled, Tolerating Diet, Ambulating (with therapies), Urinating, Incentive Spirometry. Denies: New Symptoms - Review of Systems General: Reports: Weakness, Fatigue, Malaise. Denies: Fever, Chills HEENT: Reports: No Symptoms. Denies: Headaches, Sore Throat Pulmonary: Reports: Shortness of Breath, Cough, Wheezing. Denies: Pleuritic Chest Pain, Sputum Cardiovascular: Reports: Dyspnea on Exertion. Denies: Chest Pain, Palpitations Gastrointestinal: Reports: No Symptoms. Denies: Abdominal Pain, Constipation, Diarrhea, Nausea, Vomiting Genitourinary: Reports: No Symptoms. Denies: Pain Musculoskeletal: Reports: No Symptoms Skin: Reports: No Symptoms. Denies: Cyanosis Neurological: Reports: Pre-Existing Deficit, Difficulty Walking, Weakness, Gait Disturbance Psychiatric: Reports: No Symptoms - Patient Data Vitals - Most Recent: Last Vital Signs Temp 97.5 F 11/06/19 20:11 Pulse 72 11/07/19 03:53 Resp 20 11/07/19 03:53 BP 138/74 11/07/19 03:53 Pulse Ox 95 11/07/19 06:23 Weight - Most Recent: 265 lb I&O - Last 24 Hours: Intake & Output 11/06/19 11/07/19 11/07/19 22:59 06:59 14:59 Intake Total 770 1200 Balance 770 1200 - Exam Quality Assessment: Supplemental Oxygen (3L), DVT Prophylaxis General: Alert, Oriented, Cooperative, No Acute Distress HEENT: Pupils Equal, Pupils Reactive, Mucous Membr. Moist/[place] Neck: Supple, Trachea Midline Lungs: Clear to Auscultation, Normal Respiratory Effort Cardiovascular: Regular Rate, Regular Rhythm GI/Abdominal Exam: Normal Bowel Sounds, Soft, Non-Tender, No Distention (Female) Exam: Deferred Extremities: Normal Inspection, Normal Range of Motion, Non-Tender, No Pedal Edema, Normal Capillary Refill Skin: Warm, Dry, Intact Neurological: No New Focal Deficit, Other (Continues to fall asleep while talking with people ) Psy/Mental Status: Alert Sepsis Event Note - Evaluation Sepsis Screening Result: No Definite Risk - Problem List & Annotations (1) Abdominal pain SNOMED Code(s): 54540261 Code(s): R10.9 - UNSPECIFIED ABDOMINAL PAIN Status: Resolved Priority: High Current Visit: Yes Qualifiers: Abdominal location: unspecified location Qualified Code(s): R10.9 - Unspecified abdominal pain (2) Benign microscopic hematuria SNOMED Code(s): 813013626614924 Code(s): R31.1 - BENIGN ESSENTIAL MICROSCOPIC HEMATURIA Status: Resolved Priority: Medium Current Visit: Yes (3) COPD (chronic obstructive pulmonary disease) SNOMED Code(s): 87736934 Code(s): J44.9 - CHRONIC OBSTRUCTIVE PULMONARY DISEASE, UNSPECIFIED Status: Chronic Priority: Medium Current Visit: Yes Qualifiers: COPD type: unspecified COPD Qualified Code(s): J44.9 - Chronic obstructive pulmonary disease, unspecified (4) Pneumonia SNOMED Code(s): 750209702 Code(s): J18.9 - PNEUMONIA, UNSPECIFIED ORGANISM Status: Resolved Priority: High Current Visit: Yes Qualifiers: Pneumonia type: due to unspecified organism Laterality: unspecified laterality Lung location: unspecified part of lung Qualified Code(s): J18.9 - Pneumonia, unspecified organism (5) Positive result for methicillin resistant Staphylococcus aureus (MRSA) tatum [employer]z SNOMED Code(s): 131290696 Code(s): Z22.322 - CARRIER OR SUSPECTED CARRIER OF METHICILLIN RESIS STAPH Status: Acute Priority: Medium Current Visit: Yes (6) Schizophrenia SNOMED Code(s): 44518071 Code(s): F20.9 - SCHIZOPHRENIA, UNSPECIFIED Status: Chronic Priority: High Current Visit: Yes Qualifiers: Schizophrenia type: unspecified Qualified Code(s): F20.9 - Schizophrenia, unspecified (7) Sepsis SNOMED Code(s): 38737546 Code(s): A41.9 - SEPSIS, UNSPECIFIED ORGANISM Status: Resolved Priority: High Current Visit: Yes Qualifiers: Sepsis type: sepsis due to unspecified organism Sepsis acute organ dysfunction status: unspecified Qualified Code(s): A41.9 - Sepsis, unspecified organism (8) Septic shock SNOMED Code(s): 94761352 Code(s): A41.9 - SEPSIS, UNSPECIFIED ORGANISM; R65.21 - SEVERE SEPSIS WITH SEPTIC SHOCK Status: Resolved Priority: High Current Visit: Yes (9) Streptococcal pneumonia SNOMED Code(s): 88389407 Code(s): J15.4 - PNEUMONIA DUE TO OTHER STREPTOCOCCI Status: Resolved Priority: High Current Visit: Yes (10) Colitis SNOMED Code(s): 58356766 Code(s): K52.9 - NONINFECTIVE GASTROENTERITIS AND COLITIS, UNSPECIFIED Status: Resolved Priority: High Current Visit: Yes (11) Hypokalemia SNOMED Code(s): 06077364 Code(s): E87.6 - HYPOKALEMIA Status: Acute Priority: High Current Visit: Yes (12) Transaminitis SNOMED Code(s): 417922573, 870719224 Code(s): R74.0 - NONSPEC ELEV OF LEVELS OF TRANSAMNS & LACTIC ACID DEHYDRGNSE Status: Resolved Priority: High Current Visit: Yes (13) Hypoalbuminemia SNOMED Code(s): 643070384 Code(s): E88.09 - OTH DISORDERS OF PLASMA-PROTEIN METABOLISM, NEC Status: Acute Priority: Medium Current Visit: Yes (14) HTN (hypertension) SNOMED Code(s): 04733248 Code(s): I10 - ESSENTIAL (PRIMARY) HYPERTENSION Status: Chronic Priority: Medium Current Visit: No Qualifiers: Hypertension type: unspecified Qualified Code(s): I10 - Essential (primary) hypertension (15) HLD (hyperlipidemia) SNOMED Code(s): 36285945 Code(s): E78.5 - HYPERLIPIDEMIA, UNSPECIFIED Status: Chronic Priority: Low Current Visit: No Qualifiers: Hyperlipidemia type: unspecified Qualified Code(s): E78.5 - Hyperlipidemia, unspecified (16) Altered mental status SNOMED Code(s): 848269682 Code(s): R41.82 - ALTERED MENTAL STATUS, UNSPECIFIED Status: Acute Priority: High Current Visit: Yes Qualifiers: Altered mental status type: unspecified Qualified Code(s): R41.82 - Altered mental status, unspecified - Problem List Review Problem List Initiated/Reviewed/Updated: Yes - My Orders Last 24 Hours: My Active Orders 11/06/19 10:13 Communication Order [RC] BID 11/07/19 06:27 CBC WITH AUTO DIFF [HEME] AM - Assessment Assessment:: 10/29/2019 Septic shock likely secondary to bilateral pneumonia History of COPD/asthma Altered mental status * Patient found on floor in the bathroom after possibly having a seizure. * Hypotensive, tachycardic, tachypneic and hypoxic on arrival to emergency department. * Patient received 3 L IV bolus in emergency department. * Initial lactic acid 4.0 increasing to 5.3 after fluid bolus. * Initial WBC 22,000, 76% neutrophils, no bandemia, C-reactive protein 1.6 * Altered mental status, patient is very lethargic. * Patient is in critical condition and currently has a poor outcome predicted. High risk of mortality. Abdominal pain Microscopic hematuria, benign * Patient's initial complaint when calling EMS was abdominal pain and constipation. * Patient does exhibit tenderness to palpation throughout the abdomen. * Bowel sounds difficult to appreciate secondary to upper airway noise. 10/30/2019 * Patient is not improved with the large amount of IV fluids. She has actually had worsening respiratory status requiring IV Lasix. Respiratory rate has had some improvement with vigorous pulmonary toilet, bronchodilation, and diuretics. Unfortunately, this is likely going to cause some intravascular hypovolemia. * Lactic acid did drop to 2.0 this morning with the IV fluids. * This afternoon renal function did worsen with a creatinine of 1.6. * WBC worsened and has been stable today at 23,000. Still no bands or toxic granulations. Neutrophils 90%, absolute neutrophils 21,000. * ABG on BiPAP: pH 7.39, PCO2 37.4, PO2 of 66, bicarb 22 -which is reassuring. * Respiratory rate still in the upper 30s to 40s and heart rate 120s to 130s. * Confirmed CODE STATUS with sister. She states that Rosita has several mental health issues and she likely did not understand the catastrophic results of not being intubated. * CT abdomen and pelvis with contrast. Findings suspicious for colitis within portions of the descending and sigmoid colon. Fluid is seen within the pelvis and right abdomen most likely reactive from the colonic process. Increased stool within the rectosigmoid region. Nodularity with in the left adrenal gland most likely benign if patient has no primary carcinoma. * CT of the of the head: No acute findings 10/31/2019 * Rosita is making some improvement today. Respiratory rate has decreased and her tachycardia has decreased. * Antibiotics were switched to Zosyn to cover both strep pneumoniae and colitis. * MRSA screen was positive. * Patient continues on vancomycin. * D-dimer was elevated at 1.[address] angio was done of the chest * CT angio chest: 1. No findings of pulmonary embolism. * 2. Aorta shows atherosclerotic changes with no dissection or aneurysm. No discrete ulcerating plaque is seen. * 3. Increased density within the right lung base which may represent pneumonia or prominent atelectasis. * 4. Other findings as noted. Not believed to be acute. * ABGs normal pH, PCO2, bicarb with a slightly low PO2. These are surprisingly good considering her respiratory rate. * Repeat lactic acid was 1.6. White count continues to be significantly elevated at 23,000. CRP 35.8. * Patient has significant hypoalbuminemia with albumin of 1.9 * Hypokalemiapotassium 3.4 * Hemoglobin A1c is 6.1 11/01/2019 * Decrease in respiratory rate and tachycardia. * Patient weaned off of BiPAP and now on nasal cannula. * On Zosyn, Levaquin, and vancomycin. * Slowly improving mentation. * WBC 18.9, CRP 34.2, procalcitonin from yesterday 10/31 2011.07, phosphorus 1.8, potassium 3.2, estimated GFR 57, albumin 1.6 11/02/2019 * Significant improvement today. * More awake, alert, and talking. * Afebrile, map greater than 65, on 2 L nasal cannula to keep SPO2 in the mid 90s * WBC 17.7, C-reactive protein 22.1. * Estimated GFR greater than 60. * Hypokalemia. Potassium 2.8. * Hypophosphatemia. Phosphorus 1.7. * Hypoalbuminemia. Albumin down to 1.4. She did eat some today. * Zosyn, Levaquin, and vancomycin. 11/03/2019 Bilateral pneumonia streptococcal pneumonia Sepsis resolved COPD * Patient is off BiPAP and on 2 to 3 L nasal cannula to keep her SPO2 in the mid 90s. * Significant improvement in her respiratory status and pneumonia. * She continues to have some congestion likely from pulmonary congestion. * White count 14, CRP 8.8 * On Zosyn, Levaquin, and vancomycin * Patient is a pack to 2 per day smoker. She does have a nicotine patch. * Positive streptococcal pneumonia urine antigen Altered mental status * Slow but progressive improvement in her mentation. She appears to be having some clearing although she is still very lethargic. * Unable to do LP secondary to her not being cooperative or awake enough to be able to perform the procedure. * Unlikely that this is secondary to infectious process. Colitis * Patient has had a significant decrease in her abdominal pain. * She is now having multiple loose and watery diarrhea. * Bowel movements have decreased over the afternoon. * Patient had significant stool on CT scan on admission. Gross hematuria. * Patient has dark orange, tea colored urine and what appears to be vaginal bleeding. On exam she has blood coming from the urethra around the Noguera catheter. Patient states that she has had hematuria in the past and it has been worked up. She does have a history of hematuria. * Enoxaparin may be worsening the hematuria. At this time we will continue on enoxaparin because her risk of clot is greater than her risk of a significant bleed. Hypokalemia * Potassium 3.2 Elevated LFTs. * Bilirubin 1.2, AST 69, ALT 57, alkaline phosphatase 150 Hypoalbuminemia * Albumin 1.7 Schizophrenia * On Latuda, Risperdal, Paxil * Only receiving risperidone, and Paxil in the hospital * There is no substitute for her Latuda * These medications may be contributing to her mental status changes. Hypertension/hyperlipidemia * Amlodipine and enalapril on hold * Atorvastatin is nonformulary 11/04/2019 Bilateral pneumonia streptococcal pneumonia Sepsis resolved COPD * Episode of vomiting and possible aspiration. * Chest x-ray showed no change. * No change in 2 to 3 L nasal cannula to keep her SPO2 in the mid 90s. * Significant improvement in her respiratory status and pneumonia. * She continues to have some congestion likely from pulmonary congestion. * WBC decreased to 12.8 by afternoon but had stopped few toxic granulations. * Procalcitonin down to 2 on yesterday's blood draw. * On Zosyn and vancomycin * Last day of Levaquin, day 5 * Patient is a pack to 2 per day smoker. She does have a nicotine patch. * Positive streptococcal pneumonia urine antigen Altered mental status * Slow but progressive improvement in her mentation. She appears to be having some clearing although she is still very lethargic. * Unable to do LP secondary to her not being cooperative or awake enough to be able to perform the procedure. * MRI of the brain today showed no acute findings. * Improvement in mental status since stopping Risperdal, but likely coincidental. She is likely having improvement in her mental status secondary to improvement in her condition. Colitis * Abdominal pain resolved * Multiple episodes of vomiting early this morning and 1 this afternoon. Gross hematuria. * Noguera catheter removed today. * She did require straight catheter. Hypokalemia * Potassium 3.2 Elevated LFTs. * Resolved Hypoalbuminemia * Albumin 2.2 after receiving albumin yesterday Schizophrenia * Home meds include Latuda, Risperdal, Paxil * Yesterday stopped Risperdal * There is no substitute for her Latuda, therefore not on second-generation antipsychotic * Improvement in mental status since stopping Risperdal, but likely coincidental. She is likely having improvement in her mental status secondary to improvement in her condition. Hypertension/hyperlipidemia * Amlodipine and enalapril on hold * Atorvastatin is nonformulary 11/05/2019 Bilateral pneumonia streptococcal pneumonia Sepsis resolved COPD MRSA positive * Only one episode of emesis early today * Requiring 3L o2 to maintain saturations in mid 90's * Continued improvement in her respiratory status and pneumonia. * She continues to have some congestion likely from pulmonary congestion. * WBC decreased to 12.68 * Repeat procalcitonin today * Last day of Zosyn and vancomycin today * Completed Levaquin treatment * Patient is a pack to 2 per day smoker. She does have a nicotine patch. * Positive streptococcal pneumonia urine antigen * Contact precautions Altered mental status * Improved mentation but will fall asleep while talking with staff. * MRI of the brain on 11/04/19 showed no acute findings. * Improvement in mental status since stopping Risperdal, but likely coincidental. She is likely having improvement in her mental status secondary to improvement in her condition. Colitis * Abdominal pain resolved * Single episode of vomiting today * Started on scheduled BID famotidine today Gross hematuria. * Noguera catheter removed 11/04/19. Hypokalemia * Potassium 3.5 - resolved Elevated LFTs. * Resolved Hypoalbuminemia * Albumin 2.0 from 2.2 yesterday today * Received albumin on 11/03/19 Schizophrenia * Home meds include Latuda, Risperdal, Paxil * 11/03/19- stopped Risperdal * There is no substitute for her Latuda, therefore not on second-generation antipsychotic * Improvement in mental status since stopping Risperdal, but likely coincidental. She is likely having improvement in her mental status secondary to improvement in her condition. Hypertension/hyperlipidemia * Amlodipine and enalapril on hold * Atorvastatin is nonformulary Vital signs trend: Tmax 98.1, HR 87-91, BP 130-138/64-81, RR 16-21, Oxygen saturations 94-95% on 3L Last BM today 11/06/2019 Bilateral pneumonia streptococcal pneumonia Sepsis resolved COPD MRSA positive * Requiring 3L o2 to maintain saturations in mid 90's * Continued improvement in her respiratory status and pneumonia. * She continues to have some congestion likely from pulmonary congestion. * WBC 15.89 today * Repeat procalcitonin pending * Last day of Zosyn and vancomycin today * Completed Levaquin treatment * Patient is a pack to 2 per day smoker. She does have a nicotine patch. * Positive streptococcal pneumonia urine antigen * Contact precautions Altered mental status * Improved mentation but will fall asleep while talking with staff. * MRI of the brain on 11/04/19 showed no acute findings. * Improvement in mental status since stopping Risperdal, but likely coincidental. She is likely having improvement in her mental status secondary to improvement in her condition. * MRI with contrast ordered today Colitis * Resolved * No abdominal pain * No emesis since yesterday * Continue scheduled BID famotidine Gross hematuria * Resolved * Noguera catheter removed 11/04/19. Hypokalemia * Resolved Elevated LFTs. * Resolved Hypoalbuminemia * Stable * Received albumin on 11/03/19 Schizophrenia * Home meds include Latuda, Risperdal, Paxil * 11/03/19- stopped Risperdal * There is no substitute for her Latuda, therefore not on second-generation antipsychotic * Improvement in mental status since stopping Risperdal, but likely coincidental. She is likely having improvement in her mental status secondary to improvement in her condition. Hypertension/hyperlipidemia * Amlodipine and enalapril on hold * Atorvastatin is nonformulary Vital signs trend: Tmax 98.2, HR 79-88, BP 138-117/78-60, RR 16-21, Oxygen saturations 94-96% on 3L Last BM today 11/07/2019 Bilateral pneumonia streptococcal pneumonia, Completed treatment Sepsis resolved COPD MRSA positive * Requiring 3L o2 to maintain saturations in mid 90's * Continued improvement in her respiratory status and pneumonia. * She continues to have some congestion likely from pulmonary congestion. * WBC 15.89 today * Repeat procalcitonin pending * Completed Zosyn and vancomycin * Completed Levaquin treatment * Patient is a pack to 2 per day smoker. She does have a nicotine patch. * Positive streptococcal pneumonia urine antigen * Improving breath sounds * Contact precautions due to MRSA Altered mental status, improving * Improved mentation but will fall asleep while talking with staff. * MRI of the brain on 11/04/19 showed no acute findings. * Improvement in mental status since stopping Risperdal, but likely coincidental. She is likely having improvement in her mental status secondary to improvement in her condition. * MRI with contrast on 11/06/19 shows nothing acute Colitis * Resolved * No abdominal pain * No emesis yesterday or today * Continue scheduled BID famotidine Gross hematuria * Resolved * Noguera catheter removed 11/04/19. Hypokalemia * Potassium 3.1 * Supplemented Elevated LFTs. * Resolved Hypoalbuminemia * Stable * Received albumin on 11/03/19 Schizophrenia * Home meds include Latuda, Risperdal, Paxil * 11/03/19- stopped Risperdal * There is no substitute for her Latuda, therefore not on second-generation antipsychotic. Pharmacy working on this. * Improvement in mental status since stopping Risperdal, but likely coincidental. She is likely having improvement in her mental status secondary to improvement in her condition. Hypertension/hyperlipidemia * Amlodipine and enalapril on hold * Atorvastatin is nonformulary Vital signs trend: Tmax 97.5, HR 72-80, BP 138-123/81-74, RR 20, Oxygen saturations 94-96% on 3L She was up ambulating with therapies today. Much more alert again today. Last BM: 11/06/19 - Plan Plan:: Plan * Switch Lasix to 40mg PO BID * Hold risperidone, hydroxyzine, and Cogentin secondary to altered mental status, but continue Paxil * Monitor urine output, renal function, vital signs, bedside monitoring to determine fluid status. * Encourage greater p.o. intake. Dietary consult. * Cognitive evaluation order but our speech therapist is out sick. * Nicotine patch * Continue incentive spirometry and Acapella * FiO2 to keep SPO2 greater than 92% * AM labs as ordered * Continue famotidine BID scheduled * Aspiration precautions and HOB elevation * Continue contact precautions for MRSA positive screen * Supplement potassium * Discontinue telemetry VTE prophylaxis: Enoxaparin 40 mg subcut twice daily GI prophylaxis: Famotidine BID CODE STATUS: Full code. Disposition: Patient will likely need half-way facility. Length of stay greater than 96 hours secondary to slow resolution and altered mental status.
[2019-11-07] MEDS ORDERED: Potassium Chloride 10 MEQ in Premix Bag 1 BAG IV SCH (08:30)
[2019-11-07] MEDS ORDERED: Potassium Chloride 20 MEQ Tab.ER PO ONE (08:30)
[2019-11-07] MEDS ORDERED: Sodium Chloride 0.9% 1,000 ML IV SCH (08:45)
[2019-11-07] MEDS: Budesonide 0.5 MG/2 ML Neb Susp NEB SCH ×2 (09:00→20:51)
[2019-11-07] MEDS: Glycopyrrolate 15.6 MCG Cap.W.Dev Kit of 6 IH SCH ×2 (09:00→20:51)
[2019-11-07] MEDS: Potassium Chloride 10 MEQ in Premix Bag 1 BAG IV SCH ×4 (09:17→14:03)
[2019-11-07] MEDS: Saccharomyces Boulardii (Probiotic) 250 MG Cap PO SCH ×3 (09:19→20:46)
[2019-11-07] MEDS: Aspirin 81 MG Tab.Chew PO SCH (09:19)
[2019-11-07] MEDS: PARoxetine 20 MG Tab PO SCH (09:20)
[2019-11-07] MEDS: Enoxaparin 40 MG/0.4 ML Syringe SUBCUT SCH ×2 (09:24→20:48)
[2019-11-07] MEDS: Nicotine 21 MG/24 Hr Patch TRDERM SCH (11:08)
[2019-11-07] MEDS: Furosemide 40 MG Tab PO SCH (14:03)
[2019-11-07] MEDS: Lurasidone Hcl [Latuda] 80 MG PO SCH (20:46)
[2019-11-08] MEDS: Glycopyrrolate 15.6 MCG Cap.W.Dev Kit of 6 IH SCH ×3 (00:01→21:05)
[2019-11-08] MEDS: Albuterol/Ipratropium 3.0-0.5 MG/3 ML Neb Soln NEB SCH ×2 (06:23→21:05)
[2019-11-08] MEDS: Famotidine 10 MG Tab PO SCH ×3 (06:29→16:10)
[2019-11-08] MEDS: Furosemide 40 MG Tab PO SCH ×2 (06:29→14:53)
[2019-11-08] MEDS: Saccharomyces Boulardii (Probiotic) 250 MG Cap PO SCH ×3 (08:59→20:38)
[2019-11-08] MEDS: Aspirin 81 MG Tab.Chew PO SCH (08:59)
[2019-11-08] MEDS: Enoxaparin 40 MG/0.4 ML Syringe SUBCUT SCH ×2 (08:59→20:40)
[2019-11-08] MEDS: PARoxetine 20 MG Tab PO SCH (08:59)
[2019-11-08] MEDS: Budesonide 0.5 MG/2 ML Neb Susp NEB SCH ×2 (10:10→21:05)
[2019-11-08] MEDS: Nicotine 21 MG/24 Hr Patch TRDERM SCH (11:18)
--- NOTE | 2019-11-08 13:27 | PCM.PN ---
- General Info Date of Service: 11/08/19 Subjective Update: Sleeping okay Tolerating diet No complaints - Patient Data Vitals - Most Recent: Last Vital Signs Temp 97.5 F 11/08/19 07:46 Pulse 73 11/08/19 07:46 Resp 20 11/08/19 07:46 BP 151/85 H 11/08/19 07:46 Pulse Ox 94 L 11/08/19 10:11 Weight - Most Recent: 120.383 kg - Exam Physical Findings Comments:: Quality Assessment: Supplemental Oxygen (3L), DVT Prophylaxis General: Alert, Oriented, Cooperative, No Acute Distress HEENT: Pupils Equal, Pupils Reactive, Mucous Membr. Moist/[place] Neck: Supple, Trachea Midline Lungs: Clear to Auscultation, Normal Respiratory Effort Cardiovascular: Regular Rate, Regular Rhythm GI/Abdominal Exam: Normal Bowel Sounds, Soft, Non-Tender, No Distention (Female) Exam: Deferred Extremities: Normal Inspection, Normal Range of Motion, Non-Tender, No Pedal Edema, Normal Capillary Refill Skin: Warm, Dry, Intact Neurological: No New Focal Deficit, Psy/Mental Status: Alert Sepsis Event Note - Evaluation Sepsis Screening Result: No Definite Risk - Problem List & Annotations (1) Abdominal pain SNOMED Code(s): 67668591 Code(s): R10.9 - UNSPECIFIED ABDOMINAL PAIN Status: Resolved Priority: High Current Visit: Yes Qualifiers: Abdominal location: unspecified location Qualified Code(s): R10.9 - Unspecified abdominal pain (2) Altered mental status SNOMED Code(s): 460839822 Code(s): R41.82 - ALTERED MENTAL STATUS, UNSPECIFIED Status: Acute Priority: High Current Visit: Yes Qualifiers: Altered mental status type: unspecified Qualified Code(s): R41.82 - Altered mental status, unspecified (3) Benign microscopic hematuria SNOMED Code(s): 687743811176675 Code(s): R31.1 - BENIGN ESSENTIAL MICROSCOPIC HEMATURIA Status: Resolved Priority: Medium Current Visit: Yes (4) COPD (chronic obstructive pulmonary disease) SNOMED Code(s): 08799756 Code(s): J44.9 - CHRONIC OBSTRUCTIVE PULMONARY DISEASE, UNSPECIFIED Status: Chronic Priority: Medium Current Visit: Yes Qualifiers: COPD type: unspecified COPD Qualified Code(s): J44.9 - Chronic obstructive pulmonary disease, unspecified (5) HLD (hyperlipidemia) SNOMED Code(s): 38037003 Code(s): E78.5 - HYPERLIPIDEMIA, UNSPECIFIED Status: Chronic Priority: Low Current Visit: No Qualifiers: Hyperlipidemia type: unspecified Qualified Code(s): E78.5 - Hyperlipidemia, unspecified (6) HTN (hypertension) SNOMED Code(s): 64605917 Code(s): I10 - ESSENTIAL (PRIMARY) HYPERTENSION Status: Chronic Priority: Medium Current Visit: No Qualifiers: Hypertension type: unspecified Qualified Code(s): I10 - Essential (primary) hypertension (7) Hypoalbuminemia SNOMED Code(s): 925138645 Code(s): E88.09 - OTH DISORDERS OF PLASMA-PROTEIN METABOLISM, NEC Status: Acute Priority: Medium Current Visit: Yes (8) Hypokalemia SNOMED Code(s): 18565184 Code(s): E87.6 - HYPOKALEMIA Status: Acute Priority: High Current Visit: Yes (9) Pneumonia SNOMED Code(s): 920499380 Code(s): J18.9 - PNEUMONIA, UNSPECIFIED ORGANISM Status: Resolved Priority: High Current Visit: Yes Qualifiers: Pneumonia type: due to unspecified organism Laterality: unspecified laterality Lung location: unspecified part of lung Qualified Code(s): J18.9 - Pneumonia, unspecified organism (10) Positive result for methicillin resistant Staphylococcus aureus (MRSA) screening SNOMED Code(s): 836053906 Code(s): Z22.322 - CARRIER OR SUSPECTED CARRIER OF METHICILLIN RESIS STAPH Status: Acute Priority: Medium Current Visit: Yes (11) Schizophrenia SNOMED Code(s): 35007688 Code(s): F20.9 - SCHIZOPHRENIA, UNSPECIFIED Status: Chronic Priority: High Current Visit: Yes Qualifiers: Schizophrenia type: unspecified Qualified Code(s): F20.9 - Schizophrenia, unspecified (12) Sepsis SNOMED Code(s): 79723350 Code(s): A41.9 - SEPSIS, UNSPECIFIED ORGANISM Status: Resolved Priority: High Current Visit: Yes Qualifiers: Sepsis type: sepsis due to unspecified organism Sepsis acute organ dysfunction status: unspecified Qualified Code(s): A41.9 - Sepsis, unspecified organism (13) Septic shock SNOMED Code(s): 56238255 Code(s): A41.9 - SEPSIS, UNSPECIFIED ORGANISM; R65.21 - SEVERE SEPSIS WITH SEPTIC SHOCK Status: Resolved Priority: High Current Visit: Yes (14) Streptococcal pneumonia SNOMED Code(s): 54639164 Code(s): J15.4 - PNEUMONIA DUE TO OTHER STREPTOCOCCI Status: Resolved Priority: High Current Visit: Yes (15) Transaminitis SNOMED Code(s): 042250471, 782824075 Code(s): R74.0 - NONSPEC ELEV OF LEVELS OF TRANSAMNS & LACTIC ACID DEHYDRGNSE Status: Resolved Priority: High Current Visit: Yes - Problem List Review Problem List Initiated/Reviewed/Updated: Yes - Assessment Assessment:: 10/29/2019 Patient found on floor in the bathroom after possibly having a seizure. Hypotensive, tachycardic, tachypneic and hypoxic on arrival to emergency department. Patient received 3 L IV bolus in emergency department. Initial lactic acid 4.0 increasing to 5.3 after fluid bolus. Initial WBC 22,000, 76% neutrophils, no bandemia, C-reactive protein 1.6 Altered mental status, patient is very lethargic. Patient is in critical condition and currently has a poor outcome predicted. High risk of mortality. Patient's initial complaint when calling EMS was abdominal pain and constipation. Patient does exhibit tenderness to palpation throughout the abdomen. Bowel sounds difficult to appreciate secondary to upper airway noise. 10/30/2019 Patient is not improved with the large amount of IV fluids. She has actually had worsening respiratory status requiring IV Lasix. Respiratory rate has had some improvement with vigorous pulmonary toilet, bronchodilation, and diuretics. Unfortunately, this is likely going to cause some intravascular hypovolemia. Lactic acid did drop to 2.0 this morning with the IV fluids. This afternoon renal function did worsen with a creatinine of 1.6. WBC worsened and has been stable today at 23,000. Still no bands or toxic granulations. Neutrophils 90%, absolute neutrophils 21,000. Confirmed CODE STATUS with sister. She states that Rosita has several mental health issues and she likely did not understand the catastrophic results of not being intubated. CT abdomen and pelvis with contrast. Findings suspicious for colitis within portions of the descending and sigmoid colon. Fluid is seen within the pelvis and right abdomen most likely reactive from the colonic process. Increased stool within the rectosigmoid region. Nodularity with in the left adrenal gland most likely benign if patient has no primary carcinoma. CT of the of the head: No acute findings 10/31/2019 Rosita is making some improvement today. Respiratory rate has decreased and her tachycardia has decreased. Antibiotics were switched to Zosyn to cover both strep pneumoniae and colitis. MRSA screen was positive. Patient continues on vancomycin. D-dimer was elevated at 1.[address] angio was done of the chest CT angio chest: 1. No findings of pulmonary embolism. 2. Aorta shows atherosclerotic changes with no dissection or aneurysm. No discrete ulcerating plaque is seen. 3. Increased density within the right lung base which may represent pneumonia or prominent atelectasis. 4. Other findings as noted. Not believed to be acute. ABGs normal pH, PCO2, bicarb with a slightly low PO2. These are surprisingly good considering her respiratory rate. Repeat lactic acid was 1.6. White count continues to be significantly elevated at 23,000. CRP 35.8. Patient has significant hypoalbuminemia with albumin of 1.9 Hypokalemiapotassium 3.4 Hemoglobin A1c is 6.1 11/01/2019 Decrease in respiratory rate and tachycardia. Patient weaned off of BiPAP and now on nasal cannula. On Zosyn, Levaquin, and vancomycin. Slowly improving mentation. WBC 18.9, CRP 34.2, procalcitonin from yesterday 10/30 2012.07, phosphorus 1.8, potassium 3.2, estimated GFR 57, albumin 1.6 11/02/2019 Significant improvement today. More awake, alert, and talking. Afebrile, map greater than 65, on 2 L nasal cannula to keep SPO2 in the mid 90s WBC 17.7, C-reactive protein 22.1. Estimated GFR greater than 60. Hypokalemia. Potassium 2.8. Hypophosphatemia. Phosphorus 1.7. Hypoalbuminemia. Albumin down to 1.4. She did eat some today. Zosyn, Levaquin, and vancomycin. 11/03/2019 Bilateral pneumonia streptococcal pneumonia Sepsis resolved COPD Patient is off BiPAP and on 2 to 3 L nasal cannula to keep her SPO2 in the mid 90s. Significant improvement in her respiratory status and pneumonia. She continues to have some congestion likely from pulmonary congestion. White count 14, CRP 8.8 On Zosyn, Levaquin, and vancomycin Patient is a pack to 2 per day smoker. She does have a nicotine patch. Positive streptococcal pneumonia urine antigen Altered mental status Slow but progressive improvement in her mentation. She appears to be having some clearing although she is still very lethargic. Unable to do LP secondary to her not being cooperative or awake enough to be able to perform the procedure. Unlikely that this is secondary to infectious process. Colitis Patient has had a significant decrease in her abdominal pain. She is now having multiple loose and watery diarrhea. Bowel movements have decreased over the afternoon. Patient had significant stool on CT scan on admission. Gross hematuria. Patient has dark orange, tea colored urine and what appears to be vaginal bleeding. On exam she has blood coming from the urethra around the Noguera catheter. Patient states that she has had hematuria in the past and it has been worked up. She does have a history of hematuria. Enoxaparin may be worsening the hematuria. At this time we will continue on enoxaparin because her risk of clot is greater than her risk of a significant bleed. Hypokalemia Potassium 3.2 Elevated LFTs. Bilirubin 1.2, AST 69, ALT 57, alkaline phosphatase 150 Hypoalbuminemia Albumin 1.7 Schizophrenia On Latuda, Risperdal, Paxil Only receiving risperidone, and Paxil in the hospital There is no substitute for her Latuda These medications may be contributing to her mental status changes. Hypertension/hyperlipidemia Amlodipine and enalapril on hold Atorvastatin is nonformulary 11/04/2019 Bilateral pneumonia streptococcal pneumonia Sepsis resolved COPD Episode of vomiting and possible aspiration. Chest x-ray showed no change. No change in 2 to 3 L nasal cannula to keep her SPO2 in the mid 90s. Significant improvement in her respiratory status and pneumonia. She continues to have some congestion likely from pulmonary congestion. WBC decreased to 12.8 by afternoon but had stopped few toxic granulations. Procalcitonin down to 2 on yesterday's blood draw. On Zosyn and vancomycin Last day of Levaquin, day 5 Patient is a pack to 2 per day smoker. She does have a nicotine patch. Positive streptococcal pneumonia urine antigen Altered mental status Slow but progressive improvement in her mentation. She appears to be having some clearing although she is still very lethargic. Unable to do LP secondary to her not being cooperative or awake enough to be able to perform the procedure. MRI of the brain today showed no acute findings. Improvement in mental status since stopping Risperdal, but likely coincidental. She is likely having improvement in her mental status secondary to improvement in her condition. Colitis Abdominal pain resolved Multiple episodes of vomiting early this morning and 1 this afternoon. Gross hematuria. Noguera catheter removed today. She did require straight catheter. Hypokalemia Potassium 3.2 Elevated LFTs. Resolved Hypoalbuminemia Albumin 2.2 after receiving albumin yesterday Schizophrenia Home meds include Latuda, Risperdal, Paxil Yesterday stopped Risperdal There is no substitute for her Latuda, therefore not on second-generation antipsychotic Improvement in mental status since stopping Risperdal, but likely coincidental. She is likely having improvement in her mental status secondary to improvement in her condition. Hypertension/hyperlipidemia Amlodipine and enalapril on hold Atorvastatin is nonformulary 11/05/2019 Bilateral pneumonia streptococcal pneumonia Sepsis resolved COPD MRSA positive Only one episode of emesis early today Requiring 3L o2 to maintain saturations in mid Continued improvement in her respiratory status and pneumonia. She continues to have some congestion likely from pulmonary congestion. WBC decreased to 12.68 Repeat procalcitonin today Last day of Zosyn and vancomycin today Completed Levaquin treatment Patient is a pack to 2 per day smoker. She does have a nicotine patch. Positive streptococcal pneumonia urine antigen Contact precautions Altered mental status Improved mentation but will fall asleep while talking with staff. MRI of the brain on 11/04/19 showed no acute findings. Improvement in mental status since stopping Risperdal, but likely coincidental. She is likely having improvement in her mental status secondary to improvement in her condition. Albumin 2.0 from 2.2 yesterday today Received albumin on 11/03/19 Schizophrenia Home meds include Latuda, Risperdal, Paxil 11/03/19- stopped Risperdal There is no substitute for her Latuda, therefore not on second-generation antipsychotic Improvement in mental status since stopping Risperdal, but likely coincidental. She is likely having improvement in her mental status secondary to improvement in her condition. Hypertension/hyperlipidemia Amlodipine and enalapril on hold Atorvastatin is nonformulary Vital signs trend: Tmax 98.1, HR 87-91, BP 130-138/64-81, RR 16-21, Oxygen saturations 94-95% on 3L Last BM today 11/06/2019 Bilateral pneumonia streptococcal pneumonia COPD MRSA positive She continues to have some congestion likely from pulmonary congestion. WBC 15.89 today Repeat procalcitonin pending Last day of Zosyn and vancomycin today Completed Levaquin treatment Patient is a pack to 2 per day smoker. She does have a nicotine patch. Contact precautions Altered mental status Improved mentation but will fall asleep while talking with staff. MRI with contrast ordered today There is no substitute for her Latuda, therefore not on second-generation antipsychotic Likely improvement in her mental status secondary to improvement in her condition. Vital signs trend: Tmax 98.2, HR 79-88, BP 138-117/78-60, RR 16-21, Oxygen saturations 94-96% on 3L Last BM today 11/07/2019 Improving breath sounds Vital signs trend: Tmax 97.5, HR 72-80, BP 138-123/81-74, RR 20, Oxygen saturations 94-96% on 3L She was up ambulating with therapies today. Much more alert again today. Last BM: 11/06/19 11/08/2019 Feels better and has no complaints Vital signs trend Blood pressure: 141-156/58-85 T-max 98.8 Heart rate: 70-85 Pulse ox >95% on 3 L/min New lab results WBC down from 12.71-10.22 Platelets up from 329-410 Potassium up from 3.3-3.5 GFR minimal decrease from greater than 60-57 Procalcitonin 0.99 (11/05) down to 0.54 (11/07) - Plan Plan:: Altered mental status, stable Schizophrenia Hold risperidone, hydroxyzine, and Cogentin secondary to altered mental status, but continue Paxil Cognitive evaluation as an outpatient Aspiration precautions and HOB elevation COPD (chronic obstructive pulmonary disease) Current smoker Nicotine patch Continue incentive spirometer and Acapella Pulse ox goal greater than 92% HTN (hypertension) PRN Hydralazine Start lisinopril Hypoalbuminemia Dietary follow-up Positive MRSA screen Contact precautions Sepsis, resolved Septic shock, resolved Streptococcal pneumonia, resolved Hypokalemia, resolved Benign microscopic hematuria, resolved Transaminitis, resolved Abdominal pain, resolved PROPHYLAXIS DVTLovenox twice daily GIfamotidine twice daily CODE STATUS: Full code DISPOSITION: Mental status improved, is not moving out of bed a lot. Pending physical therapy to make final recommendations
[2019-11-08] MEDS: Lurasidone Hcl [Latuda] 80 MG PO SCH (20:40)
[2019-11-09] MEDS: Albuterol/Ipratropium 3.0-0.5 MG/3 ML Neb Soln NEB SCH ×2 (06:27→20:16)
[2019-11-09] MEDS: Famotidine 10 MG Tab PO SCH ×3 (06:34→18:23)
[2019-11-09] MEDS: Furosemide 40 MG Tab PO SCH ×2 (06:34→12:59)
[2019-11-09] MEDS: Glycopyrrolate 15.6 MCG Cap.W.Dev Kit of 6 IH SCH ×3 (09:32→22:35)
[2019-11-09] MEDS: Budesonide 0.5 MG/2 ML Neb Susp NEB SCH ×2 (09:32→20:16)
[2019-11-09] MEDS: Aspirin 81 MG Tab.Chew PO SCH (09:34)
[2019-11-09] MEDS: PARoxetine 20 MG Tab PO SCH (09:34)
[2019-11-09] MEDS: Enoxaparin 40 MG/0.4 ML Syringe SUBCUT SCH ×2 (09:34→20:59)
[2019-11-09] MEDS: Saccharomyces Boulardii (Probiotic) 250 MG Cap PO SCH ×3 (09:34→20:59)
--- NOTE | 2019-11-09 10:13 | PCM.PN ---
- General Info Date of Service: 11/09/19 Subjective Update: Feels fine No complaints Slept through the night Tolerating diet - Patient Data Vitals - Most Recent: Last Vital Signs Temp 97.3 F 11/09/19 01:49 Pulse 87 11/09/19 01:49 Resp 18 11/09/19 01:49 BP 155/59 H 11/09/19 01:49 Pulse Ox 96 11/09/19 09:38 Weight - Most Recent: 117.163 kg - Exam General: Alert, Cooperative, No Acute Distress HEENT: Pupils Equal, Pupils Reactive, Mucous Membr. Moist/[place] Neck: Supple Lungs: Decreased Breath Sounds. No: Crackles, Rales, Rhonchi, Rub, Stridor, Wheezing Cardiovascular: Regular Rate, Regular Rhythm. No: Murmurs, Gallops, Rubs GI/Abdominal Exam: Distended. No: Guarding, Rigid, Rebound Peripheral Pulses: 2+: Radial (L), Radial (R) Skin: Warm, Dry, Intact Neurological: No New Focal Deficit Psy/Mental Status: Normal Affect, Normal Mood Sepsis Event Note - Evaluation Sepsis Screening Result: No Definite Risk - Problem List & Annotations (1) Altered mental status SNOMED Code(s): 228761868 Code(s): R41.82 - ALTERED MENTAL STATUS, UNSPECIFIED Status: Acute Priority: High Current Visit: Yes Qualifiers: Altered mental status type: unspecified Qualified Code(s): R41.82 - Altered mental status, unspecified (2) Hypoalbuminemia SNOMED Code(s): 328296735 Code(s): E88.09 - OTH DISORDERS OF PLASMA-PROTEIN METABOLISM, NEC Status: Acute Priority: Medium Current Visit: Yes (3) Hypokalemia SNOMED Code(s): 48084370 Code(s): E87.6 - HYPOKALEMIA Status: Acute Priority: High Current Visit: Yes (4) Positive result for methicillin resistant Staphylococcus aureus (MRSA) screening SNOMED Code(s): 654082770 Code(s): Z22.322 - CARRIER OR SUSPECTED CARRIER OF METHICILLIN RESIS STAPH Status: Acute Priority: Medium Current Visit: Yes (5) COPD (chronic obstructive pulmonary disease) SNOMED Code(s): 76379422 Code(s): J44.9 - CHRONIC OBSTRUCTIVE PULMONARY DISEASE, UNSPECIFIED Status: Chronic Priority: Medium Current Visit: Yes Qualifiers: COPD type: unspecified COPD Qualified Code(s): J44.9 - Chronic obstructive pulmonary disease, unspecified (6) Schizophrenia SNOMED Code(s): 30137979 Code(s): F20.9 - SCHIZOPHRENIA, UNSPECIFIED Status: Chronic Priority: High Current Visit: Yes Qualifiers: Schizophrenia type: unspecified Qualified Code(s): F20.9 - Schizophrenia, unspecified (7) Abdominal pain SNOMED Code(s): 19796045 Code(s): R10.9 - UNSPECIFIED ABDOMINAL PAIN Status: Resolved Priority: High Current Visit: Yes Qualifiers: Abdominal location: unspecified location Qualified Code(s): R10.9 - Unspecified abdominal pain (8) Benign microscopic hematuria SNOMED Code(s): 900058516576756 Code(s): R31.1 - BENIGN ESSENTIAL MICROSCOPIC HEMATURIA Status: Resolved Priority: Medium Current Visit: Yes (9) Colitis SNOMED Code(s): 81223259 Code(s): K52.9 - NONINFECTIVE GASTROENTERITIS AND COLITIS, UNSPECIFIED Status: Resolved Priority: High Current Visit: Yes (10) Pneumonia SNOMED Code(s): 082019566 Code(s): J18.9 - PNEUMONIA, UNSPECIFIED ORGANISM Status: Resolved Priority: High Current Visit: Yes Qualifiers: Pneumonia type: due to unspecified organism Laterality: unspecified lateral ity Lung location: unspecified part of lung Qualified Code(s): J18.9 - Pneumonia, unspecified organism (11) Sepsis SNOMED Code(s): 86847335 Code(s): A41.9 - SEPSIS, UNSPECIFIED ORGANISM Status: Resolved Priority: High Current Visit: Yes Qualifiers: Sepsis type: sepsis due to unspecified organism Sepsis acute organ dysfunction status: unspecified Qualified Code(s): A41.9 - Sepsis, unspecified organism (12) Septic shock SNOMED Code(s): 67416152 Code(s): A41.9 - SEPSIS, UNSPECIFIED ORGANISM; R65.21 - SEVERE SEPSIS WITH SEPTIC SHOCK Status: Resolved Priority: High Current Visit: Yes (13) Streptococcal pneumonia SNOMED Code(s): 08534078 Code(s): J15.4 - PNEUMONIA DUE TO OTHER STREPTOCOCCI Status: Resolved Priority: High Current Visit: Yes (14) Transaminitis SNOMED Code(s): 452445973, 895938495 Code(s): R74.0 - NONSPEC ELEV OF LEVELS OF TRANSAMNS & LACTIC ACID DEHYDRGNSE Status: Resolved Priority: High Current Visit: Yes (15) HLD (hyperlipidemia) SNOMED Code(s): 62922126 Code(s): E78.5 - HYPERLIPIDEMIA, UNSPECIFIED Status: Chronic Priority: Low Current Visit: No Qualifiers: Hyperlipidemia type: unspecified Qualified Code(s): E78.5 - Hyperlipidemia, unspecified (16) HTN (hypertension) SNOMED Code(s): 45601797 Code(s): I10 - ESSENTIAL (PRIMARY) HYPERTENSION Status: Chronic Priority: Medium Current Visit: No Qualifiers: Hypertension type: unspecified Qualified Code(s): I10 - Essential (primary) hypertension - Problem List Review Problem List Initiated/Reviewed/Updated: Yes - Assessment Assessment:: 10/29/2019 Patient found on floor in the bathroom after possibly having a seizure. Hypotensive, tachycardic, tachypneic and hypoxic on arrival to emergency department. Patient received 3 L IV bolus in emergency department. Initial lactic acid 4.0 increasing to 5.3 after fluid bolus. Initial WBC 22,000, 76% neutrophils, no bandemia, C-reactive protein 1.6 Altered mental status, patient is very lethargic. Patient is in critical condition and currently has a poor outcome predicted. High risk of mortality. Patient's initial complaint when calling EMS was abdominal pain and constipation. Patient does exhibit tenderness to palpation throughout the abdomen. Bowel sounds difficult to appreciate secondary to upper airway noise. 10/30/2019 Patient is not improved with the large amount of IV fluids. She has actually had worsening respiratory status requiring IV Lasix. Respiratory rate has had some improvement with vigorous pulmonary toilet, bronchodilation, and diuretics. Unfortunately, this is likely going to cause some intravascular hypovolemia. Lactic acid did drop to 2.0 this morning with the IV fluids. This afternoon renal function did worsen with a creatinine of 1.6. WBC worsened and has been stable today at 23,000. Still no bands or toxic granulations. Neutrophils 90%, absolute neutrophils 21,000. Confirmed CODE STATUS with sister. She states that Rosita has several mental health issues and she likely did not understand the catastrophic results of not being intubated. CT abdomen and pelvis with contrast. Findings suspicious for colitis within portions of the descending and sigmoid colon. Fluid is seen within the pelvis and right abdomen most likely reactive from the colonic process. Increased stool within the rectosigmoid region. Nodularity with in the left adrenal gland most likely benign if patient has no primary carcinoma. CT of the of the head: No acute findings 10/31/2019 Rosita is making some improvement today. Respiratory rate has decreased and her tachycardia has decreased. Antibiotics were switched to Zosyn to cover both strep pneumoniae and colitis. MRSA screen was positive. Patient continues on vancomycin. D-dimer was elevated at 1.[address] angio was done of the chest CT angio chest: 1. No findings of pulmonary embolism. 2. Aorta shows atherosclerotic changes with no dissection or aneurysm. No discrete ulcerating plaque is seen. 3. Increased density within the right lung base which may represent pneumonia or prominent atelectasis. 4. Other findings as noted. Not believed to be acute. ABGs normal pH, PCO2, bicarb with a slightly low PO2. These are surprisingly good considering her respiratory rate. Repeat lactic acid was 1.6. White count continues to be significantly elevated at 23,000. CRP 35.8. Patient has significant hypoalbuminemia with albumin of 1.9 Hypokalemiapotassium 3.4 Hemoglobin A1c is 6.1 11/01/2019 Decrease in respiratory rate and tachycardia. Patient weaned off of BiPAP and now on nasal cannula. On Zosyn, Levaquin, and vancomycin. Slowly improving mentation. WBC 18.9, CRP 34.2, procalcitonin from yesterday 10/31 2011.07, phosphorus 1.8, potassium 3.2, estimated GFR 57, albumin 1.6 11/02/2019 Significant improvement today. More awake, alert, and talking. Afebrile, map greater than 65, on 2 L nasal cannula to keep SPO2 in the mid 90s WBC 17.7, C-reactive protein 22.1. Estimated GFR greater than 60. Hypokalemia. Potassium 2.8. Hypophosphatemia. Phosphorus 1.7. Hypoalbuminemia. Albumin down to 1.4. She did eat some today. Zosyn, Levaquin, and vancomycin. 11/03/2019 Patient is off BiPAP and on 2 to 3 L nasal cannula to keep her SPO2 in the mid 90s. Significant improvement in her respiratory status and pneumonia. She continues to have some congestion likely from pulmonary congestion. White count 14, CRP 8.8 On Zosyn, Levaquin, and vancomycin Patient is a pack to 2 per day smoker. She does have a nicotine patch. Positive streptococcal pneumonia urine antigen Slow but progressive improvement in her mentation. She appears to be having some clearing although she is still very lethargic. Unable to do LP secondary to her not being cooperative or awake enough to be able to perform the procedure. Unlikely that this is secondary to infectious process. Patient has had a significant decrease in her abdominal pain. She is now having multiple loose and watery diarrhea. Bowel movements have decreased over the afternoon. Patient had significant stool on CT scan on admission. Patient has dark orange, tea colored urine and what appears to be vaginal bleeding. On exam she has blood coming from the urethra around the Noguera catheter. Patient states that she has had hematuria in the past and it has been worked up. She does have a history of hematuria. Enoxaparin may be worsening the hematuria. At this time we will continue on enoxaparin because her risk of clot is greater than her risk of a significant bleed. Potassium 3.2 Bilirubin 1.2, AST 69, ALT 57, alkaline phosphatase 150 Albumin 1.7 On Latuda, Risperdal, Paxil Only receiving risperidone, and Paxil in the hospital There is no substitute for her Latuda These medications may be contributing to her mental status changes. Amlodipine and enalapril on hold Atorvastatin is nonformulary 11/04/2019 Episode of vomiting and possible aspiration. Chest x-ray showed no change. No change in 2 to 3 L nasal cannula to keep her SPO2 in the mid 90s. Significant improvement in her respiratory status and pneumonia. She continues to have some congestion likely from pulmonary congestion. WBC decreased to 12.8 by afternoon but had stopped few toxic granulations. Procalcitonin down to 2 on yesterday's blood draw. On Zosyn and vancomycin Last day of Levaquin, day 5 Patient is a pack to 2 per day smoker. She does have a nicotine patch. Positive streptococcal pneumonia urine antigen Unable to do LP secondary to her not being cooperative or awake enough to be able to perform the procedure. MRI of the brain today showed no acute findings. Abdominal pain resolved Multiple episodes of vomiting early this morning and 1 this afternoon. Noguera catheter removed today. She did require straight catheter. Elevated LFTs resolved Albumin 2.2 after receiving albumin yesterday Yesterday stopped Risperdal There is no substitute for her Latuda, therefore not on second-generation antipsychotic 11/05/2019 Only one episode of emesis early today Requiring 3L o2 to maintain saturations in mid 90's WBC decreased to 12.68 Repeat procalcitonin today Last day of Zosyn and vancomycin today Improved mentation but will fall asleep while talking with staff. MRI of the brain on 11/04/19 showed no acute findings. Improvement in mental status since stopping Risperdal, but likely coincidental. She is likely having improvement in her mental status secondary to improvement in her condition. Albumin 2.0 from 2.2 yesterday today Received albumin on 11/03/19 There is no substitute for her Latuda, therefore not on second-generation antipsychotic Vital signs trend: Tmax 98.1, HR 87-91, BP 130-138/64-81, RR 16-21, Oxygen saturations 94-95% on 3L Last BM today 11/06/2019 She continues to have some congestion likely from pulmonary congestion. WBC 15.89 today Repeat procalcitonin pending Last day of Zosyn and vancomycin today Patient is a pack to 2 per day smoker. She does have a nicotine patch. MRI with contrast ordered today Vital signs trend: Tmax 98.2, HR 79-88, BP 138-117/78-60, RR 16-21, Oxygen saturations 94-96% on 3L Last BM today 11/07/2019 Improving breath sounds Vital signs trend: Tmax 97.5, HR 72-80, BP 138-123/81-74, RR 20, Oxygen saturations 94-96% on 3L She was up ambulating with therapies today. Much more alert again today. Last BM: 11/06/19 11/08/2019 Feels better and has no complaints Vital signs trend Blood pressure: 128-145/70-97 T-max 97.7 Heart rate: 72-92 Pulse ox >92% on 3 L/min New lab results WBC down from 15.37-12.71 No more toxic granulation Potassium up from 3.1-3.3 PLAN Continue Paxil Cognitive evaluation as an outpatient Aspiration precautions and HOB elevation Nicotine patch Continue incentive spirometer and Acapella Pulse ox goal greater than 92% PRN Hydralazine Start lisinopril 11/09/2019 Feels better has no complaints Vital signs trend Blood pressure: 141-156/58-85 T-max 98.8 Heart rate: 70-85 Pulse ox >95% on 3 L/min New lab results WBC down from 12.71-10.22 Platelets up from 329-410 Potassium up from 3.3-3.5 GFR minimal decrease from greater than 60-57 Procalcitonin 0.99 (11/05) down to 0.54 (11/07) - Plan Plan:: Altered mental status, stable Schizophrenia Continue Paxil Cognitive evaluation as an outpatient Aspiration precautions and HOB elevation COPD (chronic obstructive pulmonary disease) Current smoker Nicotine patch Continue incentive spirometer and Acapella Pulse ox goal greater than 92% HTN (hypertension) PRN Hydralazine Start lisinopril Hypoalbuminemia Dietary follow-up Positive MRSA screen Contact precautions Sepsis, resolved Septic shock, resolved Streptococcal pneumonia, resolved Hypokalemia, resolved Benign microscopic hematuria, resolved Transaminitis, resolved Abdominal pain, resolved PROPHYLAXIS DVTLovenox twice daily GIfamotidine twice daily CODE STATUS: Full code DISPOSITION: Mental status improved, is not moving out of bed a lot. Pending physical therapy to make final recommendations
[2019-11-09] MEDS: Nicotine 21 MG/24 Hr Patch TRDERM SCH (10:27)
[2019-11-09] MEDS: Lurasidone Hcl [Latuda] 80 MG PO SCH (20:59)
[2019-11-10] MEDS: Albuterol/Ipratropium 3.0-0.5 MG/3 ML Neb Soln NEB SCH ×2 (06:39→21:15)
[2019-11-10] MEDS: Furosemide 40 MG Tab PO SCH ×2 (06:58→16:02)
[2019-11-10] MEDS: Famotidine 10 MG Tab PO SCH ×3 (06:58→16:02)
--- NOTE | 2019-11-10 07:45 | PCM.PN ---
- General Info Date of Service: 11/10/19 Admission Dx/Problem (Free Text): Admission Diagnosis/Problem Admission Diagnosis/Problem Pneumonia Functional Status: Reports: Pain Controlled, Tolerating Diet, Ambulating (Walked a few steps without a walker today with PT. ), Urinating. Denies: New Symptoms - Review of Systems General: Reports: Weakness (improving ). Denies: Fever, Fatigue, Malaise, Chills HEENT: Reports: No Symptoms. Denies: Headaches, Sore Throat Pulmonary: Reports: Shortness of Breath (improving ), Cough (improving ). Denies: Pleuritic Chest Pain, Sputum, Wheezing Cardiovascular: Reports: Dyspnea on Exertion (improving ), Edema. Denies: Chest Pain, Palpitations, Lightheadedness Gastrointestinal: Denies: Abdominal Pain, Constipation, Diarrhea, Nausea, Vomiting Genitourinary: Reports: No Symptoms. Denies: Pain Musculoskeletal: Reports: No Symptoms Skin: Reports: No Symptoms Neurological: Reports: Difficulty Walking, Weakness, Gait Disturbance. Denies: Confusion Psychiatric: Reports: No Symptoms - Patient Data Weight - Most Recent: 244 lb I&O - Last 24 Hours: Intake & Output 11/09/19 11/10/19 11/10/19 22:59 06:59 14:59 Intake Total 900 800 Balance 900 800 - Exam Quality Assessment: DVT Prophylaxis. No: Supplemental Oxygen, Urine Catheter General: Alert, Oriented, Cooperative, No Acute Distress HEENT: Pupils Equal, Pupils Reactive, Mucous Membr. Moist/[place] Neck: Supple Lungs: Normal Respiratory Effort, Decreased Breath Sounds Cardiovascular: Regular Rate, Regular Rhythm GI/Abdominal Exam: Normal Bowel Sounds, Non-Tender, Distended (Female) Exam: Deferred Back Exam: Normal Inspection, Decreased Range of Motion Extremities: Normal Inspection, Normal Range of Motion, Non-Tender, No Pedal Edema, Normal Capillary Refill Skin: Warm, Dry, Intact Neurological: No New Focal Deficit Psy/Mental Status: Alert Sepsis Event Note - Evaluation Sepsis Screening Result: No Definite Risk - Problem List & Annotations (1) Abdominal pain SNOMED Code(s): 84915288 Code(s): R10.9 - UNSPECIFIED ABDOMINAL PAIN Status: Resolved Priority: High Current Visit: Yes Qualifiers: Abdominal location: unspecified location Qualified Code(s): R10.9 - Unspecified abdominal pain (2) Benign microscopic hematuria SNOMED Code(s): 710759670503427 Code(s): R31.1 - BENIGN ESSENTIAL MICROSCOPIC HEMATURIA Status: Resolved Priority: Medium Current Visit: Yes (3) COPD (chronic obstructive pulmonary disease) SNOMED Code(s): 34307130 Code(s): J44.9 - CHRONIC OBSTRUCTIVE PULMONARY DISEASE, UNSPECIFIED Status: Chronic Priority: Medium Current Visit: Yes Qualifiers: COPD type: unspecified COPD Qualified Code(s): J44.9 - Chronic obstructive pulmonary disease, unspecified (4) Pneumonia SNOMED Code(s): 951826591 Code(s): J18.9 - PNEUMONIA, UNSPECIFIED ORGANISM Status: Resolved Priority: High Current Visit: Yes Qualifiers: Pneumonia type: due to unspecified organism Laterality: unspecified laterality Lung location: unspecified part of lung Qualified Code(s): J18.9 - Pneumonia, unspecified organism (5) Positive result for methicillin resistant Staphylococcus aureus (MRSA) screening SNOMED Code(s): 471285704 Code(s): Z22.322 - CARRIER OR SUSPECTED CARRIER OF METHICILLIN RESIS STAPH Status: Acute Priority: Medium Current Visit: Yes (6) Schizophrenia SNOMED Code(s): 84325490 Code(s): F20.9 - SCHIZOPHRENIA, UNSPECIFIED Status: Chronic Priority: High Current Visit: Yes Qualifiers: Schizophrenia type: unspecified Qualified Code(s): F20.9 - Schizophrenia, unspecified (7) Sepsis SNOMED Code(s): 66840159 Code(s): A41.9 - SEPSIS, UNSPECIFIED ORGANISM Status: Resolved Priority: High Current Visit: Yes Qualifiers: Sepsis type: sepsis due to unspecified organism Sepsis acute organ dysfunction status: unspecified Qualified Code(s): A41.9 - Sepsis, unspecified organism (8) Septic shock SNOMED Code(s): 70013144 Code(s): A41.9 - SEPSIS, UNSPECIFIED ORGANISM; R65.21 - SEVERE SEPSIS WITH SEPTIC SHOCK Status: Resolved Priority: High Current Visit: Yes (9) Streptococcal pneumonia SNOMED Code(s): 03770966 Code(s): J15.4 - PNEUMONIA DUE TO OTHER STREPTOCOCCI Status: Resolved Priority: High Current Visit: Yes (10) Colitis SNOMED Code(s): 66603355 Code(s): K52.9 - NONINFECTIVE GASTROENTERITIS AND COLITIS, UNSPECIFIED Status: Resolved Priority: High Current Visit: Yes (11) Hypokalemia SNOMED Code(s): 64162929 Code(s): E87.6 - HYPOKALEMIA Status: Acute Priority: High Current Visit: Yes (12) Transaminitis SNOMED Code(s): 740819432, 594803213 Code(s): R74.0 - NONSPEC ELEV OF LEVELS OF TRANSAMNS & LACTIC ACID DEHYDRGNSE Status: Resolved Priority: High Current Visit: Yes (13) Hypoalbuminemia SNOMED Code(s): 500245016 Code(s): E88.09 - OTH DISORDERS OF PLASMA-PROTEIN METABOLISM, NEC Status: Acute Priority: Medium Current Visit: Yes (14) HTN (hypertension) SNOMED Code(s): 48232684 Code(s): I10 - ESSENTIAL (PRIMARY) HYPERTENSION Status: Chronic Priority: Medium Current Visit: No Qualifiers: Hypertension type: unspecified Qualified Code(s): I10 - Essential (primary) hypertension (15) HLD (hyperlipidemia) SNOMED Code(s): 07526563 Code(s): E78.5 - HYPERLIPIDEMIA, UNSPECIFIED Status: Chronic Priority: Low Current Visit: No Qualifiers: Hyperlipidemia type: unspecified Qualified Code(s): E78.5 - Hyperlipidemia, unspecified (16) Altered mental status SNOMED Code(s): 990702664 Code(s): R41.82 - ALTERED MENTAL STATUS, UNSPECIFIED Status: Acute Priority: High Current Visit: Yes Qualifiers: Altered mental status type: unspecified Qualified Code(s): R41.82 - Altered mental status, unspecified (17) GERD (gastroesophageal reflux disease) SNOMED Code(s): 620829775 Code(s): K21.9 - GASTRO-ESOPHAGEAL REFLUX DISEASE WITHOUT ESOPHAGITIS Statu s: Acute Priority: High Current Visit: Yes Qualifiers: Esophagitis presence: esophagitis presence not specified Qualified Code(s): K21.9 - Gastro-esophageal reflux disease without esophagitis - Problem List Review Problem List Initiated/Reviewed/Updated: Yes - Assessment Assessment:: 10/29/2019 Patient found on floor in the bathroom after possibly having a seizure. Hypotensive, tachycardic, tachypneic and hypoxic on arrival to emergency department. Patient received 3 L IV bolus in emergency department. Initial lactic acid 4.0 increasing to 5.3 after fluid bolus. Initial WBC 22,000, 76% neutrophils, no bandemia, C-reactive protein 1.6 Altered mental status, patient is very lethargic. Patient is in critical condition and currently has a poor outcome predicted. High risk of mortality. Patient's initial complaint when calling EMS was abdominal pain and constipation. Patient does exhibit tenderness to palpation throughout the abdomen. Bowel sounds difficult to appreciate secondary to upper airway noise. 10/30/2019 Patient is not improved with the large amount of IV fluids. She has actually had worsening respiratory status requiring IV Lasix. Respiratory rate has had some improvement with vigorous pulmonary toilet, bronchodilation, and diuretics. Unfortunately, this is likely going to cause some intravascular hypovolemia. Lactic acid did drop to 2.0 this morning with the IV fluids. This afternoon renal function did worsen with a creatinine of 1.6. WBC worsened and has been stable today at 23,000. Still no bands or toxic granulations. Neutrophils 90%, absolute neutrophils 21,000. Confirmed CODE STATUS with sister. She states that Rosita has several mental health issues and she likely did not understand the catastrophic results of not being intubated. CT abdomen and pelvis with contrast. Findings suspicious for colitis within portions of the descending and sigmoid colon. Fluid is seen within the pelvis and right abdomen most likely reactive from the colonic process. Increased stool within the rectosigmoid region. Nodularity with in the left adrenal gland most likely benign if patient has no primary carcinoma. CT of the of the head: No acute findings 10/31/2019 Rosita is making some improvement today. Respiratory rate has decreased and her tachycardia has decreased. Antibiotics were switched to Zosyn to cover both strep pneumoniae and colitis. MRSA screen was positive. Patient continues on vancomycin. D-dimer was elevated at 1.[address] angio was done of the chest CT angio chest: 1. No findings of pulmonary embolism. 2. Aorta shows atherosclerotic changes with no dissection or aneurysm. No discrete ulcerating plaque is seen. 3. Increased density within the right lung base which may represent pneumonia or prominent atelectasis. 4. Other findings as noted. Not believed to be acute. ABGs normal pH, PCO2, bicarb with a slightly low PO2. These are surprisingly good considering her respiratory rate. Repeat lactic acid was 1.6. White count continues to be significantly elevated at 23,000. CRP 35.8. Patient has significant hypoalbuminemia with albumin of 1.9 Hypokalemiapotassium 3.4 Hemoglobin A1c is 6.1 11/01/2019 Decrease in respiratory rate and tachycardia. Patient weaned off of BiPAP and now on nasal cannula. On Zosyn, Levaquin, and vancomycin. Slowly improving mentation. WBC 18.9, CRP 34.2, procalcitonin from yesterday 10/31 2011.07, phosphorus 1.8, potassium 3.2, estimated GFR 57, albumin 1.6 11/02/2019 Significant improvement today. More awake, alert, and talking. Afebrile, map greater than 65, on 2 L nasal cannula to keep SPO2 in the mid 90s WBC 17.7, C-reactive protein 22.1. Estimated GFR greater than 60. Hypokalemia. Potassium 2.8. Hypophosphatemia. Phosphorus 1.7. Hypoalbuminemia. Albumin down to 1.4. She did eat some today. Zosyn, Levaquin, and vancomycin. 11/03/2019 Patient is off BiPAP and on 2 to 3 L nasal cannula to keep her SPO2 in the mid 90s. Significant improvement in her respiratory status and pneumonia. She continues to have some congestion likely from pulmonary congestion. White count 14, CRP 8.8 On Zosyn, Levaquin, and vancomycin Patient is a pack to 2 per day smoker. She does have a nicotine patch. Positive streptococcal pneumonia urine antigen Slow but progressive improvement in her mentation. She appears to be having some clearing although she is still very lethargic. Unable to do LP secondary to her not being cooperative or awake enough to be able to perform the procedure. Unlikely that this is secondary to infectious process. Patient has had a significant decrease in her abdominal pain. She is now having multiple loose and watery diarrhea. Bowel movements have decreased over the afternoon. Patient had significant stool on CT scan on admission. Patient has dark orange, tea colored urine and what appears to be vaginal bleeding. On exam she has blood coming from the urethra around the Noguera catheter. Patient states that she has had hematuria in the past and it has been worked up. She does have a history of hematuria. Enoxaparin may be worsening the hematuria. At this time we will continue on enoxaparin because her risk of clot is greater than her risk of a significant bleed. Potassium 3.2 Bilirubin 1.2, AST 69, ALT 57, alkaline phosphatase 150 Albumin 1.7 On Latuda, Risperdal, Paxil Only receiving risperidone, and Paxil in the hospital There is no substitute for her Latuda These medications may be contributing to her mental status changes. Amlodipine and enalapril on hold Atorvastatin is nonformulary 11/04/2019 Episode of vomiting and possible aspiration. Chest x-ray showed no change. No change in 2 to 3 L nasal cannula to keep her SPO2 in the mid 90s. Significant improvement in her respiratory status and pneumonia. She continues to have some congestion likely from pulmonary congestion. WBC decreased to 12.8 by afternoon but had stopped few toxic granulations. Procalcitonin down to 2 on yesterday's blood draw. On Zosyn and vancomycin Last day of Levaquin, day 5 Patient is a pack to 2 per day smoker. She does have a nicotine patch. Positive streptococcal pneumonia urine antigen Unable to do LP secondary to her not being cooperative or awake enough to be able to perform the procedure. MRI of the brain today showed no acute findings. Abdominal pain resolved Multiple episodes of vomiting early this morning and 1 this afternoon. Noguera catheter removed today. She did require straight catheter. Elevated LFTs resolved Albumin 2.2 after receiving albumin yesterday Yesterday stopped Risperdal There is no substitute for her Latuda, therefore not on second-generation antipsychotic 11/05/2019 Only one episode of emesis early today Requiring 3L o2 to maintain saturations in mid 90's WBC decreased to 12.68 Repeat procalcitonin today Last day of Zosyn and vancomycin today Improved mentation but will fall asleep while talking with staff. MRI of the brain on 11/04/19 showed no acute findings. Improvement in mental status since stopping Risperdal, but likely coincidental. She is likely having improvement in her mental status secondary to improvement in her condition. Albumin 2.0 from 2.2 yesterday today Received albumin on 11/03/19 There is no substitute for her Latuda, therefore not on second-generation antipsychotic Vital signs trend: Tmax 98.1, HR 87-91, BP 130-138/64-81, RR 16-21, Oxygen saturations 94-95% on 3L Last BM today 11/06/2019 She continues to have some congestion likely from pulmonary congestion. WBC 15.89 today Repeat procalcitonin pending Last day of Zosyn and vancomycin today Patient is a pack to 2 per day smoker. She does have a nicotine patch. MRI with contrast ordered today Vital signs trend: Tmax 98.2, HR 79-88, BP 138-117/78-60, RR 16-21, Oxygen saturations 94-96% on 3L Last BM today 11/07/2019 Improving breath sounds Vital signs trend: Tmax 97.5, HR 72-80, BP 138-123/81-74, RR 20, Oxygen saturations 94-96% on 3L She was up ambulating with therapies today. Much more alert again today. Last BM: 11/06/19 11/08/2019 Feels better and has no complaints Vital signs trend Blood pressure: 128-145/70-97 T-max 97.7 Heart rate: 72-92 Pulse ox >92% on 3 L/min New lab results WBC down from 15.37-12.71 No more toxic granulation Potassium up from 3.1-3.3 PLAN Continue Paxil Cognitive evaluation as an outpatient Aspiration precautions and HOB elevation Nicotine patch Continue incentive spirometer and Acapella Pulse ox goal greater than 92% PRN Hydralazine Start lisinopril 11/09/2019 Feels better has no complaints Vital signs trend Blood pressure: 141-156/58-85 T-max 98.8 Heart rate: 70-85 Pulse ox >95% on 3 L/min New lab results WBC down from 12.71-10.22 Platelets up from 329-410 Potassium up from 3.3-3.5 GFR minimal decrease from greater than 60-57 Procalcitonin 0.99 (11/05) down to 0.54 (11/07) PLAN Continue Paxil Cognitive evaluation as an outpatient Aspiration precautions and HOB elevation Nicotine patch Continue incentive spirometer and Acapella Pulse ox goal greater than 92% PRN Hydralazine Start lisinopril Dietary follow-up Contact precautions 11/10/2019 Continues to improve Disposition pending PT/OT recommendations Vital signs trend: Tmax 98.2, HR 79-85, BP 155-125/88-69, RR 14-20, Oxygen saturations 91-92% on room air No labs obtained today Walked a few steps today with PT without a walker Last BM 11/09/19 - Plan Plan:: Altered mental status, stable Schizophrenia Continue Paxil Cognitive evaluation as an outpatient Aspiration precautions and HOB elevation COPD (chronic obstructive pulmonary disease) Current smoker Nicotine patch Continue incentive spirometer and Acapella Pulse ox goal greater than 92% HTN (hypertension) PRN Hydralazine Start lisinopril Hypoalbuminemia Dietary follow-up Positive MRSA screen Contact precautions GERD -TID famotidine Sepsis, resolved Septic shock, resolved Streptococcal pneumonia, resolved Hypokalemia, resolved Benign microscopic hematuria, resolved Transaminitis, resolved Abdominal pain, resolved PROPHYLAXIS DVTLovenox twice daily GIfamotidine TID CODE STATUS: Full code DISPOSITION: Has been ambulating in room with walker. PT/OT recommending SNF with PT/OT. SW working on placement. Will continue to rehab and adjust disposition if patient improves.
[2019-11-10] MEDS: Saccharomyces Boulardii (Probiotic) 250 MG Cap PO SCH ×3 (08:41→20:17)
[2019-11-10] MEDS: PARoxetine 20 MG Tab PO SCH (08:42)
[2019-11-10] MEDS: Aspirin 81 MG Tab.Chew PO SCH (08:42)
[2019-11-10] MEDS: Enoxaparin 40 MG/0.4 ML Syringe SUBCUT SCH ×2 (08:43→20:17)
[2019-11-10] MEDS: Budesonide 0.5 MG/2 ML Neb Susp NEB SCH ×2 (08:59→21:15)
[2019-11-10] MEDS: Glycopyrrolate 15.6 MCG Cap.W.Dev Kit of 6 IH SCH ×2 (08:59→21:25)
[2019-11-10] MEDS: Nicotine 21 MG/24 Hr Patch TRDERM SCH (11:57)
[2019-11-10] MEDS: Lisinopril 10 MG Tab PO SCH (20:18)
[2019-11-10] MEDS: Lurasidone Hcl [Latuda] 80 MG PO SCH (20:18)
[2019-11-11] MEDS: Albuterol/Ipratropium 3.0-0.5 MG/3 ML Neb Soln NEB SCH ×2 (05:38→21:05)
[2019-11-11] MEDS: Furosemide 40 MG Tab PO SCH ×2 (06:38→13:48)
[2019-11-11] MEDS: Famotidine 10 MG Tab PO SCH ×3 (06:38→17:12)
--- NOTE | 2019-11-11 08:22 | PCM.PN ---
- General Info Date of Service: 11/11/19 Admission Dx/Problem (Free Text): Admission Diagnosis/Problem Admission Diagnosis/Problem Pneumonia Functional Status: Reports: Pain Controlled, Tolerating Diet, Ambulating, Urinating, Incentive Spirometry, Other (acapella ). Denies: New Symptoms - Review of Systems General: Reports: No Symptoms, Weakness. Denies: Fever, Fatigue, Malaise, Chills HEENT: Reports: No Symptoms. Denies: Headaches, Sore Throat Pulmonary: Reports: Shortness of Breath, Wheezing. Denies: Pleuritic Chest Pain, Cough, Sputum Cardiovascular: Reports: Dyspnea on Exertion, Edema. Denies: Chest Pain, Palpitations Gastrointestinal: Reports: No Symptoms. Denies: Abdominal Pain, Constipation, Diarrhea, Nausea, Vomiting Genitourinary: Reports: No Symptoms. Denies: Pain Musculoskeletal: Reports: No Symptoms Skin: Reports: No Symptoms. Denies: Cyanosis Neurological: Reports: No Symptoms, Weakness. Denies: Difficulty Walking, Gait Disturbance Psychiatric: Reports: No Symptoms - Patient Data Vitals - Most Recent: Last Vital Signs Temp 98.1 F 11/11/19 03:38 Pulse 85 11/11/19 03:38 Resp 20 11/11/19 03:38 BP 137/82 11/11/19 03:38 Pulse Ox 90 L 11/11/19 05:39 Weight - Most Recent: 239 lb 3.2 oz I&O - Last 24 Hours: Intake & Output 11/10/19 11/11/19 11/11/19 22:59 06:59 14:59 Intake Total 1400 800 Output Total 400 1300 Balance 1000 -500 Med Orders - Current: Current Medications Acetaminophen (Tylenol) 650 mg PO Q4H PRN PRN Reason: Pain (Mild 1-3)/fever Al Hydroxide/Mg Hydroxide (Mag-Al Plus) 30 ml PO Q4H PRN PRN Reason: Heartburn Last Admin: 11/05/19 10:13 Dose: 30 ml Documented by: Albuterol (Proventil Neb Soln) 2.5 mg NEB Q2H PRN PRN Reason: Shortness Of Breath/wheezing Albuterol (Proventil Hfa) 0 gm INH Q4H PRN PRN Reason: Shortness of Breath Albuterol/Ipratropium (Duoneb 3.0-0.5 Mg/3 Ml) 3 ml NEB Q4H PRN PRN Reason: Shortness Of Breath/wheezing Albuterol/Ipratropium (Duoneb 3.0-0.5 Mg/3 Ml) 3 ml NEB BIDRT [facility] Last Admin: 11/11/19 05:38 Dose: 3 ml Documented by: Aspirin (Aspirin) 81 mg PO DAILY [facility] Last Admin: 11/10/19 08:42 Dose: 81 mg Documented by: Budesonide (Pulmicort) 0.5 mg NEB BID [facility] Last Admin: 11/10/19 21:15 Dose: 0.5 mg Documented by: Dextrose/Water (Dextrose 50% In Water) 50 ml IVPUSH ASDIRECTED PRN PRN Reason: Hypoglycemia Enoxaparin Sodium (Lovenox) 40 mg SUBCUT Q12H [facility] Last Admin: 11/10/19 20:17 Dose: 40 mg Documented by: Famotidine (Pepcid) 10 mg PO TIDAC [facility] Last Admin: 11/11/19 06:38 Dose: 10 mg Documented by: Furosemide (Lasix) 40 mg PO BIDDIURETIC [facility] Last Admin: 11/11/19 06:38 Dose: 40 mg Documented by: Glycopyrrolate (Seebri Neohaler) 15.6 mcg IH BID@1000,2200 [facility] Last Admin: 11/10/19 21:25 Dose: 1 cap Documented by: Lisinopril (Prinivil) 10 mg PO BEDTIME [facility] Last Admin: 11/10/19 20:18 Dose: 10 mg Documented by: Lorazepam (Ativan) 1 mg IVPUSH Q2H PRN PRN Reason: Anxiety Last Admin: 11/03/19 02:01 Dose: 1 mg Documented by: Miscellaneous Information (Remove Patch) 1 ea TRDERM Q24H [facility] Last Admin: 11/10/19 11:57 Dose: 1 ea Documented by: Nicotine (Habitrol) 21 mg TRDERM Q24H [facility] Last Admin: 11/10/19 11:57 Dose: 21 mg Documented by: Lurasidone Hcl [ (Latuda] 80 Mg) 0 each PO BEDTIME [facility] Last Admin: 11/10/19 20:18 Dose: 1 each Documented by: Ondansetron HCl (Zofran) 4 mg IV Q4H PRN PRN Reason: Nausea/Vomiting Last Admin: 11/04/19 16:00 Dose: 4 mg Documented by: Paroxetine HCl (Paxil) 30 mg PO DAILY [facility] Last Admin: 11/10/19 08:42 Dose: 30 mg Documented by: Saccharomyces Boulardii (Florastor) 500 mg PO TID [facility] Last Admin: 11/10/19 20:17 Dose: 500 mg Documented by: Sodium Chloride (Saline Flush) 20 ml FLUSH ASDIRECTED [facility] Last Admin: 11/06/19 12:25 Dose: 20 ml Documented by: Discontinued Medications Albuterol/Ipratropium (Duoneb 3.0-0.5 Mg/3 Ml) 3 ml NEB Q4HRRT [facility] Last Admin: 10/30/19 21:20 Dose: 3 ml Documented by: Albuterol/Ipratropium (Duoneb 3.0-0.5 Mg/3 Ml) Confirm Administered Dose 3 ml .ROUTE .STK-MED ONE Stop: 10/30/19 12:21 Last Admin: 10/30/19 12:24 Dose: Not Given Documented by: Albuterol/Ipratropium (Duoneb 3.0-0.5 Mg/3 Ml) 3 ml NEB Q6HRRT [facility] Last Admin: 11/07/19 09:00 Dose: 3 ml Documented by: Benztropine Mesylate (Cogentin) 1 mg PO BID [facility] Last Admin: 11/03/19 09:20 Dose: 1 mg Documented by: Budesonide (Pulmicort) 0.5 mg NEB BIDRT [facility] Last Admin: 10/30/19 05:58 Dose: 0.5 mg Documented by: Budesonide (Pulmicort) 0.5 mg NEB BID@0600,1800 [facility] Last Admin: 11/02/19 07:08 Dose: Not Given Documented by: Ceftriaxone Sodium (Rocephin) Confirm Administered Dose 2 gm IV .STK-MED ONE Stop: 10/29/19 16:27 Last Admin: 10/29/19 19:17 Dose: Not Given Documented by: Furosemide (Lasix) 20 mg IVPUSH ONETIME ONE Stop: 10/30/19 10:37 Last Admin: 10/30/19 10:53 Dose: 20 mg Documented by: Furosemide (Lasix) 20 mg IVPUSH NOW ONE Stop: 10/30/19 12:10 Last Admin: 10/30/19 12:20 Dose: 20 mg Documented by: Furosemide (Lasix) 20 mg IVPUSH NOW ONE Stop: 11/01/19 12:45 Last Admin: 11/01/19 13:11 Dose: 20 mg Documented by: Furosemide (Lasix) 20 mg IVPUSH BIDDIURETIC [facility] Last Admin: 11/01/19 21:04 Dose: 20 mg Documented by: Furosemide (Lasix) 20 mg IVPUSH BID [facility] Last Admin: 11/05/19 10:13 Dose: 20 mg Documented by: Furosemide (Lasix) 20 mg IVPUSH ONETIME ONE Stop: 11/03/19 15:01 Last Admin: 11/03/19 15:28 Dose: 20 mg Documented by: Furosemide (Lasix) 20 mg IVPUSH 0600,1400 [facility] Last Admin: 11/07/19 06:40 Dose: 20 mg Documented by: Gadobenate Dimeglumine (Multihance) 20 ml IVPUSH ONETIME ONE Stop: 11/06/19 12:18 Last Admin: 11/06/19 12:25 Dose: 20 ml Documented by: Glycopyrrolate (Seebri Neohaler) 15.6 mcg IH BID [facility] Last Admin: 10/30/19 09:12 Dose: Not Given Documented by: Hydroxyzine HCl (Atarax) 25 mg PO BID [facility] Last Admin: 11/03/19 09:20 Dose: 25 mg Documented by: Sodium Chloride (Normal Saline) 1,000 mls @ 999 mls/hr IV ONETIME [facility] Last Admin: 10/29/19 14:01 Dose: 999 mls/hr Documented by: Ceftriaxone Sodium 2 gm/ (Sodium Chloride) 100 mls @ 200 mls/hr IV ONETIME ONE Stop: 10/29/19 15:13 Last Admin: 10/29/19 16:31 Dose: 200 mls/hr Documented by: Lactated Ringer's (Ringers, Lactated) 1,000 mls @ 999 mls/hr IV .BOLUS ONE Stop: 10/29/19 15:51 Last Admin: 10/29/19 15:09 Dose: 999 mls/hr Documented by: Lactated Ringer's (Ringers, Lactated) 1,000 mls @ 999 mls/hr IV .BOLUS ONE Stop: 10/29/19 17:38 Last Admin: 10/29/19 17:05 Dose: 999 mls/hr Documented by: Lactated Ringer's (Ringers, Lactated) 1,000 mls @ 999 mls/hr IV .BOLUS ONE Stop: 10/29/19 17:42 Last Admin: 10/29/19 17:33 Dose: Not Given Documented by: Sodium Chloride (Normal Saline) Confirm Administered Dose 100 mls @ as directed .ROUTE .STK-MED ONE Stop: 10/29/19 16:27 Last Admin: 10/29/19 19:17 Dose: Not Given Documented by: Lactated Ringer's (Ringers, Lactated) Confirm Administered Dose 1,000 mls @ as directed .ROUTE .[facility] ONE Stop: 10/29/19 16:27 Last Admin: 10/29/19 19:17 Dose: Not Given Documented by: Sodium Chloride (Normal Saline) 1,000 mls @ 150 mls/hr IV ASDIRECTED [facility] Last Admin: 10/30/19 02:47 Dose: 150 mls/hr Documented by: Azithromycin 500 mg/ Sodium (Chloride) 250 mls @ 250 mls/hr IV Q24H [facility] Stop: 11/01/19 20:01 Last Admin: 10/29/19 20:18 Dose: 250 mls/hr Documented by: Ceftriaxone Sodium 2 gm/ (Sodium Chloride) 100 mls @ 200 mls/hr IV Q24H [facility] Last Admin: 10/30/19 15:25 Dose: 200 mls/hr Documented by: Azithromycin 500 mg/ Sodium (Chloride) 250 mls @ 250 mls/hr IV Q24H [facility] Stop: 10/31/19 20:59 Sodium Chloride (Normal Saline) 1,000 mls @ 75 mls/hr IV ASDIRECTED [facility] Cefepime HCl 2 gm/ Premix 50 mls @ 100 mls/hr IV Q24H [facility] Last Admin: 10/30/19 20:13 Dose: 100 mls/hr Documented by: Levofloxacin/Dextrose 750 mg/ (Premix) 150 mls @ 100 mls/hr IV Q48H [facility] Last Admin: 10/30/19 20:45 Dose: 100 mls/hr Documented by: Dextrose/Sodium Chloride (Dextrose 5%-1/2 Ns) 1,000 mls @ 100 mls/hr IV ASDIRECTED [facility] Last Admin: 11/02/19 02:30 Dose: 100 mls/hr Documented by: Vancomycin HCl 1.5 gm/ Sodium (Chloride) 500 mls @ 250 mls/hr IV ONETIME ONE Stop: 10/30/19 21:44 Last Admin: 10/30/19 22:28 Dose: 250 mls/hr Documented by: Sodium Chloride (Normal Saline) 500 mls @ 500 mls/hr IV BOLUS ONE Stop: 10/30/19 22:09 Last Admin: 10/30/19 21:36 Dose: 500 mls/hr Documented by: Vancomycin HCl 1 gm/ Sodium (Chloride) 250 mls @ 250 mls/hr IV Q12H [facility] Vancomycin HCl 1 gm/Vancomycin HCl 250 mg/ Sodium Chloride 250 mls @ 166.667 mls/hr IV Q12H [facility] Last Admin: 11/01/19 12:17 Dose: Not Given Documented by: Levofloxacin/Dextrose 750 mg/ (Premix) 150 mls @ 100 mls/hr IV Q24H [facility] Stop: 11/04/19 21:29 Last Admin: 11/03/19 20:18 Dose: 100 mls/hr Documented by: Piperacillin Sod/Tazobactam (Sod 4.5 gm/ Sodium Chloride) 100 mls @ 200 mls/hr IV ONETIME ONE Stop: 10/31/19 11:59 Last Admin: 10/31/19 11:39 Dose: 200 mls/hr Documented by: Piperacillin Sod/Tazobactam (Sod 4.5 gm/ Sodium Chloride) 100 mls @ 25 mls/hr IV Q8H [facility] Last Admin: 11/03/19 13:30 Dose: 25 mls/hr Documented by: Sodium Chloride (Normal Saline) 100 mls @ 75 mls/hr IV ASDIRECTED [facility] Stop: 10/31/19 13:00 Last Admin: 10/31/19 11:29 Dose: 75 mls/hr Documented by: Potassium Phosphate 30 mmole/ (Sodium Chloride) 510 mls @ 102 mls/hr IV ONETIME ONE Stop: 11/01/19 15:29 Last Admin: 11/01/19 10:58 Dose: 102 mls/hr Documented by: Vancomycin HCl 1 gm/Vancomycin HCl 250 mg/ Sodium Chloride 250 mls @ 166.667 mls/hr IV Q8H [facility] Last Admin: 11/05/19 19:27 Dose: Not Given Documented by: Potassium Chloride 10 meq/ (Premix) 100 mls @ 100 mls/hr IV Q1H [facility] Stop: 11/02/19 12:59 Last Admin: 11/02/19 13:26 Dose: 100 mls/hr Documented by: Potassium Phosphate 30 mmole/ (Sodium Chloride) 510 mls @ 102 mls/hr IV ONETIME ONE Stop: 11/02/19 17:59 Last Admin: 11/02/19 13:27 Dose: 102 mls/hr Documented by: Albumin Human (Flexbumin 25%) 25 gm in 100 mls @ 100 mls/hr IV Q1H [facility] Stop: 11/03/19 19:29 Last Admin: 11/03/19 20:02 Dose: Not Given Documented by: Albumin Human (Flexbumin 25%) 12.5 gm in 50 mls @ 50 mls/hr IV ONETIME ONE Stop: 11/04/19 01:59 Last Admin: 11/04/19 00:01 Dose: 50 mls/hr Documented by: Albumin Human (Flexbumin 25%) 25 gm in 100 mls @ 100 mls/hr IV Q1H [facility] Stop: 11/03/19 21:59 Last Admin: 11/03/19 23:20 Dose: 100 mls/hr Documented by: Piperacillin Sod/Tazobactam (Sod 4.5 gm/ Sodium Chloride) 100 mls @ 25 mls/hr IV Q8H [facility] Stop: 11/06/19 11:30 Last Admin: 11/06/19 06:46 Dose: 25 mls/hr Documented by: Potassium Chloride 10 meq/ (Premix) 100 mls @ 100 mls/hr IV Q1H [facility] Stop: 11/04/19 20:29 Last Admin: 11/04/19 20:16 Dose: Not Given Documented by: Potassium Chloride 10 meq/ (Premix) 100 mls @ 100 mls/hr IV Q1H [facility] Stop: 11/05/19 02:59 Last Admin: 11/05/19 02:25 Dose: 100 mls/hr Documented by: Potassium Chloride 10 meq/ (Premix) 100 mls @ 100 mls/hr IV Q1H [facility] Stop: 11/05/19 01:59 Last Admin: 11/05/19 03:10 Dose: Not Given Documented by: Vancomycin HCl 1 gm/Vancomycin HCl 500 mg/ Sodium Chloride 500 mls @ 250 mls/hr IV Q12H [facility] Stop: 11/06/19 05:59 Last Admin: 11/06/19 04:36 Dose: 250 mls/hr Documented by: Potassium Chloride 10 meq/ (Premix) 100 mls @ 100 mls/hr IV Q1H [facility] Stop: 11/07/19 12:29 Last Admin: 11/07/19 09:48 Dose: Not Given Documented by: Sodium Chloride (Normal Saline) 1,000 mls @ 50 mls/hr IV ASDIRECTED [facility] Last Admin: 11/07/19 09:17 Dose: 50 mls/hr Documented by: Potassium Chloride 10 meq/ (Premix) 100 mls @ 100 mls/hr IV Q1H [facility] Stop: 11/07/19 13:59 Last Admin: 11/07/19 14:03 Dose: 100 mls/hr Documented by: Insulin Human Lispro (Humalog) 0 unit SUBCUT QIDACANDBED [facility]; Protocol Last Admin: 10/31/19 12:44 Dose: Not Given Documented by: Insulin Human Lispro (Humalog) 0 unit SUBCUT Q6HR [facility]; Protocol Last Admin: 11/02/19 18:34 Dose: Not Given Documented by: Iopamidol (Isovue-300 (61%)) 50 ml IVPUSH ONETIME ONE Stop: 10/30/19 07:53 Last Admin: 10/30/19 08:36 Dose: 50 ml Documented by: Iopamidol (Isovue-300 (61%)) 100 ml IVPUSH ONETIME ONE Stop: 10/30/19 07:53 Last Admin: 10/30/19 08:37 Dose: 100 ml Documented by: Iopamidol (Isovue-370 (76%)) 100 ml IVPUSH ONETIME ONE Stop: 10/31/19 11:21 Last Admin: 10/31/19 11:28 Dose: 100 ml Documented by: Lorazepam (Ativan) 1 mg IVPUSH Q15M PRN PRN Reason: Other Last Admin: 10/30/19 08:47 Dose: 1 mg Documented by: Lorazepam (Ativan) Confirm Administered Dose 2 mg .ROUTE .STK-MED ONE Stop: 10/30/19 08:15 Last Admin: 10/30/19 08:47 Dose: Not Given Documented by: Lorazepam (Ativan) 1 mg IVPUSH ONETIME ONE Stop: 10/30/19 11:52 Last Admin: 10/30/19 11:58 Dose: 1 mg Documented by: Lurasidone Hcl [ (Latuda] 80 Mg) 0 each PO BEDTIME [facility] Last Admin: 11/06/19 20:47 Dose: Not Given Documented by: Atorvastatin 20 Mg 0 each PO DAILY [facility] Potassium Chloride (Klor-Con M20) 40 meq PO ONETIME ONE Stop: 11/02/19 17:01 Last Admin: 11/02/19 18:25 Dose: 40 meq Documented by: Potassium Chloride (Klor-Con M20) 40 meq PO BID [facility] Stop: 11/03/19 21:01 Last Admin: 11/03/19 20:29 Dose: 40 meq Documented by: Potassium Chloride (Klor-Con M20) 40 meq PO ONETIME ONE Stop: 11/07/19 08:31 Last Admin: 11/07/19 09:20 Dose: 40 meq Documented by: Risperidone (Risperidal) 2 mg PO DAILY [facility] Last Admin: 11/03/19 09:19 Dose: 2 mg Documented by: Sodium Chloride (Saline Flush) 10 ml FLUSH ASDIRECTED PRN PRN Reason: Keep Vein Open Last Admin: 10/30/19 20:09 Dose: 10 ml Documented by: Sodium Chloride (Saline Flush) 10 ml FLUSH ONETIME PRN PRN Reason: IV FLUSH Last Admin: 10/30/19 08:37 Dose: 10 ml Documented by: Sodium Chloride (Saline Flush) 10 ml FLUSH ONETIME PRN PRN Reason: IV FLUSH Stop: 10/31/19 13:00 Last Admin: 10/31/19 11:29 Dose: 10 ml Documented by: Vancomycin HCl (Pharmacy To Dose - Vancomycin) 1 dose .XX ASDIRECTED PRN PRN Reason: RX TO DOSE VANCO - Exam Quality Assessment: DVT Prophylaxis. No: Supplemental Oxygen General: Alert, Oriented, Cooperative, No Acute Distress HEENT: Pupils Equal, Pupils Reactive, Mucous Membr. Moist/[place] Neck: Supple, Trachea Midline Lungs: Clear to Auscultation, Normal Respiratory Effort Cardiovascular: Regular Rate, Regular Rhythm GI/Abdominal Exam: Normal Bowel Sounds, Soft, Non-Tender, No Distention (Female) Exam: Deferred Back Exam: Normal Inspection, Full Range of Motion Extremities: Normal Inspection, Normal Range of Motion, No Pedal Edema, Normal Capillary Refill Skin: Warm, Dry, Intact, Other (Scattered skin wounds. Blistering on dorsal aspects of hands. Apparent bite ihsan on left chest. ) Wound/Incisions: Healing Well Neurological: No New Focal Deficit Psy/Mental Status: Alert Sepsis Event Note - Evaluation Sepsis Screening Result: No Definite Risk - Focused Exam Vital Signs: Vital Signs Temp Pulse Resp BP Pulse Ox Pulse Ox 11/11/19 05:39 90 L 11/11/19 03:38 98.1 F 85 20 137/82 92 L 11/11/19 00:15 98.2 F 90 20 137/66 92 L 11/10/19 21:17 92 L - Problem List & Annotations (1) Abdominal pain SNOMED Code(s): 73002088 Code(s): R10.9 - UNSPECIFIED ABDOMINAL PAIN Status: Resolved Priority: High Current Visit: Yes Qualifiers: Abdominal location: unspecified location Qualified Code(s): R10.9 - Unspecified abdominal pain (2) Benign microscopic hematuria SNOMED Code(s): 767867501329929 Code(s): R31.1 - BENIGN ESSENTIAL MICROSCOPIC HEMATURIA Status: Resolved Priority: Medium Current Visit: Yes (3) COPD (chronic obstructive pulmonary disease) SNOMED Code(s): 93150291 Code(s): J44.9 - CHRONIC OBSTRUCTIVE PULMONARY DISEASE, UNSPECIFIED Status: Chronic Priority: Medium Current Visit: Yes Qualifiers: COPD type: unspecified COPD Qualified Code(s): J44.9 - Chronic obstructive pulmonary disease, unspecified (4) Pneumonia SNOMED Code(s): 644400226 Code(s): J18.9 - PNEUMONIA, UNSPECIFIED ORGANISM Status: Resolved Prior ity: High Current Visit: Yes Qualifiers: Pneumonia type: due to unspecified organism Laterality: unspecified laterality Lung location: unspecified part of lung Qualified Code(s): J18.9 - Pneumonia, unspecified organism (5) Positive result for methicillin resistant Staphylococcus aureus (MRSA) screening SNOMED Code(s): 845253275 Code(s): Z22.322 - CARRIER OR SUSPECTED CARRIER OF METHICILLIN RESIS STAPH Status: Acute Priority: Medium Current Visit: Yes (6) Schizophrenia SNOMED Code(s): 88962021 Code(s): F20.9 - SCHIZOPHRENIA, UNSPECIFIED Status: Chronic Priority: High Current Visit: Yes Qualifiers: Schizophrenia type: unspecified Qualified Code(s): F20.9 - Schizophrenia, unspecified (7) Sepsis SNOMED Code(s): 68905997 Code(s): A41.9 - SEPSIS, UNSPECIFIED ORGANISM Status: Resolved Priority: High Current Visit: Yes Qualifiers: Sepsis type: sepsis due to unspecified organism Sepsis acute organ dysfunction status: unspecified Qualified Code(s): A41.9 - Sepsis, unspecified organism (8) Septic shock SNOMED Code(s): 95087123 Code(s): A41.9 - SEPSIS, UNSPECIFIED ORGANISM; R65.21 - SEVERE SEPSIS WITH SEPTIC SHOCK Status: Resolved Priority: High Current Visit: Yes (9) Streptococcal pneumonia SNOMED Code(s): 60240125 Code(s): J15.4 - PNEUMONIA DUE TO OTHER STREPTOCOCCI Status: Resolved Priority: High Current Visit: Yes (10) Colitis SNOMED Code(s): 27794386 Code(s): K52.9 - NONINFECTIVE GASTROENTERITIS AND COLITIS, UNSPECIFIED Status: Resolved Priority: High Current Visit: Yes (11) Hypokalemia SNOMED Code(s): 67362974 Code(s): E87.6 - HYPOKALEMIA Status: Resolved Priority: High Current Visit: Yes (12) Transaminitis SNOMED Code(s): 426555136, 520382948 Code(s): R74.0 - NONSPEC ELEV OF LEVELS OF TRANSAMNS & LACTIC ACID DEHYDRGNSE Status: Resolved Priority: High Current Visit: Yes (13) Hypoalbuminemia SNOMED Code(s): 763872262 Code(s): E88.09 - OTH DISORDERS OF PLASMA-PROTEIN METABOLISM, NEC Status: Acute Priority: Medium Current Visit: Yes (14) HTN (hypertension) SNOMED Code(s): 03052149 Code(s): I10 - ESSENTIAL (PRIMARY) HYPERTENSION Status: Chronic Priority: Medium Current Visit: No Qualifiers: Hypertension type: unspecified Qualified Code(s): I10 - Essential (primary) hypertension (15) HLD (hyperlipidemia) SNOMED Code(s): 63293949 Code(s): E78.5 - HYPERLIPIDEMIA, UNSPECIFIED Status: Chronic Priority: Low Current Visit: No Qualifiers: Hyperlipidemia type: unspecified Qualified Code(s): E78.5 - Hyperlipidemia, unspecified (16) Altered mental status SNOMED Code(s): 214744537 Code(s): R41.82 - ALTERED MENTAL STATUS, UNSPECIFIED Status: Resolved Priority: High Current Visit: Yes Qualifiers: Altered mental status type: unspecified Qualified Code(s): R41.82 - Altered mental status, unspecified (17) GERD (gastroesophageal reflux disease) SNOMED Code(s): 192819042 Code(s): K21.9 - GASTRO-ESOPHAGEAL REFLUX DISEASE WITHOUT ESOPHAGITIS Status: Acute Priority: High Current Visit: Yes Qualifiers: Esophagitis presence: esophagitis presence not specified Qualified Code(s): K21.9 - Gastro-esophageal reflux disease without esophagitis - Problem List Review Problem List Initiated/Reviewed/Updated: Yes - My Orders Last 24 Hours: My Active Orders 11/10/19 14:00 Up to Chair [RC] ASDIRECTED - Assessment Assessment:: 10/29/2019 Patient found on floor in the bathroom after possibly having a seizure. Hypotensive, tachycardic, tachypneic and hypoxic on arrival to emergency department. Patient received 3 L IV bolus in emergency department. Initial lactic acid 4.0 increasing to 5.3 after fluid bolus. Initial WBC 22,000, 76% neutrophils, no bandemia, C-reactive protein 1.6 Altered mental status, patient is very lethargic. Patient is in critical condition and currently has a poor outcome predicted. High risk of mortality. Patient's initial complaint when calling EMS was abdominal pain and constipation. Patient does exhibit tenderness to palpation throughout the abdomen. Bowel sounds difficult to appreciate secondary to upper airway noise. 10/30/2019 Patient is not improved with the large amount of IV fluids. She has actually had worsening respiratory status requiring IV Lasix. Respiratory rate has had some improvement with vigorous pulmonary toilet, bronchodilation, and diuretics. Unfortunately, this is likely going to cause some intravascular hypovolemia. Lactic acid did drop to 2.0 this morning with the IV fluids. This afternoon renal function did worsen with a creatinine of 1.6. WBC worsened and has been stable today at 23,000. Still no bands or toxic granulations. Neutrophils 90%, absolute neutrophils 21,000. Confirmed CODE STATUS with sister. She states that Rosita has several mental health issues and she likely did not understand the catastrophic results of not being intubated. CT abdomen and pelvis with contrast. Findings suspicious for colitis within portions of the descending and sigmoid colon. Fluid is seen within the pelvis and right abdomen most likely reactive from the colonic process. Increased stool within the rectosigmoid region. Nodularity with in the left adrenal gland most likely benign if patient has no primary carcinoma. CT of the of the head: No acute findings 10/31/2019 Rosita is making some improvement today. Respiratory rate has decreased and her tachycardia has decreased. Antibiotics were switched to Zosyn to cover both strep pneumoniae and colitis. MRSA screen was positive. Patient continues on vancomycin. D-dimer was elevated at 1.[address] angio was done of the chest CT angio chest: 1. No findings of pulmonary embolism. 2. Aorta shows atherosclerotic changes with no dissection or aneurysm. No discrete ulcerating plaque is seen. 3. Increased density within the right lung base which may represent pneumonia or prominent atelectasis. 4. Other findings as noted. Not believed to be acute. ABGs normal pH, PCO2, bicarb with a slightly low PO2. These are surprisingly good considering her respiratory rate. Repeat lactic acid was 1.6. White count continues to be significantly elevated at 23,000. CRP 35.8. Patient has significant hypoalbuminemia with albumin of 1.9 Hypokalemiapotassium 3.4 Hemoglobin A1c is 6.1 11/01/2019 Decrease in respiratory rate and tachycardia. Patient weaned off of BiPAP and now on nasal cannula. On Zosyn, Levaquin, and vancomycin. Slowly improving mentation. WBC 18.9, CRP 34.2, procalcitonin from yesterday 10/31 2011.07, phosphorus 1.8, potassium 3.2, estimated GFR 57, albumin 1.6 11/02/2019 Significant improvement today. More awake, alert, and talking. Afebrile, map greater than 65, on 2 L nasal cannula to keep SPO2 in the mid 90s WBC 17.7, C-reactive protein 22.1. Estimated GFR greater than 60. Hypokalemia. Potassium 2.8. Hypophosphatemia. Phosphorus 1.7. Hypoalbuminemia. Albumin down to 1.4. She did eat some today. Zosyn, Levaquin, and vancomycin. 11/03/2019 Patient is off BiPAP and on 2 to 3 L nasal cannula to keep her SPO2 in the mid 90s. Significant improvement in her respiratory status and pneumonia. She continues to have some congestion likely from pulmonary congestion. White count 14, CRP 8.8 On Zosyn, Levaquin, and vancomycin Patient is a pack to 2 per day smoker. She does have a nicotine patch. Positive streptococcal pneumonia urine antigen Slow but progressive improvement in her mentation. She appears to be having some clearing although she is still very lethargic. Unable to do LP secondary to her not being cooperative or awake enough to be able to perform the procedure. Unlikely that this is secondary to infectious process. Patient has had a significant decrease in her abdominal pain. She is now having multiple loose and watery diarrhea. Bowel movements have decreased over the afternoon. Patient had significant stool on CT scan on admission. Patient has dark orange, tea colored urine and what appears to be vaginal bleeding. On exam she has blood coming from the urethra around the Noguera catheter. Patient states that she has had hematuria in the past and it has been worked up. She does have a history of hematuria. Enoxaparin may be worsening the hematuria. At this time we will continue on enoxaparin because her risk of clot is greater than her risk of a significant bleed. Potassium 3.2 Bilirubin 1.2, AST 69, ALT 57, alkaline phosphatase 150 Albumin 1.7 On Latuda, Risperdal, Paxil Only receiving risperidone, and Paxil in the hospital There is no substitute for her Latuda These medications may be contributing to her mental status changes. Amlodipine and enalapril on hold Atorvastatin is nonformulary 11/04/2019 Episode of vomiting and possible aspiration. Chest x-ray showed no change. No change in 2 to 3 L nasal cannula to keep her SPO2 in the mid 90s. Significant improvement in her respiratory status and pneumonia. She continues to have some congestion likely from pulmonary congestion. WBC decreased to 12.8 by afternoon but had stopped few toxic granulations. Procalcitonin down to 2 on yesterday's blood draw. On Zosyn and vancomycin Last day of Levaquin, day 5 Patient is a pack to 2 per day smoker. She does have a nicotine patch. Positive streptococcal pneumonia urine antigen Unable to do LP secondary to her not being cooperative or awake enough to be able to perform the procedure. MRI of the brain today showed no acute findings. Abdominal pain resolved Multiple episodes of vomiting early this morning and 1 this afternoon. Noguera catheter removed today. She did require straight catheter. Elevated LFTs resolved Albumin 2.2 after receiving albumin yesterday Yesterday stopped Risperdal There is no substitute for her Latuda, therefore not on second-generation antipsychotic 11/05/2019 Only one episode of emesis early today Requiring 3L o2 to maintain saturations in mid 90's WBC decreased to 12.68 Repeat procalcitonin today Last day of Zosyn and vancomycin today Improved mentation but will fall asleep while talking with staff. MRI of the brain on 11/04/19 showed no acute findings. Improvement in mental status since stopping Risperdal, but likely coincidental. She is likely having improvement in her mental status secondary to improvement in her condition. Albumin 2.0 from 2.2 yesterday today Received albumin on 11/03/19 There is no substitute for her Latuda, therefore not on second-generation antipsychotic Vital signs trend: Tmax 98.1, HR 87-91, BP 130-138/64-81, RR 16-21, Oxygen saturations 94-95% on 3L Last BM today 11/06/2019 She continues to have some congestion likely from pulmonary congestion. WBC 15.89 today Repeat procalcitonin pending Last day of Zosyn and vancomycin today Patient is a pack to 2 per day smoker. She does have a nicotine patch. MRI with contrast ordered today Vital signs trend: Tmax 98.2, HR 79-88, BP 138-117/78-60, RR 16-21, Oxygen saturations 94-96% on 3L Last BM today 11/07/2019 Improving breath sounds Vital signs trend: Tmax 97.5, HR 72-80, BP 138-123/81-74, RR 20, Oxygen saturations 94-96% on 3L She was up ambulating with therapies today. Much more alert again today. Last BM: 11/06/19 11/08/2019 Feels better and has no complaints Vital signs trend Blood pressure: 128-145/70-97 T-max 97.7 Heart rate: 72-92 Pulse ox >92% on 3 L/min New lab results WBC down from 15.37-12.71 No more toxic granulation Potassium up from 3.1-3.3 PLAN Continue Paxil Cognitive evaluation as an outpatient Aspiration precautions and HOB elevation Nicotine patch Continue incentive spirometer and Acapella Pulse ox goal greater than 92% PRN Hydralazine Start lisinopril 11/09/2019 Feels better has no complaints Vital signs trend Blood pressure: 141-156/58-85 T-max 98.8 Heart rate: 70-85 Pulse ox >95% on 3 L/min New lab results WBC down from 12.71-10.22 Platelets up from 329-410 Potassium up from 3.3-3.5 GFR minimal decrease from greater than 60-57 Procalcitonin 0.99 (11/05) down to 0.54 (11/07) PLAN Continue Paxil Cognitive evaluation as an outpatient Aspiration precautions and HOB elevation Nicotine patch Continue incentive spirometer and Acapella Pulse ox goal greater than 92% PRN Hydralazine Start lisinopril Dietary follow-up Contact precautions 11/10/2019 Continues to improve Disposition pending PT/OT recommendations Vital signs trend: Tmax 98.2, HR 79-85, BP 155-125/88-69, RR 14-20, Oxygen saturations 91-92% on room air No labs obtained today Walked a few steps today with PT without a walker Last BM 11/09/19 PLAN Continue Paxil Cognitive evaluation as an outpatient Aspiration precautions and HOB elevation Nicotine patch Continue incentive spirometer and Acapella Pulse ox goal greater than 92% PRN Hydralazine Start lisinopril Dietary follow-up Contact precautions 11/11/2019 Continues to improve clinically PT/OT recommending SNF placement VSS No labs obtained today Wheezing on physical exam - RT to give nebulizer Ambulating short distances in room. Last BM: 11/11/19 [employer] evaluation today revealed severe cognitive deficit Remains off of oxygen Remains medically stable for discharge pending placement. - Plan Plan:: Altered mental status, stable Schizophrenia Continue Paxil Cognitive evaluation as an outpatient Aspiration precautions and HOB elevation COPD (chronic obstructive pulmonary disease) Current smoker Nicotine patch Continue incentive spirometer and Acapella Pulse ox goal greater than 92% HTN (hypertension) PRN Hydralazine Start lisinopril Hypoalbuminemia Dietary follow-up Positive MRSA screen Contact precautions GERD -TID famotidine Sepsis, resolved Septic shock, resolved Streptococcal pneumonia, resolved Hypokalemia, resolved Benign microscopic hematuria, resolved Transaminitis, resolved Abdominal pain, resolved PROPHYLAXIS DVTLovenox twice daily GIfamotidine TID CODE STATUS: Full code DISPOSITION: Has been ambulating in room with walker. PT/OT recommending SNF with PT/OT. SW working on placement. Will continue to rehab and adjust disposition if patient improves.
[2019-11-11] MEDS: PARoxetine 20 MG Tab PO SCH (08:52)
[2019-11-11] MEDS: Aspirin 81 MG Tab.Chew PO SCH (08:53)
[2019-11-11] MEDS: Enoxaparin 40 MG/0.4 ML Syringe SUBCUT SCH ×2 (08:53→20:52)
[2019-11-11] MEDS: Saccharomyces Boulardii (Probiotic) 250 MG Cap PO SCH ×3 (08:53→20:53)
[2019-11-11] MEDS: Budesonide 0.5 MG/2 ML Neb Susp NEB SCH ×2 (09:23→21:05)
[2019-11-11] MEDS: Glycopyrrolate 15.6 MCG Cap.W.Dev Kit of 6 IH SCH ×2 (09:23→21:05)
[2019-11-11] MEDS: Nicotine 21 MG/24 Hr Patch TRDERM SCH (11:29)
[2019-11-11] MEDS: Albuterol/Ipratropium 3.0-0.5 MG/3 ML Neb Soln NEB PRN (14:37)
[2019-11-11] MEDS: Lurasidone Hcl [Latuda] 80 MG PO SCH (20:52)
[2019-11-11] MEDS: Melatonin 3 MG Tab PO SCH (20:53)
[2019-11-11] MEDS: Lisinopril 10 MG Tab PO SCH (20:54)
[2019-11-12] MEDS: Albuterol/Ipratropium 3.0-0.5 MG/3 ML Neb Soln NEB SCH (06:04)
[2019-11-12] MEDS: Famotidine 10 MG Tab PO SCH ×4 (06:38→20:19)
[2019-11-12] MEDS: Furosemide 40 MG Tab PO SCH ×3 (06:39→20:03)
--- NOTE | 2019-11-12 07:32 | PCM.PN ---
- General Info Date of Service: 11/12/19 Admission Dx/Problem (Free Text): Admission Diagnosis/Problem Admission Diagnosis/Problem Pneumonia Functional Status: Reports: Pain Controlled, Tolerating Diet, Ambulating, Urinating, Incentive Spirometry, Other (Acapella ). Denies: New Symptoms - Review of Systems General: Reports: Weakness (improving ). Denies: Fever, Fatigue, Malaise, Chills HEENT: Reports: No Symptoms. Denies: Headaches, Sore Throat Pulmonary: Reports: No Symptoms. Denies: Shortness of Breath, Pleuritic Chest Pain, Cough, Sputum, Wheezing Cardiovascular: Reports: No Symptoms. Denies: Chest Pain, Palpitations, Dyspnea on Exertion, Edema Gastrointestinal: Reports: No Symptoms. Denies: Abdominal Pain, Constipation, Diarrhea, Nausea, Vomiting Genitourinary: Reports: No Symptoms. Denies: Pain Musculoskeletal: Reports: No Symptoms Skin: Reports: No Symptoms. Denies: Cyanosis Neurological: Reports: Weakness. Denies: Confusion Psychiatric: Reports: No Symptoms - Patient Data Vitals - Most Recent: Last Vital Signs Temp 97.5 F 11/12/19 02:39 Pulse 93 11/12/19 02:39 Resp 18 11/12/19 02:39 BP 137/61 11/12/19 02:39 Pulse Ox 91 L 11/12/19 06:04 Weight - Most Recent: 238 lb 11.2 oz I&O - Last 24 Hours: Intake & Output 11/11/19 11/12/19 11/12/19 22:59 06:59 14:59 Intake Total 940 800 Output Total 1400 Balance 940 -600 Lab Results Last 24 Hours: Laboratory Results - last 24 hr 11/12/19 Range/Units 05:45 Sodium 139 (136-145) mEq/L Potassium 2.8 L (3.5-5.1) mEq/L Chloride 99 (98-107) mEq/L Carbon Dioxide 31 (21-32) mEq/L Anion Gap 11.8 (5-15) BUN 14 (7-18) mg/dL Creatinine 0.9 (0.55-1.02) mg/dL Est Cr Clr Drug Dosing 60.56 mL/min Estimated GFR (MDRD) > 60 (>60) mL/min BUN/Creatinine Ratio 15.6 (14-18) Glucose 110 H (74-106) mg/dL Calcium 8.9 (8.5-10.1) mg/dL Magnesium 1.7 L (1.8-2.4) mg/dl Med Orders - Current: Current Medications Acetaminophen (Tylenol) 650 mg PO Q4H PRN PRN Reason: Pain (Mild 1-3)/fever Al Hydroxide/Mg Hydroxide (Mag-Al Plus) 30 ml PO Q4H PRN PRN Reason: Heartburn Last Admin: 11/05/19 10:13 Dose: 30 ml Documented by: Albuterol (Proventil Neb Soln) 2.5 mg NEB Q2H PRN PRN Reason: Shortness Of Breath/wheezing Albuterol (Proventil Hfa) 0 gm INH Q4H PRN PRN Reason: Shortness of Breath Albuterol/Ipratropium (Duoneb 3.0-0.5 Mg/3 Ml) 3 ml NEB Q4H PRN PRN Reason: Shortness Of Breath/wheezing Last Admin: 11/11/19 14:37 Dose: 3 ml Documented by: Albuterol/Ipratropium (Duoneb 3.0-0.5 Mg/3 Ml) 3 ml NEB BIDRT [facility] Last Admin: 11/12/19 06:04 Dose: 3 ml Documented by: Aspirin (Aspirin) 81 mg PO DAILY [facility] Last Admin: 11/11/19 08:53 Dose: 81 mg Documented by: Budesonide (Pulmicort) 0.5 mg NEB BID [facility] Last Admin: 11/11/19 21:05 Dose: 0.5 mg Documented by: Dextrose/Water (Dextrose 50% In Water) 50 ml IVPUSH ASDIRECTED PRN PRN Reason: Hypoglycemia Enoxaparin Sodium (Lovenox) 40 mg SUBCUT Q12H [facility] Last Admin: 11/11/19 20:52 Dose: 40 mg Documented by: Famotidine (Pepcid) 10 mg PO TIDAC [facility] Last Admin: 11/12/19 06:38 Dose: 10 mg Documented by: Furosemide (Lasix) 40 mg PO BIDDIURETIC [facility] Last Admin: 11/12/19 06:39 Dose: 40 mg Documented by: Glycopyrrolate (Seebri Neohaler) 15.6 mcg IH BID@1000,2200 [facility] Last Admin: 11/11/19 21:05 Dose: 1 cap Documented by: Lisinopril (Prinivil) 10 mg PO BEDTIME [facility] Last Admin: 11/11/19 20:54 Dose: 10 mg Documented by: Lorazepam (Ativan) 1 mg IVPUSH Q2H PRN PRN Reason: Anxiety Last Admin: 11/03/19 02:01 Dose: 1 mg Documented by: Melatonin (Melatonin) 9 mg PO BEDTIME [facility] Last Admin: 11/11/19 20:53 Dose: 9 mg Documented by: Miscellaneous Information (Remove Patch) 1 ea TRDERM Q24H [facility] Last Admin: 11/11/19 11:30 Dose: 1 ea Documented by: Nicotine (Habitrol) 21 mg TRDERM Q24H [facility] Last Admin: 11/11/19 11:29 Dose: 21 mg Documented by: Lurasidone Hcl [ (Latuda] 80 Mg) 0 each PO BEDTIME [facility] Last Admin: 11/11/19 20:52 Dose: 1 each Documented by: Ondansetron HCl (Zofran) 4 mg IV Q4H PRN PRN Reason: Nausea/Vomiting Last Admin: 11/04/19 16:00 Dose: 4 mg Documented by: Paroxetine HCl (Paxil) 30 mg PO DAILY [facility] Last Admin: 11/11/19 08:52 Dose: 30 mg Documented by: Saccharomyces Boulardii (Florastor) 500 mg PO TID [facility] Last Admin: 11/11/19 20:53 Dose: 500 mg Documented by: Sodium Chloride (Saline Flush) 20 ml FLUSH ASDIRECTED [facility] Last Admin: 11/06/19 12:25 Dose: 20 ml Documented by: Discontinued Medications Albuterol/Ipratropium (Duoneb 3.0-0.5 Mg/3 Ml) 3 ml NEB Q4HRRT [facility] Last Admin: 10/30/19 21:20 Dose: 3 ml Documented by: Albuterol/Ipratropium (Duoneb 3.0-0.5 Mg/3 Ml) Confirm Administered Dose 3 ml .ROUTE .STK-MED ONE Stop: 10/30/19 12:21 Last Admin: 10/30/19 12:24 Dose: Not Given Documented by: Albuterol/Ipratropium (Duoneb 3.0-0.5 Mg/3 Ml) 3 ml NEB Q6HRRT [facility] Last Admin: 11/07/19 09:00 Dose: 3 ml Documented by: Benztropine Mesylate (Cogentin) 1 mg PO BID [facility] Last Admin: 11/03/19 09:20 Dose: 1 mg Documented by: Budesonide (Pulmicort) 0.5 mg NEB BIDRT [facility] Last Admin: 10/30/19 05:58 Dose: 0.5 mg Documented by: Budesonide (Pulmicort) 0.5 mg NEB BID@0600,1800 [facility] Last Admin: 11/02/19 07:08 Dose: Not Given Documented by: Ceftriaxone Sodium (Rocephin) Confirm Administered Dose 2 gm IV .STK-MED ONE Stop: 10/29/19 16:27 Last Admin: 10/29/19 19:17 Dose: Not Given Documented by: Furosemide (Lasix) 20 mg IVPUSH ONETIME ONE Stop: 10/30/19 10:37 Last Admin: 10/30/19 10:53 Dose: 20 mg Documented by: Furosemide (Lasix) 20 mg IVPUSH NOW ONE Stop: 10/30/19 12:10 Last Admin: 10/30/19 12:20 Dose: 20 mg Documented by: Furosemide (Lasix) 20 mg IVPUSH NOW ONE Stop: 11/01/19 12:45 Last Admin: 11/01/19 13:11 Dose: 20 mg Documented by: Furosemide (Lasix) 20 mg IVPUSH BIDDIURETIC [facility] Last Admin: 11/01/19 21:04 Dose: 20 mg Documented by: Furosemide (Lasix) 20 mg IVPUSH BID [facility] Last Admin: 11/05/19 10:13 Dose: 20 mg Documented by: Furosemide (Lasix) 20 mg IVPUSH ONETIME ONE Stop: 11/03/19 15:01 Last Admin: 11/03/19 15:28 Dose: 20 mg Documented by: Furosemide (Lasix) 20 mg IVPUSH 0600,1400 [facility] Last Admin: 11/07/19 06:40 Dose: 20 mg Documented by: Gadobenate Dimeglumine (Multihance) 20 ml IVPUSH ONETIME ONE Stop: 11/06/19 12:18 Last Admin: 11/06/19 12:25 Dose: 20 ml Documented by: Glycopyrrolate (Seebri Neohaler) 15.6 mcg IH BID [facility] Last Admin: 10/30/19 09:12 Dose: Not Given Documented by: Hydroxyzine HCl (Atarax) 25 mg PO BID [facility] Last Admin: 11/03/19 09:20 Dose: 25 mg Documented by: Sodium Chloride (Normal Saline) 1,000 mls @ 999 mls/hr IV ONETIME [facility] Last Admin: 10/29/19 14:01 Dose: 999 mls/hr Documented by: Ceftriaxone Sodium 2 gm/ (Sodium Chloride) 100 mls @ 200 mls/hr IV ONETIME ONE Stop: 10/29/19 15:13 Last Admin: 10/29/19 16:31 Dose: 200 mls/hr Documented by: Lactated Ringer's (Ringers, Lactated) 1,000 mls @ 999 mls/hr IV .BOLUS ONE Stop: 10/29/19 15:51 Last Admin: 10/29/19 15:09 Dose: 999 mls/hr Documented by: Lactated Ringer's (Ringers, Lactated) 1,000 mls @ 999 mls/hr IV .BOLUS ONE Stop: 10/29/19 17:38 Last Admin: 10/29/19 17:05 Dose: 999 mls/hr Documented by: Lactated Ringer's (Ringers, Lactated) 1,000 mls @ 999 mls/hr IV .BOLUS ONE Stop: 10/29/19 17:42 Last Admin: 10/29/19 17:33 Dose: Not Given Documented by: Sodium Chloride (Normal Saline) Confirm Administered Dose 100 mls @ as directed .ROUTE .STK-MED ONE Stop: 10/29/19 16:27 Last Admin: 10/29/19 19:17 Dose: Not Given Documented by: Lactated Ringer's (Ringers, Lactated) Confirm Administered Dose 1,000 mls @ as d irected .ROUTE .STK-MED ONE Stop: 10/29/19 16:27 Last Admin: 10/29/19 19:17 Dose: Not Given Documented by: Sodium Chloride (Normal Saline) 1,000 mls @ 150 mls/hr IV ASDIRECTED [facility] Last Admin: 10/30/19 02:47 Dose: 150 mls/hr Documented by: Azithromycin 500 mg/ Sodium (Chloride) 250 mls @ 250 mls/hr IV Q24H [facility] Stop: 11/01/19 20:01 Last Admin: 10/29/19 20:18 Dose: 250 mls/hr Documented by: Ceftriaxone Sodium 2 gm/ (Sodium Chloride) 100 mls @ 200 mls/hr IV Q24H [facility] Last Admin: 10/30/19 15:25 Dose: 200 mls/hr Documented by: Azithromycin 500 mg/ Sodium (Chloride) 250 mls @ 250 mls/hr IV Q24H [facility] Stop: 10/31/19 20:59 Sodium Chloride (Normal Saline) 1,000 mls @ 75 mls/hr IV ASDIRECTED [facility] Cefepime HCl 2 gm/ Premix 50 mls @ 100 mls/hr IV Q24H [facility] Last Admin: 10/30/19 20:13 Dose: 100 mls/hr Documented by: Levofloxacin/Dextrose 750 mg/ (Premix) 150 mls @ 100 mls/hr IV Q48H [facility] Last Admin: 10/30/19 20:45 Dose: 100 mls/hr Documented by: Dextrose/Sodium Chloride (Dextrose 5%-1/2 Ns) 1,000 mls @ 100 mls/hr IV ASDIRECTED [facility] Last Admin: 11/02/19 02:30 Dose: 100 mls/hr Documented by: Vancomycin HCl 1.5 gm/ Sodium (Chloride) 500 mls @ 250 mls/hr IV ONETIME ONE Stop: 10/30/19 21:44 Last Admin: 10/30/19 22:28 Dose: 250 mls/hr Documented by: Sodium Chloride (Normal Saline) 500 mls @ 500 mls/hr IV BOLUS ONE Stop: 10/30/19 22:09 Last Admin: 10/30/19 21:36 Dose: 500 mls/hr Documented by: Vancomycin HCl 1 gm/ Sodium (Chloride) 250 mls @ 250 mls/hr IV Q12H [facility] Vancomycin HCl 1 gm/Vancomycin HCl 250 mg/ Sodium Chloride 250 mls @ 166.667 mls/hr IV Q12H [facility] Last Admin: 11/01/19 12:17 Dose: Not Given Documented by: Levofloxacin/Dextrose 750 mg/ (Premix) 150 mls @ 100 mls/hr IV Q24H [facility] Stop: 11/04/19 21:29 Last Admin: 11/03/19 20:18 Dose: 100 mls/hr Documented by: Piperacillin Sod/Tazobactam (Sod 4.5 gm/ Sodium Chloride) 100 mls @ 200 mls/hr IV ONETIME ONE Stop: 10/31/19 11:59 Last Admin: 10/31/19 11:39 Dose: 200 mls/hr Documented by: Piperacillin Sod/Tazobactam (Sod 4.5 gm/ Sodium Chloride) 100 mls @ 25 mls/hr IV Q8H [facility] Last Admin: 11/03/19 13:30 Dose: 25 mls/hr Documented by: Sodium Chloride (Normal Saline) 100 mls @ 75 mls/hr IV ASDIRECTED [facility] Stop: 10/31/19 13:00 Last Admin: 10/31/19 11:29 Dose: 75 mls/hr Documented by: Potassium Phosphate 30 mmole/ (Sodium Chloride) 510 mls @ 102 mls/hr IV ONETIME ONE Stop: 11/01/19 15:29 Last Admin: 11/01/19 10:58 Dose: 102 mls/hr Documented by: Vancomycin HCl 1 gm/Vancomycin HCl 250 mg/ Sodium Chloride 250 mls @ 166.667 mls/hr IV Q8H [facility] Last Admin: 11/05/19 19:27 Dose: Not Given Documented by: Potassium Chloride 10 meq/ (Premix) 100 mls @ 100 mls/hr IV Q1H [facility] Stop: 11/02/19 12:59 Last Admin: 11/02/19 13:26 Dose: 100 mls/hr Documented by: Potassium Phosphate 30 mmole/ (Sodium Chloride) 510 mls @ 102 mls/hr IV ONETIME ONE Stop: 11/02/19 17:59 Last Admin: 11/02/19 13:27 Dose: 102 mls/hr Documented by: Albumin Human (Flexbumin 25%) 25 gm in 100 mls @ 100 mls/hr IV Q1H [facility] Stop: 11/03/19 19:29 Last Admin: 11/03/19 20:02 Dose: Not Given Documented by: Albumin Human (Flexbumin 25%) 12.5 gm in 50 mls @ 50 mls/hr IV ONETIME ONE Stop: 11/04/19 01:59 Last Admin: 11/04/19 00:01 Dose: 50 mls/hr Documented by: Albumin Human (Flexbumin 25%) 25 gm in 100 mls @ 100 mls/hr IV Q1H [facility] Stop: 11/03/19 21:59 Last Admin: 11/03/19 23:20 Dose: 100 mls/hr Documented by: Piperacillin Sod/Tazobactam (Sod 4.5 gm/ Sodium Chloride) 100 mls @ 25 mls/hr IV Q8H [facility] Stop: 11/06/19 11:30 Last Admin: 11/06/19 06:46 Dose: 25 mls/hr Documented by: Potassium Chloride 10 meq/ (Premix) 100 mls @ 100 mls/hr IV Q1H [facility] Stop: 11/04/19 20:29 Last Admin: 11/04/19 20:16 Dose: Not Given Documented by: Potassium Chloride 10 meq/ (Premix) 100 mls @ 100 mls/hr IV Q1H [facility] Stop: 11/05/19 02:59 Last Admin: 11/05/19 02:25 Dose: 100 mls/hr Documented by: Potassium Chloride 10 meq/ (Premix) 100 mls @ 100 mls/hr IV Q1H [facility] Stop: 11/05/19 01:59 Last Admin: 11/05/19 03:10 Dose: Not Given Documented by: Vancomycin HCl 1 gm/Vancomycin HCl 500 mg/ Sodium Chloride 500 mls @ 250 mls/hr IV Q12H [facility] Stop: 11/06/19 05:59 Last Admin: 11/06/19 04:36 Dose: 250 mls/hr Documented by: Potassium Chloride 10 meq/ (Premix) 100 mls @ 100 mls/hr IV Q1H [facility] Stop: 11/07/19 12:29 Last Admin: 11/07/19 09:48 Dose: Not Given Documented by: Sodium Chloride (Normal Saline) 1,000 mls @ 50 mls/hr IV ASDIRECTED [facility] Last Admin: 11/07/19 09:17 Dose: 50 mls/hr Documented by: Potassium Chloride 10 meq/ (Premix) 100 mls @ 100 mls/hr IV Q1H [facility] Stop: 11/07/19 13:59 Last Admin: 11/07/19 14:03 Dose: 100 mls/hr Documented by: Insulin Human Lispro (Humalog) 0 unit SUBCUT QIDACANDBED [facility]; Protocol Last Admin: 10/31/19 12:44 Dose: Not Given Documented by: Insulin Human Lispro (Humalog) 0 unit SUBCUT Q6HR [facility]; Protocol Last Admin: 11/02/19 18:34 Dose: Not Given Documented by: Iopamidol (Isovue-300 (61%)) 50 ml IVPUSH ONETIME ONE Stop: 10/30/19 07:53 Last Admin: 10/30/19 08:36 Dose: 50 ml Documented by: Iopamidol (Isovue-300 (61%)) 100 ml IVPUSH ONETIME ONE Stop: 10/30/19 07:53 Last Admin: 10/30/19 08:37 Dose: 100 ml Documented by: Iopamidol (Isovue-370 (76%)) 100 ml IVPUSH ONETIME ONE Stop: 10/31/19 11:21 Last Admin: 10/31/19 11:28 Dose: 100 ml Documented by: Lorazepam (Ativan) 1 mg IVPUSH Q15M PRN PRN Reason: Other Last Admin: 10/30/19 08:47 Dose: 1 mg Documented by: Lorazepam (Ativan) Confirm Administered Dose 2 mg .ROUTE .STK-MED ONE Stop: 10/30/19 08:15 Last Admin: 10/30/19 08:47 Dose: Not Given Documented by: Lorazepam (Ativan) 1 mg IVPUSH ONETIME ONE Stop: 10/30/19 11:52 Last Admin: 10/30/19 11:58 Dose: 1 mg Documented by: Lurasidone Hcl [ (Latuda] 80 Mg) 0 each PO BEDTIME [facility] Last Admin: 11/06/19 20:47 Dose: Not Given Documented by: Atorvastatin 20 Mg 0 each PO DAILY [facility] Potassium Chloride (Klor-Con M20) 40 meq PO ONETIME ONE Stop: 11/02/19 17:01 Last Admin: 11/02/19 18:25 Dose: 40 meq Documented by: Potassium Chloride (Klor-Con M20) 40 meq PO BID [facility] Stop: 11/03/19 21:01 Last Admin: 11/03/19 20:29 Dose: 40 meq Documented by: Potassium Chloride (Klor-Con M20) 40 meq PO ONETIME ONE Stop: 11/07/19 08:31 Last Admin: 11/07/19 09:20 Dose: 40 meq Documented by: Risperidone (Risperidal) 2 mg PO DAILY [facility] Last Admin: 11/03/19 09:19 Dose: 2 mg Documented by: Sodium Chloride (Saline Flush) 10 ml FLUSH ASDIRECTED PRN PRN Reason: Keep Vein Open Last Admin: 10/30/19 20:09 Dose: 10 ml Documented by: Sodium Chloride (Saline Flush) 10 ml FLUSH ONETIME PRN PRN Reason: IV FLUSH Last Admin: 10/30/19 08:37 Dose: 10 ml Documented by: Sodium Chloride (Saline Flush) 10 ml FLUSH ONETIME PRN PRN Reason: IV FLUSH Stop: 10/31/19 13:00 Last Admin: 10/31/19 11:29 Dose: 10 ml Documented by: Vancomycin HCl (Pharmacy To Dose - Vancomycin) 1 dose .XX ASDIRECTED PRN PRN Reason: RX TO DOSE VANCO - Exam Quality Assessment: DVT Prophylaxis. No: Supplemental Oxygen, Urine Catheter General: Alert, Oriented, Cooperative, No Acute Distress HEENT: Pupils Equal, Pupils Reactive, Mucous Membr. Moist/[place] Neck: Supple, Trachea Midline Lungs: Clear to Auscultation, Normal Respiratory Effort Cardiovascular: Regular Rate, Regular Rhythm GI/Abdominal Exam: Normal Bowel Sounds, Soft, Non-Tender, No Distention (Female) Exam: Deferred Back Exam: Normal Inspection, Full Range of Motion Extremities: Normal Inspection, Normal Range of Motion, Non-Tender, No Pedal Edema, Normal Capillary Refill Skin: Warm, Dry, Intact, Other (Healing blisters on dorsal aspects of both hands. ) Wound/Incisions: Healing Well Neurological: No New Focal Deficit Psy/Mental Status: Alert, Normal Affect, Normal Mood Sepsis Event Note - Evaluation Sepsis Screening Result: No Definite Risk - Focused Exam Vital Signs: Vital Signs Temp Pulse Resp BP Pulse Ox Pulse Ox 11/12/19 06:04 91 L 11/12/19 02:39 97.5 F 93 18 137/61 93 L 11/11/19 21:06 93 L 11/11/19 20:54 147/75 H 11/11/19 20:48 97.9 F 97 16 147/75 H 93 L - Problem List & Annotations (1) Abdominal pain SNOMED Code(s): 78090295 Code(s): R10.9 - UNSPECIFIED ABDOMINAL PAIN Status: Resolved Priority: High Current Visit: Yes Qualifiers: Abdominal location: unspecified location Qualified Code(s): R10.9 - Unspecified abdominal pain (2) Benign microscopic hematuria SNOMED Code(s): 672613213748318 Code(s): R31.1 - BENIGN ESSENTIAL MICROSCOPIC HEMATURIA Status: Resolved Priority: Medium Current Visit: Yes (3) COPD (chronic obstructive pulmonary disease) SNOMED Code(s): 69156576 Code(s): J44.9 - CHRONIC OBSTRUCTIVE PULMONARY DISEASE, UNSPECIFIED Status: Chronic Priority: Medium Current Visit: Yes Qualifiers: COPD type: unspecified COPD Qualified Code(s): J44.9 - Chronic obstructive pulmonary disease, unspecified (4) Pneumonia SNOMED Code(s): 626373104 Code(s): J18.9 - PNEUMONIA, UNSPECIFIED ORGANISM Status: Resolved Priority: High Current Visit: Yes Qualifiers: Pneumonia type: due to unspecified organism Laterality: unspecified laterality Lung location: unspecified part of lung Qualified Code(s): J18.9 - Pneumonia, unspecified organism (5) Positive result for methicillin resistant Staphylococcus aureus (MRSA) screening SNOMED Code(s): 664225949 Code(s): Z22.322 - CARRIER OR SUSPECTED CARRIER OF METHICILLIN RESIS STAPH Status: Acute Priority: Medium Current Visit: Yes (6) Schizophrenia SNOMED Code(s): 44528907 Code(s): F20.9 - SCHIZOPHRENIA, UNSPECIFIED Status: Chronic Priority: High Current Visit: Yes Qualifiers: Schizophrenia type: unspecified Qualified Code(s): F20.9 - Schizophrenia, unspecified (7) Sepsis SNOMED Code(s): 60204609 Code(s): A41.9 - SEPSIS, UNSPECIFIED ORGANISM Status: Resolved Priority: High Current Visit: Yes Qualifiers: Sepsis type: sepsis due to unspecified organism Sepsis acute organ dysfunction status: unspecified Qualified Code(s): A41.9 - Sepsis, unspecified organism (8) Septic shock SNOMED Code(s): 58933099 Code(s): A41.9 - SEPSIS, UNSPECIFIED ORGANISM; R65.21 - SEVERE SEPSIS WITH SEPTIC SHOCK Status: Resolved Priority: High Current Visit: Yes (9) Streptococcal pneumonia SNOMED Code(s): 31948077 Code(s): J15.4 - PNEUMONIA DUE TO OTHER STREPTOCOCCI Status: Resolved Priority: High Current Visit: Yes (10) Colitis SNOMED Code(s): 64817531 Code(s): K52.9 - NONINFECTIVE GASTROENTERITIS AND COLITIS, UNSPECIFIED Status: Resolved Priority: High Current Visit: Yes (11) Hypokalemia SNOMED Code(s): 70020752 Code(s): E87.6 - HYPOKALEMIA Status: Acute Priority: High Current Visit: Yes (12) Transaminitis SNOMED Code(s): 525550831, 704639960 Code(s): R74.0 - NONSPEC ELEV OF LEVELS OF TRANSAMNS & LACTIC ACID DEHYDRGNSE Status: Resolved Priority: High Current Visit: Yes (13) Hypoalbuminemia SNOMED Code(s): 421701058 Code(s): E88.09 - OTH DISORDERS OF PLASMA-PROTEIN METABOLISM, NEC Status: Acute Priority: Medium Current Visit: Yes (14) HTN (hypertension) SNOMED Code(s): 40910595 Code(s): I10 - ESSENTIAL (PRIMARY) HYPERTENSION Status: Chronic Priority: Medium Current Visit: No Qualifiers: Hypertension type: unspecified Qualified Code(s): I10 - Essential (primary) hypertension (15) HLD (hyperlipidemia) SNOMED Code(s): 20269078 Code(s): E78.5 - HYPERLIPIDEMIA, UNSPECIFIED Status: Chronic Priority: Low Current Visit: No Qualifiers: Hyperlipidemia type: unspecified Qualified Code(s): E78.5 - Hyperlipidemia, unspecified (16) Altered mental status SNOMED Code(s): 294741232 Code(s): R41.82 - ALTERED MENTAL STATUS, UNSPECIFIED Status: Resolved Priority: High Current Visit: Yes Qualifiers: Altered mental status type: unspecified Qualified Code(s): R41.82 - Altered mental status, unspecified (17) GERD (gastroesophageal reflux disease) SNOMED Code(s): 415593702 Code(s): K21.9 - GASTRO-ESOPHAGEAL REFLUX DISEASE WITHOUT ESOPHAGITIS St atus: Acute Priority: High Current Visit: Yes Qualifiers: Esophagitis presence: esophagitis presence not specified Qualified Code(s): K21.9 - Gastro-esophageal reflux disease without esophagitis (18) Hypomagnesemia SNOMED Code(s): 994075603 Code(s): E83.42 - HYPOMAGNESEMIA Status: Acute Current Visit: Yes - Problem List Review Problem List Initiated/Reviewed/Updated: Yes - Assessment Assessment:: 10/29/2019 Patient found on floor in the bathroom after possibly having a seizure. Hypotensive, tachycardic, tachypneic and hypoxic on arrival to emergency department. Patient received 3 L IV bolus in emergency department. Initial lactic acid 4.0 increasing to 5.3 after fluid bolus. Initial WBC 22,000, 76% neutrophils, no bandemia, C-reactive protein 1.6 Altered mental status, patient is very lethargic. Patient is in critical condition and currently has a poor outcome predicted. High risk of mortality. Patient's initial complaint when calling EMS was abdominal pain and constipation. Patient does exhibit tenderness to palpation throughout the abdomen. Bowel sounds difficult to appreciate secondary to upper airway noise. 10/30/2019 Patient is not improved with the large amount of IV fluids. She has actually had worsening respiratory status requiring IV Lasix. Respiratory rate has had some improvement with vigorous pulmonary toilet, bronchodilation, and diuretics. Unfortunately, this is likely going to cause some intravascular hypovolemia. Lactic acid did drop to 2.0 this morning with the IV fluids. This afternoon renal function did worsen with a creatinine of 1.6. WBC worsened and has been stable today at 23,000. Still no bands or toxic granulations. Neutrophils 90%, absolute neutrophils 21,000. Confirmed CODE STATUS with sister. She states that Rosita has several mental health issues and she likely did not understand the catastrophic results of not being intubated. CT abdomen and pelvis with contrast. Findings suspicious for colitis within portions of the descending and sigmoid colon. Fluid is seen within the pelvis and right abdomen most likely reactive from the colonic process. Increased stool within the rectosigmoid region. Nodularity with in the left adrenal gland most likely benign if patient has no primary carcinoma. CT of the of the head: No acute findings 10/31/2019 Rosita is making some improvement today. Respiratory rate has decreased and her tachycardia has decreased. Antibiotics were switched to Zosyn to cover both strep pneumoniae and colitis. MRSA screen was positive. Patient continues on vancomycin. D-dimer was elevated at 1.[address] angio was done of the chest CT angio chest: 1. No findings of pulmonary embolism. 2. Aorta shows atherosclerotic changes with no dissection or aneurysm. No discrete ulcerating plaque is seen. 3. Increased density within the right lung base which may represent pneumonia or prominent atelectasis. 4. Other findings as noted. Not believed to be acute. ABGs normal pH, PCO2, bicarb with a slightly low PO2. These are surprisingly good considering her respiratory rate. Repeat lactic acid was 1.6. White count continues to be significantly elevated at 23,000. CRP 35.8. Patient has significant hypoalbuminemia with albumin of 1.9 Hypokalemiapotassium 3.4 Hemoglobin A1c is 6.1 11/01/2019 Decrease in respiratory rate and tachycardia. Patient weaned off of BiPAP and now on nasal cannula. On Zosyn, Levaquin, and vancomycin. Slowly improving mentation. WBC 18.9, CRP 34.2, procalcitonin from yesterday 10/31 2011.07, phosphorus 1.8, potassium 3.2, estimated GFR 57, albumin 1.6 11/02/2019 Significant improvement today. More awake, alert, and talking. Afebrile, map greater than 65, on 2 L nasal cannula to keep SPO2 in the mid 90s WBC 17.7, C-reactive protein 22.1. Estimated GFR greater than 60. Hypokalemia. Potassium 2.8. Hypophosphatemia. Phosphorus 1.7. Hypoalbuminemia. Albumin down to 1.4. She did eat some today. Zosyn, Levaquin, and vancomycin. 11/03/2019 Patient is off BiPAP and on 2 to 3 L nasal cannula to keep her SPO2 in the mid 90s. Significant improvement in her respiratory status and pneumonia. She continues to have some congestion likely from pulmonary congestion. White count 14, CRP 8.8 On Zosyn, Levaquin, and vancomycin Patient is a pack to 2 per day smoker. She does have a nicotine patch. Positive streptococcal pneumonia urine antigen Slow but progressive improvement in her mentation. She appears to be having some clearing although she is still very lethargic. Unable to do LP secondary to her not being cooperative or awake enough to be able to perform the procedure. Unlikely that this is secondary to infectious process. Patient has had a significant decrease in her abdominal pain. She is now having multiple loose and watery diarrhea. Bowel movements have decreased over the afternoon. Patient had significant stool on CT scan on admission. Patient has dark orange, tea colored urine and what appears to be vaginal bleeding. On exam she has blood coming from the urethra around the Noguera catheter. Patient states that she has had hematuria in the past and it has been worked up. She does have a history of hematuria. Enoxaparin may be worsening the hematuria. At this time we will continue on enoxaparin because her risk of clot is greater than her risk of a significant bleed. Potassium 3.2 Bilirubin 1.2, AST 69, ALT 57, alkaline phosphatase 150 Albumin 1.7 On Latuda, Risperdal, Paxil Only receiving risperidone, and Paxil in the hospital There is no substitute for her Latuda These medications may be contributing to her mental status changes. Amlodipine and enalapril on hold Atorvastatin is nonformulary 11/04/2019 Episode of vomiting and possible aspiration. Chest x-ray showed no change. No change in 2 to 3 L nasal cannula to keep her SPO2 in the mid 90s. Significant improvement in her respiratory status and pneumonia. She continues to have some congestion likely from pulmonary congestion. WBC decreased to 12.8 by afternoon but had stopped few toxic granulations. Procalcitonin down to 2 on yesterday's blood draw. On Zosyn and vancomycin Last day of Levaquin, day 5 Patient is a pack to 2 per day smoker. She does have a nicotine patch. Positive streptococcal pneumonia urine antigen Unable to do LP secondary to her not being cooperative or awake enough to be able to perform the procedure. MRI of the brain today showed no acute findings. Abdominal pain resolved Multiple episodes of vomiting early this morning and 1 this afternoon. Noguera catheter removed today. She did require straight catheter. Elevated LFTs resolved Albumin 2.2 after receiving albumin yesterday Yesterday stopped Risperdal There is no substitute for her Latuda, therefore not on second-generation antipsychotic 11/05/2019 Only one episode of emesis early today Requiring 3L o2 to maintain saturations in mid 90's WBC decreased to 12.68 Repeat procalcitonin today Last day of Zosyn and vancomycin today Improved mentation but will fall asleep while talking with staff. MRI of the brain on 11/04/19 showed no acute findings. Improvement in mental status since stopping Risperdal, but likely coincidental. She is likely having improvement in her mental status secondary to improvement in her condition. Albumin 2.0 from 2.2 yesterday today Received albumin on 11/03/19 There is no substitute for her Latuda, therefore not on second-generation antipsychotic Vital signs trend: Tmax 98.1, HR 87-91, BP 130-138/64-81, RR 16-21, Oxygen saturations 94-95% on 3L Last BM today 11/06/2019 She continues to have some congestion likely from pulmonary congestion. WBC 15.89 today Repeat procalcitonin pending Last day of Zosyn and vancomycin today Patient is a pack to 2 per day smoker. She does have a nicotine patch. MRI with contrast ordered today Vital signs trend: Tmax 98.2, HR 79-88, BP 138-117/78-60, RR 16-21, Oxygen saturations 94-96% on 3L Last BM today 11/07/2019 Improving breath sounds Vital signs trend: Tmax 97.5, HR 72-80, BP 138-123/81-74, RR 20, Oxygen saturations 94-96% on 3L She was up ambulating with therapies today. Much more alert again today. Last BM: 11/06/19 11/08/2019 Feels better and has no complaints Vital signs trend Blood pressure: 128-145/70-97 T-max 97.7 Heart rate: 72-92 Pulse ox >92% on 3 L/min New lab results WBC down from 15.37-12.71 No more toxic granulation Potassium up from 3.1-3.3 PLAN Continue Paxil Cognitive evaluation as an outpatient Aspiration precautions and HOB elevation Nicotine patch Continue incentive spirometer and Acapella Pulse ox goal greater than 92% PRN Hydralazine Start lisinopril 11/09/2019 Feels better has no complaints Vital signs trend Blood pressure: 141-156/58-85 T-max 98.8 Heart rate: 70-85 Pulse ox >95% on 3 L/min New lab results WBC down from 12.71-10.22 Platelets up from 329-410 Potassium up from 3.3-3.5 GFR minimal decrease from greater than 60-57 Procalcitonin 0.99 (11/05) down to 0.54 (11/07) PLAN Continue Paxil Cognitive evaluation as an outpatient Aspiration precautions and HOB elevation Nicotine patch Continue incentive spirometer and Acapella Pulse ox goal greater than 92% PRN Hydralazine Start lisinopril Dietary follow-up Contact precautions 11/10/2019 Continues to improve Disposition pending PT/OT recommendations Vital signs trend: Tmax 98.2, HR 79-85, BP 155-125/88-69, RR 14-20, Oxygen saturations 91-92% on room air No labs obtained today Walked a few steps today with PT without a walker Last BM 11/09/19 PLAN Continue Paxil Cognitive evaluation as an outpatient Aspiration precautions and HOB elevation Nicotine patch Continue incentive spirometer and Acapella Pulse ox goal greater than 92% PRN Hydralazine Start lisinopril Dietary follow-up Contact precautions 11/11/2019 Continues to improve clinically PT/OT recommending SNF placement VSS No labs obtained today Wheezing on physical exam - RT to give nebulizer Ambulating short distances in room. Last BM: 11/11/19 [facility] evaluation today revealed severe cognitive deficit Remains off of oxygen Remains medically stable for discharge pending placement. PLAN Continue Paxil Cognitive evaluation as an outpatient Aspiration precautions and HOB elevation Nicotine patch Continue incentive spirometer and Acapella Pulse ox goal greater than 92% PRN Hydralazine Start lisinopril Dietary follow-up Contact precautions 11/12/2019 Ambulating around room VSS Potassium 2.8 -> Supplement Magnesium 1.7-> supplement Ramains off of oxygen Last BM: 11/11/2019 No labs obtained today Remains medically stable to discharge pending placement D/C HOB elevation and aspiration precautions Change activity order to up add kim [facility] reportedly coming tomorrow to evaluate patient Discontinued scheduled duonebs. Changed to PRN - Plan Plan:: Altered mental status, stable Schizophrenia Continue Paxil Cognitive evaluation as an outpatient Aspiration precautions and HOB elevation COPD (chronic obstructive pulmonary disease) Current smoker Nicotine patch Continue incentive spirometer and Acapella Pulse ox goal greater than 92% HTN (hypertension) PRN Hydralazine Start lisinopril Hypoalbuminemia Hypomagnesemia Hypokalemia Dietary follow-up -Supplement potassium now -Consider daily potassium supplementation once back WNL -Supplement magnesium now -Repeat labs in AM Positive MRSA screen Contact precautions GERD -TID famotidine Sepsis, resolved Septic shock, resolved Streptococcal pneumonia, resolved Hypokalemia, resolved Benign microscopic hematuria, resolved Transaminitis, resolved Abdominal pain, resolved PROPHYLAXIS DVTLovenox twice daily GIfamotidine TID CODE STATUS: Full code DISPOSITION: Has been ambulating in room with walker. PT/OT recommending SNF with PT/OT. SW working on placement. [facility] coming to evaluate patient tomorrow.
[2019-11-12] MEDS: Glycopyrrolate 15.6 MCG Cap.W.Dev Kit of 6 IH SCH ×3 (08:19→21:55)
[2019-11-12] MEDS: Budesonide 0.5 MG/2 ML Neb Susp NEB SCH ×2 (08:19→21:55)
[2019-11-12] MEDS ORDERED: Magnesium Sulfate/Water 2 GM/50 ML BAG IV ONE (09:00)
[2019-11-12] MEDS: Enoxaparin 40 MG/0.4 ML Syringe SUBCUT SCH ×2 (09:04→20:18)
[2019-11-12] MEDS: PARoxetine 20 MG Tab PO SCH (09:05)
[2019-11-12] MEDS: Potassium Chloride 20 MEQ Tab.ER PO SCH ×2 (09:05→20:18)
[2019-11-12] MEDS: Aspirin 81 MG Tab.Chew PO SCH (09:05)
[2019-11-12] MEDS: Saccharomyces Boulardii (Probiotic) 250 MG Cap PO SCH ×3 (09:05→20:18)
[2019-11-12] MEDS: Nicotine 21 MG/24 Hr Patch TRDERM SCH (12:20)
[2019-11-12] MEDS: Melatonin 3 MG Tab PO SCH (20:19)
[2019-11-12] MEDS: Lisinopril 10 MG Tab PO SCH (20:19)
[2019-11-12] MEDS: Lurasidone Hcl [Latuda] 80 MG PO SCH (20:20)
[2019-11-12] MEDS: Albuterol/Ipratropium 3.0-0.5 MG/3 ML Neb Soln NEB PRN (21:55)
[2019-11-13] MEDS: Furosemide 40 MG Tab PO SCH ×2 (06:49→14:19)
[2019-11-13] MEDS: Glycopyrrolate 15.6 MCG Cap.W.Dev Kit of 6 IH SCH ×3 (08:17→21:03)
[2019-11-13] MEDS: Budesonide 0.5 MG/2 ML Neb Susp NEB SCH ×2 (08:17→21:03)
[2019-11-13] MEDS: Potassium Chloride 20 MEQ Tab.ER PO SCH (08:42)
[2019-11-13] MEDS: PARoxetine 20 MG Tab PO SCH (08:43)
[2019-11-13] MEDS: Aspirin 81 MG Tab.Chew PO SCH (08:43)
[2019-11-13] MEDS: Saccharomyces Boulardii (Probiotic) 250 MG Cap PO SCH ×3 (08:44→20:33)
[2019-11-13] MEDS: Famotidine 10 MG Tab PO SCH ×3 (08:44→20:32)
[2019-11-13] MEDS: Enoxaparin 40 MG/0.4 ML Syringe SUBCUT SCH ×2 (08:44→20:34)
[2019-11-13] MEDS ORDERED: FLU VACC QS2020-21(6MOS UP)/PF 60 MCG/0.5 ML SYRINGE IM ONE (10:15)
[2019-11-13] MEDS: Nicotine 21 MG/24 Hr Patch TRDERM SCH (11:00)
--- NOTE | 2019-11-13 12:38 | PCM.PN ---
- General Info Date of Service: 11/13/19 Admission Dx/Problem (Free Text): Admission Diagnosis/Problem Admission Diagnosis/Problem Pneumonia Functional Status: Reports: Tolerating Diet, Ambulating, Urinating, Incentive Spirometry. Denies: New Symptoms - Review of Systems General: Reports: No Symptoms, Weakness (improving ). Denies: Fever, Fatigue, Malaise, Chills HEENT: Reports: No Symptoms. Denies: Headaches, Sore Throat Pulmonary: Reports: No Symptoms. Denies: Shortness of Breath, Cough, Wheezing Cardiovascular: Reports: Dyspnea on Exertion (improving ), Edema. Denies: Chest Pain, Palpitations Gastrointestinal: Reports: No Symptoms. Denies: Abdominal Pain, Constipation, Diarrhea, Nausea, Vomiting Genitourinary: Reports: No Symptoms. Denies: Pain Musculoskeletal: Reports: No Symptoms Skin: Reports: No Symptoms. Denies: Cyanosis Neurological: Reports: No Symptoms. Denies: Confusion, Difficulty Walking, Gait Disturbance Psychiatric: Reports: No Symptoms - Patient Data Vitals - Most Recent: Last Vital Signs Temp 97.5 F 11/13/19 04:36 Pulse 108 H 11/13/19 08:39 Resp 18 11/13/19 08:39 BP 110/60 11/13/19 08:39 Pulse Ox 93 L 11/13/19 08:39 Weight - Most Recent: 235 lb 8 oz I&O - Last 24 Hours: Intake & Output 11/12/19 11/13/19 11/13/19 22:59 06:59 14:59 Intake Total 1890 800 320 Output Total 900 Balance 990 800 320 Lab Results Last 24 Hours: Laboratory Results - last 24 hr 11/13/19 Range/Units 05:55 Sodium 135 L (136-145) mEq/L Potassium 3.3 L (3.5-5.1) mEq/L Chloride 98 (98-107) mEq/L Carbon Dioxide 30 (21-32) mEq/L Anion Gap 10.3 (5-15) BUN 16 (7-18) mg/dL Creatinine 1.1 H (0.55-1.02) mg/dL Est Cr Clr Drug Dosing 49.55 mL/min Estimated GFR (MDRD) 51 (>60) mL/min BUN/Creatinine Ratio 14.5 (14-18) Glucose 97 (74-106) mg/dL Calcium 8.5 (8.5-10.1) mg/dL Magnesium 2.0 (1.8-2.4) mg/dl Med Orders - Current: Current Medications Acetaminophen (Tylenol) 650 mg PO Q4H PRN PRN Reason: Pain (Mild 1-3)/fever Last Admin: 11/12/19 20:19 Dose: 650 mg Documented by: Al Hydroxide/Mg Hydroxide (Mag-Al Plus) 30 ml PO Q4H PRN PRN Reason: Heartburn Last Admin: 11/05/19 10:13 Dose: 30 ml Documented by: Albuterol (Proventil Neb Soln) 2.5 mg NEB Q2H PRN PRN Reason: Shortness Of Breath/wheezing Albuterol/Ipratropium (Duoneb 3.0-0.5 Mg/3 Ml) 3 ml NEB Q4H PRN PRN Reason: Shortness Of Breath/wheezing Last Admin: 11/12/19 21:55 Dose: 3 ml Documented by: Aspirin (Aspirin) 81 mg PO DAILY [facility] Last Admin: 11/13/19 08:43 Dose: 81 mg Documented by: Budesonide (Pulmicort) 0.5 mg NEB BID [facility] Last Admin: 11/13/19 08:17 Dose: 0.5 mg Documented by: Dextrose/Water (Dextrose 50% In Water) 50 ml IVPUSH ASDIRECTED PRN PRN Reason: Hypoglycemia Enoxaparin Sodium (Lovenox) 40 mg SUBCUT Q12H [facility] Last Admin: 11/13/19 08:44 Dose: 40 mg Documented by: Famotidine (Pepcid) 10 mg PO TID [facility] Last Admin: 11/13/19 08:44 Dose: 10 mg Documented by: Furosemide (Lasix) 40 mg PO BID@0600,1500 [facility] Last Admin: 11/13/19 06:49 Dose: 40 mg Documented by: Glycopyrrolate (Seebri Neohaler) 15.6 mcg IH BID@1000,2200 [facility] Last Admin: 11/13/19 09:40 Dose: Not Given Documented by: Lisinopril (Prinivil) 10 mg PO BEDTIME [facility] Last Admin: 11/12/19 20:19 Dose: 10 mg Documented by: Lorazepam (Ativan) 1 mg IVPUSH Q2H PRN PRN Reason: Anxiety Last Admin: 11/03/19 02:01 Dose: 1 mg Documented by: Melatonin (Melatonin) 9 mg PO BEDTIME [facility] Last Admin: 11/12/19 20:19 Dose: 9 mg Documented by: Miscellaneous Information (Remove Patch) 1 ea TRDERM Q24H [facility] Last Admin: 11/13/19 11:00 Dose: 1 ea Documented by: Nicotine (Habitrol) 21 mg TRDERM Q24H [facility] Last Admin: 11/13/19 11:00 Dose: 21 mg Documented by: Lurasidone Hcl [ (Latuda] 80 Mg) 0 each PO BEDTIME [facility] Last Admin: 11/12/19 20:20 Dose: 1 each Documented by: Ondansetron HCl (Zofran) 4 mg IV Q4H PRN PRN Reason: Nausea/Vomiting Last Admin: 11/04/19 16:00 Dose: 4 mg Documented by: Paroxetine HCl (Paxil) 30 mg PO DAILY [facility] Last Admin: 11/13/19 08:43 Dose: 30 mg Documented by: Potassium Chloride (Klor-Con M20) 20 meq PO DAILY [facility] Potassium Chloride (Klor-Con M20) 40 meq PO BEDTIME [facility] Saccharomyces Boulardii (Florastor) 500 mg PO TID [facility] Last Admin: 11/13/19 08:44 Dose: 500 mg Documented by: Sodium Chloride (Saline Flush) 20 ml FLUSH ASDIRECTED [facility] Last Admin: 11/06/19 12:25 Dose: 20 ml Documented by: Discontinued Medications Albuterol (Proventil Hfa) 0 gm INH Q4H PRN PRN Reason: Shortness of Breath Albuterol/Ipratropium (Duoneb 3.0-0.5 Mg/3 Ml) 3 ml NEB Q4HRRT [facility] Last Admin: 10/30/19 21:20 Dose: 3 ml Documented by: Albuterol/Ipratropium (Duoneb 3.0-0.5 Mg/3 Ml) Confirm Administered Dose 3 ml .ROUTE .STK-MED ONE Stop: 10/30/19 12:21 Last Admin: 10/30/19 12:24 Dose: Not Given Documented by: Albuterol/Ipratropium (Duoneb 3.0-0.5 Mg/3 Ml) 3 ml NEB Q6HRRT [facility] Last Admin: 11/07/19 09:00 Dose: 3 ml Documented by: Albuterol/Ipratropium (Duoneb 3.0-0.5 Mg/3 Ml) 3 ml NEB BIDRT [facility] Last Admin: 11/12/19 06:04 Dose: 3 ml Documented by: Benztropine Mesylate (Cogentin) 1 mg PO BID [facility] Last Admin: 11/03/19 09:20 Dose: 1 mg Documented by: Budesonide (Pulmicort) 0.5 mg NEB BIDRT [facility] Last Admin: 10/30/19 05:58 Dose: 0.5 mg Documented by: Budesonide (Pulmicort) 0.5 mg NEB BID@0600,1800 [facility] Last Admin: 11/02/19 07:08 Dose: Not Given Documented by: Ceftriaxone Sodium (Rocephin) Confirm Administered Dose 2 gm IV .STK-MED ONE Stop: 10/29/19 16:27 Last Admin: 10/29/19 19:17 Dose: Not Given Documented by: Famotidine (Pepcid) 10 mg PO TIDAC [facility] Last Admin: 11/12/19 12:19 Dose: 10 mg Documented by: Furosemide (Lasix) 20 mg IVPUSH ONETIME ONE Stop: 10/30/19 10:37 Last Admin: 10/30/19 10:53 Dose: 20 mg Documented by: Furosemide (Lasix) 20 mg IVPUSH NOW ONE Stop: 10/30/19 12:10 Last Admin: 10/30/19 12:20 Dose: 20 mg Documented by: Furosemide (Lasix) 20 mg IVPUSH NOW ONE Stop: 11/01/19 12:45 Last Admin: 11/01/19 13:11 Dose: 20 mg Documented by: Furosemide (Lasix) 20 mg IVPUSH BIDDIURETIC [facility] Last Admin: 11/01/19 21:04 Dose: 20 mg Documented by: Furosemide (Lasix) 20 mg IVPUSH BID [facility] Last Admin: 11/05/19 10:13 Dose: 20 mg Documented by: Furosemide (Lasix) 20 mg IVPUSH ONETIME ONE Stop: 11/03/19 15:01 Last Admin: 11/03/19 15:28 Dose: 20 mg Documented by: Furosemide (Lasix) 20 mg IVPUSH 0600,1400 [facility] Last Admin: 11/07/19 06:40 Dose: 20 mg Documented by: Furosemide (Lasix) 40 mg PO BIDDIURETIC [facility] Last Admin: 11/12/19 20:03 Dose: Not Given Documented by: Gadobenate Dimeglumine (Multihance) 20 ml IVPUSH ONETIME ONE Stop: 11/06/19 12:18 Last Admin: 11/06/19 12:25 Dose: 20 ml Documented by: Glycopyrrolate (Seebri Neohaler) 15.6 mcg IH BID [facility] Last Admin: 10/30/19 09:12 Dose: Not Given Documented by: Hydroxyzine HCl (Atarax) 25 mg PO BID [facility] Last Admin: 11/03/19 09:20 Dose: 25 mg Documented by: Sodium Chloride (Normal Saline) 1,000 mls @ 999 mls/hr IV ONETIME [facility] Last Admin: 10/29/19 14:01 Dose: 999 mls/hr Documented by: Ceftriaxone Sodium 2 gm/ (Sodium Chloride) 100 mls @ 200 mls/hr IV ONETIME ONE Stop: 10/29/19 15:13 Last Admin: 10/29/19 16:31 Dose: 200 mls/hr Documented by: Lactated Ringer's (Ringers, Lactated) 1,000 mls @ 999 mls/hr IV .BOLUS ONE Stop: 10/29/19 15:51 Last Admin: 10/29/19 15:09 Dose: 999 mls/hr Documented by: Lactated Ringer's (Ringers, Lactated) 1,000 mls @ 999 mls/hr IV .BOLUS ONE Stop: 10/29/19 17:38 Last Admin: 10/29/19 17:05 Dose: 999 mls/hr Documented by: Lactated Ringer's (Ringers, Lactated) 1,000 mls @ 999 mls/hr IV .BOLUS ONE Stop: 10/29/19 17:42 Last Admin: 10/29/19 17:33 Dose: Not Given Documented by: Sodium Chloride (Normal Saline) Confirm Administered Dose 100 mls @ as directed .ROUTE .STK-MED ONE Stop: 10/29/19 16:27 Last Admin: 10/29/19 19:17 Dose: Not Given Documented by: Lactated Ringer's (Ringers, Lactated) Confirm Administered Dose 1,000 mls @ as directed .ROUTE .STK-MED ONE Stop: 10/29/19 16:27 Last Admin: 10/29/19 19:17 Dose: Not Given Documented by: Sodium Chloride (Normal Saline) 1,000 mls @ 150 mls/hr IV ASDIRECTED [facility] Last Admin: 10/30/19 02:47 Dose: 150 mls/hr Documented by: Azithromycin 500 mg/ Sodium (Chloride) 250 mls @ 250 mls/hr IV Q24H [facility] Stop: 11/01/19 20:01 Last Admin: 10/29/19 20:18 Dose: 250 mls/hr Documented by: Ceftriaxone Sodium 2 gm/ (Sodium Chloride) 100 mls @ 200 mls/hr IV Q24H [facility] Last Admin: 10/30/19 15:25 Dose: 200 mls/hr Documented by: Azithromycin 500 mg/ Sodium (Chloride) 250 mls @ 250 mls/hr IV Q24H [facility] Stop: 10/31/19 20:59 Sodium Chloride (Normal Saline) 1,000 mls [facility] 75 [facility] Cefepime [facility] 2 gm/ Premix 50 mls @ 100 mls/hr IV Q24H [facility] Last Admin: 10/30/19 20:13 Dose: 100 mls/hr Documented by: Levofloxacin/Dextrose 750 mg/ (Premix) 150 mls @ 100 mls/hr IV Q48H [facility] Last Admin: 10/30/19 20:45 Dose: 100 mls/hr Documented by: Dextrose/Sodium Chloride (Dextrose 5%-1/2 Ns) 1,000 mls @ 100 mls[facility] Last Admin: 11/02/19 02:30 Dose: 100 mls/hr Documented by: Vancomycin HCl 1.5 gm/ Sodium (Chloride) 500 mls @ 250 mls/hr IV ONETIME ONE Stop: 10/30/19 21:44 Last Admin: 10/30/19 22:28 Dose: 250 mls/hr Documented by: Sodium Chloride (Normal Saline) 500 mls @ 500 mls/hr IV BOLUS ONE Stop: 10/30/19 22:09 Last Admin: 10/30/19 21:36 Dose: 500 mls/hr Documented by: Vancomycin HCl 1 gm/ Sodium (Chloride) 250 mls @ 250 mls/hr IV Q12H [facility] Vancomycin HCl 1 gm/Vancomycin HCl 250 mg/ Sodium Chloride 250 mls @ 166.667 mls/hr IV Q12H [facility] Last Admin: 11/01/19 12:17 Dose: Not Given Documented by: Levofloxacin/Dextrose 750 mg/ (Premix) 150 mls @ 100 mls/hr IV Q24H [facility] Stop: 11/04/19 21:29 Last Admin: 11/03/19 20:18 Dose: 100 mls/hr Documented by: Piperacillin Sod/Tazobactam (Sod 4.5 gm/ Sodium Chloride) 100 mls @ 200 mls/hr IV ONETIME ONE Stop: 10/31/19 11:59 Last Admin: 10/31/19 11:39 Dose: 200 mls/hr Documented by: Piperacillin Sod/Tazobactam (Sod 4.5 gm/ Sodium Chloride) 100 mls @ 25 mls/hr IV Q8H [facility] Last Admin: 11/03/19 13:30 Dose: 25 mls/hr Documented by: Sodium Chloride (Normal Saline) 100 mls @ 75 mls/hr IV ASDIRECTED [facility] Stop: 10/31/19 13:00 Last Admin: 10/31/19 11:29 Dose: 75 mls/hr Documented by: Potassium Phosphate 30 mmole/ (Sodium Chloride) 510 mls @ 102 mls/hr IV ONETIME ONE Stop: 11/01/19 15:29 Last Admin: 11/01/19 10:58 Dose: 102 mls/hr Documented by: Vancomycin HCl 1 gm/Vancomycin HCl 250 mg/ Sodium Chloride 250 mls @ 166.667 mls/hr IV Q8H [facility] Last Admin: 11/05/19 19:27 Dose: Not Given Documented by: Potassium Chloride 10 meq/ (Premix) 100 mls @ 100 mls/hr IV Q1H [facility] Stop: 11/02/19 12:59 Last Admin: 11/02/19 13:26 Dose: 100 mls/hr Documented by: Potassium Phosphate 30 mmole/ (Sodium Chloride) 510 mls @ 102 mls/hr IV ONETIME ONE Stop: 11/02/19 17:59 Last Admin: 11/02/19 13:27 Dose: 102 mls/hr Documented by: Albumin Human (Flexbumin 25%) 25 gm in 100 mls @ 100 mls/hr IV Q1H [facility] Stop: 11/03/19 19:29 Last Admin: 11/03/19 20:02 Dose: Not Given Documented by: Albumin Human (Flexbumin 25%) 12.5 gm in 50 mls @ 50 mls/hr IV ONETIME ONE Stop: 11/04/19 01:59 Last Admin: 11/04/19 00:01 Dose: 50 mls/hr Documented by: Albumin Human (Flexbumin 25%) 25 gm in 100 mls @ 100 mls/hr IV Q1H [facility] Stop: 11/03/19 21:59 Last Admin: 11/03/19 23:20 Dose: 100 mls/hr Documented by: Piperacillin Sod/Tazobactam (Sod 4.5 gm/ Sodium Chloride) 100 mls @ 25 mls/hr IV Q8H [facility] Stop: 11/06/19 11:30 Last Admin: 11/06/19 06:46 Dose: 25 mls/hr Documented by: Potassium Chloride 10 meq/ (Premix) 100 mls @ 100 mls/hr IV Q1H [facility] Stop: 11/04/19 20:29 Last Admin: 11/04/19 20:16 Dose: Not Given Documented by: Potassium Chloride 10 meq/ (Premix) 100 mls @ 100 mls/hr IV Q1H [facility] Stop: 11/05/19 02:59 Last Admin: 11/05/19 02:25 Dose: 100 mls/hr Documented by: Potassium Chloride 10 meq/ (Premix) 100 mls @ 100 mls/hr IV Q1H [facility] Stop: 11/05/19 01:59 Last Admin: 11/05/19 03:10 Dose: Not Given Documented by: Vancomycin HCl 1 gm/Vancomycin HCl 500 mg/ Sodium Chloride 500 mls @ 250 mls/hr IV Q12H [facility] Stop: 11/06/19 05:59 Last Admin: 11/06/19 04:36 Dose: 250 mls/hr Documented by: Potassium Chloride 10 meq/ (Premix) 100 mls @ 100 mls/hr IV Q1H [facility] Stop: 11/07/19 12:29 Last Admin: 11/07/19 09:48 Dose: Not Given Documented by: Sodium Chloride (Normal Saline) 1,000 mls @ 50 mls/hr IV ASDIRECTED [facility] Last Admin: 11/07/19 09:17 Dose: 50 mls/hr Documented by: Potassium Chloride 10 meq/ (Premix) 100 mls @ 100 mls/hr IV Q1H [facility] Stop: 11/07/19 13:59 Last Admin: 11/07/19 14:03 Dose: 100 mls/hr Documented by: Magnesium Sulfate (Magnesium Sulfate In Water Premix) 2 gm in 50 mls @ 25 mls/hr IV ONETIME ONE Stop: 11/12/19 10:59 Last Admin: 11/12/19 09:06 Dose: 25 mls/hr Documented by: Influenza Virus Vaccine (Fluzone Quad Syringe) 60 mcg IM .ONCE ONE Stop: 11/13/19 10:16 Insulin Human Lispro (Humalog) 0 unit SUBCUT QIDACANDBED [facility]; Protocol Last Admin: 10/31/19 12:44 Dose: Not Given Documented by: Insulin Human Lispro (Humalog) 0 unit SUBCUT Q6HR [facility]; Protocol Last Admin: 11/02/19 18:34 Dose: Not Given Documented by: Iopamidol (Isovue-300 (61%)) 50 ml IVPUSH ONETIME ONE Stop: 10/30/19 07:53 Last Admin: 10/30/19 08:36 Dose: 50 ml Documented by: Iopamidol (Isovue-300 (61%)) 100 ml IVPUSH ONETIME ONE Stop: 10/30/19 07:53 Last Admin: 10/30/19 08:37 Dose: 100 ml Documented by: Iopamidol (Isovue-370 (76%)) 100 ml IVPUSH ONETIME ONE Stop: 10/31/19 11:21 Last Admin: 10/31/19 11:28 Dose: 100 ml Documented by: Lorazepam (Ativan) 1 mg IVPUSH Q15M PRN PRN Reason: Other Last Admin: 10/30/19 08:47 Dose: 1 mg Documented by: Lorazepam (Ativan) Confirm Administered Dose 2 mg .ROUTE .STK-MED ONE Stop: 10/30/19 08:15 Last Admin: 10/30/19 08:47 Dose: Not Given Documented by: Lorazepam (Ativan) 1 mg IVPUSH ONETIME ONE Stop: 10/30/19 11:52 Last Admin: 10/30/19 11:58 Dose: 1 mg Documented by: Lurasidone Hcl [ (Latuda] 80 Mg) 0 each PO BEDTIME [facility] Last Admin: 11/06/19 20:47 Dose: Not Given Documented by: Atorvastatin 20 Mg 0 each PO DAILY [facility] Potassium Chloride (Klor-Con M20) 40 meq PO ONETIME ONE Stop: 11/02/19 17:01 Last Admin: 11/02/19 18:25 Dose: 40 meq Documented by: Potassium Chloride (Klor-Con M20) 40 meq PO BID [facility] Stop: 11/03/19 21:01 Last Admin: 11/03/19 20:29 Dose: 40 meq Documented by: Potassium Chloride (Klor-Con M20) 40 meq PO ONETIME ONE Stop: 11/07/19 08:31 Last Admin: 11/07/19 09:20 Dose: 40 meq Documented by: Potassium Chloride (Klor-Con M20) 40 meq PO BID [facility] Stop: 11/13/19 09:01 Last Admin: 11/13/19 08:42 Dose: 40 meq Documented by: Risperidone (Risperidal) 2 mg PO DAILY [facility] Last Admin: 11/03/19 09:19 Dose: 2 mg Documented by: Sodium Chloride (Saline Flush) 10 ml FLUSH ASDIRECTED PRN PRN Reason: Keep Vein Open Last Admin: 10/30/19 20:09 Dose: 10 ml Documented by: Sodium Chloride (Saline Flush) 10 ml FLUSH ONETIME PRN PRN Reason: IV FLUSH Last Admin: 10/30/19 08:37 Dose: 10 ml Documented by: Sodium Chloride (Saline Flush) 10 ml FLUSH ONETIME PRN PRN Reason: IV FLUSH Stop: 10/31/19 13:00 Last Admin: 10/31/19 11:29 Dose: 10 ml Documented by: Vancomycin HCl (Pharmacy To Dose - Vancomycin) 1 dose .XX ASDIRECTED PRN PRN Reason: RX TO DOSE VANCO - Exam Quality Assessment: DVT Prophylaxis General: Alert, Oriented, Cooperative, No Acute Distress HEENT: Pupils Equal, Pupils Reactive, Mucous Membr. Moist/Bear Flat Neck: Supple, Trachea Midline Lungs: Clear to Auscultation, Normal Respiratory Effort, Decreased Breath Sounds Cardiovascular: Regular Rate, Regular Rhythm GI/Abdominal Exam: Normal Bowel Sounds, Soft, Non-Tender, No Distention (Female) Exam: Deferred Back Exam: Normal Inspection, Full Range of Motion Extremities: Normal Inspection, Normal Range of Motion, Non-Tender, No Pedal Edema, Normal Capillary Refill Skin: Warm, Dry, Intact, Other (Healing blistering to bilateral hands. Apparent bite ihsan to right chest - healing) Wound/Incisions: Healing Well, No Drainage Neurological: No New Focal Deficit Psy/Mental Status: Alert Sepsis Event Note - Evaluation Sepsis Screening Result: No Definite Risk - Problem List & Annotations (1) Abdominal pain SNOMED Code(s): 07649015 Code(s): R10.9 - UNSPECIFIED ABDOMINAL PAIN Status: Resolved Priority: High Current Visit: Yes Qualifiers: Abdominal location: unspecified location Qualified Code(s): R10.9 - Unspecified abdominal pain (2) Benign microscopic hematuria SNOMED Code(s): 848330556063029 Code(s): R31.1 - BENIGN ESSENTIAL MICROSCOPIC HEMATURIA Status: Resolved Priority: Medium Current Visit: Yes (3) COPD (chronic obstructive pulmonary disease) SNOMED Code(s): 37862775 Code(s): J44.9 - CHRONIC OBSTRUCTIVE PULMONARY DISEASE, UNSPECIFIED Status: Chronic Priority: Medium Current Visit: Yes Qualifiers: COPD type: unspecified COPD Qualified Code(s): J44.9 - Chronic obstructive pulmonary disease, unspecified (4) Pneumonia SNOMED Code(s): 019343623 Code(s): J18.9 - PNEUMONIA, UNSPECIFIED ORGANISM Status: Resolved Priority: High Current Visit: Yes Qualifiers: Pneumonia type: due to unspecified organism Laterality: unspecified laterality Lung location: unspecified part of lung Qualified Code(s): J18.9 - Pneumonia, unspecified organism (5) Positive result for methicillin resistant Staphylococcus aureus (MRSA) screening SNOMED Code(s): 302166743 Code(s): Z22.322 - Status: Acute Priority: Medium Current Visit: Yes (6) Schizophrenia SNOMED Code(s): 30574253 Code(s): F20.9 - SCHIZOPHRENIA, UNSPECIFIED Status: Chronic Priority: High Current Visit: Yes Qualifiers: Schizophrenia type: unspecified Qualified Code(s): F20.9 - Schizophrenia, unspecified (7) Sepsis SNOMED Code(s): 64991493 Code(s): A41.9 - SEPSIS, UNSPECIFIED ORGANISM Status: Resolved Priority: High Current Visit: Yes Qualifiers: Sepsis type: sepsis due to unspecified organism Sepsis acute organ dysfunction status: unspecified Qualified Code(s): A41.9 - Sepsis, unspecified organism (8) Septic shock SNOMED Code(s): 74829725 Code(s): A41.9 - SEPSIS, UNSPECIFIED ORGANISM; R65.21 - SEVERE SEPSIS WITH SEPTIC SHOCK Status: Resolved Priority: High Current Visit: Yes (9) Streptococcal pneumonia SNOMED Code(s): 25570754 Code(s): J15.4 - PNEUMONIA DUE TO OTHER STREPTOCOCCI Status: Resolved Priority: High Current Visit: Yes (10) Colitis SNOMED Code(s): 81434075 Code(s): K52.9 - NONINFECTIVE GASTROENTERITIS AND COLITIS, UNSPECIFIED Status: Resolved Priority: High Current Visit: Yes (11) Hypokalemia SNOMED Code(s): 42443159 Code(s): E87.6 - HYPOKALEMIA Status: Acute Priority: High Current Visit: Yes (12) Transaminitis SNOMED Code(s): 527724917, 149706286 Code(s): R74.0 - NONSPEC ELEV OF LEVELS OF TRANSAMNS & LACTIC * DO NOT USE * Status: Resolved Priority: High Current Visit: Yes (13) Hypoalbuminemia SNOMED Code(s): 962866562 Code(s): E88.09 - OTH DISORDERS OF PLASMA-PROTEIN METABOLISM, NEC Status: Acute Priority: Medium Current Visit: Yes (14) HTN (hypertension) SNOMED Code(s): 62113890 Code(s): I10 - ESSENTIAL (PRIMARY) HYPERTENSION Status: Chronic Priority: Medium Current Visit: No Qualifiers: Hypertension type: unspecified Qualified Code(s): I10 - Essential (primary) hypertension (15) HLD (hyperlipidemia) SNOMED Code(s): 03002921 Code(s): E78.5 - HYPERLIPIDEMIA, UNSPECIFIED Status: Chronic Priority: Low Current Visit: No Qualifiers: Hyperlipidemia type: unspecified Qualified Code(s): E78.5 - Hyperlipidemia, unspecified (16) Altered mental status SNOMED Code(s): 204589846 Code(s): R41.82 - ALTERED MENTAL STATUS, UNSPECIFIED Status: Resolved Priority: High Current Visit: Yes Qualifiers: Altered mental status type: unspecified Qualified Code(s): R41.82 - Altered mental status, unspecified (17) GERD (gastroesophageal reflux disease) SNOMED Code(s): 970454062 Code(s): K21.9 - GASTRO-ESOPHAGEAL REFLUX DISEASE WITHOUT ESOPHAGITIS Sta tus: Acute Priority: High Current Visit: Yes Qualifiers: Esophagitis presence: esophagitis presence not specified Qualified Code(s): K21.9 - Gastro-esophageal reflux disease without esophagitis (18) Hypomagnesemia SNOMED Code(s): 161299912 Code(s): E83.42 - HYPOMAGNESEMIA Status: Resolved Current Visit: Yes - Problem List Review Problem List Initiated/Reviewed/Updated: Yes - My Orders Last 24 Hours: My Active Orders 11/12/19 12:23 Up ad Kim [RC] BID 11/12/19 15:00 Furosemide [Lasix] 40 mg PO BID@0600,1500 11/13/19 21:00 Potassium Chloride [Klor-Con M20] 40 meq PO BEDTIME 11/14/19 09:00 Potassium Chloride [Klor-Con M20] 20 meq PO DAILY - Assessment Assessment:: 10/29/2019 Patient found on floor in the bathroom after possibly having a seizure. Hypotensive, tachycardic, tachypneic and hypoxic on arrival to emergency department. Patient received 3 L IV bolus in emergency department. Initial lactic acid 4.0 increasing to 5.3 after fluid bolus. Initial WBC 22,000, 76% neutrophils, no bandemia, C-reactive protein 1.6 Altered mental status, patient is very lethargic. Patient is in critical condition and currently has a poor outcome predicted. High risk of mortality. Patient's initial complaint when calling EMS was abdominal pain and constipation. Patient does exhibit tenderness to palpation throughout the abdomen. Bowel sounds difficult to appreciate secondary to upper airway noise. 10/30/2019 Patient is not improved with the large amount of IV fluids. She has actually had worsening respiratory status requiring IV Lasix. Respiratory rate has had some improvement with vigorous pulmonary toilet, bronchodilation, and diuretics. Unfortunately, this is likely going to cause some intravascular hypovolemia. Lactic acid did drop to 2.0 this morning with the IV fluids. This afternoon renal function did worsen with a creatinine of 1.6. WBC worsened and has been stable today at 23,000. Still no bands or toxic granulations. Neutrophils 90%, absolute neutrophils 21,000. Confirmed CODE STATUS with sister. She states that Rosita has several mental health issues and she likely did not understand the catastrophic results of not being intubated. CT abdomen and pelvis with contrast. Findings suspicious for colitis within portions of the descending and sigmoid colon. Fluid is seen within the pelvis and right abdomen most likely reactive from the colonic process. Increased stool within the rectosigmoid region. Nodularity with in the left adrenal gland most likely benign if patient has no primary carcinoma. CT of the of the head: No acute findings 10/31/2019 Rosita is making some improvement today. Respiratory rate has decreased and her tachycardia has decreased. Antibiotics were switched to Zosyn to cover both strep pneumoniae and colitis. MRSA screen was positive. Patient continues on vancomycin. D-dimer was elevated at 1.[address] angio was done of the chest CT angio chest: 1. No findings of pulmonary embolism. 2. Aorta shows atherosclerotic changes with no dissection or aneurysm. No discrete ulcerating plaque is seen. 3. Increased density within the right lung base which may represent pneumonia or prominent atelectasis. 4. Other findings as noted. Not believed to be acute. ABGs normal pH, PCO2, bicarb with a slightly low PO2. These are surprisingly good considering her respiratory rate. Repeat lactic acid was 1.6. White count continues to be significantly elevated at 23,000. CRP 35.8. Patient has significant hypoalbuminemia with albumin of 1.9 Hypokalemiapotassium 3.4 Hemoglobin A1c is 6.1 11/01/2019 Decrease in respiratory rate and tachycardia. Patient weaned off of BiPAP and now on nasal cannula. On Zosyn, Levaquin, and vancomycin. Slowly improving mentation. WBC 18.9, CRP 34.2, procalcitonin from yesterday 10/31 2011.07, phosphorus 1.8, potassium 3.2, estimated GFR 57, albumin 1.6 11/02/2019 Significant improvement today. More awake, alert, and talking. Afebrile, map greater than 65, on 2 L nasal cannula to keep SPO2 in the mid 90s WBC 17.7, C-reactive protein 22.1. Estimated GFR greater than 60. Hypokalemia. Potassium 2.8. Hypophosphatemia. Phosphorus 1.7. Hypoalbuminemia. Albumin down to 1.4. She did eat some today. Zosyn, Levaquin, and vancomycin. 11/03/2019 Patient is off BiPAP and on 2 to 3 L nasal cannula to keep her SPO2 in the mid 90s. Significant improvement in her respiratory status and pneumonia. She continues to have some congestion likely from pulmonary congestion. White count 14, CRP 8.8 On Zosyn, Levaquin, and vancomycin Patient is a pack to 2 per day smoker. She does have a nicotine patch. Positive streptococcal pneumonia urine antigen Slow but progressive improvement in her mentation. She appears to be having some clearing although she is still very lethargic. Unable to do LP secondary to her not being cooperative or awake enough to be able to perform the procedure. Unlikely that this is secondary to infectious process. Patient has had a significant decrease in her abdominal pain. She is now having multiple loose and watery diarrhea. Bowel movements have decreased over the afternoon. Patient had significant stool on CT scan on admission. Patient has dark orange, tea colored urine and what appears to be vaginal bleeding. On exam she has blood coming from the urethra around the Noguera catheter. Patient states that she has had hematuria in the past and it has been worked up. She does have a history of hematuria. Enoxaparin may be worsening the hematuria. At this time we will continue on enoxaparin because her risk of clot is greater than her risk of a significant bleed. Potassium 3.2 Bilirubin 1.2, AST 69, ALT 57, alkaline phosphatase 150 Albumin 1.7 On Latuda, Risperdal, Paxil Only receiving risperidone, and Paxil in the hospital There is no substitute for her Latuda These medications may be contributing to her mental status changes. Amlodipine and enalapril on hold Atorvastatin is nonformulary 11/04/2019 Episode of vomiting and possible aspiration. Chest x-ray showed no change. No change in 2 to 3 L nasal cannula to keep her SPO2 in the mid 90s. Significant improvement in her respiratory status and pneumonia. She continues to have some congestion likely from pulmonary congestion. WBC decreased to 12.8 by afternoon but had stopped few toxic granulations. Procalcitonin down to 2 on yesterday's blood draw. On Zosyn and vancomycin Last day of Levaquin, day 5 Patient is a pack to 2 per day smoker. She does have a nicotine patch. Positive streptococcal pneumonia urine antigen Unable to do LP secondary to her not being cooperative or awake enough to be able to perform the procedure. MRI of the brain today showed no acute findings. Abdominal pain resolved Multiple episodes of vomiting early this morning and 1 this afternoon. Noguera catheter removed today. She did require straight catheter. Elevated LFTs resolved Albumin 2.2 after receiving albumin yesterday Yesterday stopped Risperdal There is no substitute for her Latuda, therefore not on second-generation antipsychotic 11/05/2019 Only one episode of emesis early today Requiring 3L o2 to maintain saturations in mid 90's WBC decreased to 12.68 Repeat procalcitonin today Last day of Zosyn and vancomycin today Improved mentation but will fall asleep while talking with staff. MRI of the brain on 11/04/19 showed no acute findings. Improvement in mental status since stopping Risperdal, but likely coincidental. She is likely having improvement in her mental status secondary to improvement in her condition. Albumin 2.0 from 2.2 yesterday today Received albumin on 11/03/19 There is no substitute for her Latuda, therefore not on second-generation antipsychotic Vital signs trend: Tmax 98.1, HR 87-91, BP 130-138/64-81, RR 16-21, Oxygen saturations 94-95% on 3L Last BM today 11/06/2019 She continues to have some congestion likely from pulmonary congestion. WBC 15.89 today Repeat procalcitonin pending Last day of Zosyn and vancomycin today Patient is a pack to 2 per day smoker. She does have a nicotine patch. MRI with contrast ordered today Vital signs trend: Tmax 98.2, HR 79-88, BP 138-117/78-60, RR 16-21, Oxygen saturations 94-96% on 3L Last BM today 11/07/2019 Improving breath sounds Vital signs trend: Tmax 97.5, HR 72-80, BP 138-123/81-74, RR 20, Oxygen saturations 94-96% on 3L She was up ambulating with therapies today. Much more alert again today. Last BM: 11/06/19 11/08/2019 Feels better and has no complaints Vital signs trend Blood pressure: 128-145/70-97 T-max 97.7 Heart rate: 72-92 Pulse ox >92% on 3 L/min New lab results WBC down from 15.37-12.71 No more toxic granulation Potassium up from 3.1-3.3 PLAN Continue Paxil Cognitive evaluation as an outpatient Aspiration precautions and HOB elevation Nicotine patch Continue incentive spirometer and Acapella Pulse ox goal greater than 92% PRN Hydralazine Start lisinopril 11/09/2019 Feels better has no complaints Vital signs trend Blood pressure: 141-156/58-85 T-max 98.8 Heart rate: 70-85 Pulse ox >95% on 3 L/min New lab results WBC down from 12.71-10.22 Platelets up from 329-410 Potassium up from 3.3-3.5 GFR minimal decrease from greater than 60-57 Procalcitonin 0.99 (11/05) down to 0.54 (11/07) PLAN Continue Paxil Cognitive evaluation as an outpatient Aspiration precautions and HOB elevation Nicotine patch Continue incentive spirometer and Acapella Pulse ox goal greater than 92% PRN Hydralazine Start lisinopril Dietary follow-up Contact precautions 11/10/2019 Continues to improve Disposition pending PT/OT recommendations Vital signs trend: Tmax 98.2, HR 79-85, BP 155-125/88-69, RR 14-20, Oxygen satu rations 91-92% on room air No labs obtained today Walked a few steps today with PT without a walker Last BM 11/09/19 PLAN Continue Paxil Cognitive evaluation as an outpatient Aspiration precautions and HOB elevation Nicotine patch Continue incentive spirometer and Acapella Pulse ox goal greater than 92% PRN Hydralazine Start lisinopril Dietary follow-up Contact precautions 11/11/2019 Continues to improve clinically PT/OT recommending SNF placement VSS No labs obtained today Wheezing on physical exam - RT to give nebulizer Ambulating short distances in room. Last BM: 11/11/19 [employer] evaluation today revealed severe cognitive deficit Remains off of oxygen Remains medically stable for discharge pending placement. PLAN Continue Paxil Cognitive evaluation as an outpatient Aspiration precautions and HOB elevation Nicotine patch Continue incentive spirometer and Acapella Pulse ox goal greater than 92% PRN Hydralazine Start lisinopril Dietary follow-up Contact precautions 11/12/2019 Ambulating around room VSS Potassium 2.8 -> Supplement Magnesium 1.7-> supplement Ramains off of oxygen Last BM: 11/11/2019 Remains medically stable to discharge pending placement D/C HOB elevation and aspiration precautions Change activity order to up add kim [facility] reportedly coming tomorrow to evaluate patient Discontinued scheduled duonebs. Changed to PRN PLAN: Continue Paxil Cognitive evaluation as an outpatient Aspiration precautions and HOB elevation Nicotine patch Continue incentive spirometer and Acapella Pulse ox goal greater than 92% PRN Hydralazine Start lisinopril Dietary follow-up -Supplement potassium now -Consider daily potassium supplementation once back WNL -Supplement magnesium now -Repeat labs in AM Contact precautions -TID famotidine 11/13/2019 Continues to improve clinically Ambulating around room Evaluated by [facility] today VSS Potassium 3.3 * Supplement 40mEq potassium today and tonight and then start 20mEq daily supplementation tomorrow Showered today Last BM: 11/12/19 Repeat BMP, magnesium, phosphorous tomorrow Decrease Lasix to 40mg daily Remains medically stable to discharge pending placement - Plan Plan:: Altered mental status, stable Schizophrenia, stable Continue Paxil COPD (chronic obstructive pulmonary disease) Current smoker Nicotine patch Continue incentive spirometer and Acapella Pulse ox goal greater than 92% HTN (hypertension) PRN Hydralazine Start lisinopril Hypoalbuminemia Hypokalemia Dietary follow-up -Supplement potassium now -Start daily potassium tomorrow -Repeat labs in AM Positive MRSA screen Contact precautions GERD -TID famotidine Sepsis, resolved Septic shock, resolved Streptococcal pneumonia, resolved Hypokalemia, resolved Benign microscopic hematuria, resolved Transaminitis, resolved Abdominal pain, resolved Hypomagnesemia, resolved PROPHYLAXIS DVTLovenox twice daily GIfamotidine TID CODE STATUS: Full code DISPOSITION: Has been ambulating in room with walker. PT/OT recommending SNF with PT/OT. Patient has reportedly been accepted to [facility] with plan to discharge next week Sunday, pending continued stability.
[2019-11-13] MEDS: Lurasidone Hcl [Latuda] 80 MG PO SCH (20:32)
[2019-11-13] MEDS: Lisinopril 10 MG Tab PO SCH (20:33)
[2019-11-13] MEDS: Melatonin 3 MG Tab PO SCH (20:33)
[2019-11-13] MEDS ORDERED: Potassium Chloride 20 MEQ Tab.ER PO ONE (21:00)
[2019-11-13] MEDS ORDERED: Potassium Chloride 20 MEQ Tab.ER PO SCH (21:00)
--- NOTE | 2019-11-14 07:09 | PCM.PN ---
- General Info Date of Service: 11/14/19 Admission Dx/Problem (Free Text): Admission Diagnosis/Problem Admission Diagnosis/Problem Pneumonia Functional Status: Reports: Pain Controlled, Tolerating Diet, Ambulating, Urinating, Incentive Spirometry, Other (Acapella ). Denies: New Symptoms - Review of Systems General: Reports: No Symptoms, Weakness. Denies: Fever, Fatigue, Malaise, Chills HEENT: Reports: No Symptoms. Denies: Sore Throat Pulmonary: Reports: No Symptoms. Denies: Shortness of Breath, Cough, Sputum, Wheezing Cardiovascular: Reports: No Symptoms, Dyspnea on Exertion. Denies: Chest Pain, Palpitations Gastrointestinal: Reports: No Symptoms. Denies: Diarrhea, Nausea, Vomiting Genitourinary: Reports: No Symptoms. Denies: Pain Musculoskeletal: Reports: No Symptoms Skin: Reports: No Symptoms. Denies: Cyanosis Neurological: Reports: No Symptoms. Denies: Confusion, Numbness, Tingling, Difficulty Walking, Gait Disturbance Psychiatric: Reports: No Symptoms - Patient Data Vitals - Most Recent: Last Vital Signs Temp 98.1 F 11/14/19 02:44 Pulse 102 H 11/14/19 02:44 Resp 20 11/14/19 02:44 BP 131/73 11/14/19 02:44 Pulse Ox 92 L 11/14/19 02:44 Weight - Most Recent: 232 lb 14.4 oz I&O - Last 24 Hours: Intake & Output 11/13/19 11/14/19 11/14/19 22:59 06:59 14:59 Intake Total 1420 800 Balance 1420 800 Med Orders - Current: Current Medications Acetaminophen (Tylenol) 650 mg PO Q4H PRN PRN Reason: Pain (Mild 1-3)/fever Last Admin: 11/12/19 20:19 Dose: 650 mg Documented by: Al Hydroxide/Mg Hydroxide (Mag-Al Plus) 30 ml PO Q4H PRN PRN Reason: Heartburn Last Admin: 11/05/19 10:13 Dose: 30 ml Documented by: Albuterol (Proventil Neb Soln) 2.5 mg NEB Q2H PRN PRN Reason: Shortness Of Breath/wheezing Albuterol/Ipratropium (Duoneb 3.0-0.5 Mg/3 Ml) 3 ml NEB Q4H PRN PRN Reason: Shortness Of Breath/wheezing Last Admin: 11/12/19 21:55 Dose: 3 ml Documented by: Aspirin (Aspirin) 81 mg PO DAILY [facility] Last Admin: 11/13/19 08:43 Dose: 81 mg Documented by: Budesonide (Pulmicort) 0.5 mg NEB BID [facility] Last Admin: 11/13/19 21:03 Dose: 0.5 mg Documented by: Dextrose/Water (Dextrose 50% In Water) 50 ml IVPUSH ASDIRECTED PRN PRN Reason: Hypoglycemia Enoxaparin Sodium (Lovenox) 40 mg SUBCUT Q12H [facility] Last Admin: 11/13/19 20:34 Dose: 40 mg Documented by: Famotidine (Pepcid) 10 mg PO TID [facility] Last Admin: 11/13/19 20:32 Dose: 10 mg Documented by: Furosemide (Lasix) 40 mg PO DAILY [facility] Glycopyrrolate (Seebri Neohaler) 15.6 mcg IH BID@1000,2200 [facility] Last Admin: 11/13/19 21:03 Dose: 1 cap Documented by: Lisinopril (Prinivil) 10 mg PO BEDTIME [facility] Last Admin: 11/13/19 20:33 Dose: 10 mg Documented by: Lorazepam (Ativan) 1 mg IVPUSH Q2H PRN PRN Reason: Anxiety Last Admin: 11/03/19 02:01 Dose: 1 mg Documented by: Melatonin (Melatonin) 9 mg PO BEDTIME [facility] Last Admin: 11/13/19 20:33 Dose: 9 mg Documented by: Miscellaneous Information (Remove Patch) 1 ea TRDERM Q24H [facility] Last Admin: 11/13/19 11:00 Dose: 1 ea Documented by: Nicotine (Habitrol) 21 mg TRDERM Q24H [facility] Last Admin: 11/13/19 11:00 Dose: 21 mg Documented by: Lurasidone Hcl [ (Latuda] 80 Mg) 0 each PO BEDTIME [facility] Last Admin: 11/13/19 20:32 Dose: 1 each Documented by: Ondansetron HCl (Zofran) 4 mg IV Q4H PRN PRN Reason: Nausea/Vomiting Last Admin: 11/04/19 16:00 Dose: 4 mg Documented by: Paroxetine HCl (Paxil) 30 mg PO DAILY [facility] Last Admin: 11/13/19 08:43 Dose: 30 mg Documented by: Potassium Chloride (Klor-Con M20) 20 meq PO DAILY [facility] Saccharomyces Boulardii (Florastor) 500 mg PO TID [facility] Last Admin: 11/13/19 20:33 Dose: 500 mg Documented by: Sodium Chloride (Saline Flush) 20 ml FLUSH ASDIRECTED [facility] Last Admin: 11/06/19 12:25 Dose: 20 ml Documented by: Discontinued Medications Albuterol (Proventil Hfa) 0 gm INH Q4H PRN PRN Reason: Shortness of Breath Albuterol/Ipratropium (Duoneb 3.0-0.5 Mg/3 Ml) 3 ml NEB Q4HRRT [facility] Last Admin: 10/30/19 21:20 Dose: 3 ml Documented by: Albuterol/Ipratropium (Duoneb 3.0-0.5 Mg/3 Ml) Confirm Administered Dose 3 ml .ROUTE .STK-MED ONE Stop: 10/30/19 12:21 Last Admin: 10/30/19 12:24 Dose: Not Given Documented by: Albuterol/Ipratropium (Duoneb 3.0-0.5 Mg/3 Ml) 3 ml NEB Q6HRRT [facility] Last Admin: 11/07/19 09:00 Dose: 3 ml Documented by: Albuterol/Ipratropium (Duoneb 3.0-0.5 Mg/3 Ml) 3 ml NEB BIDRT [facility] Last Admin: 11/12/19 06:04 Dose: 3 ml Documented by: Benztropine Mesylate (Cogentin) 1 mg PO BID [facility] Last Admin: 11/03/19 09:20 Dose: 1 mg Documented by: Budesonide (Pulmicort) 0.5 mg NEB BIDRT [facility] Last Admin: 10/30/19 05:58 Dose: 0.5 mg Documented by: Budesonide (Pulmicort) 0.5 mg NEB BID@0600,1800 [facility] Last Admin: 11/02/19 07:08 Dose: Not Given Documented by: Ceftriaxone Sodium (Rocephin) Confirm Administered Dose 2 gm IV .STK-MED ONE Stop: 10/29/19 16:27 Last Admin: 10/29/19 19:17 Dose: Not Given Documented by: Famotidine (Pepcid) 10 mg PO TIDAC [facility] Last Admin: 11/12/19 12:19 Dose: 10 mg Documented by: Furosemide (Lasix) 20 mg IVPUSH ONETIME ONE Stop: 10/30/19 10:37 Last Admin: 10/30/19 10:53 Dose: 20 mg Documented by: Furosemide (Lasix) 20 mg IVPUSH NOW ONE Stop: 10/30/19 12:10 Last Admin: 10/30/19 12:20 Dose: 20 mg Documented by: Furosemide (Lasix) 20 mg IVPUSH NOW ONE Stop: 11/01/19 12:45 Last Admin: 11/01/19 13:11 Dose: 20 mg Documented by: Furosemide (Lasix) 20 mg IVPUSH BIDDIURETIC [facility] Last Admin: 11/01/19 21:04 Dose: 20 mg Documented by: Furosemide (Lasix) 20 mg IVPUSH BID [facility] Last Admin: 11/05/19 10:13 Dose: 20 mg Documented by: Furosemide (Lasix) 20 mg IVPUSH ONETIME ONE Stop: 11/03/19 15:01 Last Admin: 11/03/19 15:28 Dose: 20 mg Documented by: Furosemide (Lasix) 20 mg IVPUSH 0600,1400 [facility] Last Admin: 11/07/19 06:40 Dose: 20 mg Documented by: Furosemide (Lasix) 40 mg PO BIDDIURETIC [facility] Last Admin: 11/12/19 20:03 Dose: Not Given Documented by: Furosemide (Lasix) 40 mg PO BID@0600,1500 [facility] Last Admin: 11/13/19 14:19 Dose: 40 mg Documented by: Gadobenate Dimeglumine (Multihance) 20 ml IVPUSH ONETIME ONE Stop: 11/06/19 12:18 Last Admin: 11/06/19 12:25 Dose: 20 ml Documented by: Glycopyrrolate (Seebri Neohaler) 15.6 mcg IH BID [facility] Last Admin: 10/30/19 09:12 Dose: Not Given Documented by: Hydroxyzine HCl (Atarax) 25 mg PO BID [facility] Last Admin: 11/03/19 09:20 Dose: 25 mg Documented by: Sodium Chloride (Normal Saline) 1,000 mls @ 999 mls/hr IV ONETIME [facility] Last Admin: 10/29/19 14:01 Dose: 999 mls/hr Documented by: Ceftriaxone Sodium 2 gm/ (Sodium Chloride) 100 mls @ 200 mls/hr IV ONETIME ONE Stop: 10/29/19 15:13 Last Admin: 10/29/19 16:31 Dose: 200 mls/hr Documented by: Lactated Ringer's (Ringers, Lactated) 1,000 mls @ 999 mls/hr IV .BOLUS ONE Stop: 10/29/19 15:51 Last Admin: 10/29/19 15:09 Dose: 999 mls/hr Documented by: Lactated Ringer's (Ringers, Lactated) 1,000 mls @ 999 mls/hr IV .BOLUS ONE Stop: 10/29/19 17:38 Last Admin: 10/29/19 17:05 Dose: 999 mls/hr Documented by: Lactated Ringer's (Ringers, Lactated) 1,000 mls @ 999 mls/hr IV .BOLUS ONE Stop: 10/29/19 17:42 Last Admin: 10/29/19 17:33 Dose: Not Given Documented by: Sodium Chloride (Normal Saline) Confirm Administered Dose 100 mls @ as directed .ROUTE .[facility] ONE Stop: 10/29/19 16:27 Last Admin: 10/29/19 19:17 Dose: Not Given Documented by: Lactated Ringer's (Ringers, Lactated) Confirm Administered Dose 1,000 mls @ as directed .ROUTE .[facility] ONE Stop: 10/29/19 16:27 Last Admin: 10/29/19 19:17 Dose: Not Given Documented by: Sodium Chloride (Normal Saline) 1,000 mls @ 150 mls/hr IV ASDIRECTED [facility] Last Admin: 10/30/19 02:47 Dose: 150 mls/hr Documented by: Azithromycin 500 mg/ Sodium (Chloride) 250 mls @ 250 mls/hr IV Q24H [facility] Stop: 11/01/19 20:01 Last Admin: 10/29/19 20:18 Dose: 250 mls/hr Documented by: Ceftriaxone Sodium 2 gm/ (Sodium Chloride) 100 mls @ 200 mls/hr IV Q24H [facility] Last Admin: 10/30/19 15:25 Dose: 200 mls/hr Documented by: Azithromycin 500 mg/ Sodium (Chloride) 250 mls @ 250 mls/hr IV Q24H [facility] Stop: 10/31/19 20:59 Sodium Chloride (Normal Saline) 1,000 mls @ 75 mls/hr IV ASDIRECTED [facility] Cefepime HCl 2 gm/ Premix 50 mls @ 100 mls/hr IV Q24H [facility] Last Admin: 10/30/19 20:13 Dose: 100 mls/hr Documented by: Levofloxacin/Dextrose 750 mg/ (Premix) 150 mls @ 100 mls/hr IV Q48H [facility] Last Admin: 10/30/19 20:45 Dose: 100 mls/hr Documented by: Dextrose/Sodium Chloride (Dextrose 5%-1/2 Ns) 1,000 mls @ 100 mls/hr IV ASDIREC CH[facility]IE [facility] Last Admin: 11/02/19 02:30 Dose: 100 mls/hr Documented by: Vancomycin HCl 1.5 gm/ Sodium (Chloride) 500 mls @ 250 mls/hr IV ONETIME ONE Stop: 10/30/19 21:44 Last Admin: 10/30/19 22:28 Dose: 250 mls/hr Documented by: Sodium Chloride (Normal Saline) 500 mls @ 500 mls/hr IV BOLUS ONE Stop: 10/30/19 22:09 Last Admin: 10/30/19 21:36 Dose: 500 mls/hr Documented by: Vancomycin HCl 1 gm/ Sodium (Chloride) 250 mls @ 250 mls/hr IV Q12H [facility] Vancomycin HCl 1 gm/Vancomycin HCl 250 mg/ Sodium Chloride 250 mls @ 166.667 mls/hr IV Q12H [facility] Last Admin: 11/01/19 12:17 Dose: Not Given Documented by: Levofloxacin/Dextrose 750 mg/ (Premix) 150 mls @ 100 mls/hr IV Q24H [facility] Stop: 11/04/19 21:29 Last Admin: 11/03/19 20:18 Dose: 100 mls/hr Documented by: Piperacillin Sod/Tazobactam (Sod 4.5 gm/ Sodium Chloride) 100 mls @ 200 mls/hr IV ONETIME ONE Stop: 10/31/19 11:59 Last Admin: 10/31/19 11:39 Dose: 200 mls/hr Documented by: Piperacillin Sod/Tazobactam (Sod 4.5 gm/ Sodium Chloride) 100 mls @ 25 mls/hr IV Q8H [facility] Last Admin: 11/03/19 13:30 Dose: 25 mls/hr Documented by: Sodium Chloride (Normal Saline) 100 mls @ 75 mls/hr IV ASDIRECTED [facility] Stop: 10/31/19 13:00 Last Admin: 10/31/19 11:29 Dose: 75 mls/hr Documented by: Potassium Phosphate 30 mmole/ (Sodium Chloride) 510 mls @ 102 mls/hr IV ONETIME ONE Stop: 11/01/19 15:29 Last Admin: 11/01/19 10:58 Dose: 102 mls/hr Documented by: Vancomycin HCl 1 gm/Vancomycin HCl 250 mg/ Sodium Chloride 250 mls @ 166.667 mls/hr IV Q8H [facility] Last Admin: 11/05/19 19:27 Dose: Not Given Documented by: Potassium Chloride 10 meq/ (Premix) 100 mls @ 100 mls/hr IV Q1H [facility] Stop: 11/02/19 12:59 Last Admin: 11/02/19 13:26 Dose: 100 mls/hr Documented by: Potassium Phosphate 30 mmole/ (Sodium Chloride) 510 mls @ 102 mls/hr IV ONETIME ONE Stop: 11/02/19 17:59 Last Admin: 11/02/19 13:27 Dose: 102 mls/hr Documented by: Albumin Human (Flexbumin 25%) 25 gm in 100 mls @ 100 mls/hr IV Q1H [facility] Stop: 11/03/19 19:29 Last Admin: 11/03/19 20:02 Dose: Not Given Documented by: Albumin Human (Flexbumin 25%) 12.5 gm in 50 mls @ 50 mls/hr IV ONETIME ONE Stop: 11/04/19 01:59 Last Admin: 11/04/19 00:01 Dose: 50 mls/hr Documented by: Albumin Human (Flexbumin 25%) 25 gm in 100 mls @ 100 mls/hr IV Q1H [facility] Stop: 11/03/19 21:59 Last Admin: 11/03/19 23:20 Dose: 100 mls/hr Documented by: Piperacillin Sod/Tazobactam (Sod 4.5 gm/ Sodium Chloride) 100 mls @ 25 mls/hr IV Q8H [facility] Stop: 11/06/19 11:30 Last Admin: 11/06/19 06:46 Dose: 25 mls/hr Documented by: Potassium Chloride 10 meq/ (Premix) 100 mls @ 100 mls/hr IV Q1H [facility] Stop: 11/04/19 20:29 Last Admin: 11/04/19 20:16 Dose: Not Given Documented by: Potassium Chloride 10 meq/ (Premix) 100 mls @ 100 mls/hr IV Q1H [facility] Stop: 11/05/19 02:59 Last Admin: 11/05/19 02:25 Dose: 100 mls/hr Documented by: Potassium Chloride 10 meq/ (Premix) 100 mls @ 100 mls/hr IV Q1H [facility] Stop: 11/05/19 01:59 Last Admin: 11/05/19 03:10 Dose: Not Given Documented by: Vancomycin HCl 1 gm/Vancomycin HCl 500 mg/ Sodium Chloride 500 mls @ 250 mls/hr IV Q12H [facility] Stop: 11/06/19 05:59 Last Admin: 11/06/19 04:36 Dose: 250 mls/hr Documented by: Potassium Chloride 10 meq/ (Premix) 100 mls @ 100 mls/hr IV Q1H [facility] Stop: 11/07/19 12:29 Last Admin: 11/07/19 09:48 Dose: Not Given Documented by: Sodium Chloride (Normal Saline) 1,000 mls @ 50 mls/hr IV ASDIRECTED [facility] Last Admin: 11/07/19 09:17 Dose: 50 mls/hr Documented by: Potassium Chloride 10 meq/ (Premix) 100 mls @ 100 mls/hr IV Q1H [facility] Stop: 11/07/19 13:59 Last Admin: 11/07/19 14:03 Dose: 100 mls/hr Documented by: Magnesium Sulfate (Magnesium Sulfate In Water Premix) 2 gm in 50 mls @ 25 mls/hr IV ONETIME ONE Stop: 11/12/19 10:59 Last Admin: 11/12/19 09:06 Dose: 25 mls/hr Documented by: Influenza Virus Vaccine (Fluzone Quad 3310-9936 Syringe) 60 mcg IM .ONCE ONE Stop: 11/13/19 10:16 Insulin Human Lispro (Humalog) 0 unit SUBCUT QIDACANDBED [facility]; Protocol Last Admin: 10/31/19 12:44 Dose: Not Given Documented by: Insulin Human Lispro (Humalog) 0 unit SUBCUT Q6HR [facility]; Protocol Last Admin: 11/02/19 18:34 Dose: Not Given Documented by: Iopamidol (Isovue-300 (61%)) 50 ml IVPUSH ONETIME ONE Stop: 10/30/19 07:53 Last Admin: 10/30/19 08:36 Dose: 50 ml Documented by: Iopamidol (Isovue-300 (61%)) 100 ml IVPUSH ONETIME ONE Stop: 10/30/19 07:53 Last Admin: 10/30/19 08:37 Dose: 100 ml Documented by: Iopamidol (Isovue-370 (76%)) 100 ml IVPUSH ONETIME ONE Stop: 10/31/19 11:21 Last Admin: 10/31/19 11:28 Dose: 100 ml Documented by: Lorazepam (Ativan) 1 mg IVPUSH Q15M PRN PRN Reason: Other Last Admin: 10/30/19 08:47 Dose: 1 mg Documented by: Lorazepam (Ativan) Confirm Administered Dose 2 mg .ROUTE .STK-MED ONE Stop: 10/30/19 08:15 Last Admin: 10/30/19 08:47 Dose: Not Given Documented by: Lorazepam (Ativan) 1 mg IVPUSH ONETIME ONE Stop: 10/30/19 11:52 Last Admin: 10/30/19 11:58 Dose: 1 mg Documented by: Lurasidone Hcl [ (Latuda] 80 Mg) 0 each PO BEDTIME [facility] Last Admin: 11/06/19 20:47 Dose: Not Given Documented by: Atorvastatin 20 Mg 0 each PO DAILY [facility] Potassium Chloride (Klor-Con M20) 40 meq PO ONETIME ONE Stop: 11/02/19 17:01 Last Admin: 11/02/19 18:25 Dose: 40 meq Documented by: Potassium Chloride (Klor-Con M20) 40 meq PO BID [facility] Stop: 11/03/19 21:01 Last Admin: 11/03/19 20:29 Dose: 40 meq Documented by: Potassium Chloride (Klor-Con M20) 40 meq PO ONETIME ONE Stop: 11/07/19 08:31 Last Admin: 11/07/19 09:20 Dose: 40 meq Documented by: Potassium Chloride (Klor-Con M20) 40 meq PO BID [facility] Stop: 11/13/19 09:01 Last Admin: 11/13/19 08:42 Dose: 40 meq Documented by: Potassium Chloride (Klor-Con M20) 40 meq PO BEDTIME [facility] Potassium Chloride (Klor-Con M20) 40 meq PO ONETIME ONE Stop: 11/13/19 21:01 Last Admin: 11/13/19 20:33 Dose: 40 meq Documented by: Risperidone (Risperidal) 2 mg PO DAILY [facility] Last Admin: 11/03/19 09:19 Dose: 2 mg Documented by: Sodium Chloride (Saline Flush) 10 ml FLUSH ASDIRECTED PRN PRN Reason: Keep Vein Open Last Admin: 10/30/19 20:09 Dose: 10 ml Documented by: Sodium Chloride (Saline Flush) 10 ml FLUSH ONETIME PRN PRN Reason: IV FLUSH Last Admin: 10/30/19 08:37 Dose: 10 ml Documented by: Sodium Chloride (Saline Flush) 10 ml FLUSH ONETIME PRN PRN Reason: IV FLUSH Stop: 10/31/19 13:00 Last Admin: 10/31/19 11:29 Dose: 10 ml Documented by: Vancomycin HCl (Pharmacy To Dose - Vancomycin) 1 dose .XX ASDIRECTED PRN PRN Reason: RX TO DOSE VANCO - Exam Quality Assessment: DVT Prophylaxis General: Alert, Oriented, Cooperative, No Acute Distress HEENT: Pupils Equal, Pupils Reactive, Mucous Membr. Moist/[place] Neck: Supple, Trachea Midline Lungs: Clear to Auscultation, Normal Respiratory Effort GI/Abdominal Exam: Normal Bowel Sounds, Soft, Non-Tender, No Distention (Female) Exam: Deferred Back Exam: Normal Inspection, Full Range of Motion Extremities: Normal Inspection, Normal Range of Motion, No Pedal Edema Skin: Warm, Dry, Intact Wound/Incisions: Healing Well, Other (Healing blisters to dorsal aspect of bilateral hands. Apparent bite ihsan on right chest.) Neurological: No New Focal Deficit Psy/Mental Status: Alert Sepsis Event Note - Evaluation Sepsis Screening Result: No Definite Risk - Focused Exam Vital Signs: Vital Signs Temp Pulse Resp BP Pulse Ox Pulse Ox 11/14/19 02:44 98.1 F 102 H 20 131/73 92 L 11/13/19 21:04 95 11/13/19 20:33 136/72 11/13/19 20:30 97.5 F 104 H 16 136/72 95 - Problem List & Annotations (1) Abdominal pain SNOMED Code(s): 15689963 Code(s): R10.9 - UNSPECIFIED ABDOMINAL PAIN Status: Resolved Priority: High Current Visit: Yes Qualifiers: Abdominal location: unspecified location Qualified Code(s): R10.9 - Unspecified abdominal pain (2) Benign microscopic hematuria SNOMED Code(s): 704735260381674 Code(s): R31.1 - BENIGN ESSENTIAL MICROSCOPIC HEMATURIA Status: Resolved Priority: Medium Current Visit: Yes (3) COPD (chronic obstructive pulmonary disease) SNOMED Code(s): 17188094 Code(s): J44.9 - CHRONIC OBSTRUCTIVE PULMONARY DISEASE, UNSPECIFIED Status: Chronic Priority: Medium Current Visit: Yes Qualifiers: COPD type: unspecified COPD Qualified Code(s): J44.9 - Chronic obstructive pulmonary disease, unspecified (4) Pneumonia SNOMED Code(s): 132763141 Code(s): J18.9 - PNEUMONIA, UNSPECIFIED ORGANISM Status: Resolved Priority: High Current Visit: Yes Qualifiers: Pneumonia type: due to unspecified organism Laterality: unspecified laterality Lung location: unspecified part of lung Qualified Code(s): J18.9 - Pneumonia, unspecified organism (5) Positive result for methicillin resistant Staphylococcus aureus (MRSA) screening SNOMED Code(s): 761769357 Code(s): Z22.322 - CARRIER OR SUSPECTED CARRIER OF METHICILLIN RESIS STAPH Status: Acute Priority: Medium Current Visit: Yes (6) Schizophrenia SNOMED Code(s): 22173119 Code(s): F20.9 - SCHIZOPHRENIA, UNSPECIFIED Status: Chronic Priority: High Current Visit: Yes Qualifiers: Schizophrenia type: unspecified Qualified Code(s): F20.9 - Schizophrenia, unspecified (7) Sepsis SNOMED Code(s): 75216628 Code(s): A41.9 - SEPSIS, UNSPECIFIED ORGANISM Status: Resolved Priority: High Current Visit: Yes Qualifiers: Sepsis type: sepsis due to unspecified organism Sepsis acute organ dysfunction status: unspecified Qualified Code(s): A41.9 - Sepsis, unspecified organism (8) Septic shock SNOMED Code(s): 18443287 Code(s): A41.9 - SEPSIS, UNSPECIFIED ORGANISM; R65.21 - SEVERE SEPSIS WITH SEPTIC SHOCK Status: Resolved Priority: High Current Visit: Yes (9) Streptococcal pneumonia SNOMED Code(s): 95326855 Code(s): J15.4 - PNEUMONIA DUE TO OTHER STREPTOCOCCI Status: Resolved Priority: High Current Visit: Yes (10) Colitis SNOMED Code(s): 88915053 Code(s): K52.9 - NONINFECTIVE GASTROENTERITIS AND COLITIS, UNSPECIFIED Status: Resolved Priority: High Current Visit: Yes (11) Hypokalemia SNOMED Code(s): 24913744 Code(s): E87.6 - HYPOKALEMIA Status: Acute Priority: High Current Visit: Yes (12) Transaminitis SNOMED Code(s): 030222721, 558714427 Code(s): R74.0 - NONSPEC ELEV OF LEVELS OF TRANSAMNS & LACTIC * DO NOT USE * Status: Resolved Priority: High Current Visit: Yes (13) Hypoalbuminemia SNOMED Code(s): 936316927 Code(s): E88.09 - OTH DISORDERS OF PLASMA-PROTEIN METABOLISM, NEC Status: Acute Priority: Medium Current Visit: Yes (14) HTN (hypertension) SNOMED Code(s): 92398746 Code(s): I10 - ESSENTIAL (PRIMARY) HYPERTENSION Status: Chronic Priority: Medium Current Visit: No Qualifiers: Hypertension type: unspecified Qualified Code(s): I10 - Essential (primary) hypertension (15) HLD (hyperlipidemia) SNOMED Code(s): 25236227 Code(s): E78.5 - HYPERLIPIDEMIA, UNSPECIFIED Status: Chronic Priority: Low Current Visit: No Qualifiers: Hyperlipidemia type: unspecified Qualified Code(s): E78.5 - Hyperlipidemia, unspecified (16) Altered mental status SNOMED Code(s): 518352492 Code(s): R41.82 - ALTERED MENTAL STATUS, UNSPECIFIED Status: Resolved Priority: High Current Visit: Yes Qualifiers: Altered mental status type: unspecified Qualified Code(s): R41.82 - Altered mental status, unspecified (17) GERD (gastroesophageal reflux disease) SNOMED Code(s): 342714439 Code(s): K21.9 - GASTRO-ESOPHAGEAL REFLUX DISEASE WITHOUT ESOPHAGITIS Status: Acute Priority: High Current Visit: Yes Qualifiers: Esophagitis presence: esophagitis presence not specified Qualified Code(s): K21.9 - Gastro-esophageal reflux disease without esophagitis (18) Hypomagnesemia SNOMED Code(s): 962090227 Code(s): E83.42 - HYPOMAGNESEMIA Status: Acute Priority: High Current Visit: Yes - Problem List Review Problem List Initiated/Reviewed/Updated: Yes - My Orders Last 24 Hours: My Active Orders 11/14/19 06:01 BASIC METABOLIC PANEL,BMP [CHEM] AM MAGNESIUM [CHEM] AM PHOSPHORUS [CHEM] AM 11/14/19 09:00 Furosemide [Lasix] 40 mg PO DAILY Potassium Chloride [Klor-Con M20] 20 meq PO DAILY 11/15/19 05:11 MAGNESIUM [CHEM] AM 11/16/19 05:11 MAGNESIUM [CHEM] AM 11/17/19 05:11 MAGNESIUM [CHEM] AM - Assessment Assessment:: 10/29/2019 Patient found on floor in the bathroom after possibly having a seizure. Hypotensive, tachycardic, tachypneic and hypoxic on arrival to emergency department. Patient received 3 L IV bolus in emergency department. Initial lactic acid 4.0 increasing to 5.3 after fluid bolus. Initial WBC 22,000, 76% neutrophils, no bandemia, C-reactive protein 1.6 Altered mental status, patient is very lethargic. Patient is in critical condition and currently has a poor outcome predicted. High risk of mortality. Patient's initial complaint when calling EMS was abdominal pain and constipation. Patient does exhibit tenderness to palpation throughout the abdomen. Bowel sounds difficult to appreciate secondary to upper airway noise. 10/30/2019 Patient is not improved with the large amount of IV fluids. She has actually had worsening respiratory status requiring IV Lasix. Respiratory rate has had some improvement with vigorous pulmonary toilet, bronchodilation, and diuretics. Unfortunately, this is likely going to cause some intravascular hypovolemia. Lactic acid did drop to 2.0 this morning with the IV fluids. This afternoon renal function did worsen with a creatinine of 1.6. WBC worsened and has been stable today at 23,000. Still no bands or toxic granulations. Neutrophils 90%, absolute neutrophils 21,000. Confirmed CODE STATUS with sister. She states that Rosita has several mental health issues and she likely did not understand the catastrophic results of not being intubated. CT abdomen and pelvis with contrast. Findings suspicious for colitis within portions of the descending and sigmoid colon. Fluid is seen within the pelvis and right abdomen most likely reactive from the colonic process. Increased stool within the rectosigmoid region. Nodularity with in the left adrenal gland most likely benign if patient has no primary carcinoma. CT of the of the head: No acute findings 10/31/2019 Rosita is making some improvement today. Respiratory rate has decreased and her tachycardia has decreased. Antibiotics were switched to Zosyn to cover both strep pneumoniae and colitis. MRSA screen was positive. Patient continues on vancomycin. D-dimer was elevated at 1.[address] angio was done of the chest CT angio chest: 1. No findings of pulmonary embolism. 2. Aorta shows atherosclerotic changes with no dissection or aneurysm. No discrete ulcerating plaque is seen. 3. Increased density within the right lung base which may represent pneumonia or prominent atelectasis. 4. Other findings as noted. Not believed to be acute. ABGs normal pH, PCO2, bicarb with a slightly low PO2. These are surprisingly good considering her respiratory rate. Repeat lactic acid was 1.6. White count continues to be significantly elevated at 23,000. CRP 35.8. Patient has significant hypoalbuminemia with albumin of 1.9 Hypokalemiapotassium 3.4 Hemoglobin A1c is 6.1 11/01/2019 Decrease in respiratory rate and tachycardia. Patient weaned off of BiPAP and now on nasal cannula. On Zosyn, Levaquin, and vancomycin. Slowly improving mentation. WBC 18.9, CRP 34.2, procalcitonin from yesterday 10/31 2011.07, phosphorus 1.8, potassium 3.2, estimated GFR 57, albumin 1.6 11/02/2019 Significant improvement today. More awake, alert, and talking. Afebrile, map greater than 65, on 2 L nasal cannula to keep SPO2 in the mid 90s WBC 17.7, C-reactive protein 22.1. Estimated GFR greater than 60. Hypokalemia. Potassium 2.8. Hypophosphatemia. Phosphorus 1.7. Hypoalbuminemia. Albumin down to 1.4. She did eat some today. Zosyn, Levaquin, and vancomycin. 11/03/2019 Patient is off BiPAP and on 2 to 3 L nasal cannula to keep her SPO2 in the mid 90s. Significant improvement in her respiratory status and pneumonia. She continues to have some congestion likely from pulmonary congestion. White count 14, CRP 8.8 On Zosyn, Levaquin, and vancomycin Patient is a pack to 2 per day smoker. She does have a nicotine patch. Positive streptococcal pneumonia urine antigen Slow but progressive improvement in her mentation. She appears to be having some clearing although she is still very lethargic. Unable to do LP secondary to her not being cooperative or awake enough to be able to perform the procedure. Unlikely that this is secondary to infectious process. Patient has had a significant decrease in her abdominal pain. She is now having multiple loose and watery diarrhea. Bowel movements have decreased over the afternoon. Patient had significant stool on CT scan on admission. Patient has dark orange, tea colored urine and what appears to be vaginal bleeding. On exam she has blood coming from the urethra around the Noguera catheter. Patient states that she has had hematuria in the past and it has been worked up. She does have a history of hematuria. Enoxaparin may be worsening the hematuria. At this time we will continue on enoxaparin because her risk of clot is greater than her risk of a significant bleed. Potassium 3.2 Bilirubin 1.2, AST 69, ALT 57, alkaline phosphatase 150 Albumin 1.7 On Latuda, Risperdal, Paxil Only receiving risperidone, and Paxil in the hospital There is no substitute for her Latuda These medications may be contributing to her mental status changes. Amlodipine and enalapril on hold Atorvastatin is nonformulary 11/04/2019 Episode of vomiting and possible aspiration. Chest x-ray showed no change. No change in 2 to 3 L nasal cannula to keep her SPO2 in the mid 90s. Significant improvement in her respiratory status and pneumonia. She continues to have some congestion likely from pulmonary congestion. WBC decreased to 12.8 by afternoon but had stopped few toxic granulations. Procalcitonin down to 2 on yesterday's blood draw. On Zosyn and vancomycin Last day of Levaquin, day 5 Patient is a pack to 2 per day smoker. She does have a nicotine patch. Positive streptococcal pneumonia urine antigen Unable to do LP secondary to her not being cooperative or awake enough to be able to perform the procedure. MRI of the brain today showed no acute findings. Abdominal pain resolved Multiple episodes of vomiting early this morning and 1 this afternoon. Noguera catheter removed today. She did require straight catheter. Elevated LFTs resolved Albumin 2.2 after receiving albumin yesterday Yesterday stopped Risperdal There is no substitute for her Latuda, therefore not on second-generation antipsychotic 11/05/2019 Only one episode of emesis early today Requiring 3L o2 to maintain saturations in mid 90's WBC decreased to 12.68 Repeat procalcitonin today Last day of Zosyn and vancomycin today Improved mentation but will fall asleep while talking with staff. MRI of the brain on 11/04/19 showed no acute findings. Improvement in mental status since stopping Risperdal, but likely coincidental. She is likely having improvement in her mental status secondary to improvement in her condition. Albumin 2.0 from 2.2 yesterday today Received albumin on 11/03/19 There is no substitute for her Latuda, therefore not on second-generation antipsychotic Vital signs trend: Tmax 98.1, HR 87-91, BP 130-138/64-81, RR 16-21, Oxygen saturations 94-95% on 3L Last BM today 11/06/2019 She continues to have some congestion likely from pulmonary congestion. WBC 15.89 today Repeat procalcitonin pending Last day of Zosyn and vancomycin today Patient is a pack to 2 per day smoker. She does have a nicotine patch. MRI with contrast ordered today Vital signs trend: Tmax 98.2, HR 79-88, BP 138-117/78-60, RR 16-21, Oxygen saturations 94-96% on 3L Last BM today 11/07/2019 Improving breath sounds Vital signs trend: Tmax 97.5, HR 72-80, BP 138-123/81-74, RR 20, Oxygen saturations 94-96% on 3L She was up ambulating with therapies today. Much more alert again today. Last BM: 11/06/19 11/08/2019 Feels better and has no complaints Vital signs trend Blood pressure: 128-145/70-97 T-max 97.7 Heart rate: 72-92 Pulse ox >92% on 3 L/min New lab results WBC down from 15.37-12.71 No more toxic granulation Potassium up from 3.1-3.3 PLAN Continue Paxil Cognitive evaluation as an outpatient Aspiration precautions and HOB elevation Nicotine patch Continue incentive spirometer and Acapella Pulse ox goal greater than 92% PRN Hydralazine Start lisinopril 11/09/2019 Feels better has no complaints Vital signs trend Blood pressure: 141-156/58-85 T-max 98.8 Heart rate: 70-85 Pulse ox >95% on 3 L/min New lab results WBC down from 12.71-10.22 Platelets up from 329-410 Potassium up from 3.3-3.5 GFR minimal decrease from greater than 60-57 Procalcitonin 0.99 (11/05) down to 0.54 (11/07) PLAN Continue Paxil Cognitive evaluation as an outpatient Aspiration precautions and HOB elevation Nicotine patch Continue incentive spirometer and Acapella Pulse ox goal greater than 92% PRN Hydralazine Start lisinopril Dietary follow-up Contact precautions 11/10/2019 Continues to improve Disposition pending PT/OT recommendations Vital signs trend: Tmax 98.2, HR 79-85, BP 155-125/88-69, RR 14-20, Oxygen saturations 91-92% on room air No labs obtained today Walked a few steps today with PT without a walker Last BM 11/09/19 PLAN Continue Paxil Cognitive evaluation as an outpatient Aspiration precautions and HOB elevation Nicotine patch Continue incentive spirometer and Acapella Pulse ox goal greater than 92% PRN Hydralazine Start lisinopril Dietary follow-up Contact precautions 11/11/2019 Continues to improve clinically PT/OT recommending SNF placement VSS No labs obtained today Wheezing on physical exam - RT to give nebulizer Ambulating short distances in room. Last BM: 11/11/19 [employer] evaluation today revealed severe cognitive deficit Remains off of oxygen Remains medically stable for discharge pending placement. PLAN Continue Paxil Cognitive evaluation as an outpatient Aspiration precautions and HOB elevation Nicotine patch Continue incentive spirometer and Acapella Pulse ox goal greater than 92% PRN Hydralazine Start lisinopril Dietary follow-up Contact precautions 11/12/2019 Ambulating around room VSS Potassium 2.8 -> Supplement Magnesium 1.7-> supplement Ramains off of oxygen Last BM: 11/11/2019 Remains medically stable to discharge pending placement D/C HOB elevation and aspiration precautions Change activity order to up add [facility] reportedly coming tomorrow to evaluate patient Discontinued scheduled duonebs. Changed to PRN PLAN: Continue Paxil Cognitive evaluation as an outpatient Aspiration precautions and HOB elevation Nicotine patch Continue incentive spirometer and Acapella Pulse ox goal greater than 92% PRN Hydralazine Start lisinopril Dietary follow-up -Supplement potassium now -Consider daily potassium supplementation once back WNL -Supplement magnesium now -Repeat labs in AM Contact precautions -TID famotidine 11/13/2019 Continues to improve clinically Ambulating around room Evaluated by [facility] today VSS Potassium 3.3 * Supplement 40mEq potassium today and tonight and then start 20mEq daily supplementation tomorrow Showered today Last BM: 11/12/19 Repeat BMP, magnesium, phosphorous tomorrow Decrease Lasix to 40mg daily Remains medically stable to discharge pending placement PLAN Continue Paxil Nicotine patch Continue incentive spirometer and Acapella Pulse ox goal greater than 92% PRN Hydralazine Start lisinopril Dietary follow-up -Supplement potassium now -Start daily potassium tomorrow -Repeat labs in AM Contact precautions -TID famotidine 11/14/2019 Remains clinically stable Continues to ambulate around room VSS Potassium up to 3.4 - will give 40mEq potassium tonight and continue 20mEq daily supplementation tomorrow Last BM 11/14/2019 Recheck CMP and magnesium tomorrow Will start daily magnesium supplementation Remains clinically stable for discharge pending placement - Plan Plan:: Altered mental status, stable Schizophrenia, stable Continue Paxil COPD (chronic obstructive pulmonary disease) Current smoker Nicotine patch Continue incentive spirometer and Acapella Pulse ox goal greater than 92% HTN (hypertension) PRN Hydralazine Continue lisinopril Hypoalbuminemia Hypokalemia Hypomagnesemia Dietary follow-up -Daily potassium supplementation -Daily magnesium supplementation -Repeat labs in AM Positive MRSA screen Contact precautions GERD -TID famotidine Sepsis, resolved Septic shock, resolved Streptococcal pneumonia, resolved Hypokalemia, resolved Benign microscopic hematuria, resolved Transaminitis, resolved Abdominal pain, resolved PROPHYLAXIS DVTLovenox twice daily GIfamotidine TID CODE STATUS: Full code DISPOSITION: Has been ambulating in room with walker. PT/OT recommending SNF with PT/OT. Patient has reportedly been accepted to [facility] with plan to discharge next week Sunday, pending continued stability.
[2019-11-14] MEDS: Glycopyrrolate 15.6 MCG Cap.W.Dev Kit of 6 IH SCH ×4 (08:20→22:06)
[2019-11-14] MEDS: Budesonide 0.5 MG/2 ML Neb Susp NEB SCH ×2 (08:20→20:35)
[2019-11-14] MEDS: Enoxaparin 40 MG/0.4 ML Syringe SUBCUT SCH ×2 (09:35→20:19)
[2019-11-14] MEDS: Furosemide 40 MG Tab PO SCH (09:36)
[2019-11-14] MEDS: PARoxetine 20 MG Tab PO SCH (09:36)
[2019-11-14] MEDS: Famotidine 10 MG Tab PO SCH ×3 (09:36→20:19)
[2019-11-14] MEDS: Saccharomyces Boulardii (Probiotic) 250 MG Cap PO SCH ×3 (09:36→20:17)
[2019-11-14] MEDS: Magnesium Oxide 400 MG Tab PO SCH (09:36)
[2019-11-14] MEDS: Aspirin 81 MG Tab.Chew PO SCH (09:37)
[2019-11-14] MEDS: Potassium Chloride 20 MEQ Tab.ER PO SCH (09:37)
[2019-11-14] MEDS: Nicotine 21 MG/24 Hr Patch TRDERM SCH (10:01)
[2019-11-14] MEDS: Melatonin 3 MG Tab PO SCH (20:18)
[2019-11-14] MEDS: Lisinopril 10 MG Tab PO SCH (20:18)
[2019-11-14] MEDS: Lurasidone Hcl [Latuda] 80 MG PO SCH (20:23)
[2019-11-14] MEDS ORDERED: Potassium Chloride 20 MEQ Tab.ER PO ONE (21:00)
[2019-11-15] MEDS: Enoxaparin 40 MG/0.4 ML Syringe SUBCUT SCH (07:59)
[2019-11-15] MEDS: Aspirin 81 MG Tab.Chew PO SCH (08:00)
[2019-11-15] MEDS: Saccharomyces Boulardii (Probiotic) 250 MG Cap PO SCH ×3 (08:00→20:35)
[2019-11-15] MEDS: Magnesium Oxide 400 MG Tab PO SCH (08:01)
[2019-11-15] MEDS: PARoxetine 20 MG Tab PO SCH (08:01)
[2019-11-15] MEDS: Furosemide 40 MG Tab PO SCH (08:01)
[2019-11-15] MEDS: Potassium Chloride 20 MEQ Tab.ER PO SCH (08:01)
[2019-11-15] MEDS: Famotidine 10 MG Tab PO SCH ×3 (08:02→20:33)
[2019-11-15] MEDS: Budesonide 0.5 MG/2 ML Neb Susp NEB SCH ×2 (08:49→22:33)
[2019-11-15] MEDS: Glycopyrrolate 15.6 MCG Cap.W.Dev Kit of 6 IH SCH ×2 (10:12→22:33)
[2019-11-15] MEDS: Nicotine 21 MG/24 Hr Patch TRDERM SCH (12:46)
--- NOTE | 2019-11-15 17:08 | PCM.PN ---
- General Info Date of Service: 11/15/19 Admission Dx/Problem (Free Text): Admission Diagnosis/Problem Admission Diagnosis/Problem Pneumonia Subjective Update: Patient states that she feels well. She denies any shortness of breath, fever, abdominal pain, nausea, or vomiting. Appetite is good. Last bowel movement yesterday. Functional Status: Reports: Pain Controlled - Review of Systems General: Reports: No Symptoms HEENT: Reports: No Symptoms Pulmonary: Reports: No Symptoms Cardiovascular: Reports: No Symptoms Gastrointestinal: Reports: No Symptoms Musculoskeletal: Reports: No Symptoms - Patient Data Vitals - Most Recent: Last Vital Signs Temp 97.9 F 11/15/19 15:06 Pulse 96 11/15/19 15:06 Resp 22 H 11/15/19 08:17 BP 135/68 11/15/19 15:06 Pulse Ox 98 11/15/19 15:06 Weight - Most Recent: 105.778 kg I&O - Last 24 Hours: Intake & Output 11/15/19 11/15/19 11/15/19 06:59 14:59 22:59 Intake Total 2000 460 Output Total 2200 Balance -200 460 Lab Results Last 24 Hours: Laboratory Results - last 24 hr 11/15/19 Range/Units 05:47 Sodium 136 (136-145) mEq/L Potassium 3.6 (3.5-5.1) mEq/L Chloride 100 (98-107) mEq/L Carbon Dioxide 28 (21-32) mEq/L Anion Gap 11.6 (5-15) BUN 15 (7-18) mg/dL Creatinine 1.0 (0.55-1.02) mg/dL Est Cr Clr Drug Dosing 54.51 mL/min Estimated GFR (MDRD) 57 (>60) mL/min BUN/Creatinine Ratio 15.0 (14-18) Glucose 129 H (74-106) mg/dL Calcium 8.8 (8.5-10.1) mg/dL Magnesium 1.9 (1.8-2.4) mg/dl Total Bilirubin 0.5 (0.2-1.0) mg/dL AST 53 H (15-37) U/L ALT 414 H (14-59) U/L Alkaline Phosphatase 115 (46-116) U/L Total Protein 6.8 (6.4-8.2) g/dl Albumin 2.3 L (3.4-5.0) g/dl Globulin 4.5 gm/dL Albumin/Globulin Ratio 0.5 L (1-2) Med Orders - Current: Current Medications Acetaminophen (Tylenol) 650 mg PO Q4H PRN PRN Reason: Pain (Mild 1-3)/fever Last Admin: 11/12/19 20:19 Dose: 650 mg Documented by: Al Hydroxide/Mg Hydroxide (Mag-Al Plus) 30 ml PO Q4H PRN PRN Reason: Heartburn Last Admin: 11/05/19 10:13 Dose: 30 ml Documented by: Albuterol (Proventil Neb Soln) 2.5 mg NEB Q2H PRN PRN Reason: Shortness Of Breath/wheezing Albuterol/Ipratropium (Duoneb 3.0-0.5 Mg/3 Ml) 3 ml NEB Q4H PRN PRN Reason: Shortness Of Breath/wheezing Last Admin: 11/12/19 21:55 Dose: 3 ml Documented by: Aspirin (Aspirin) 81 mg PO DAILY [facility] Last Admin: 11/15/19 08:00 Dose: 81 mg Documented by: Budesonide (Pulmicort) 0.5 mg NEB BID [facility] Last Admin: 11/15/19 08:49 Dose: 0.5 mg Documented by: Dextrose/Water (Dextrose 50% In Water) 50 ml IVPUSH ASDIRECTED PRN PRN Reason: Hypoglycemia Enoxaparin Sodium (Lovenox) 40 mg SUBCUT DAILY [facility] Famotidine (Pepcid) 10 mg PO TID [facility] Last Admin: 11/15/19 15:09 Dose: 10 mg Documented by: Furosemide (Lasix) 40 mg PO DAILY [facility] Last Admin: 11/15/19 08:01 Dose: 40 mg Documented by: Glycopyrrolate (Seebri Neohaler) 15.6 mcg IH BID@1000,2200 [facility] Last Admin: 11/15/19 10:12 Dose: 1 cap Documented by: Lisinopril (Prinivil) 10 mg PO BEDTIME [facility] Last Admin: 11/14/19 20:18 Dose: 10 mg Documented by: Lorazepam (Ativan) 1 mg IVPUSH Q2H PRN PRN Reason: Anxiety Last Admin: 11/03/19 02:01 Dose: 1 mg Documented by: Magnesium Oxide (Magnesium Oxide) 400 mg PO DAILY [facility] Last Admin: 10/03/20 08:01 Dose: 400 mg Documented by: Melatonin (Melatonin) 9 mg PO BEDTIME [facility] Last Admin: 11/14/19 20:18 Dose: 9 mg Documented by: Miscellaneous Information (Remove Patch) 1 ea TRDERM Q24H [facility] Last Admin: 11/15/19 12:45 Dose: 1 ea Documented by: Nicotine (Habitrol) 21 mg TRDERM Q24H [facility] Last Admin: 11/15/19 12:46 Dose: 21 mg Documented by: Lurasidone Hcl [ (Latuda] 80 Mg) 0 each PO BEDTIME [facility] Last Admin: 11/14/19 20:23 Dose: 1 each Documented by: Ondansetron HCl (Zofran) 4 mg IV Q4H PRN PRN Reason: Nausea/Vomiting Last Admin: 11/04/19 16:00 Dose: 4 mg Documented by: Paroxetine HCl (Paxil) 30 mg PO DAILY [facility] Last Admin: 11/15/19 08:01 Dose: 30 mg Documented by: Potassium Chloride (Klor-Con M20) 20 meq PO DAILY [facility] Last Admin: 11/15/19 08:01 Dose: 20 meq Documented by: Saccharomyces Boulardii (Florastor) 500 mg PO TID [facility] Last Admin: 11/15/19 15:09 Dose: 500 mg Documented by: Sodium Chloride (Saline Flush) 20 ml FLUSH ASDIRECTED [facility] Last Admin: 11/06/19 12:25 Dose: 20 ml Documented by: Discontinued Medications Albuterol (Proventil Hfa) 0 gm INH Q4H PRN PRN Reason: Shortness of Breath Albuterol/Ipratropium (Duoneb 3.0-0.5 Mg/3 Ml) 3 ml NEB Q4HRRT [facility] Last Admin: 10/30/19 21:20 Dose: 3 ml Documented by: Albuterol/Ipratropium (Duoneb 3.0-0.5 Mg/3 Ml) Confirm Administered Dose 3 ml .ROUTE .STK-MED ONE Stop: 10/30/19 12:21 Last Admin: 10/30/19 12:24 Dose: Not Given Documented by: Albuterol/Ipratropium (Duoneb 3.0-0.5 Mg/3 Ml) 3 ml NEB Q6HRRT [facility] Last Admin: 11/07/19 09:00 Dose: 3 ml Documented by: Albuterol/Ipratropium (Duoneb 3.0-0.5 Mg/3 Ml) 3 ml NEB BIDRT [facility] Last Admin: 11/12/19 06:04 Dose: 3 ml Documented by: Benztropine Mesylate (Cogentin) 1 mg PO BID [facility] Last Admin: 11/03/19 09:20 Dose: 1 mg Documented by: Budesonide (Pulmicort) 0.5 mg NEB BIDRT [facility] Last Admin: 10/30/19 05:58 Dose: 0.5 mg Documented by: Budesonide (Pulmicort) 0.5 mg NEB BID@0600,1800 [facility] Last Admin: 11/02/19 07:08 Dose: Not Given Documented by: Ceftriaxone Sodium (Rocephin) Confirm Administered Dose 2 gm IV .STK-MED ONE Stop: 10/29/19 16:27 Last Admin: 10/29/19 19:17 Dose: Not Given Documented by: Enoxaparin Sodium (Lovenox) 40 mg SUBCUT Q12H [facility] Last Admin: 11/15/19 07:59 Dose: 40 mg Documented by: Famotidine (Pepcid) 10 mg PO TIDAC [facility] Last Admin: 11/12/19 12:19 Dose: 10 mg Documented by: Furosemide (Lasix) 20 mg IVPUSH ONETIME ONE Stop: 10/30/19 10:37 Last Admin: 10/30/19 10:53 Dose: 20 mg Documented by: Furosemide (Lasix) 20 mg IVPUSH NOW ONE Stop: 10/30/19 12:10 Last Admin: 10/30/19 12:20 Dose: 20 mg Documented by: Furosemide (Lasix) 20 mg IVPUSH NOW ONE Stop: 11/01/19 12:45 Last Admin: 11/01/19 13:11 Dose: 20 mg Documented by: Furosemide (Lasix) 20 mg IVPUSH BIDDIURETIC [facility] Last Admin: 11/01/19 21:04 Dose: 20 mg Documented by: Furosemide (Lasix) 20 mg IVPUSH BID [facility] Last Admin: 11/05/19 10:13 Dose: 20 mg Documented by: Furosemide (Lasix) 20 mg IVPUSH ONETIME ONE Stop: 11/03/19 15:01 Last Admin: 11/03/19 15:28 Dose: 20 mg Documented by: Furosemide (Lasix) 20 mg IVPUSH 0600,1400 [facility] Last Admin: 11/07/19 06:40 Dose: 20 mg Documented by: Furosemide (Lasix) 40 mg PO BIDDIURETIC [facility] Last Admin: 11/12/19 20:03 Dose: Not Given Documented by: Furosemide (Lasix) 40 mg PO BID@0600,1500 [facility] Last Admin: 11/13/19 14:19 Dose: 40 mg Documented by: Gadobenate Dimeglumine (Multihance) 20 ml IVPUSH ONETIME ONE Stop: 11/06/19 12:18 Last Admin: 11/06/19 12:25 Dose: 20 ml Documented by: Glycopyrrolate (Seebri Neohaler) 15.6 mcg IH BID [facility] Last Admin: 10/30/19 09:12 Dose: Not Given Documented by: Hydroxyzine HCl (Atarax) 25 mg PO BID [facility] Last Admin: 11/03/19 09:20 Dose: 25 mg Documented by: Sodium Chloride (Normal Saline) 1,000 mls @ 999 mls/hr IV ONETIME [facility] Last Admin: 10/29/19 14:01 Dose: 999 mls/hr Documented by: Ceftriaxone Sodium 2 gm/ (Sodium Chloride) 100 mls @ 200 mls/hr IV ONETIME ONE Stop: 10/29/19 15:13 Last Admin: 10/29/19 16:31 Dose: 200 mls/hr Documented by: Lactated Ringer's (Ringers, Lactated) 1,000 mls @ 999 mls/hr IV .BOLUS ONE Stop: 10/29/19 15:51 Last Admin: 10/29/19 15:09 Dose: 999 mls/hr Documented by: Lactated Ringer's (Ringers, Lactated) 1,000 mls @ 999 mls/hr IV .BOLUS ONE Stop: 10/29/19 17:38 Last Admin: 10/29/19 17:05 Dose: 999 mls/hr Documented by: Lactated Ringer's (Ringers, Lactated) 1,000 mls @ 999 mls/hr IV .BOLUS ONE Stop: 10/29/19 17:42 Last Admin: 10/29/19 17:33 Dose: Not Given Documented by: Sodium Chloride (Normal Saline) Confirm Administered Dose 100 mls @ as directed .ROUTE .[facility] ONE Stop: 10/29/19 16:27 Last Admin: 10/29/19 19:17 Dose: Not Given Documented by: Lactated Ringer's (Ringers, Lactated) Confirm Administered Dose 1,000 mls @ as directed .ROUTE .[facility] ONE Stop: 10/29/19 16:27 Last Admin: 10/29/19 19:17 Dose: Not Given Documented by: Sodium Chloride (Normal Saline) 1,000 mls @ 150 mls/hr IV ASDIRECTED [facility] Last Admin: 10/30/19 02:47 Dose: 150 mls/hr Documented by: Azithromycin 500 mg/ Sodium (Chloride) 250 mls @ 250 mls/hr IV Q24H [facility] Stop: 11/01/19 20:01 Last Admin: 10/29/19 20:18 Dose: 250 mls/hr Documented by: Ceftriaxone Sodium 2 gm/ (Sodium Chloride) 100 mls @ 200 mls/hr IV Q24H [facility] Last Admin: 10/30/19 15:25 Dose: 200 mls/hr Documented by: Azithromycin 500 mg/ Sodium (Chloride) 250 mls @ 250 mls/hr IV Q24H [facility] Stop: 10/31/19 20:59 Sodium Chloride (Normal Saline) 1,000 mls @ 75 mls/hr IV ASDIRECTED [facility] Cefepime HCl 2 gm/ Premix 50 mls @ 100 mls/hr IV Q24H [facility] Last Admin: 10/30/19 20:13 Dose: 100 mls/hr Documented by: Levofloxacin/Dextrose 750 mg/ (Premix) 150 mls @ 100 mls/hr IV Q48H [facility] Last Admin: 10/30/19 20:45 Dose: 100 mls/hr Documented by: Dextrose/Sodium Chloride (Dextrose 5%-1/2 Ns) 1,000 mls @ 100 mls/hr IV ASDIRECTED [facility] Last Admin: 11/02/19 02:30 Dose: 100 mls/hr Documented by: Vancomycin HCl 1.5 gm/ Sodium (Chloride) 500 mls @ 250 mls/hr IV ONETIME ONE Stop: 10/30/19 21:44 Last Admin: 10/30/19 22:28 Dose: 250 mls/hr Documented by: Sodium Chloride (Normal Saline) 500 mls @ 500 mls/hr IV BOLUS ONE Stop: 10/30/19 22:09 Last Admin: 10/30/19 21:36 Dose: 500 mls/hr Documented by: Vancomycin HCl 1 gm/ Sodium (Chloride) 250 mls @ 250 mls/hr IV Q12H [facility] Vancomycin HCl 1 gm/Vancomycin HCl 250 mg/ Sodium Chloride 250 mls @ 166.667 mls/hr IV Q12H [facility] Last Admin: 11/01/19 12:17 Dose: Not Given Documented by: Levofloxacin/Dextrose 750 mg/ (Premix) 150 mls @ 100 mls/hr IV Q24H [facility] Stop: 11/04/19 21:29 Last Admin: 11/03/19 20:18 Dose: 100 mls/hr Documented by: Piperacillin Sod/Tazobactam (Sod 4.5 gm/ Sodium Chloride) 100 mls @ 200 mls/hr IV ONETIME ONE Stop: 10/31/19 11:59 Last Admin: 10/31/19 11:39 Dose: 200 mls/hr Documented by: Piperacillin Sod/Tazobactam (Sod 4.5 gm/ Sodium Chloride) 100 mls @ 25 mls/hr IV Q8H [facility] Last Admin: 11/03/19 13:30 Dose: 25 mls/hr Documented by: Sodium Chloride (Normal Saline) 100 mls @ 75 mls/hr IV ASDIRECTED [facility] Stop: 10/31/19 13:00 Last Admin: 10/31/19 11:29 Dose: 75 mls/hr Documented by: Potassium Phosphate 30 mmole/ (Sodium Chloride) 510 mls @ 102 mls/hr IV ONETIME ONE Stop: 11/01/19 15:29 Last Admin: 11/01/19 10:58 Dose: 102 mls/hr Documented by: Vancomycin HCl 1 gm/Vancomycin HCl 250 mg/ Sodium Chloride 250 mls @ 166.667 mls/hr IV Q8H [facility] Last Admin: 11/05/19 19:27 Dose: Not Given Documented by: Potassium Chloride 10 meq/ (Premix) 100 mls @ 100 mls/hr IV Q1H [facility] Stop: 11/02/19 12:59 Last Admin: 11/02/19 13:26 Dose: 100 mls/hr Documented by: Potassium Phosphate 30 mmole/ (Sodium Chloride) 510 mls @ 102 mls/hr IV ONETIME ONE Stop: 11/02/19 17:59 Last Admin: 11/02/19 13:27 Dose: 102 mls/hr Documented by: Albumin Human (Flexbumin 25%) 25 gm in 100 mls @ 100 mls/hr IV Q1H [facility] Stop: 11/03/19 19:29 Last Admin: 11/03/19 20:02 Dose: Not Given Documented by: Albumin Human (Flexbumin 25%) 12.5 gm in 50 mls @ 50 mls/hr IV ONETIME ONE Stop: 11/04/19 01:59 Last Admin: 11/04/19 00:01 Dose: 50 mls/hr Documented by: Albumin Human (Flexbumin 25%) 25 gm in 100 mls @ 100 mls/hr IV Q1H [facility] Stop: 11/03/19 21:59 Last Admin: 11/03/19 23:20 Dose: 100 mls/hr Documented by: Piperacillin Sod/Tazobactam (Sod 4.5 gm/ Sodium Chloride) 100 mls @ 25 mls/hr IV Q8H [facility] Stop: 11/06/19 11:30 Last Admin: 11/06/19 06:46 Dose: 25 mls/hr Documented by: Potassium Chloride 10 meq/ (Premix) 100 mls @ 100 mls/hr IV Q1H [facility] Stop: 11/04/19 20:29 Last Admin: 11/04/19 20:16 Dose: Not Given Documented by: Potassium Chloride 10 meq/ (Premix) 100 mls @ 100 mls/hr IV Q1H [facility] Stop: 11/05/19 02:59 Last Admin: 11/05/19 02:25 Dose: 100 mls/hr Documented by: Potassium Chloride 10 meq/ (Premix) 100 mls @ 100 mls/hr IV Q1H [facility] Stop: 11/05/19 01:59 Last Admin: 11/05/19 03:10 Dose: Not Given Documented by: Vancomycin HCl 1 gm/Vancomycin HCl 500 mg/ Sodium Chloride 500 mls @ 250 mls/hr IV Q12H [facility] Stop: 11/06/19 05:59 Last Admin: 11/06/19 04:36 Dose: 250 mls/hr Documented by: Potassium Chloride 10 meq/ (Premix) 100 mls @ 100 mls/hr IV Q1H [facility] Stop: 11/07/19 12:29 Last Admin: 11/07/19 09:48 Dose: Not Given Documented by: Sodium Chloride (Normal Saline) 1,000 mls @ 50 mls/hr IV ASDIRECTED [facility] Last Admin: 11/07/19 09:17 Dose: 50 mls/hr Documented by: Potassium Chloride 10 meq/ (Premix) 100 mls @ 100 mls/hr IV Q1H [facility] Stop: 11/07/19 13:59 Last Admin: 11/07/19 14:03 Dose: 100 mls/hr Documented by: Magnesium Sulfate (Magnesium Sulfate In Water Premix) 2 gm in 50 mls @ 25 mls/hr IV ONETIME ONE Stop: 11/12/19 10:59 Last Admin: 11/12/19 09:06 Dose: 25 mls/hr Documented by: Influenza Virus Vaccine (Fluzone Quad Syringe) 60 mcg IM .ONCE ONE Stop: 11/13/19 10:16 Insulin Human Lispro (Humalog) 0 unit SUBCUT QIDACANDBED [facility]; Protocol Last Admin: 10/31/19 12:44 Dose: Not Given Documented by: Insulin Human Lispro (Humalog) 0 unit SUBCUT Q6HR [facility]; Protocol Last Admin: 11/02/19 18:34 Dose: Not Given Documented by: Iopamidol (Isovue-300 (61%)) 50 ml IVPUSH ONETIME ONE Stop: 10/30/19 07:53 Last Admin: 10/30/19 08:36 Dose: 50 ml Documented by: Iopamidol (Isovue-300 (61%)) 100 ml IVPUSH ONETIME ONE Stop: 10/30/19 07:53 Last Admin: 10/30/19 08:37 Dose: 100 ml Documented by: Iopamidol (Isovue-370 (76%)) 100 ml IVPUSH ONETIME ONE Stop: 10/31/19 11:21 Last Admin: 10/31/19 11:28 Dose: 100 ml Documented by: Lorazepam (Ativan) 1 mg IVPUSH Q15M PRN PRN Reason: Other Last Admin: 10/30/19 08:47 Dose: 1 mg Documented by: Lorazepam (Ativan) Confirm Administered Dose 2 mg .ROUTE .STK-MED ONE Stop: 10/30/19 08:15 Last Admin: 10/30/19 08:47 Dose: Not Given Documented by: Lorazepam (Ativan) 1 mg IVPUSH ONETIME ONE Stop: 10/30/19 11:52 Last Admin: 10/30/19 11:58 Dose: 1 mg Documented by: Lurasidone Hcl [ (Latuda] 80 Mg) 0 each PO BEDTIME [facility] Last Admin: 11/06/19 20:47 Dose: Not Given Documented by: Atorvastatin 20 Mg 0 each PO DAILY [facility] Potassium Chloride (Klor-Con M20) 40 meq PO ONETIME ONE Stop: 11/02/19 17:01 Last Admin: 11/02/19 18:25 Dose: 40 meq Documented by: Potassium Chloride (Klor-Con M20) 40 meq PO BID [facility] Stop: 11/03/19 21:01 Last Admin: 11/03/19 20:29 Dose: 40 meq Documented by: Potassium Chloride (Klor-Con M20) 40 meq PO ONETIME ONE Stop: 11/07/19 08:31 Last Admin: 11/07/19 09:20 Dose: 40 meq Documented by: Potassium Chloride (Klor-Con M20) 40 meq PO BID [facility] Stop: 11/13/19 09:01 Last Admin: 11/13/19 08:42 Dose: 40 meq Documented by: Potassium Chloride (Klor-Con M20) 40 meq PO BEDTIME [facility] Potassium Chloride (Klor-Con M20) 40 meq PO ONETIME ONE Stop: 11/13/19 21:01 Last Admin: 11/13/19 20:33 Dose: 40 meq Documented by: Potassium Chloride (Klor-Con M20) 40 meq PO ONETIME ONE Stop: 11/14/19 21:01 Last Admin: 11/14/19 20:18 Dose: 40 meq Documented by: Risperidone (Risperidal) 2 mg PO DAILY [facility] Last Admin: 11/03/19 09:19 Dose: 2 mg Documented by: Sodium Chloride (Saline Flush) 10 ml FLUSH ASDIRECTED PRN PRN Reason: Keep Vein Open Last Admin: 10/30/19 20:09 Dose: 10 ml Documented by: Sodium Chloride (Saline Flush) 10 ml FLUSH ONETIME PRN PRN Reason: IV FLUSH Last Admin: 10/30/19 08:37 Dose: 10 ml Documented by: Sodium Chloride (Saline Flush) 10 ml FLUSH ONETIME PRN PRN Reason: IV FLUSH Stop: 10/31/19 13:00 Last Admin: 10/31/19 11:29 Dose: 10 ml Documented by: Vancomycin HCl (Pharmacy To Dose - Vancomycin) 1 dose .XX ASDIRECTED PRN PRN Reason: RX TO DOSE VANCO - Exam General: Alert HEENT: Pupils Equal, Mucous Membr. Moist/[place] Neck: Supple Lungs: Normal Respiratory Effort, Decreased Breath Sounds Cardiovascular: Regular Rate, Regular Rhythm GI/Abdominal Exam: Normal Bowel Sounds, No Distention, Tender (Left lower quadrant and right upper quadrant tenderness.). No: Guarding, Rigid Extremities: Normal Inspection, No Pedal Edema, Normal Capillary Refill Skin: Warm, Dry, Intact Psy/Mental Status: Alert, Normal Affect, Normal Mood Sepsis Event Note - Evaluation Sepsis Screening Result: No Definite Risk - Focused Exam Vital Signs: Vital Signs Temp Temp Pulse Pulse Resp BP BP 11/15/19 15:06 97.9 F 96 135/68 11/15/19 08:50 11/15/19 08:17 98.4 F 93 22 H 117/68 11/15/19 08:16 98.5 F 92 22 H 117/68 11/15/19 05:40 98.1 F 94 14 117/51 L Pulse Ox Pulse Ox 11/15/19 15:06 98 11/15/19 08:50 95 11/15/19 08:17 95 11/15/19 08:16 95 11/15/19 05:40 92 L - Problem List & Annotations (1) Septic shock SNOMED Code(s): 68859300 Code(s): A41.9 - SEPSIS, UNSPECIFIED ORGANISM; R65.21 - SEVERE SEPSIS WITH SEPTIC SHOCK Status: Resolved Priority: High Current Visit: Yes (2) Benign microscopic hematuria SNOMED Code(s): 647821485852527 Code(s): R31.1 - BENIGN ESSENTIAL MICROSCOPIC HEMATURIA Status: Resolved Priority: Medium Current Visit: Yes (3) COPD (chronic obstructive pulmonary disease) SNOMED Code(s): 01012105 Code(s): J44.9 - CHRONIC OBSTRUCTIVE PULMONARY DISEASE, UNSPECIFIED Status: Chronic Priority: Medium Current Visit: Yes Qualifiers: COPD type: unspecified COPD Qualified Code(s): J44.9 - Chronic obstructive pulmonary disease, unspecified (4) Pneumonia SNOMED Code(s): 656316532 Code(s): J18.9 - PNEUMONIA, UNSPECIFIED ORGANISM Status: Resolved Priority: High Current Visit: Yes Qualifiers: Pneumonia type: due to unspecified organism Laterality: unspecified laterality Lung location: unspecified part of lung Qualified Code(s): J18.9 - Pneumonia, unspecified organism (5) Schizophrenia SNOMED Code(s): 63717457 Code(s): F20.9 - SCHIZOPHRENIA, UNSPECIFIED Status: Chronic Priority: High Current Visit: Yes Qualifiers: Schizophrenia type: unspecified Qualified Code(s): F20.9 - Schizophrenia, unspecified (6) Sepsis SNOMED Code(s): 12456427 Code(s): A41.9 - SEPSIS, UNSPECIFIED ORGANISM Status: Resolved Priority: High Current Visit: Yes Qualifiers: Sepsis type: sepsis due to unspecified organism Sepsis acute organ dysfunction status: unspecified Qualified Code(s): A41.9 - Sepsis, unspecified organism (7) Abdominal pain SNOMED Code(s): 21253588 Code(s): R10.9 - UNSPECIFIED ABDOMINAL PAIN Status: Resolved Priority: High Current Visit: Yes Qualifiers: Abdominal location: unspecified location Qualified Code(s): R10.9 - Unspecified abdominal pain (8) Streptococcal pneumonia SNOMED Code(s): 68015044 Code(s): J15.4 - PNEUMONIA DUE TO OTHER STREPTOCOCCI Status: Resolved Priority: High Current Visit: Yes (9) Positive result for methicillin resistant Staphylococcus aureus (MRSA) screening SNOMED Code(s): 952572358 Code(s): Z22.322 - CARRIER OR SUSPECTED CARRIER OF METHICILLIN RESIS STAPH Status: Acute Priority: Medium Current Visit: Yes (10) Transaminitis SNOMED Code(s): 748965549, 169488814 Code(s): R74.0 - NONSPEC ELEV OF LEVELS OF TRANSAMNS & LACTIC * DO NOT USE * Status: Resolved Priority: High Current Visit: Yes - Problem List Review Problem List Initiated/Reviewed/Updated: Yes - My Orders Last 24 Hours: My Active Orders 11/16/19 05:11 CBC WITH AUTO DIFF [HEME] AM CMP [COMPREHENSIVE METABOLIC PN,CMP] [CHEM] AM HEPATITIS B CORE,AB TOTAL [CHEM] AM HEPATITIS C ANTIBODY [CHEM] AM MAGNESIUM [CHEM] AM PHOSPHORUS [CHEM] AM 11/16/19 09:00 Enoxaparin [Lovenox] 40 mg SUBCUT DAILY 11/17/19 05:11 CBC WITH AUTO DIFF [HEME] AM CMP [COMPREHENSIVE METABOLIC PN,CMP] [CHEM] AM MAGNESIUM [CHEM] AM PHOSPHORUS [CHEM] AM 11/17/19 08:00 Abdomen Comp [US] Routine - Assessment Assessment:: 10/29/2019 Patient found on floor in the bathroom after possibly having a seizure. Hypotensive, tachycardic, tachypneic and hypoxic on arrival to emergency department. Patient received 3 L IV bolus in emergency department. Initial lactic acid 4.0 increasing to 5.3 after fluid bolus. Initial WBC 22,000, 76% neutrophils, no bandemia, C-reactive protein 1.6 Altered mental status, patient is very lethargic. Patient is in critical condition and currently has a poor outcome predicted. High risk of mortality. Patient's initial complaint when calling EMS was abdominal pain and constipation. Patient does exhibit tenderness to palpation throughout the abdomen. Bowel sounds difficult to appreciate secondary to upper airway noise. 10/30/2019 Patient is not improved with the large amount of IV fluids. She has actually had worsening respiratory status requiring IV Lasix. Respiratory rate has had some improvement with vigorous pulmonary toilet, bronchodilation, and diuretics. Unfortunately, this is likely going to cause some intravascular hypovolemia. Lactic acid did drop to 2.0 this morning with the IV fluids. This afternoon renal function did worsen with a creatinine of 1.6. WBC worsened and has been stable today at 23,000. Still no bands or toxic granulations. Neutrophils 90%, absolute neutrophils 21,000. Confirmed CODE STATUS with sister. She states that Rosita has several mental health issues and she likely did not understand the catastrophic results of not being intubated. CT abdomen and pelvis with contrast. Findings suspicious for colitis within portions of the descending and sigmoid colon. Fluid is seen within the pelvis and right abdomen most likely reactive from the colonic process. Increased stool within the rectosigmoid region. Nodularity with in the left adrenal gland most likely benign if patient has no primary carcinoma. CT of the of the head: No acute findings 10/31/2019 Rosita is making some improvement today. Respiratory rate has decreased and her tachycardia has decreased. Antibiotics were switched to Zosyn to cover both strep pneumoniae and colitis. MRSA screen was positive. Patient continues on vancomycin. D-dimer was elevated at 1.[address] angio was done of the chest CT angio chest: 1. No findings of pulmonary embolism. 2. Aorta shows atherosclerotic changes with no dissection or aneurysm. No discrete ulcerating plaque is seen. 3. Increased density within the right lung base which may represent pneumonia or prominent atelectasis. 4. Other findings as noted. Not believed to be acute. ABGs normal pH, PCO2, bicarb with a slightly low PO2. These are surprisingly good considering her respiratory rate. Repeat lactic acid was 1.6. White count continues to be significantly elevated at 23,000. CRP 35.8. Patient has significant hypoalbuminemia with albumin of 1.9 Hypokalemiapotassium 3.4 Hemoglobin A1c is 6.1 11/01/2019 Decrease in respiratory rate and tachycardia. Patient weaned off of BiPAP and now on nasal cannula. On Zosyn, Levaquin, and vancomycin. Slowly improving mentation. WBC 18.9, CRP 34.2, procalcitonin from yesterday 10/31 2011.07, phosphorus 1.8, potassium 3.2, estimated GFR 57, albumin 1.6 11/02/2019 Significant improvement today. More awake, alert, and talking. Afebrile, map greater than 65, on 2 L nasal cannula to keep SPO2 in the mid 90s WBC 17.7, C-reactive protein 22.1. Estimated GFR greater than 60. Hypokalemia. Potassium 2.8. Hypophosphatemia. Phosphorus 1.7. Hypoalbuminemia. Albumin down to 1.4. She did eat some today. Zosyn, Levaquin, and vancomycin. 11/03/2019 Patient is off BiPAP and on 2 to 3 L nasal cannula to keep her SPO2 in the mid 90s. Significant improvement in her respiratory status and pneumonia. She continues to have some congestion likely from pulmonary congestion. White count 14, CRP 8.8 On Zosyn, Levaquin, and vancomycin Patient is a pack to 2 per day smoker. She does have a nicotine patch. Positive streptococcal pneumonia urine antigen Slow but progressive improvement in her mentation. She appears to be having some clearing although she is still very lethargic. Unable to do LP secondary to her not being cooperative or awake enough to be able to perform the procedure. Unlikely that this is secondary to infectious process. Patient has had a significant decrease in her abdominal pain. She is now having multiple loose and watery diarrhea. Bowel movements have decreased over the afternoon. Patient had significant stool on CT scan on admission. Patient has dark orange, tea colored urine and what appears to be vaginal bleeding. On exam she has blood coming from the urethra around the Noguera catheter. Patient states that she has had hematuria in the past and it has been worked up. She does have a history of hematuria. Enoxaparin may be worsening the hematuria. At this time we will continue on enoxaparin because her risk of clot is greater than her risk of a significant bleed. Potassium 3.2 Bilirubin 1.2, AST 69, ALT 57, alkaline phosphatase 150 Albumin 1.7 On Latuda, Risperdal, Paxil Only receiving risperidone, and Paxil in the hospital There is no substitute for her Latuda These medications may be contributing to her mental status changes. Amlodipine and enalapril on hold Atorvastatin is nonformulary 11/04/2019 Episode of vomiting and possible aspiration. Chest x-ray showed no change. No change in 2 to 3 L nasal cannula to keep her SPO2 in the mid 90s. Significant improvement in her respiratory status and pneumonia. She continues to have some congestion likely from pulmonary congestion. WBC decreased to 12.8 by afternoon but had stopped few toxic granulations. Procalcitonin down to 2 on yesterday's blood draw. On Zosyn and vancomycin Last day of Levaquin, day 5 Patient is a pack to 2 per day smoker. She does have a nicotine patch. Positive streptococcal pneumonia urine antigen Unable to do LP secondary to her not being cooperative or awake enough to be able to perform the procedure. MRI of the brain today showed no acute findings. Abdominal pain resolved Multiple episodes of vomiting early this morning and 1 this afternoon. Noguera catheter removed today. She did require straight catheter. Elevated LFTs resolved Albumin 2.2 after receiving albumin yesterday Yesterday stopped Risperdal There is no substitute for her Latuda, therefore not on second-generation antipsychotic 11/05/2019 Only one episode of emesis early today Requiring 3L o2 to maintain saturations in mid 90's WBC decreased to 12.68 Repeat procalcitonin today Last day of Zosyn and vancomycin today Improved mentation but will fall asleep while talking with staff. MRI of the brain on 11/04/19 showed no acute findings. Improvement in mental status since stopping Risperdal, but likely coincidental. She is likely having improvement in her mental status secondary to improvement in her condition. Albumin 2.0 from 2.2 yesterday today Received albumin on 11/03/19 There is no substitute for her Latuda, therefore not on second-generation antipsychotic Vital signs trend: Tmax 98.1, HR 87-91, BP 130-138/64-81, RR 16-21, Oxygen saturations 94-95% on 3L Last BM today 11/06/2019 She continues to have some congestion likely from pulmonary congestion. WBC 15.89 today Repeat procalcitonin pending Last day of Zosyn and vancomycin today Patient is a pack to 2 per day smoker. She does have a nicotine patch. MRI with contrast ordered today Vital signs trend: Tmax 98.2, HR 79-88, BP 138-117/78-60, RR 16-21, Oxygen saturations 94-96% on 3L Last BM today 11/07/2019 Improving breath sounds Vital signs trend: Tmax 97.5, HR 72-80, BP 138-123/81-74, RR 20, Oxygen saturations 94-96% on 3L She was up ambulating with therapies today. Much more alert again today. Last BM: 11/06/19 11/08/2019 Feels better and has no complaints Vital signs trend Blood pressure: 128-145/70-97 T-max 97.7 Heart rate: 72-92 Pulse ox >92% on 3 L/min New lab results WBC down from 15.37-12.71 No more toxic granulation Potassium up from 3.1-3.3 PLAN Continue Paxil Cognitive evaluation as an outpatient Aspiration precautions and HOB elevation Nicotine patch Continue incentive spirometer and Acapella Pulse ox goal greater than 92% PRN Hydralazine Start lisinopril 11/09/2019 Feels better has no complaints Vital signs trend Blood pressure: 141-156/58-85 T-max 98.8 Heart rate: 70-85 Pulse ox >95% on 3 L/min New lab results WBC down from 12.71-10.22 Platelets up from 329-410 Potassium up from 3.3-3.5 GFR minimal decrease from greater than 60-57 Procalcitonin 0.99 (11/05) down to 0.54 (11/07) PLAN Continue Paxil Cognitive evaluation as an outpatient Aspiration precautions and HOB elevation Nicotine patch Continue incentive spirometer and Acapella Pulse ox goal greater than 92% PRN Hydralazine Start lisinopril Dietary follow-up Contact precautions 11/10/2019 Continues to improve Disposition pending PT/OT recommendations Vital signs trend: Tmax 98.2, HR 79-85, BP 155-125/88-69, RR 14-20, Oxygen saturations 91-92% on room air No labs obtained today Walked a few steps today with PT without a walker Last BM 11/09/19 PLAN Continue Paxil Cognitive evaluation as an outpatient Aspiration precautions and HOB elevation Nicotine patch Continue incentive spirometer and Acapella Pulse ox goal greater than 92% PRN Hydralazine Start lisinopril Dietary follow-up Contact precautions 11/11/2019 Continues to improve clinically PT/OT recommending SNF placement VSS No labs obtained today Wheezing on physical exam - RT to give nebulizer Ambulating short distances in room. Last BM: 11/11/19 [employer] evaluation today revealed severe cognitive deficit Remains off of oxygen Remains medically stable for discharge pending placement. PLAN Continue Paxil Cognitive evaluation as an outpatient Aspiration precautions and HOB elevation Nicotine patch Continue incentive spirometer and Acapella Pulse ox goal greater than 92% PRN Hydralazine Start lisinopril Dietary follow-up Contact precautions 11/12/2019 Ambulating around room VSS Potassium 2.8 -> Supplement Magnesium 1.7-> supplement Ramains off of oxygen Last BM: 11/11/2019 Remains medically stable to discharge pending placement D/C HOB elevation and aspiration precautions Change activity order to up add kim [facility] reportedly coming tomorrow to evaluate patient Discontinued scheduled duonebs. Changed to PRN PLAN: Continue Paxil Cognitive evaluation as an outpatient Aspiration precautions and HOB elevation Nicotine patch Continue incentive spirometer and Acapella Pulse ox goal greater than 92% PRN Hydralazine Start lisinopril Dietary follow-up -Supplement potassium now -Consider daily potassium supplementation once back WNL -Supplement magnesium now -Repeat labs in AM Contact precautions -TID famotidine 11/13/2019 Continues to improve clinically Ambulating around room Evaluated by [facility] today VSS Potassium 3.3 * Supplement 40mEq potassium today and tonight and then start 20mEq daily supplementation tomorrow Showered today Last BM: 11/12/19 Repeat BMP, magnesium, phosphorous tomorrow Decrease Lasix to 40mg daily Remains medically stable to discharge pending placement PLAN Continue Paxil Nicotine patch Continue incentive spirometer and Acapella Pulse ox goal greater than 92% PRN Hydralazine Start lisinopril Dietary follow-up -Supplement potassium now -Start daily potassium tomorrow -Repeat labs in AM Contact precautions -TID famotidine 11/14/2019 Remains clinically stable Continues to ambulate around room VSS Potassium up to 3.4 - will give 40mEq potassium tonight and continue 20mEq daily supplementation tomorrow Last BM 11/14/2019 Recheck CMP and magnesium tomorrow Will start daily magnesium supplementation Remains clinically stable for discharge pending placement 11/15/2019 Elevated ALT at 414. AST 53 Total bilirubin 0.5. Albumin still low at 2.3. This is improved from early in the hospital stay. Last ALT done on 11/05/2019 which was 61 and elevated from 39 the day before. No medications were found to explain the significant increase in her liver panel. Vital signs stable, afebrile, pulse ox 98% on room air. - Plan Plan:: Elevated liver enzymes -Screen for hepatitis B and C. -Follow AST and ALT -Ultrasound on Sunday Altered mental status, stable Schizophrenia, stable Continue Paxil COPD (chronic obstructive pulmonary disease) Current smoker Nicotine patch Continue incentive spirometer and Acapella Pulse ox goal greater than 92%, currently on room air HTN (hypertension) PRN Hydralazine Continue lisinopril Hypoalbuminemia -improved Dietary follow-up -Daily potassium supplementation as needed -Daily magnesium supplementation as needed -Repeat labs in AM Positive MRSA screen Contact precautions GERD -TID famotidine Sepsis, resolved Septic shock, resolved Streptococcal pneumonia, resolved Hypokalemia, resolved Benign microscopic hematuria, resolved Abdominal pain, resolved PROPHYLAXIS DVTLovenox twice daily GIfamotidine TID CODE STATUS: Full code DISPOSITION: Has been ambulating in room with walker. PT/OT recommending SNF with PT/OT. Patient has reportedly been accepted to [facility] with plan to discharge next week Sunday, pending continued stability.
[2019-11-15] MEDS: Melatonin 3 MG Tab PO SCH (20:33)
[2019-11-15] MEDS: Lisinopril 10 MG Tab PO SCH (20:33)
[2019-11-15] MEDS: Lurasidone Hcl [Latuda] 80 MG PO SCH (20:36)
[2019-11-16] MEDS ORDERED: Nicotine 21 MG/24 Hr Patch TRDERM SCH (03:00)
[2019-11-16] MEDS: Aspirin 81 MG Tab.Chew PO SCH (08:34)
[2019-11-16] MEDS: Famotidine 10 MG Tab PO SCH ×3 (08:34→20:49)
[2019-11-16] MEDS: Furosemide 40 MG Tab PO SCH (08:35)
[2019-11-16] MEDS: Magnesium Oxide 400 MG Tab PO SCH (08:36)
[2019-11-16] MEDS: PARoxetine 20 MG Tab PO SCH (08:37)
[2019-11-16] MEDS: Potassium Chloride 20 MEQ Tab.ER PO SCH (08:37)
[2019-11-16] MEDS: Nicotine 21 MG/24 Hr Patch TRDERM SCH (08:40)
[2019-11-16] MEDS: Saccharomyces Boulardii (Probiotic) 250 MG Cap PO SCH ×3 (08:49→20:48)
[2019-11-16] MEDS: Enoxaparin 40 MG/0.4 ML Syringe SUBCUT SCH (08:50)
[2019-11-16] MEDS: Budesonide 0.5 MG/2 ML Neb Susp NEB SCH ×2 (09:32→20:35)
[2019-11-16] MEDS: Glycopyrrolate 15.6 MCG Cap.W.Dev Kit of 6 IH SCH ×2 (09:32→22:32)
--- NOTE | 2019-11-16 14:59 | PCM.PN ---
- General Info Date of Service: 11/16/19 Admission Dx/Problem (Free Text): Admission Diagnosis/Problem Admission Diagnosis/Problem Pneumonia Subjective Update: Rosita states she is feeling well. She has no complaints. No shortness of breath or cough. Functional Status: Reports: Pain Controlled - Review of Systems General: Reports: No Symptoms HEENT: Reports: No Symptoms Pulmonary: Reports: No Symptoms Cardiovascular: Reports: No Symptoms Gastrointestinal: Reports: No Symptoms Musculoskeletal: Reports: No Symptoms - Patient Data Vitals - Most Recent: Last Vital Signs Temp 97.3 F 11/16/19 08:33 Pulse 92 11/16/19 08:33 Resp 14 11/16/19 08:33 BP 117/60 11/16/19 08:33 Pulse Ox 96 11/16/19 09:34 Weight - Most Recent: 105.097 kg I&O - Last 24 Hours: Intake & Output 11/15/19 11/16/19 11/16/19 22:59 06:59 14:59 Intake Total 740 600 Output Total 1200 1050 Balance -460 -450 Lab Results Last 24 Hours: Laboratory Results - last 24 hr 11/16/19 11/16/19 11/16/19 Range/Units 05:31 05:31 05:31 WBC 8.41 (3.98-10.04) K/mm3 RBC 4.13 (3.98-5.22) M/mm3 Hgb 11.3 (11.2-15.7) gm/dl Hct 35.7 (34.1-44.9) % MCV 86.4 (79.4-94.8) fl MCH 27.4 (25.6-32.2) pg MCHC 31.7 L (32.2-35.5) g/dl RDW Std Deviation 43.9 (36.4-46.3) fL Plt Count 454 H (182-369) K/mm3 MPV 9.0 L (9.4-12.3) fl Neut % (Auto) 45.8 (34.0-71.1) % Lymph % (Auto) 35.7 (19.3-51.7) % [place] % (Auto) 15.9 H (4.7-12.5) % Eos % (Auto) 1.5 (0.7-5.8) Baso % (Auto) 0.6 (0.1-1.2) % Neut # (Auto) 3.85 (1.56-6.13) K/mm3 Lymph # (Auto) 3.00 (1.18-3.74) K/mm3 [place] # (Auto) 1.34 H (0.24-0.36) K/mm3 Eos # (Auto) 0.13 (0.04-0.36) K/mm3 Baso # (Auto) 0.05 (0.01-0.08) K/mm3 Manual Slide Review Not Reportable Sodium 137 (136-145) mEq/L Potassium 3.6 (3.5-5.1) mEq/L Chloride 101 (98-107) mEq/L Carbon Dioxide 29 (21-32) mEq/L Anion Gap 10.6 (5-15) BUN 16 (7-18) mg/dL Creatinine 0.9 (0.55-1.02) mg/dL Est Cr Clr Drug Dosing 60.56 mL/min Estimated GFR (MDRD) > 60 (>60) mL/min BUN/Creatinine Ratio 17.8 (14-18) Glucose 118 H (74-106) mg/dL Calcium 8.6 (8.5-10.1) mg/dL Phosphorus 3.9 (2.6-4.7) mg/dL Magnesium 1.8 (1.8-2.4) mg/dl Total Bilirubin 0.3 (0.2-1.0) mg/dL AST 35 (15-37) U/L ALT 273 H (14-59) U/L Alkaline Phosphatase 95 (46-116) U/L Total Protein 6.4 (6.4-8.2) g/dl Albumin 2.2 L (3.4-5.0) g/dl Globulin 4.2 gm/dL Albumin/Globulin Ratio 0.5 L (1-2) Hepatitis C Antibody Negative (NEGATIVE) Med Orders - Current: Current Medications Acetaminophen (Tylenol) 650 mg PO Q4H PRN PRN Reason: Pain (Mild 1-3)/fever Last Admin: 11/12/19 20:19 Dose: 650 mg Documented by: Al Hydroxide/Mg Hydroxide (Mag-Al Plus) 30 ml PO Q4H PRN PRN Reason: Heartburn Last Admin: 11/05/19 10:13 Dose: 30 ml Documented by: Albuterol (Proventil Neb Soln) 2.5 mg NEB Q2H PRN PRN Reason: Shortness Of Breath/wheezing Albuterol/Ipratropium (Duoneb 3.0-0.5 Mg/3 Ml) 3 ml NEB Q4H PRN PRN Reason: Shortness Of Breath/wheezing Last Admin: 11/12/19 21:55 Dose: 3 ml Documented by: Aspirin (Aspirin) [address] [facility] Last Admin: 11/16/19 08:34 Dose: 81 mg Documented by: Budesonide (Pulmicort) 0.[address] [facility] Last Admin: 11/16/19 09:32 Dose: 0.5 mg Documented by: Dextrose/Water (Dextrose 50% In Water) 50 ml IVPUSH ASDIRECTED PRN PRN Reason: Hypoglycemia Enoxaparin Sodium (Lovenox) [address] [facility] Last Admin: 11/16/19 08:50 Dose: 40 mg Documented by: Famotidine (Pepcid) [address] [facility] Last Admin: 11/16/19 14:55 Dose: 10 mg Documented by: Furosemide (Lasix) [address] [facility] Last Admin: 11/16/19 08:35 Dose: 40 mg Documented by: Glycopyrrolate (Seebri Neohaler) 15.6 mcg IH BID@1000,2200 [facility] Last Admin: 11/16/19 09:32 Dose: 1 cap Documented by: Lisinopril (Prinivil) [address] [facility] Last Admin: 11/15/19 20:33 Dose: 10 mg Documented by: Lorazepam (Ativan) 1 mg IVPUSH Q2H PRN PRN Reason: Anxiety Last Admin: 11/03/19 02:01 Dose: 1 mg Documented by: Magnesium Oxide (Magnesium Oxide) [address] [facility] Last Admin: 11/16/19 08:36 Dose: 400 mg Documented by: Melatonin (Melatonin) [address] [facility] Last Admin: 11/15/19 20:33 Dose: 9 mg Documented by: Miscellaneous Information (Remove Patch) [address] [facility] Last Admin: 11/16/19 08:38 Dose: 1 ea Documented by: Nicotine (Habitrol) [address] [facility] Last Admin: 11/16/19 08:40 Dose: 21 mg Documented by: Lurasidone Hcl [ (Latuda] 80 Mg) [address] [facility] Last Admin: 11/15/19 20:36 Dose: 1 each Documented by: Ondansetron HCl (Zofran) 4 mg IV Q4H PRN PRN Reason: Nausea/Vomiting Last Admin: 11/04/19 16:00 Dose: 4 mg Documented by: Paroxetine HCl (Paxil) [address] [facility] Last Admin: 11/16/19 08:37 Dose: 30 mg Documented by: Potassium Chloride (Klor-Con M20) [address] [facility] Last Admin: 11/16/19 08:37 Dose: 20 meq Documented by: Saccharomyces Boulardii (Florastor) [address] [facility] Last Admin: 11/16/19 14:55 Dose: 500 mg Documented by: Sodium Chloride (Saline Flush) [address] [facility] Last Admin: 11/06/19 12:25 Dose: 20 ml Documented by: Discontinued Medications Albuterol (Proventil Hfa) 0 gm INH Q4H PRN PRN Reason: Shortness of Breath Albuterol/Ipratropium (Duoneb 3.0-0.5 Mg/3 Ml) [address] [facility] Last Admin: 10/30/19 21:20 Dose: 3 ml Documented by: Albuterol/Ipratropium (Duoneb 3.0-0.5 Mg/3 Ml) Confirm Administered Dose 3 ml .ROUTE .STK-MED ONE Stop: 10/30/19 12:21 Last Admin: 10/30/19 12:24 Dose: Not Given Documented by: Albuterol/Ipratropium (Duoneb 3.0-0.5 Mg/3 Ml) [address] [facility] Last Admin: 11/07/19 09:00 Dose: 3 ml Documented by: Albuterol/Ipratropium (Duoneb 3.0-0.5 Mg/3 Ml) [address] [facility] Last Admin: 11/12/19 06:04 Dose: 3 ml Documented by: Benztropine Mesylate (Cogentin) [address] [facility] Last Admin: 11/03/19 09:20 Dose: 1 mg Documented by: Budesonide (Pulmicort) 0.[address] [facility] Last Admin: 10/30/19 05:58 Dose: 0.5 mg Documented by: Budesonide (Pulmicort) 0.5 mg NEB BID@0600,1800 [facility] Last Admin: 11/02/19 07:08 Dose: Not Given Documented by: Ceftriaxone Sodium (Rocephin) Confirm Administered Dose 2 gm IV .STK-MED ONE Stop: 10/29/19 16:27 Last Admin: 10/29/19 19:17 Dose: Not Given Documented by: Enoxaparin Sodium (Lovenox) [address] [facility] Last Admin: 11/15/19 07:59 Dose: 40 mg Documented by: Famotidine (Pepcid) [address] [facility] Last Admin: 11/12/19 12:19 Dose: 10 mg Documented by: Furosemide (Lasix) 20 mg IVPUSH ONETIME ONE Stop: 10/30/19 10:37 Last Admin: 10/30/19 10:53 Dose: 20 mg Documented by: Furosemide (Lasix) 20 mg IVPUSH NOW ONE Stop: 10/30/19 12:10 Last Admin: 10/30/19 12:20 Dose: 20 mg Documented by: Furosemide (Lasix) 20 mg IVPUSH NOW ONE Stop: 11/01/19 12:45 Last Admin: 11/01/19 13:11 Dose: 20 mg Documented by: Furosemide (Lasix) [address] [facility] Last Admin: 11/01/19 21:04 Dose: 20 mg Documented by: Furosemide (Lasix) [address] [facility] Last Admin: 11/05/19 10:13 Dose: 20 mg Documented by: Furosemide (Lasix) 20 mg IVPUSH ONETIME ONE Stop: 11/03/19 15:01 Last Admin: 11/03/19 15:28 Dose: 20 mg Documented by: Furosemide (Lasix) 20 mg IVPUSH 0600,1400 [facility] Last Admin: 11/07/19 06:40 Dose: 20 mg Documented by: Furosemide (Lasix) [address] [facility] Last Admin: 11/12/19 20:03 Dose: Not Given Documented by: Furosemide (Lasix) 40 mg PO BID@0600,1500 [facility] Last Admin: 11/13/19 14:19 Dose: 40 mg Documented by: Gadobenate Dimeglumine (Multihance) 20 ml IVPUSH ONETIME ONE Stop: 11/06/19 12:18 Last Admin: 11/06/19 12:25 Dose: 20 ml Documented by: Glycopyrrolate (Seebri Neohaler) 15.[address] [facility] Last Admin: 10/30/19 09:12 Dose: Not Given Documented by: Hydroxyzine HCl (Atarax) [address] [facility] Last Admin: 11/03/19 09:20 Dose: 25 mg Documented by: Sodium Chloride (Normal Saline) 1,000 mls @ 999 mls/hr IV ONETIME [facility] Last Admin: 10/29/19 14:01 Dose: 999 mls/hr Documented by: Ceftriaxone Sodium 2 gm/ (Sodium Chloride) 100 mls @ 200 mls/hr IV ONETIME ONE Stop: 10/29/19 15:13 Last Admin: 10/29/19 16:31 Dose: 200 mls/hr Documented by: Lactated Ringer's (Ringers, Lactated) 1,000 mls @ 999 mls/hr IV .BOLUS ONE Stop: 10/29/19 15:51 Last Admin: 10/29/19 15:09 Dose: 999 mls/hr Documented by: Lactated Ringer's (Ringers, Lactated) 1,000 mls @ 999 mls/hr IV .BOLUS ONE Stop: 10/29/19 17:38 Last Admin: 10/29/19 17:05 Dose: 999 mls/hr Documented by: Lactated Ringer's (Ringers, Lactated) 1,000 mls @ 999 mls/hr IV .BOLUS ONE Stop: 10/29/19 17:42 Last Admin: 10/29/19 17:33 Dose: Not Given Documented by: Sodium Chloride (Normal Saline) Confirm Administered Dose 100 mls @ as directed .ROUTE .STK-MED ONE Stop: 10/29/19 16:27 Last Admin: 10/29/19 19:17 Dose: Not Given Documented by: Lactated Ringer's (Ringers, Lactated) Confirm Administered Dose 1,000 mls @ as directed .ROUTE .STK-MED ONE Stop: 10/29/19 16:27 Last Admin: 10/29/19 19:17 Dose: Not Given Documented by: Sodium Chloride (Normal Saline) 1,000 mls @ 150 mls/hr IV ASDIRECTED [facility] Last Admin: 10/30/19 02:47 Dose: 150 mls/hr Documented by: Azithromycin 500 mg/ Sodium (Chloride) 250 mls @ 250 mls/hr IV Q24H [facility] Stop: 11/01/19 20:01 Last Admin: 10/29/19 20:18 Dose: 250 mls/hr Documented by: Ceftriaxone Sodium 2 gm/ (Sodium Chloride) 100 mls @ 200 mls/hr IV Q24H [facility] Last Admin: 10/30/19 15:25 Dose: 200 mls/hr Documented by: Azithromycin 500 mg/ Sodium (Chloride) 250 mls @ 250 mls/hr IV Q24H [facility] Stop: 10/31/19 20:59 Sodium Chloride (Normal Saline) 1,000 mls @ 75 mls/hr IV ASDIRECTED [facility] Cefepime HCl 2 gm/ Premix 50 mls @ 100 mls/hr IV Q24H [facility] Last Admin: 10/30/19 20:13 Dose: 100 mls/hr Documented by: Levofloxacin/Dextrose 750 mg/ (Premix) 150 mls @ 100 mls/hr IV Q48H [facility] Last Admin: 10/30/19 20:45 Dose: 100 mls/hr Documented by: Dextrose/Sodium Chloride (Dextrose 5%-1/2 Ns) 1,000 mls @ 100 mls/hr IV ASDIRECTED [facility] Last Admin: 11/02/19 02:30 Dose: 100 mls/hr Documented by: Vancomycin HCl 1.5 gm/ Sodium (Chloride) 500 mls @ 250 mls/hr IV ONETIME ONE Stop: 10/30/19 21:44 Last Admin: 10/30/19 22:28 Dose: 250 mls/hr Documented by: Sodium Chloride (Normal Saline) 500 mls @ 500 mls/hr IV BOLUS ONE Stop: 10/30/19 22:09 Last Admin: 10/30/19 21:36 Dose: 500 mls/hr Documented by: Vancomycin HCl 1 gm/ Sodium (Chloride) 250 mls @ 250 mls/hr IV Q12H [facility] Vancomycin HCl 1 gm/Vancomycin HCl 250 mg/ Sodium Chloride 250 mls @ 166.667 mls/hr IV Q12H [facility] Last Admin: 11/01/19 12:17 Dose: Not Given Documented by: Levofloxacin/Dextrose 750 mg/ (Premix) 150 mls @ 100 mls/hr IV Q24H [facility] Stop: 11/04/19 21:29 Last Admin: 11/03/19 20:18 Dose: 100 mls/hr Documented by: Piperacillin Sod/Tazobactam (Sod 4.5 gm/ Sodium Chloride) 100 mls @ 200 mls/hr IV ONETIME ONE Stop: 10/31/19 11:59 Last Admin: 10/31/19 11:39 Dose: 200 mls/hr Documented by: Piperacillin Sod/Tazobactam (Sod 4.5 gm/ Sodium Chloride) 100 mls @ 25 mls/hr IV Q8H [facility] Last Admin: 11/03/19 13:30 Dose: 25 mls/hr Documented by: Sodium Chloride (Normal Saline) 100 mls @ 75 mls/hr IV ASDIRECTED [facility] Stop: 10/31/19 13:00 Last Admin: 10/31/19 11:29 Dose: 75 mls/hr Documented by: Potassium Phosphate 30 mmole/ (Sodium Chloride) 510 mls @ 102 mls/hr IV ONETIME ONE Stop: 11/01/19 15:29 Last Admin: 11/01/19 10:58 Dose: 102 mls/hr Documented by: Vancomycin HCl 1 gm/Vancomycin HCl 250 mg/ Sodium Chloride 250 mls @ 166.667 mls/hr IV Q8H [facility] Last Admin: 11/05/19 19:27 Dose: Not Given Documented by: Potassium Chloride 10 meq/ (Premix) 100 mls @ 100 mls/hr IV Q1H [facility] Stop: 11/02/19 12:59 Last Admin: 11/02/19 13:26 Dose: 100 mls/hr Documented by: Potassium Phosphate 30 mmole/ (Sodium Chloride) 510 mls @ 102 mls/hr IV ONETIME ONE Stop: 11/02/19 17:59 Last Admin: 11/02/19 13:27 Dose: 102 mls/hr Documented by: Albumin Human (Flexbumin 25%) 25 gm in 100 mls @ 100 mls/hr IV Q1H [facility] Stop: 11/03/19 19:29 Last Admin: 11/03/19 20:02 Dose: Not Given Documented by: Albumin Human (Flexbumin 25%) 12.5 gm in 50 mls @ 50 mls/hr IV ONETIME ONE Stop: 11/04/19 01:59 Last Admin: 11/04/19 00:01 Dose: 50 mls/hr Documented by: Albumin Human (Flexbumin 25%) 25 gm in 100 mls @ 100 mls/hr IV Q1H [facility] Stop: 11/03/19 21:59 Last Admin: 11/03/19 23:20 Dose: 100 mls/hr Documented by: Piperacillin Sod/Tazobactam (Sod 4.5 gm/ Sodium Chloride) 100 mls @ 25 mls/hr IV Q8H [facility] Stop: 11/06/19 11:30 Last Admin: 11/06/19 06:46 Dose: 25 mls/hr Documented by: Potassium Chloride 10 meq/ (Premix) 100 mls @ 100 mls/hr IV Q1H [facility] Stop: 11/04/19 20:29 Last Admin: 11/04/19 20:16 Dose: Not Given Documented by: Potassium Chloride 10 meq/ (Premix) 100 mls @ 100 mls/hr IV Q1H [facility] Stop: 11/05/19 02:59 Last Admin: 11/05/19 02:25 Dose: 100 mls/hr Documented by: Potassium Chloride 10 meq/ (Premix) 100 mls @ 100 mls/hr IV Q1H [facility] Stop: 11/05/19 01:59 Last Admin: 11/05/19 03:10 Dose: Not Given Documented by: Vancomycin HCl 1 gm/Vancomycin HCl 500 mg/ Sodium Chloride 500 mls @ 250 mls/hr IV Q12H [facility] Stop: 11/06/19 05:59 Last Admin: 11/06/19 04:36 Dose: 250 mls/hr Documented by: Potassium Chloride 10 meq/ (Premix) 100 mls @ 100 mls/hr IV Q1H [facility] Stop: 11/07/19 12:29 Last Admin: 11/07/19 09:48 Dose: Not Given Documented by: Sodium Chloride (Normal Saline) 1,000 mls @ 50 mls/hr IV ASDIRECTED [facility] Last Admin: 11/07/19 09:17 Dose: 50 mls/hr Documented by: Potassium Chloride 10 meq/ (Premix) 100 mls @ 100 mls/hr IV Q1H [facility] Stop: 11/07/19 13:59 Last Admin: 11/07/19 14:03 Dose: 100 mls/hr Documented by: Magnesium Sulfate (Magnesium Sulfate In Water Premix) 2 gm in 50 mls @ 25 mls/hr IV ONETIME ONE Stop: 11/12/19 10:59 Last Admin: 11/12/19 09:06 Dose: 25 mls/hr Documented by: Influenza Virus Vaccine (Fluzone Quad 8311-1756 Syringe) 60 mcg IM .ONCE ONE Stop: 11/13/19 10:16 Insulin Human Lispro (Humalog) [address] [facility]; Protocol Last Admin: 10/31/19 12:44 Dose: Not Given Documented by: Insulin Human Lispro (Humalog) [address] [facility]; Protocol Last Admin: 11/02/19 18:34 Dose: Not Given Documented by: Iopamidol (Isovue-300 (61%)) 50 ml IVPUSH ONETIME ONE Stop: 10/30/19 07:53 Last Admin: 10/30/19 08:36 Dose: 50 ml Documented by: Iopamidol (Isovue-300 (61%)) 100 ml IVPUSH ONETIME ONE Stop: 10/30/19 07:53 Last Admin: 10/30/19 08:37 Dose: 100 ml Documented by: Iopamidol (Isovue-370 (76%)) 100 ml IVPUSH ONETIME ONE Stop: 10/31/19 11:21 Last Admin: 10/31/19 11:28 Dose: 100 ml Documented by: Lorazepam (Ativan) 1 mg IVPUSH Q15M PRN PRN Reason: Other Last Admin: 10/30/19 08:47 Dose: 1 mg Documented by: Lorazepam (Ativan) Confirm Administered Dose 2 mg .ROUTE .STK-MED ONE Stop: 10/30/19 08:15 Last Admin: 10/30/19 08:47 Dose: Not Given Documented by: Lorazepam (Ativan) 1 mg IVPUSH ONETIME ONE Stop: 10/30/19 11:52 Last Admin: 10/30/19 11:58 Dose: 1 mg Documented by: Miscellaneous Information (Remove Patch) [address] [facility] Last Admin: 11/15/19 12:45 Dose: 1 ea Documented by: Nicotine (Habitrol) [address] [facility] Last Admin: 11/15/19 12:46 Dose: 21 mg Documented by: Lurasidone Hcl [ (Latuda] 80 Mg) [address] [facility] Last Admin: 11/06/19 20:47 Dose: Not Given Documented by: Atorvastatin 20 Mg [address] [facility] Potassium Chloride (Klor-Con M20) 40 meq PO ONETIME ONE Stop: 11/02/19 17:01 Last Admin: 11/02/19 18:25 Dose: 40 meq Documented by: Potassium Chloride (Klor-Con M20) [address] [facility] Stop: 11/03/19 21:01 Last Admin: 11/03/19 20:29 Dose: 40 meq Documented by: Potassium Chloride (Klor-Con M20) 40 meq PO ONETIME ONE Stop: 11/07/19 08:31 Last Admin: 11/07/19 09:20 Dose: 40 meq Documented by: Potassium Chloride (Klor-Con M20) [address] [facility] Stop: 11/13/19 09:01 Last Admin: 11/13/19 08:42 Dose: 40 meq Documented by: Potassium Chloride (Klor-Con M20) 40 meq PO BEDTIME [facility] Potassium Chloride (Klor-Con M20) 40 meq PO ONETIME ONE Stop: 11/13/19 21:01 Last Admin: 11/13/19 20:33 Dose: 40 meq Documented by: Potassium Chloride (Klor-Con M20) 40 meq PO ONETIME ONE Stop: 11/14/19 21:01 Last Admin: 11/14/19 20:18 Dose: 40 meq Documented by: Risperidone (Risperidal) [address] [facility] Last Admin: 11/03/19 09:19 Dose: 2 mg Documented by: Sodium Chloride (Saline Flush) 10 ml FLUSH ASDIRECTED PRN PRN Reason: Keep Vein Open Last Admin: 10/30/19 20:09 Dose: 10 ml Documented by: Sodium Chloride (Saline Flush) 10 ml FLUSH ONETIME PRN PRN Reason: IV FLUSH Last Admin: 10/30/19 08:37 Dose: 10 ml Documented by: Sodium Chloride (Saline Flush) 10 ml FLUSH ONETIME PRN PRN Reason: IV FLUSH Stop: 10/31/19 13:00 Last Admin: 09/18/20 11:29 Dose: 10 ml Documented by: Vancomycin HCl (Pharmacy To Dose - Vancomycin) 1 dose .XX ASDIRECTED PRN PRN Reason: RX TO DOSE VANCO - Exam General: Alert, Oriented HEENT: Pupils Equal, Mucous Membr. Moist/[place] Neck: Supple Lungs: Clear to Auscultation, Normal Respiratory Effort Cardiovascular: Regular Rate, Regular Rhythm GI/Abdominal Exam: Normal Bowel Sounds, Soft, Non-Tender, No Distention Extremities: Normal Inspection, Normal Capillary Refill Sepsis Event Note - Evaluation Sepsis Screening Result: No Definite Risk - Focused Exam Vital Signs: Vital Signs Temp Pulse Resp BP Pulse Ox Pulse Ox 11/16/19 09:34 96 11/16/19 09:33 96 11/16/19 08:33 97.3 F 92 14 117/60 92 L 11/16/19 03:23 97.7 F 94 126/56 L 96 11/16/19 03:00 16 - Problem List & Annotations (1) Septic shock SNOMED Code(s): 35842852 Code(s): A41.9 - SEPSIS, UNSPECIFIED ORGANISM; R65.21 - SEVERE SEPSIS WITH SEPTIC SHOCK Status: Resolved Priority: High Current Visit: Yes (2) Benign microscopic hematuria SNOMED Code(s): 408955857144181 Code(s): R31.1 - BENIGN ESSENTIAL MICROSCOPIC HEMATURIA Status: Resolved Priority: Medium Current Visit: Yes (3) COPD (chronic obstructive pulmonary disease) SNOMED Code(s): 11957078 Code(s): J44.9 - CHRONIC OBSTRUCTIVE PULMONARY DISEASE, UNSPECIFIED Status: Chronic Priority: Medium Current Visit: Yes Qualifiers: COPD type: unspecified COPD Qualified Code(s): J44.9 - Chronic obstructive pulmonary disease, unspecified (4) Pneumonia SNOMED Code(s): 852736389 Code(s): J18.9 - PNEUMONIA, UNSPECIFIED ORGANISM Status: Resolved Priority: High Current Visit: Yes Qualifiers: Pneumonia type: due to unspecified organism Laterality: unspecified laterality Lung location: unspecified part of lung Qualified Code(s): J18.9 - Pneumonia, unspecified organism (5) Schizophrenia SNOMED Code(s): 03304571 Code(s): F20.9 - SCHIZOPHRENIA, UNSPECIFIED Status: Chronic Priority: High Current Visit: Yes Qualifiers: Schizophrenia type: unspecified Qualified Code(s): F20.9 - Schizophrenia, unspecified (6) Sepsis SNOMED Code(s): 68968808 Code(s): A41.9 - SEPSIS, UNSPECIFIED ORGANISM Status: Resolved Priority: High Current Visit: Yes Qualifiers: Sepsis type: sepsis due to unspecified organism Sepsis acute organ dysfunction status: unspecified Qualified Code(s): A41.9 - Sepsis, unspecified organism (7) Abdominal pain SNOMED Code(s): 92010621 Code(s): R10.9 - UNSPECIFIED ABDOMINAL PAIN Status: Resolved Priority: High Current Visit: Yes Qualifiers: Abdominal location: unspecified location Qualified Code(s): R10.9 - Unspecified abdominal pain (8) Streptococcal pneumonia SNOMED Code(s): 66844470 Code(s): J15.4 - PNEUMONIA DUE TO OTHER STREPTOCOCCI Status: Resolved Priority: High Current Visit: Yes (9) Positive result for methicillin resistant Staphylococcus aureus (MRSA) screening SNOMED Code(s): 060267929 Code(s): Z22.322 - CARRIER OR SUSPECTED CARRIER OF METHICILLIN RESIS STAPH Status: Acute Priority: Medium Current Visit: Yes (10) Transaminitis SNOMED Code(s): 198835028, 226532052 Code(s): R74.0 - NONSPEC ELEV OF LEVELS OF TRANSAMNS & LACTIC * DO NOT USE * Status: Resolved Priority: High Current Visit: Yes - Problem List Review Problem List Initiated/Reviewed/Updated: Yes - My Orders Last 24 Hours: My Active Orders 11/16/19 09:00 Enoxaparin [Lovenox] 40 mg SUBCUT DAILY Nicotine [Habitrol] 21 mg TRDERM Q24H Remove Patch 1 ea TRDERM Q24H 11/17/19 05:11 CBC WITH AUTO DIFF [HEME] AM CMP [COMPREHENSIVE METABOLIC PN,CMP] [CHEM] AM MAGNESIUM [CHEM] AM PHOSPHORUS [CHEM] AM 11/17/19 08:00 Abdomen Comp [US] Routine - Assessment Assessment:: 10/29/2019 Patient found on floor in the bathroom after possibly having a seizure. Hypotensive, tachycardic, tachypneic and hypoxic on arrival to emergency department. Patient received 3 L IV bolus in emergency department. Initial lactic acid 4.0 increasing to 5.3 after fluid bolus. Initial WBC 22,000, 76% neutrophils, no bandemia, C-reactive protein 1.6 Altered mental status, patient is very lethargic. Patient is in critical condition and currently has a poor outcome predicted. High risk of mortality. Patient's initial complaint when calling EMS was abdominal pain and constipation. Patient does exhibit tenderness to palpation throughout the abdomen. Bowel sounds difficult to appreciate secondary to upper airway noise. 10/30/2019 Patient is not improved with the large amount of IV fluids. She has actually had worsening respiratory status requiring IV Lasix. Respiratory rate has had some improvement with vigorous pulmonary toilet, bronchodilation, and diuretics. Unfortunately, this is likely going to cause some intravascular hypovolemia. Lactic acid did drop to 2.0 this morning with the IV fluids. This afternoon renal function did worsen with a creatinine of 1.6. WBC worsened and has been stable today at 23,000. Still no bands or toxic granulations. Neutrophils 90%, absolute neutrophils 21,000. Confirmed CODE STATUS with sister. She states that Rosita has several mental health issues and she likely did not understand the catastrophic results of not being intubated. CT abdomen and pelvis with contrast. Findings suspicious for colitis within portions of the descending and sigmoid colon. Fluid is seen within the pelvis and right abdomen most likely reactive from the colonic process. Increased stool within the rectosigmoid region. Nodularity with in the left adrenal gland most likely benign if patient has no primary carcinoma. CT of the of the head: No acute findings 10/31/2019 Rosita is making some improvement today. Respiratory rate has decreased and her tachycardia has decreased. Antibiotics were switched to Zosyn to cover both strep pneumoniae and colitis. MRSA screen was positive. Patient continues on vancomycin. D-dimer was elevated at 1.[address] angio was done of the chest CT angio chest: 1. No findings of pulmonary embolism. 2. Aorta shows atherosclerotic changes with no dissection or aneurysm. No discrete ulcerating plaque is seen. 3. Increased density within the right lung base which may represent pneumonia or prominent atelectasis. 4. Other findings as noted. Not believed to be acute. ABGs normal pH, PCO2, bicarb with a slightly low PO2. These are surprisingly good considering her respiratory rate. Repeat lactic acid was 1.6. White count continues to be significantly elevated at 23,000. CRP 35.8. Patient has significant hypoalbuminemia with albumin of 1.9 Hypokalemiapotassium 3.4 Hemoglobin A1c is 6.1 11/01/2019 Decrease in respiratory rate and tachycardia. Patient weaned off of BiPAP and now on nasal cannula. On Zosyn, Levaquin, and vancomycin. Slowly improving mentation. WBC 18.9, CRP 34.2, procalcitonin from yesterday 10/31 2011.07, phosphorus 1.8, potassium 3.2, estimated GFR 57, albumin 1.6 11/02/2019 Significant improvement today. More awake, alert, and talking. Afebrile, map greater than 65, on 2 L nasal cannula to keep SPO2 in the mid 90s WBC 17.7, C-reactive protein 22.1. Estimated GFR greater than 60. Hypokalemia. Potassium 2.8. Hypophosphatemia. Phosphorus 1.7. Hypoalbuminemia. Albumin down to 1.4. She did eat some today. Zosyn, Levaquin, and vancomycin. 11/03/2019 Patient is off BiPAP and on 2 to 3 L nasal cannula to keep her SPO2 in the mid 90s. Significant improvement in her respiratory status and pneumonia. She continues to have some congestion likely from pulmonary congestion. White count 14, CRP 8.8 On Zosyn, Levaquin, and vancomycin Patient is a pack to 2 per day smoker. She does have a nicotine patch. Positive streptococcal pneumonia urine antigen Slow but progressive improvement in her mentation. She appears to be having some clearing although she is still very lethargic. Unable to do LP secondary to her not being cooperative or awake enough to be able to perform the procedure. Unlikely that this is secondary to infectious process. Patient has had a significant decrease in her abdominal pain. She is now having multiple loose and watery diarrhea. Bowel movements have decreased over the afternoon. Patient had significant stool on CT scan on admission. Patient has dark orange, tea colored urine and what appears to be vaginal bleeding. On exam she has blood coming from the urethra around the Noguera catheter. Patient states that she has had hematuria in the past and it has been worked up. She does have a history of hematuria. Enoxaparin may be worsening the hematuria. At this time we will continue on enoxaparin because her risk of clot is greater than her risk of a significant bleed. Potassium 3.2 Bilirubin 1.2, AST 69, ALT 57, alkaline phosphatase 150 Albumin 1.7 On Latuda, Risperdal, Paxil Only receiving risperidone, and Paxil in the hospital There is no substitute for her Latuda These medications may be contributing to her mental status changes. Amlodipine and enalapril on hold Atorvastatin is nonformulary 11/04/2019 Episode of vomiting and possible aspiration. Chest x-ray showed no change. No change in 2 to 3 L nasal cannula to keep her SPO2 in the mid 90s. Significant improvement in her respiratory status and pneumonia. She continues to have some congestion likely from pulmonary congestion. WBC decreased to 12.8 by afternoon but had stopped few toxic granulations. Procalcitonin down to 2 on yesterday's blood draw. On Zosyn and vancomycin Last day of Levaquin, day 5 Patient is a pack to 2 per day smoker. She does have a nicotine patch. Positive streptococcal pneumonia urine antigen Unable to do LP secondary to her not being cooperative or awake enough to be able to perform the procedure. MRI of the brain today showed no acute findings. Abdominal pain resolved Multiple episodes of vomiting early this morning and 1 this afternoon. Noguera catheter removed today. She did require straight catheter. Elevated LFTs resolved Albumin 2.2 after receiving albumin yesterday Yesterday stopped Risperdal There is no substitute for her Latuda, therefore not on second-generation antipsychotic 11/05/2019 Only one episode of emesis early today Requiring 3L o2 to maintain saturations in mid 90's WBC decreased to 12.68 Repeat procalcitonin today Last day of Zosyn and vancomycin today Improved mentation but will fall asleep while talking with staff. MRI of the brain on 11/04/19 showed no acute findings. Improvement in mental status since stopping Risperdal, but likely coincidental. She is likely having improvement in her mental status secondary to improvement in her condition. Albumin 2.0 from 2.2 yesterday today Received albumin on 11/03/19 There is no substitute for her Latuda, therefore not on second-generation antipsychotic Vital signs trend: Tmax 98.1, HR 87-91, BP 130-138/64-81, RR 16-21, Oxygen saturations 94-95% on 3L Last BM today 11/06/2019 She continues to have some congestion likely from pulmonary congestion. WBC 15.89 today Repeat procalcitonin pending Last day of Zosyn and vancomycin today Patient is a pack to 2 per day smoker. She does have a nicotine patch. MRI with contrast ordered today Vital signs trend: Tmax 98.2, HR 79-88, BP 138-117/78-60, RR 16-21, Oxygen saturations 94-96% on 3L Last BM today 11/07/2019 Improving breath sounds Vital signs trend: Tmax 97.5, HR 72-80, BP 138-123/81-74, RR 20, Oxygen saturations 94-96% on 3L She was up ambulating with therapies today. Much more alert again today. Last BM: 11/06/19 11/08/2019 Feels better and has no complaints Vital signs trend Blood pressure: 128-145/70-97 T-max 97.7 Heart rate: 72-92 Pulse ox >92% on 3 L/min New lab results WBC down from 15.37-12.71 No more toxic granulation Potassium up from 3.1-3.3 PLAN Continue Paxil Cognitive evaluation as an outpatient Aspiration precautions and HOB elevation Nicotine patch Continue incentive spirometer and Acapella Pulse ox goal greater than 92% PRN Hydralazine Start lisinopril 11/09/2019 Feels better has no complaints Vital signs trend Blood pressure: 141-156/58-85 T-max 98.8 Heart rate: 70-85 Pulse ox >95% on 3 L/min New lab results WBC down from 12.71-10.22 Platelets up from 329-410 Potassium up from 3.3-3.5 GFR minimal decrease from greater than 60-57 Procalcitonin 0.99 (11/05) down to 0.54 (11/07) PLAN Continue Paxil Cognitive evaluation as an outpatient Aspiration precautions and HOB elevation Nicotine patch Continue incentive spirometer and Acapella Pulse ox goal greater than 92% PRN Hydralazine Start lisinopril Dietary follow-up Contact precautions 11/10/2019 Continues to improve Disposition pending PT/OT recommendations Vital signs trend: Tmax 98.2, HR 79-85, BP 155-125/88-69, RR 14-20, Oxygen saturations 91-92% on room air No labs obtained today Walked a few steps today with PT without a walker Last BM 11/09/19 PLAN Continue Paxil Cognitive evaluation as an outpatient Aspiration precautions and HOB elevation Nicotine patch Continue incentive spirometer and Acapella Pulse ox goal greater than 92% PRN Hydralazine Start lisinopril Dietary follow-up Contact precautions 11/11/2019 Continues to improve clinically PT/OT recommending SNF placement VSS No labs obtained today Wheezing on physical exam - RT to give nebulizer Ambulating short distances in room. Last BM: 11/11/19 [employer] evaluation today revealed severe cognitive deficit Remains off of oxygen Remains medically stable for discharge pending placement. PLAN Continue Paxil Cognitive evaluation as an outpatient Aspiration precautions and HOB elevation Nicotine patch Continue incentive spirometer and Acapella Pulse ox goal greater than 92% PRN Hydralazine Start lisinopril Dietary follow-up Contact precautions 11/12/2019 Ambulating around room VSS Potassium 2.8 -> Supplement Magnesium 1.7-> supplement Ramains off of oxygen Last BM: 11/11/2019 Remains medically stable to discharge pending placement D/C HOB elevation and aspiration precautions Change activity order to up add kim [facility] reportedly coming tomorrow to evaluate patient Discontinued scheduled duonebs. Changed to PRN PLAN: Continue Paxil Cognitive evaluation as an outpatient Aspiration precautions and HOB elevation Nicotine patch Continue incentive spirometer and Acapella Pulse ox goal greater than 92% PRN Hydralazine Start lisinopril Dietary follow-up -Supplement potassium now -Consider daily potassium supplementation once back WNL -Supplement magnesium now -Repeat labs in AM Contact precautions -TID famotidine 11/13/2019 Continues to improve clinically Ambulating around room Evaluated by [facility] today VSS Potassium 3.3 * Supplement 40mEq potassium today and tonight and then start 20mEq daily supplementation tomorrow Showered today Last BM: 11/12/19 Repeat BMP, magnesium, phosphorous tomorrow Decrease Lasix to 40mg daily Remains medically stable to discharge pending placement PLAN Continue Paxil Nicotine patch Continue incentive spirometer and Acapella Pulse ox goal greater than 92% PRN Hydralazine Start lisinopril Dietary follow-up -Supplement potassium now -Start daily potassium tomorrow -Repeat labs in AM Contact precautions -TID famotidine 11/14/2019 Remains clinically stable Continues to ambulate around room VSS Potassium up to 3.4 - will give 40mEq potassium tonight and continue 20mEq daily supplementation tomorrow Last BM 11/14/2019 Recheck CMP and magnesium tomorrow Will start daily magnesium supplementation Remains clinically stable for discharge pending placement 11/15/2019 Elevated ALT at 414. AST 53 Total bilirubin 0.5. Albumin still low at 2.3. This is improved from early in the hospital stay. Last ALT done on 11/05/2019 which was 61 and elevated from 39 the day before. No medications were found to explain the significant increase in her liver panel. Vital signs stable, afebrile, pulse ox 98% on room air. 11/16/2019 Patient continues to feel well. Her liver enzymes did improve today. Her ALT is down to 273. AST is 35 and total bilirubin is 0.3. Ultrasound scheduled for tomorrow. Hepatitis C antibodies are negative. WBC is down to 10, creatinine clearance is 60, albumin is still low at 2.2. Vital signs are stable and she continues on room air. - Plan Plan:: Elevated liver enzymes -Hepatitis panel -Follow AST and ALT -Ultrasound on Sunday Altered mental status, stable Schizophrenia, stable Continue Paxil COPD (chronic obstructive pulmonary disease) Current smoker Nicotine patch Continue incentive spirometer and Acapella Pulse ox goal greater than 92%, currently on room air HTN (hypertension) PRN Hydralazine Continue lisinopril Hypoalbuminemia -improved Dietary follow-up -Daily potassium supplementation as needed -Daily magnesium supplementation as needed -Repeat labs in AM Positive MRSA screen Contact precautions GERD -TID famotidine Sepsis, resolved Septic shock, resolved Streptococcal pneumonia, resolved Hypokalemia, resolved Benign microscopic hematuria, resolved Abdominal pain, resolved PROPHYLAXIS DVTLovenox twice daily GIfamotidine TID CODE STATUS: Full code DISPOSITION: Has been ambulating in room with walker. PT/OT recommending SNF with PT/OT. Patient has reportedly been accepted to [facility] with plan to discharge next week Sunday, pending continued stability.
[2019-11-16] MEDS: Lurasidone Hcl [Latuda] 80 MG PO SCH (20:48)
[2019-11-16] MEDS: Lisinopril 10 MG Tab PO SCH (20:49)
[2019-11-16] MEDS: Melatonin 3 MG Tab PO SCH (20:49)
[2019-11-17] MEDS: Budesonide 0.5 MG/2 ML Neb Susp NEB SCH (08:50)
[2019-11-17] MEDS: Glycopyrrolate 15.6 MCG Cap.W.Dev Kit of 6 IH SCH ×2 (08:50→09:29)
[2019-11-17] MEDS ORDERED: Magnesium Oxide 400 MG Tab PO SCH (09:00)
[2019-11-17] MEDS ORDERED: Magnesium Oxide 400 MG Tab PO ONE (09:00)
[2019-11-17] MEDS: Saccharomyces Boulardii (Probiotic) 250 MG Cap PO SCH (10:03)
[2019-11-17] MEDS: Furosemide 40 MG Tab PO SCH (10:04)
[2019-11-17] MEDS: Potassium Chloride 20 MEQ Tab.ER PO SCH (10:05)
[2019-11-17] MEDS: PARoxetine 20 MG Tab PO SCH (10:05)
[2019-11-17] MEDS: Famotidine 10 MG Tab PO SCH (10:05)
[2019-11-17] MEDS: Aspirin 81 MG Tab.Chew PO SCH (10:05)
[2019-11-17] MEDS: Enoxaparin 40 MG/0.4 ML Syringe SUBCUT SCH (10:08)
[2019-11-17] MEDS: Nicotine 21 MG/24 Hr Patch TRDERM SCH (10:08)
--- NOTE | 2019-11-17 11:55 | PCM.PN ---
- General Info Date of Service: 11/17/19 Admission Dx/Problem (Free Text): Admission Diagnosis/Problem Admission Diagnosis/Problem Pneumonia Functional Status: Reports: Pain Controlled, Tolerating Diet, Ambulating, Urinating, Incentive Spirometry, Other (acapella ). Denies: New Symptoms - Review of Systems General: Reports: No Symptoms, Weakness. Denies: Fever, Fatigue, Malaise, Chills HEENT: Reports: No Symptoms. Denies: Headaches, Sore Throat Pulmonary: Reports: No Symptoms. Denies: Shortness of Breath, Pleuritic Chest Pain, Cough, Sputum, Hemoptysis, Wheezing Cardiovascular: Reports: No Symptoms. Denies: Chest Pain, Palpitations, Dyspnea on Exertion, Orthopnea, Lightheadedness Gastrointestinal: Reports: No Symptoms. Denies: Abdominal Pain, Constipation, Diarrhea, Vomiting, Other Genitourinary: Reports: No Symptoms. Denies: Pain Musculoskeletal: Reports: No Symptoms Skin: Reports: No Symptoms. Denies: Cyanosis Neurological: Reports: No Symptoms. Denies: Confusion, Difficulty Walking, Gait Disturbance Psychiatric: Reports: No Symptoms - Patient Data Vitals - Most Recent: Last Vital Signs Temp 97.5 F 11/17/19 08:36 Pulse 97 11/17/19 08:36 Resp 16 11/17/19 08:36 BP 97/51 L 11/17/19 08:36 Pulse Ox 96 11/17/19 08:51 Weight - Most Recent: 230 lb 8 oz I&O - Last 24 Hours: Intake & Output 11/16/19 11/17/19 11/17/19 22:59 06:59 14:59 Intake Total 500 800 Output Total 400 Balance 500 400 Lab Results Last 24 Hours: Laboratory Results - last 24 hr 11/17/19 11/17/19 Range/Units 05:17 05:17 WBC 9.18 (3.98-10.04) K/mm3 RBC 4.46 (3.98-5.22) M/mm3 Hgb 12.2 (11.2-15.7) gm/dl Hct 38.0 (34.1-44.9) % MCV 85.2 (79.4-94.8) fl MCH 27.4 (25.6-32.2) pg MCHC 32.1 L (32.2-35.5) g/dl RDW Std Deviation 43.4 (36.4-46.3) fL Plt Count 436 H (182-369) K/mm3 MPV 8.7 L (9.4-12.3) fl Neut % (Auto) 51.9 (34.0-71.1) % Lymph % (Auto) 30.5 (19.3-51.7) % [place] % (Auto) 15.3 H (4.7-12.5) % Eos % (Auto) 1.1 (0.7-5.8) Baso % (Auto) 0.7 (0.1-1.2) % Neut # (Auto) 4.77 (1.56-6.13) K/mm3 Lymph # (Auto) 2.80 (1.18-3.74) K/mm3 [place] # (Auto) 1.40 H (0.24-0.36) K/mm3 Eos # (Auto) 0.10 (0.04-0.36) K/mm3 Baso # (Auto) 0.06 (0.01-0.08) K/mm3 Manual Slide Review Abnormal smear Sodium 137 (136-145) mEq/L Potassium 3.6 (3.5-5.1) mEq/L Chloride 98 (98-107) mEq/L Carbon Dioxide 30 (21-32) mEq/L Anion Gap 12.6 (5-15) BUN 13 (7-18) mg/dL Creatinine 1.0 (0.55-1.02) mg/dL Est Cr Clr Drug Dosing 54.51 mL/min Estimated GFR (MDRD) 57 (>60) mL/min BUN/Creatinine Ratio 13.0 L (14-18) Glucose 139 H (74-106) mg/dL Calcium 8.8 (8.5-10.1) mg/dL Phosphorus 3.6 (2.6-4.7) mg/dL Magnesium 1.7 L (1.8-2.4) mg/dl Total Bilirubin 0.5 (0.2-1.0) mg/dL AST 40 H (15-37) U/L ALT 215 H (14-59) U/L Alkaline Phosphatase 99 (46-116) U/L Total Protein 6.6 (6.4-8.2) g/dl Albumin 2.3 L (3.4-5.0) g/dl Globulin 4.3 gm/dL Albumin/Globulin Ratio 0.5 L (1-2) Med Orders - Current: Current Medications Acetaminophen (Tylenol) 650 mg PO Q4H PRN PRN Reason: Pain (Mild 1-3)/fever Last Admin: 11/12/19 20:19 Dose: 650 mg Documented by: Al Hydroxide/Mg Hydroxide (Mag-Al Plus) 30 ml PO Q4H PRN PRN Reason: Heartburn Last Admin: 11/05/19 10:13 Dose: 30 ml Documented by: Albuterol (Proventil Neb Soln) 2.5 mg NEB Q2H PRN PRN Reason: Shortness Of Breath/wheezing Albuterol/Ipratropium (Duoneb 3.0-0.5 Mg/3 Ml) 3 ml NEB Q4H PRN PRN Reason: Shortness Of Breath/wheezing Last Admin: 11/12/19 21:55 Dose: 3 ml Documented by: Aspirin (Aspirin) 81 mg PO DAILY [facility] Last Admin: 11/17/19 10:05 Dose: 81 mg Documented by: Budesonide (Pulmicort) 0.5 mg NEB BID [facility] Last Admin: 11/17/19 08:50 Dose: 0.5 mg Documented by: Dextrose/Water (Dextrose 50% In Water) 50 ml IVPUSH ASDIRECTED PRN PRN Reason: Hypoglycemia Enoxaparin Sodium (Lovenox) 40 mg SUBCUT DAILY [facility] Last Admin: 11/17/19 10:08 Dose: 40 mg Documented by: Famotidine (Pepcid) 10 mg PO TID [facility] Last Admin: 11/17/19 10:05 Dose: 10 mg Documented by: Furosemide (Lasix) 40 mg PO DAILY [facility] Last Admin: 11/17/19 10:04 Dose: 40 mg Documented by: Glycopyrrolate (Seebri Neohaler) 15.6 mcg IH BID@1000,2200 [facility] Last Admin: 11/17/19 09:29 Dose: Not Given Documented by: Lisinopril (Prinivil) 10 mg PO BEDTIME [facility] Last Admin: 11/16/19 20:49 Dose: 10 mg Documented by: Lorazepam (Ativan) 1 mg IVPUSH Q2H PRN PRN Reason: Anxiety Last Admin: 11/03/19 02:01 Dose: 1 mg Documented by: Lurasidone HCl (Latuda) 80 mg PO BEDTIME [facility] Magnesium Oxide (Magnesium Oxide) 400 mg PO BID [facility] Last Admin: 11/17/19 10:05 Dose: 400 mg Documented by: Melatonin (Melatonin) 9 mg PO BEDTIME [facility] Last Admin: 11/16/19 20:49 Dose: 9 mg Documented by: Miscellaneous Information (Remove Patch) 1 ea TRDERM Q24H [facility] Last Admin: 11/17/19 10:09 Dose: 1 ea Documented by: Nicotine (Habitrol) 21 mg TRDERM Q24H [facility] Last Admin: 11/17/19 10:08 Dose: 21 mg Documented by: Ondansetron HCl (Zofran) 4 mg IV Q4H PRN PRN Reason: Nausea/Vomiting Last Admin: 11/04/19 16:00 Dose: 4 mg Documented by: Paroxetine HCl (Paxil) 30 mg PO DAILY [facility] Last Admin: 11/17/19 10:05 Dose: 30 mg Documented by: Potassium Chloride (Klor-Con M20) 20 meq PO DAILY [facility] Last Admin: 11/17/19 10:05 Dose: 20 meq Documented by: Saccharomyces Boulardii (Florastor) 500 mg PO TID [facility] Last Admin: 11/17/19 10:03 Dose: 500 mg Documented by: Sodium Chloride (Saline Flush) 20 ml FLUSH ASDIRECTED [facility] Last Admin: 11/06/19 12:25 Dose: 20 ml Documented by: Discontinued Medications Albuterol (Proventil Hfa) 0 gm INH Q4H PRN PRN Reason: Shortness of Breath Albuterol/Ipratropium (Duoneb 3.0-0.5 Mg/3 Ml) 3 ml NEB Q4HRRT [facility] Last Admin: 10/30/19 21:20 Dose: 3 ml Documented by: Albuterol/Ipratropium (Duoneb 3.0-0.5 Mg/3 Ml) Confirm Administered Dose 3 ml .ROUTE .STK-MED ONE Stop: 10/30/19 12:21 Last Admin: 10/30/19 12:24 Dose: Not Given Documented by: Albuterol/Ipratropium (Duoneb 3.0-0.5 Mg/3 Ml) 3 ml NEB Q6HRRT [facility] Last Admin: 11/07/19 09:00 Dose: 3 ml Documented by: Albuterol/Ipratropium (Duoneb 3.0-0.5 Mg/3 Ml) 3 ml NEB BIDRT [facility] Last Admin: 11/12/19 06:04 Dose: 3 ml Documented by: Benztropine Mesylate (Cogentin) 1 mg PO BID [facility] Last Admin: 11/03/19 09:20 Dose: 1 mg Documented by: Budesonide (Pulmicort) 0.5 mg NEB BIDRT [facility] Last Admin: 10/30/19 05:58 Dose: 0.5 mg Documented by: Budesonide (Pulmicort) 0.5 mg NEB BID@0600,1800 [facility] Last Admin: 11/02/19 07:08 Dose: Not Given Documented by: Ceftriaxone Sodium (Rocephin) Confirm Administered Dose 2 gm IV .STK-MED ONE Stop: 10/29/19 16:27 Last Admin: 10/29/19 19:17 Dose: Not Given Documented by: Enoxaparin Sodium (Lovenox) 40 mg SUBCUT Q12H [facility] Last Admin: 11/15/19 07:59 Dose: 40 mg Documented by: Famotidine (Pepcid) 10 mg PO TIDAC [facility] Last Admin: 11/12/19 12:19 Dose: 10 mg Documented by: Furosemide (Lasix) 20 mg IVPUSH ONETIME ONE Stop: 10/30/19 10:37 Last Admin: 10/30/19 10:53 Dose: 20 mg Documented by: Furosemide (Lasix) 20 mg IVPUSH NOW ONE Stop: 10/30/19 12:10 Last Admin: 10/30/19 12:20 Dose: 20 mg Documented by: Furosemide (Lasix) 20 mg IVPUSH NOW ONE Stop: 11/01/19 12:45 Last Admin: 11/01/19 13:11 Dose: 20 mg Documented by: Furosemide (Lasix) 20 mg IVPUSH BIDDIURETIC [facility] Last Admin: 11/01/19 21:04 Dose: 20 mg Documented by: Furosemide (Lasix) 20 mg IVPUSH BID [facility] Last Admin: 11/05/19 10:13 Dose: 20 mg Documented by: Furosemide (Lasix) 20 mg IVPUSH ONETIME ONE Stop: 11/03/19 15:01 Last Admin: 11/03/19 15:28 Dose: 20 mg Documented by: Furosemide (Lasix) 20 mg IVPUSH 0600,1400 [facility] Last Admin: 11/07/19 06:40 Dose: 20 mg Documented by: Furosemide (Lasix) 40 mg PO BIDDIURETIC [facility] Last Admin: 11/12/19 20:03 Dose: Not Given Documented by: Furosemide (Lasix) 40 mg PO BID@0600,1500 [facility] Last Admin: 11/13/19 14:19 Dose: 40 mg Documented by: Gadobenate Dimeglumine (Multihance) 20 ml IVPUSH ONETIME ONE Stop: 11/06/19 12:18 Last Admin: 11/06/19 12:25 Dose: 20 ml Documented by: Glycopyrrolate (Seebri Neohaler) 15.6 mcg IH BID [facility] Last Admin: 10/30/19 09:12 Dose: Not Given Documented by: Hydroxyzine HCl (Atarax) 25 mg PO BID [facility] Last Admin: 11/03/19 09:20 Dose: 25 mg Documented by: Sodium Chloride (Normal Saline) 1,000 mls @ 999 mls/hr IV ONETIME [facility] Last Admin: 10/29/19 14:01 Dose: 999 mls/hr Documented by: Ceftriaxone Sodium 2 gm/ (Sodium Chloride) 100 mls @ 200 mls/hr IV ONETIME ONE Stop: 10/29/19 15:13 Last Admin: 10/29/19 16:31 Dose: 200 mls/hr Documented by: Lactated Ringer's (Ringers, Lactated) 1,000 mls @ 999 mls/hr IV .BOLUS ONE Stop: 10/29/19 15:51 Last Admin: 10/29/19 15:09 Dose: 999 mls/hr Documented by: Lactated Ringer's (Ringers, Lactated) 1,000 mls @ 999 mls/hr IV .BOLUS ONE Stop: 10/29/19 17:38 Last Admin: 10/29/19 17:05 Dose: 999 mls/hr Documented by: Lactated Ringer's (Ringers, Lactated) 1,000 mls @ 999 mls/hr IV .BOLUS ONE Stop: 10/29/19 17:42 Last Admin: 10/29/19 17:33 Dose: Not Given Documented by: Sodium Chloride (Normal Saline) Confirm Administered Dose 100 mls @ as directed .ROUTE .STK-MED ONE Stop: 10/29/19 16:27 Last Admin: 10/29/19 19:17 Dose: Not Given Documented by: Lactated Ringer's (Ringers, Lactated) Confirm Administered Dose 1,000 mls @ as directed .ROUTE .[facility] ONE Stop: 10/29/19 16:27 Last Admin: 10/29/19 19:17 Dose: Not Given Documented by: Sodium Chloride (Normal Saline) 1,000 mls @ 150 mls/hr IV ASDIRECTED [facility] Last Admin: 10/30/19 02:47 Dose: 150 mls/hr Documented by: Azithromycin 500 mg/ Sodium (Chloride) 250 mls @ 250 mls/hr IV Q24H [facility] Stop: 11/01/19 20:01 Last Admin: 10/29/19 20:18 Dose: 250 mls/hr Documented by: Ceftriaxone Sodium 2 gm/ (Sodium Chloride) 100 mls @ 200 mls/hr IV Q24H [facility] Last Admin: 10/30/19 15:25 Dose: 200 mls/hr Documented by: Azithromycin 500 mg/ Sodium (Chloride) 250 mls @ 250 mls/hr IV Q24H [facility] Stop: 10/31/19 20:59 Sodium Chloride (Normal Saline) 1,000 mls @ 75 mls/hr IV ASDIRECTED [facility] Cefepime HCl 2 gm/ Premix 50 mls @ 100 mls/hr IV Q24H [facility] Last Admin: 10/30/19 20:13 Dose: 100 mls/hr Documented by: Levofloxacin/Dextrose 750 mg/ (Premix) 150 mls @ 100 mls/hr IV Q48H [facility] Last Admin: 10/30/19 20:45 Dose: 100 mls/hr Documented by: Dextrose/Sodium Chloride (Dextrose 5%-1/2 Ns) 1,000 mls @ 100 mls/hr IV ASDIRECTED [facility] Last Admin: 11/02/19 02:30 Dose: 100 mls/hr Documented by: Vancomycin HCl 1.5 gm/ Sodium (Chloride) 500 mls @ 250 mls/hr IV ONETIME ONE Stop: 10/30/19 21:44 Last Admin: 10/30/19 22:28 Dose: 250 mls/hr Documented by: Sodium Chloride (Normal Saline) 500 mls @ 500 mls/hr IV BOLUS ONE Stop: 10/30/19 22:09 Last Admin: 10/30/19 21:36 Dose: 500 mls/hr Documented by: Vancomycin HCl 1 gm/ Sodium (Chloride) 250 mls @ 250 mls/hr IV Q12H [facility] Vancomycin HCl 1 gm/Vancomycin HCl 250 mg/ Sodium Chloride 250 mls @ 166.667 mls/hr IV Q12H [facility] Last Admin: 11/01/19 12:17 Dose: Not Given Documented by: Levofloxacin/Dextrose 750 mg/ (Premix) 150 mls @ 100 mls/hr IV Q24H [facility] Stop: 11/04/19 21:29 Last Admin: 11/03/19 20:18 Dose: 100 mls/hr Documented by: Piperacillin Sod/Tazobactam (Sod 4.5 gm/ Sodium Chloride) 100 mls @ 200 mls/hr IV ONETIME ONE Stop: 10/31/19 11:59 Last Admin: 10/31/19 11:39 Dose: 200 mls/hr Documented by: Piperacillin Sod/Tazobactam (Sod 4.5 gm/ Sodium Chloride) 100 mls @ 25 mls/hr IV Q8H [facility] Last Admin: 11/03/19 13:30 Dose: 25 mls/hr Documented by: Sodium Chloride (Normal Saline) 100 mls @ 75 mls/hr IV ASDIRECTED [facility] Stop: 10/31/19 13:00 Last Admin: 10/31/19 11:29 Dose: 75 mls/hr Documented by: Potassium Phosphate 30 mmole/ (Sodium Chloride) 510 mls @ 102 mls/hr IV ONETIME ONE Stop: 11/01/19 15:29 Last Admin: 11/01/19 10:58 Dose: 102 mls/hr Documented by: Vancomycin HCl 1 gm/Vancomycin HCl 250 mg/ Sodium Chloride 250 mls @ 166.667 mls/hr IV Q8H [facility] Last Admin: 11/05/19 19:27 Dose: Not Given Documented by: Potassium Chloride 10 meq/ (Premix) 100 mls @ 100 mls/hr IV Q1H [facility] Stop: 11/02/19 12:59 Last Admin: 11/02/19 13:26 Dose: 100 mls/hr Documented by: Potassium Phosphate 30 mmole/ (Sodium Chloride) 510 mls @ 102 mls/hr IV ONETIME ONE Stop: 11/02/19 17:59 Last Admin: 11/02/19 13:27 Dose: 102 mls/hr Documented by: Albumin Human (Flexbumin 25%) 25 gm in 100 mls @ 100 mls/hr IV Q1H [facility] Stop: 11/03/19 19:29 Last Admin: 11/03/19 20:02 Dose: Not Given Documented by: Albumin Human (Flexbumin 25%) 12.5 gm in 50 mls @ 50 mls/hr IV ONETIME ONE Stop: 11/04/19 01:59 Last Admin: 11/04/19 00:01 Dose: 50 mls/hr Documented by: Albumin Human (Flexbumin 25%) 25 gm in 100 mls @ 100 mls/hr IV Q1H [facility] Stop: 11/03/19 21:59 Last Admin: 11/03/19 23:20 Dose: 100 mls/hr Documented by: Piperacillin Sod/Tazobactam (Sod 4.5 gm/ Sodium Chloride) 100 mls @ 25 mls/hr IV Q8H [facility] Stop: 11/06/19 11:30 Last Admin: 11/06/19 06:46 Dose: 25 mls/hr Documented by: Potassium Chloride 10 meq/ (Premix) 100 mls @ 100 mls/hr IV Q1H [facility] Stop: 11/04/19 20:29 Last Admin: 11/04/19 20:16 Dose: Not Given Documented by: Potassium Chloride 10 meq/ (Premix) 100 mls @ 100 mls/hr IV Q1H [facility] Stop: 11/05/19 02:59 Last Admin: 11/05/19 02:25 Dose: 100 mls/hr Documented by: Potassium Chloride 10 meq/ (Premix) 100 mls @ 100 mls/hr IV Q1H [facility] Stop: 11/05/19 01:59 Last Admin: 11/05/19 03:10 Dose: Not Given Documented by: Vancomycin HCl 1 gm/Vancomycin HCl 500 mg/ Sodium Chloride 500 mls @ 250 mls/hr IV Q12H [facility] Stop: 11/06/19 05:59 Last Admin: 11/06/19 04:36 Dose: 250 mls/hr Documented by: Potassium Chloride 10 meq/ (Premix) 100 mls @ 100 mls/hr IV Q1H [facility] Stop: 11/07/19 12:29 Last Admin: 11/07/19 09:48 Dose: Not Given Documented by: Sodium Chloride (Normal Saline) 1,000 mls @ 50 mls/hr IV ASDIRECTED [facility] Last Admin: 11/07/19 09:17 Dose: 50 mls/hr Documented by: Potassium Chloride 10 meq/ (Premix) 100 mls @ 100 mls/hr IV Q1H [facility] Stop: 11/07/19 13:59 Last Admin: 11/07/19 14:03 Dose: 100 mls/hr Documented by: Magnesium Sulfate (Magnesium Sulfate In Water Premix) 2 gm in 50 mls @ 25 mls/h r IV ONETIME ONE Stop: 11/12/19 10:59 Last Admin: 11/12/19 09:06 Dose: 25 mls/hr Documented by: Influenza Virus Vaccine (Fluzone Quad Syringe) 60 mcg IM .ONCE ONE Stop: 11/13/19 10:16 Insulin Human Lispro (Humalog) 0 unit SUBCUT QIDACANDBED [facility]; Protocol Last Admin: 10/31/19 12:44 Dose: Not Given Documented by: Insulin Human Lispro (Humalog) 0 unit SUBCUT Q6HR [facility]; Protocol Last Admin: 11/02/19 18:34 Dose: Not Given Documented by: Iopamidol (Isovue-300 (61%)) 50 ml IVPUSH ONETIME ONE Stop: 10/30/19 07:53 Last Admin: 10/30/19 08:36 Dose: 50 ml Documented by: Iopamidol (Isovue-300 (61%)) 100 ml IVPUSH ONETIME ONE Stop: 10/30/19 07:53 Last Admin: 10/30/19 08:37 Dose: 100 ml Documented by: Iopamidol (Isovue-370 (76%)) 100 ml IVPUSH ONETIME ONE Stop: 10/31/19 11:21 Last Admin: 10/31/19 11:28 Dose: 100 ml Documented by: Lorazepam (Ativan) 1 mg IVPUSH Q15M PRN PRN Reason: Other Last Admin: 10/30/19 08:47 Dose: 1 mg Documented by: Lorazepam (Ativan) Confirm Administered Dose 2 mg .ROUTE .STK-MED ONE Stop: 10/30/19 08:15 Last Admin: 10/30/19 08:47 Dose: Not Given Documented by: Lorazepam (Ativan) 1 mg IVPUSH ONETIME ONE Stop: 10/30/19 11:52 Last Admin: 10/30/19 11:58 Dose: 1 mg Documented by: Magnesium Oxide (Magnesium Oxide) 400 mg PO DAILY [facility] Last Admin: 11/16/19 08:36 Dose: 400 mg Documented by: Magnesium Oxide (Magnesium Oxide) 400 mg PO ONETIME ONE Stop: 11/17/19 09:01 Last Admin: 11/17/19 10:04 Dose: 400 mg Documented by: Miscellaneous Information (Remove Patch) 1 ea TRDERM Q24H [facility] Last Admin: 11/15/19 12:45 Dose: 1 ea Documented by: Nicotine (Habitrol) 21 mg TRDERM Q24H [facility] Last Admin: 11/15/19 12:46 Dose: 21 mg Documented by: Lurasidone Hcl [ (Latuda] 80 Mg) 0 each PO BEDTIME [facility] Last Admin: 11/16/19 20:48 Dose: 1 each Documented by: Lurasidone Hcl [ (Latuda] 80 Mg) 0 each PO BEDTIME [facility] Last Admin: 11/06/19 20:47 Dose: Not Given Documented by: Atorvastatin 20 Mg 0 each PO DAILY [facility] Potassium Chloride (Klor-Con M20) 40 meq PO ONETIME ONE Stop: 11/02/19 17:01 Last Admin: 11/02/19 18:25 Dose: 40 meq Documented by: Potassium Chloride (Klor-Con M20) 40 meq PO BID [facility] Stop: 11/03/19 21:01 Last Admin: 11/03/19 20:29 Dose: 40 meq Documented by: Potassium Chloride (Klor-Con M20) 40 meq PO ONETIME ONE Stop: 11/07/19 08:31 Last Admin: 11/07/19 09:20 Dose: 40 meq Documented by: Potassium Chloride (Klor-Con M20) 40 meq PO BID [facility] Stop: 11/13/19 09:01 Last Admin: 11/13/19 08:42 Dose: 40 meq Documented by: Potassium Chloride (Klor-Con M20) 40 meq PO BEDTIME [facility] Potassium Chloride (Klor-Con M20) 40 meq PO ONETIME ONE Stop: 11/13/19 21:01 Last Admin: 11/13/19 20:33 Dose: 40 meq Documented by: Potassium Chloride (Klor-Con M20) 40 meq PO ONETIME ONE Stop: 11/14/19 21:01 Last Admin: 11/14/19 20:18 Dose: 40 meq Documented by: Risperidone (Risperidal) 2 mg PO DAILY [facility] Last Admin: 11/03/19 09:19 Dose: 2 mg Documented by: Sodium Chloride (Saline Flush) 10 ml FLUSH ASDIRECTED PRN PRN Reason: Keep Vein Open Last Admin: 10/30/19 20:09 Dose: 10 ml Documented by: Sodium Chloride (Saline Flush) 10 ml FLUSH ONETIME PRN PRN Reason: IV FLUSH Last Admin: 10/30/19 08:37 Dose: 10 ml Documented by: Sodium Chloride (Saline Flush) 10 ml FLUSH ONETIME PRN PRN Reason: IV FLUSH Stop: 10/31/19 13:00 Last Admin: 10/31/19 11:29 Dose: 10 ml Documented by: Vancomycin HCl (Pharmacy To Dose - Vancomycin) 1 dose .XX ASDIRECTED PRN PRN Reason: RX TO DOSE VANCO - Exam Quality Assessment: Skin Breakdown General: Alert, Oriented, Cooperative, No Acute Distress HEENT: Pupils Equal, Pupils Reactive, Mucous Membr. Moist/Holiday Neck: Supple, Trachea Midline Lungs: Clear to Auscultation, Normal Respiratory Effort Cardiovascular: Regular Rate, Regular Rhythm GI/Abdominal Exam: Normal Bowel Sounds, Soft, Non-Tender, No Distention (Female) Exam: Deferred Back Exam: Normal Inspection, Full Range of Motion Extremities: Normal Inspection, Normal Range of Motion, Non-Tender, Normal Capillary Refill, Pedal Edema Skin: Warm, Dry, Intact Neurological: No New Focal Deficit Psy/Mental Status: Alert Sepsis Event Note - Evaluation Sepsis Screening Result: No Definite Risk - Focused Exam Vital Signs: Vital Signs Temp Pulse Pulse Resp BP Pulse Ox Pulse Ox 11/17/19 08:51 96 11/17/19 08:36 97.5 F 97 16 97/51 L 96 11/17/19 03:39 97.3 F 16 123/72 94 L 11/17/19 03:00 101 H - Problem List & Annotations (1) Abdominal pain SNOMED Code(s): 65631925 Code(s): R10.9 - UNSPECIFIED ABDOMINAL PAIN Status: Resolved Priority: High Current Visit: Yes Qualifiers: Abdominal location: unspecified location Qualified Code(s): R10.9 - Unspecified abdominal pain (2) Benign microscopic hematuria SNOMED Code(s): 956378660840977 Code(s): R31.1 - BENIGN ESSENTIAL MICROSCOPIC HEMATURIA Status: Resolved Priority: Medium Current Visit: Yes (3) COPD (chronic obstructive pulmonary disease) SNOMED Code(s): 81577992 Code(s): J44.9 - CHRONIC OBSTRUCTIVE PULMONARY DISEASE, UNSPECIFIED Status: Chronic Priority: Medium Current Visit: Yes Qualifiers: COPD type: unspecified COPD Qualified Code(s): J44.9 - Chronic obstructive pulmonary disease, unspecified (4) Pneumonia SNOMED Code(s): 385335565 Code(s): J18.9 - PNEUMONIA, UNSPECIFIED ORGANISM Status: Resolved Priority: High Current Visit: Yes Qualifiers: Pneumonia type: due to unspecified organism Laterality: unspecified laterality Lung location: unspecified part of lung Qualified Code(s): J18.9 - Pneumonia, unspecified organism (5) Positive result for methicillin resistant Staphylococcus aureus (MRSA) screening SNOMED Code(s): 263368846 Code(s): Z22.322 - CARRIER OR SUSPECTED CARRIER OF METHICILLIN RESIS STAPH Status: Acute Priority: Medium Current Visit: Yes (6) Schizophrenia SNOMED Code(s): 74285313 Code(s): F20.9 - SCHIZOPHRENIA, UNSPECIFIED Status: Chronic Priority: High Current Visit: Yes Qualifiers: Schizophrenia type: unspecified Qualified Code(s): F20.9 - Schizophrenia, unspecified (7) Sepsis SNOMED Code(s): 46290666 Code(s): A41.9 - SEPSIS, UNSPECIFIED ORGANISM Status: Resolved Priority: High Current Visit: Yes Qualifiers: Sepsis type: sepsis due to unspecified organism Sepsis acute organ dysfunction status: unspecified Qualified Code(s): A41.9 - Sepsis, unspecified organism (8) Septic shock SNOMED Code(s): 24805727 Code(s): A41.9 - SEPSIS, UNSPECIFIED ORGANISM; R65.21 - SEVERE SEPSIS WITH SEPTIC SHOCK Status: Resolved Priority: High Current Visit: Yes (9) Streptococcal pneumonia SNOMED Code(s): 29008813 Code(s): J15.4 - PNEUMONIA DUE TO OTHER STREPTOCOCCI Status: Resolved Priority: High Current Visit: Yes (10) Colitis SNOMED Code(s): 31062026 Code(s): K52.9 - NONINFECTIVE GASTROENTERITIS AND COLITIS, UNSPECIFIED Status: Resolved Priority: High Current Visit: Yes (11) Hypokalemia SNOMED Code(s): 25690218 Code(s): E87.6 - HYPOKALEMIA Status: Acute Priority: High Current Visit: Yes (12) Transaminitis SNOMED Code(s): 370056263, 815629739 Code(s): R74.0 - NONSPEC ELEV OF LEVELS OF TRANSAMNS & LACTIC * DO NOT USE * Status: Resolved Priority: High Current Visit: Yes (13) Hypoalbuminemia SNOMED Code(s): 236117163 Code(s): E88.09 - OTH DISORDERS OF PLASMA-PROTEIN METABOLISM, NEC Status: Acute Priority: Medium Current Visit: Yes (14) HTN (hypertension) SNOMED Code(s): 49178488 Code(s): I10 - ESSENTIAL (PRIMARY) HYPERTENSION Status: Chronic Priority: Medium Current Visit: No Qualifiers: Hypertension type: unspecified Qualified Code(s): I10 - Essential (primary) hypertension (15) HLD (hyperlipidemia) SNOMED Code(s): 46666394 Code(s): E78.5 - HYPERLIPIDEMIA, UNSPECIFIED Status: Chronic Priority: Low Current Visit: No Qualifiers: Hyperlipidemia type: unspecified Qualified Code(s): E78.5 - Hyperlipidemia, unspecified (16) Altered mental status SNOMED Code(s): 023447570 Code(s): R41.82 - ALTERED MENTAL STATUS, UNSPECIFIED Status: Resolved Priority: High Current Visit: Yes Qualifiers: Altered mental status type: unspecified Qualified Code(s): R41.82 - Altered mental status, unspecified (17) GERD (gastroesophageal reflux disease) SNOMED Code(s): 055973792 Code(s): K21.9 - GASTRO-ESOPHAGEAL REFLUX DISEASE WITHOUT ESOPHAGITIS Status: Acute Priority: High Current Visit: Yes Qualifiers: Esophagitis presence: esophagitis presence not specified Qualified Code(s): K21.9 - Gastro-esophageal reflux disease without esophagitis (18) Hypomagnesemia SNOMED Code(s): 228841232 Code(s): E83.42 - HYPOMAGNESEMIA Status: Acute Priority: High Current Visit: Yes - Problem List Review Problem List Initiated/Reviewed/Updated: Yes - My Orders Last 24 Hours: My Active Orders 11/17/19 Breakfast Regular Diet [DIET] 11/17/19 09:00 Magnesium Oxide 400 mg PO BID - Assessment Assessment:: 10/29/2019 Patient found on floor in the bathroom after possibly having a seizure. Hypotensive, tachycardic, tachypneic and hypoxic on arrival to emergency department. Patient received 3 L IV bolus in emergency department. Initial lactic acid 4.0 increasing to 5.3 after fluid bolus. Initial WBC 22,000, 76% neutrophils, no bandemia, C-reactive protein 1.6 Altered mental status, patient is very lethargic. Patient is in critical condition and currently has a poor outcome predicted. High risk of mortality. Patient's initial complaint when calling EMS was abdominal pain and constipation. Patient does exhibit tenderness to palpation throughout the abdomen. Bowel sounds difficult to appreciate secondary to upper airway noise. 10/30/2019 Patient is not improved with the large amount of IV fluids. She has actually had worsening respiratory status requiring IV Lasix. Respiratory rate has had some improvement with vigorous pulmonary toilet, bronchodilation, and diuretics. Unfortunately, this is likely going to cause some intravascular hypovolemia. Lactic acid did drop to 2.0 this morning with the IV fluids. This afternoon renal function did worsen with a creatinine of 1.6. WBC worsened and has been stable today at 23,000. Still no bands or toxic granulations. Neutrophils 90%, absolute neutrophils 21,000. Confirmed CODE STATUS with sister. She states that Rosita has several mental health issues and she likely did not understand the catastrophic results of not being intubated. CT abdomen and pelvis with contrast. Findings suspicious for colitis within portions of the descending and sigmoid colon. Fluid is seen within the pelvis and right abdomen most likely reactive from the colonic process. Increased stool within the rectosigmoid region. Nodularity with in the left adrenal gland most likely benign if patient has no primary carcinoma. CT of the of the head: No acute findings 10/31/2019 Rosita is making some improvement today. Respiratory rate has decreased and her tachycardia has decreased. Antibiotics were switched to Zosyn to cover both strep pneumoniae and colitis. MRSA screen was positive. Patient continues on vancomycin. D-dimer was elevated at 1.[address] angio was done of the chest CT angio chest: 1. No findings of pulmonary embolism. 2. Aorta shows atherosclerotic changes with no dissection or aneurysm. No discrete ulcerating plaque is seen. 3. Increased density within the right lung base which may represent pneumonia or prominent atelectasis. 4. Other findings as noted. Not believed to be acute. ABGs normal pH, PCO2, bicarb with a slightly low PO2. These are surprisingly good considering her respiratory rate. Repeat lactic acid was 1.6. White count continues to be significantly elevated at 23,000. CRP 35.8. Patient has significant hypoalbuminemia with albumin of 1.9 Hypokalemiapotassium 3.4 Hemoglobin A1c is 6.1 11/01/2019 Decrease in respiratory rate and tachycardia. Patient weaned off of BiPAP and now on nasal cannula. On Zosyn, Levaquin, and vancomycin. Slowly improving mentation. WBC 18.9, CRP 34.2, procalcitonin from yesterday 10/31 2011.07, phosphorus 1.8, potassium 3.2, estimated GFR 57, albumin 1.6 11/02/2019 Significant improvement today. More awake, alert, and talking. Afebrile, map greater than 65, on 2 L nasal cannula to keep SPO2 in the mid 90s WBC 17.7, C-reactive protein 22.1. Estimated GFR greater than 60. Hypokalemia. Potassium 2.8. Hypophosphatemia. Phosphorus 1.7. Hypoalbuminemia. Albumin down to 1.4. She did eat some today. Zosyn, Levaquin, and vancomycin. 11/03/2019 Patient is off BiPAP and on 2 to 3 L nasal cannula to keep her SPO2 in the mid 90s. Significant improvement in her respiratory status and pneumonia. She continues to have some congestion likely from pulmonary congestion. White count 14, CRP 8.8 On Zosyn, Levaquin, and vancomycin Patient is a pack to 2 per day smoker. She does have a nicotine patch. Positive streptococcal pneumonia urine antigen Slow but progressive improvement in her mentation. She appears to be having some clearing although she is still very lethargic. Unable to do LP secondary to her not being cooperative or awake enough to be able to perform the procedure. Unlikely that this is secondary to infectious process. Patient has had a significant decrease in her abdominal pain. She is now having multiple loose and watery diarrhea. Bowel movements have decreased over the afternoon. Patient had significant stool on CT scan on admission. Patient has dark orange, tea colored urine and what appears to be vaginal bleeding. On exam she has blood coming from the urethra around the Noguera catheter. Patient states that she has had hematuria in the past and it has been worked up. She does have a history of hematuria. Enoxaparin may be worsening the hematuria. At this time we will continue on enoxaparin because her risk of clot is greater than her risk of a significant bleed. Potassium 3.2 Bilirubin 1.2, AST 69, ALT 57, alkaline phosphatase 150 Albumin 1.7 On Latuda, Risperdal, Paxil Only receiving risperidone, and Paxil in the hospital There is no substitute for her Latuda These medications may be contributing to her mental status changes. Amlodipine and enalapril on hold Atorvastatin is nonformulary 11/04/2019 Episode of vomiting and possible aspiration. Chest x-ray showed no change. No change in 2 to 3 L nasal cannula to keep her SPO2 in the mid 90s. Significant improvement in her respiratory status and pneumonia. She continues to have some congestion likely from pulmonary congestion. WBC decreased to 12.8 by afternoon but had stopped few toxic granulations. Procalcitonin down to 2 on yesterday's blood draw. On Zosyn and vancomycin Last day of Levaquin, day 5 Patient is a pack to 2 per day smoker. She does have a nicotine patch. Positive streptococcal pneumonia urine antigen Unable to do LP secondary to her not being cooperative or awake enough to be able to perform the procedure. MRI of the brain today showed no acute findings. Abdominal pain resolved Multiple episodes of vomiting early this morning and 1 this afternoon. Noguera catheter removed today. She did require straight catheter. Elevated LFTs resolved Albumin 2.2 after receiving albumin yesterday Yesterday stopped Risperdal There is no substitute for her Latuda, therefore not on second-generation antipsychotic 11/05/2019 Only one episode of emesis early today Requiring 3L o2 to maintain saturations in mid 90's WBC decreased to 12.68 Repeat procalcitonin today Last day of Zosyn and vancomycin today Improved mentation but will fall asleep while talking with staff. MRI of the brain on 11/04/19 showed no acute findings. Improvement in mental status since stopping Risperdal, but likely coincidental. She is likely having improvement in her mental status secondary to improvement in her condition. Albumin 2.0 from 2.2 yesterday today Received albumin on 11/03/19 There is no substitute for her Latuda, therefore not on second-generation antipsychotic Vital signs trend: Tmax 98.1, HR 87-91, BP 130-138/64-81, RR 16-21, Oxygen saturations 94-95% on 3L Last BM today 11/06/2019 She continues to have some congestion likely from pulmonary congestion. WBC 15.89 today Repeat procalcitonin pending Last day of Zosyn and vancomycin today Patient is a pack to 2 per day smoker. She does have a nicotine patch. MRI with contrast ordered today Vital signs trend: Tmax 98.2, HR 79-88, BP 138-117/78-60, RR 16-21, Oxygen saturations 94-96% on 3L Last BM today 11/07/2019 Improving breath sounds Vital signs trend: Tmax 97.5, HR 72-80, BP 138-123/81-74, RR 20, Oxygen saturations 94-96% on 3L She was up ambulating with therapies today. Much more alert again today. Last BM: 11/06/19 11/08/2019 Feels better and has no complaints Vital signs trend Blood pressure: 128-145/70-97 T-max 97.7 Heart rate: 72-92 Pulse ox >92% on 3 L/min New lab results WBC down from 15.37-12.71 No more toxic granulation Potassium up from 3.1-3.3 PLAN Continue Paxil Cognitive evaluation as an outpatient Aspiration precautions and HOB elevation Nicotine patch Continue incentive spirometer and Acapella Pulse ox goal greater than 92% PRN Hydralazine Start lisinopril 11/09/2019 Feels better has no complaints Vital signs trend Blood pressure: 141-156/58-85 T-max 98.8 Heart rate: 70-85 Pulse ox >95% on 3 L/min New lab results WBC down from 12.71-10.22 Platelets up from 329-410 Potassium up from 3.3-3.5 GFR minimal decrease from greater than 60-57 Procalcitonin 0.99 (11/05) down to 0.54 (11/07) PLAN Continue Paxil Cognitive evaluation as an outpatient Aspiration precautions and HOB elevation Nicotine patch Continue incentive spirometer and Acapella Pulse ox goal greater than 92% PRN Hydralazine Start lisinopril Dietary follow-up Contact precautions 11/10/2019 Continues to improve Disposition pending PT/OT recommendations Vital signs trend: Tmax 98.2, HR 79-85, BP 155-125/88-69, RR 14-20, Oxygen saturations 91-92% on room air No labs obtained today Walked a few steps today with PT without a walker Last BM 11/09/19 PLAN Continue Paxil Cognitive evaluation as an outpatient Aspiration precautions and HOB elevation Nicotine patch Continue incentive spirometer and Acapella Pulse ox goal greater than 92% PRN Hydralazine Start lisinopril Dietary follow-up Contact precautions 11/11/2019 Continues to improve clinically PT/OT recommending SNF placement VSS No labs obtained today Wheezing on physical exam - RT to give nebulizer Ambulating short distances in room. 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 PLAN Continue Paxil Cognitive evaluation as an outpatient Aspiration precautions and HOB elevation Nicotine patch Continue incentive spirometer and Acapella Pulse ox goal greater than 92% PRN Hydralazine Start lisinopril Dietary follow-up Contact precautions 11/12/2019 Ambulating around room VSS Potassium 2.8 -> Supplement Magnesium 1.7-> supplement Ramains off of oxygen Last BM: 11/11/2019 Remains medically stable to discharge pending placement D/C HOB elevation and aspiration precautions Change activity order to up add kim [facility] reportedly coming tomorrow to evaluate patient Discontinued scheduled duonebs. Changed to PRN PLAN: Continue Paxil Cognitive evaluation as an outpatient Aspiration precautions and HOB elevation Nicotine patch Continue incentive spirometer and Acapella Pulse ox goal greater than 92% PRN Hydralazine Start lisinopril Dietary follow-up -Supplement potassium now -Consider daily potassium supplementation once back WNL -Supplement magnesium now -Repeat labs in AM Contact precautions -TID famotidine 11/13/2019 Continues to improve clinically Ambulating around room Evaluated by [facility] today VSS Potassium 3.3 * Supplement 40mEq potassium today and tonight and then start 20mEq daily supplementation tomorrow Showered today Last BM: 11/12/19 Repeat BMP, magnesium, phosphorous tomorrow Decrease Lasix to 40mg daily Remains medically stable to discharge pending placement PLAN Continue Paxil Nicotine patch Continue incentive spirometer and Acapella Pulse ox goal greater than 92% PRN Hydralazine Start lisinopril Dietary follow-up -Supplement potassium now -Start daily potassium tomorrow -Repeat labs in AM Contact precautions -TID famotidine 11/14/2019 Remains clinically stable Continues to ambulate around room VSS Potassium up to 3.4 - will give 40mEq potassium tonight and continue 20mEq daily supplementation tomorrow Last BM 11/14/2019 Recheck CMP and magnesium tomorrow Will start daily magnesium supplementation Remains clinically stable for discharge pending placement 11/15/2019 Elevated ALT at 414. AST 53 Total bilirubin 0.5. Albumin still low at 2.3. This is improved from early in the hospital stay. Last ALT done on 11/05/2019 which was 61 and elevated from 39 the day before. No medications were found to explain the significant increase in her liver panel. Vital signs stable, afebrile, pulse ox 98% on room air. 11/16/2019 Patient continues to feel well. Her liver enzymes did improve today. Her ALT is down to 273. AST is 35 and total bilirubin is 0.3. Ultrasound scheduled for tomorrow. Hepatitis C antibodies are negative. WBC is down to 10, creatinine clearance is 60, albumin is still low at 2.2. Vital signs are stable and she continues on room air. 11/17/2019 Continues to improve Liver enzymes continue to trend down Liver US unremarkable Vital signs remain stable Labs: - Plan Plan:: Elevated liver enzymes -Hepatitis panel -Follow AST and ALT -Ultrasound on Sunday Altered mental status, stable Schizophrenia, stable Continue Paxil COPD (chronic obstructive pulmonary disease) Current smoker Nicotine patch Continue incentive spirometer and Acapella Pulse ox goal greater than 92%, currently on room air HTN (hypertension) PRN Hydralazine Continue lisinopril Hypoalbuminemia -improved Dietary follow-up -Daily potassium supplementation as needed -Daily magnesium supplementation as needed -Repeat labs in AM Positive MRSA screen Contact precautions GERD -TID famotidine Sepsis, resolved Septic shock, resolved Streptococcal pneumonia, resolved Hypokalemia, resolved Benign microscopic hematuria, resolved Abdominal pain, resolved PROPHYLAXIS DVTLovenox twice daily GIfamotidine TID CODE STATUS: Full code DISPOSITION: Has been ambulating in room with walker. PT/OT recommending SNF with PT/OT. Patient has reportedly been accepted to [facility] with plan to discharge next week Sunday, pending continued stability.
[2019-11-17 14:57] VITALS: BP 129/86; PULSE 109
--- NOTE | 2019-11-17 14:59 | PCM.DCSUM1 ---
Discharge Summary - Hospital Course HPI Initial Comments: 59-year-old patient with history of schizophrenia, asthma, COPD, benign microscopic hematuria, kidney lesion, hypertension was found on her bathroom floor by EMS with altered mental status. At time of interview patient did only give short answers therefore being a poor historian. Most of the history was obtained through the emergency department notes. Patient apparently called EMS secondary to abdominal pain and constipation. EMS found patient lying on the floor and unable to stand or walk. When EMS threatened to cut through the wall to get a cot in to get her out she did manage to get up and walk to the cot. Patient arrived to the emergency department and was only talking and mumbles at until given fluids. In the ICU patient was able to give short answers. She states that she had a seizure and that is why she was on the floor. Unknown when she last took her medications. In the emergency department patient was given a total of 3 L IV fluid boluses and she did have a little improvement in her mentation. On presentation to the emergency department pulse was 131, respiratory rate of 24, blood pressure was 78/44, pulse ox of 93. Initial labs showed WBC of 22, hemoglobin 17.0, platelet count 532, slightly low sodium at 134, anion gap of 19.5, BUN 14, creatinine 1.4. Initial lactic acid was 4.0. Glucose 281. Alcohol, salicylates, and acetaminophen were negative or therapeutic for salicylates. Urine drug screen was negative. UA was significant for 2+ protein, 2+ occult blood, 2+ bilirubin, urobilinogen elevated at 4.0, urine RBCs 30-40, urine WBC 0-5, hyaline casts 10- 20, epithelial cells 5-10, moderate bacteria and mucus. COVID negative initial C-reactive protein was 1.6 and BNP was 122. After fluid boluses in the emergency department the lactic acid actually went up to 5.3. Patient was given Rocephin in the emergency department, chest x-ray performed which showed possible bibasilar areas of pneumonia. Recommend follow-up PA and lateral views of the chest to confirm if patient can cooperate. Diagnosis: Stroke: No - Discharge Data Discharge Date: 11/17/19 (Admit date: 10/29/2019) Discharge Disposition: Home, Self-Care 01 Condition: Good - Referral to Home Health Primary Care Physician: Sanjuana M Floberg, TIE BINDER - Discharge Diagnosis/Problem(s) (1) Abdominal pain SNOMED Code(s): 65236171 ICD Code: R10.9 - UNSPECIFIED ABDOMINAL PAIN Status: Resolved Priority: High Current Visit: Yes Qualifiers: Abdominal location: unspecified location Qualified Code(s): R10.9 - Unspecified abdominal pain (2) Benign microscopic hematuria SNOMED Code(s): 459015875240001 ICD Code: R31.1 - BENIGN ESSENTIAL MICROSCOPIC HEMATURIA Status: Resolved Priority: Medium Current Visit: Yes (3) COPD (chronic obstructive pulmonary disease) SNOMED Code(s): 89817923 ICD Code: J44.9 - CHRONIC OBSTRUCTIVE PULMONARY DISEASE, UNSPECIFIED Status: Chronic Priority: Medium Current Visit: Yes Qualifiers: COPD type: unspecified COPD Qualified Code(s): J44.9 - Chronic obstructive pulmonary disease, unspecified (4) Pneumonia SNOMED Code(s): 340213026 ICD Code: J18.9 - PNEUMONIA, UNSPECIFIED ORGANISM Status: Resolved Priority: High Current Visit: Yes Qualifiers: Pneumonia type: due to unspecified organism Laterality: unspecified laterality Lung location: unspecified part of lung Qualified Code(s): J18.9 - Pneumonia, unspecified organism (5) Positive result for methicillin resistant Staphylococcus aureus (MRSA) screening SNOMED Code(s): 623430354 ICD Code: Z22.322 - CARRIER OR SUSPECTED CARRIER OF METHICILLIN RESIS STAPH Status: Acute Priority: Medium Current Visit: Yes (6) Schizophrenia SNOMED Code(s): 12831430 ICD Code: F20.9 - SCHIZOPHRENIA, UNSPECIFIED Status: Chronic Priority: High Current Visit: Yes Qualifiers: Schizophrenia type: unspecified Qualified Code(s): F20.9 - Schizophrenia, unspecified (7) Sepsis SNOMED Code(s): 82040410 ICD Code: A41.9 - SEPSIS, UNSPECIFIED ORGANISM Status: Resolved Priority: High Current Visit: Yes Qualifiers: Sepsis type: sepsis due to unspecified organism Sepsis acute organ dysfunction status: unspecified Qualified Code(s): A41.9 - Sepsis, unspecified organism (8) Septic shock SNOMED Code(s): 36885241 ICD Code: A41.9 - SEPSIS, UNSPECIFIED ORGANISM; R65.21 - SEVERE SEPSIS WITH SEPTIC SHOCK Status: Resolved Priority: High Current Visit: Yes (9) Streptococcal pneumonia SNOMED Code(s): 23257649 ICD Code: J15.4 - PNEUMONIA DUE TO OTHER STREPTOCOCCI Status: Resolved Priority: High Current Visit: Yes (10) Colitis SNOMED Code(s): 04084423 ICD Code: K52.9 - NONINFECTIVE GASTROENTERITIS AND COLITIS, UNSPECIFIED Status: Resolved Priority: High Current Visit: Yes (11) Hypokalemia SNOMED Code(s): 27765786 ICD Code: E87.6 - HYPOKALEMIA Status: Acute Priority: High Current Visit: Yes (12) Transaminitis SNOMED Code(s): 324482018, 966775681 ICD Code: R74.0 - NONSPEC ELEV OF LEVELS OF TRANSAMNS & LACTIC * DO NOT USE * Status: Resolved Priority: High Current Visit: Yes (13) Hypoalbuminemia SNOMED Code(s): 005392154 ICD Code: E88.09 - OTH DISORDERS OF PLASMA-PROTEIN METABOLISM, NEC Status: Acute Priority: Medium Current Visit: Yes (14) HTN (hypertension) SNOMED Code(s): 16912859 ICD Code: I10 - ESSENTIAL (PRIMARY) HYPERTENSION Status: Chronic Priority: Medium Current Visit: No Qualifiers: Hypertension type: unspecified Qualified Code(s): I10 - Essential (primary) hypertension (15) HLD (hyperlipidemia) SNOMED Code(s): 04118712 ICD Code: E78.5 - HYPERLIPIDEMIA, UNSPECIFIED Status: Chronic Priority: Low Current Visit: No Qualifiers: Hyperlipidemia type: unspecified Qualified Code(s): E78.5 - Hyperlipidemia, unspecified (16) Altered mental status SNOMED Code(s): 504095320 ICD Code: R41.82 - ALTERED MENTAL STATUS, UNSPECIFIED Status: Resolved Priority: High Current Visit: Yes Qualifiers: Altered mental status type: unspecified Qualified Code(s): R41.82 - Altered mental status, unspecified (17) GERD (gastroesophageal reflux disease) SNOMED Code(s): 784953459 ICD Code: K21.9 - GASTRO-ESOPHAGEAL REFLUX DISEASE WITHOUT ESOPHAGITIS Status: Acute Priority: High Current Visit: Yes Qualifiers: Esophagitis presence: esophagitis presence not specified Qualified Code(s): K21.9 - Gastro-esophageal reflux disease without esophagitis (18) Hypomagnesemia SNOMED Code(s): 871346588 ICD Code: E83.42 - HYPOMAGNESEMIA Status: Acute Priority: High Current Visit: Yes - Patient Summary/Data Consults: Consultations 10/29/19 19:24 OT Evaluation and Treatment [CONS] Routine PT Evaluation and Treatment [CONS] Routine 11/04/19 11:36 Consult to Speech Language Pathology [[employer] Evaluation and Treatment] [CONS] Routine Labs Pending at D/C: None Recommended Follow-up Testing/Procedures: Follow-up with primary care provider within 7-10 days of discharge, sooner if needed. -recommend re-check CBC, CMP, and magnesium at follow-up Recommend follow-up with [facility] after discharge. Recommend psychiatry follow-up after discharge. Hospital Course: Assessment:: 10/29/2019 Patient found on floor in the bathroom after possibly having a seizure. Hypotensive, tachycardic, tachypneic and hypoxic on arrival to emergency department. Patient received 3 L IV bolus in emergency department. Initial lactic acid 4.0 increasing to 5.3 after fluid bolus. Initial WBC 22,000, 76% neutrophils, no bandemia, C-reactive protein 1.6 Altered mental status, patient is very lethargic. Patient is in critical condition and currently has a poor outcome predicted. High risk of mortality. Patient's initial complaint when calling EMS was abdominal pain and constipation. Patient does exhibit tenderness to palpation throughout the abdomen. Bowel sounds difficult to appreciate secondary to upper airway noise. 10/30/2019 Patient is not improved with the large amount of IV fluids. She has actually had worsening respiratory status requiring IV Lasix. Respiratory rate has had some improvement with vigorous pulmonary toilet, bronchodilation, and diuretics. Unfortunately, this is likely going to cause some intravascular hypovolemia. Lactic acid did drop to 2.0 this morning with the IV fluids. This afternoon renal function did worsen with a creatinine of 1.6. WBC worsened and has been stable today at 23,000. Still no bands or toxic granulations. Neutrophils 90%, absolute neutrophils 21,000. Confirmed CODE STATUS with sister. She states that Rosita has several mental health issues and she likely did not understand the catastrophic results of not being intubated. CT abdomen and pelvis with contrast. Findings suspicious for colitis within portions of the descending and sigmoid colon. Fluid is seen within the pelvis and right abdomen most likely reactive from the colonic process. Increased stool within the rectosigmoid region. Nodularity with in the left adrenal gland most likely benign if patient has no primary carcinoma. CT of the of the head: No acute findings 10/31/2019 Rosita is making some improvement today. Respiratory rate has decreased and her tachycardia has decreased. Antibiotics were switched to Zosyn to cover both strep pneumoniae and colitis. MRSA screen was positive. Patient continues on vancomycin. D-dimer was elevated at 1.[address] angio was done of the chest CT angio chest: 1. No findings of pulmonary embolism. 2. Aorta shows atherosclerotic changes with no dissection or aneurysm. No discrete ulcerating plaque is seen. 3. Increased density within the right lung base which may represent pneumonia or prominent atelectasis. 4. Other findings as noted. Not believed to be acute. ABGs normal pH, PCO2, bicarb with a slightly low PO2. These are surprisingly good considering her respiratory rate. Repeat lactic acid was 1.6. White count continues to be significantly elevated at 23,000. CRP 35.8. Patient has significant hypoalbuminemia with albumin of 1.9 Hypokalemiapotassium 3.4 Hemoglobin A1c is 6.1 11/01/2019 Decrease in respiratory rate and tachycardia. Patient weaned off of BiPAP and now on nasal cannula. On Zosyn, Levaquin, and vancomycin. Slowly improving mentation. WBC 18.9, CRP 34.2, procalcitonin from yesterday 10/30 2012.07, phosphorus 1.8, potassium 3.2, estimated GFR 57, albumin 1.6 11/02/2019 Significant improvement today. More awake, alert, and talking. Afebrile, map greater than 65, on 2 L nasal cannula to keep SPO2 in the mid 90s WBC 17.7, C-reactive protein 22.1. Estimated GFR greater than 60. Hypokalemia. Potassium 2.8. Hypophosphatemia. Phosphorus 1.7. Hypoalbuminemia. Albumin down to 1.4. She did eat some today. Zosyn, Levaquin, and vancomycin. 11/03/2019 Patient is off BiPAP and on 2 to 3 L nasal cannula to keep her SPO2 in the mid 90s. Significant improvement in her respiratory status and pneumonia. She continues to have some congestion likely from pulmonary congestion. White count 14, CRP 8.8 On Zosyn, Levaquin, and vancomycin Patient is a pack to 2 per day smoker. She does have a nicotine patch. Positive streptococcal pneumonia urine antigen Slow but progressive improvement in her mentation. She appears to be having some clearing although she is still very lethargic. Unable to do LP secondary to her not being cooperative or awake enough to be able to perform the procedure. Unlikely that this is secondary to infectious process. Patient has had a significant decrease in her abdominal pain. She is now having multiple loose and watery diarrhea. Bowel movements have decreased over the afternoon. Patient had significant stool on CT scan on admission. Patient has dark orange, tea colored urine and what appears to be vaginal bleeding. On exam she has blood coming from the urethra around the Noguera catheter. Patient states that she has had hematuria in the past and it has been worked up. She does have a history of hematuria. Enoxaparin may be worsening the hematuria. At this time we will continue on enoxaparin because her risk of clot is greater than her risk of a significant bleed. Potassium 3.2 Bilirubin 1.2, AST 69, ALT 57, alkaline phosphatase 150 Albumin 1.7 On Latuda, Risperdal, Paxil Only receiving risperidone, and Paxil in the hospital There is no substitute for her Latuda These medications may be contributing to her mental status changes. Amlodipine and enalapril on hold Atorvastatin is nonformulary 11/04/2019 Episode of vomiting and possible aspiration. Chest x-ray showed no change. No change in 2 to 3 L nasal cannula to keep her SPO2 in the mid 90s. Significant improvement in her respiratory status and pneumonia. She continues to have some congestion likely from pulmonary congestion. WBC decreased to 12.8 by afternoon but had stopped few toxic granulations. Procalcitonin down to 2 on yesterday's blood draw. On Zosyn and vancomycin Last day of Levaquin, day 5 Patient is a pack to 2 per day smoker. She does have a nicotine patch. Positive streptococcal pneumonia urine antigen Unable to do LP secondary to her not being cooperative or awake enough to be able to perform the procedure. MRI of the brain today showed no acute findings. Abdominal pain resolved Multiple episodes of vomiting early this morning and 1 this afternoon. Noguera catheter removed today. She did require straight catheter. Elevated LFTs resolved Albumin 2.2 after receiving albumin yesterday Yesterday stopped Risperdal There is no substitute for her Latuda, therefore not on second-generation antipsychotic 11/05/2019 Only one episode of emesis early today Requiring 3L o2 to maintain saturations in mid 90's WBC decreased to 12.68 Repeat procalcitonin today Last day of Zosyn and vancomycin today Improved mentation but will fall asleep while talking with staff. MRI of the brain on 11/04/19 showed no acute findings. Improvement in mental status since stopping Risperdal, but likely coincidental. She is likely having improvement in her mental status secondary to improvement in her condition. Albumin 2.0 from 2.2 yesterday today Received albumin on 11/03/19 There is no substitute for her Latuda, therefore not on second-generation antipsychotic Vital signs trend: Tmax 98.1, HR 87-91, BP 130-138/64-81, RR 16-21, Oxygen saturations 94-95% on 3L Last BM today 11/06/2019 She continues to have some congestion likely from pulmonary congestion. WBC 15.89 today Repeat procalcitonin pending Last day of Zosyn and vancomycin today Patient is a pack to 2 per day smoker. She does have a nicotine patch. MRI with contrast ordered today Vital signs trend: Tmax 98.2, HR 79-88, BP 138-117/78-60, RR 16-21, Oxygen saturations 94-96% on 3L Last BM today 11/07/2019 Improving breath sounds Vital signs trend: Tmax 97.5, HR 72-80, BP 138-123/81-74, RR 20, Oxygen saturations 94-96% on 3L She was up ambulating with therapies today. Much more alert again today. Last BM: 11/06/19 11/08/2019 Feels better and has no complaints Vital signs trend Blood pressure: 128-145/70-97 T-max 97.7 Heart rate: 72-92 Pulse ox >92% on 3 L/min New lab results WBC down from 15.37-12.71 No more toxic granulation Potassium up from 3.1-3.3 PLAN Continue Paxil Cognitive evaluation as an outpatient Aspiration precautions and HOB elevation Nicotine patch Continue incentive spirometer and Acapella Pulse ox goal greater than 92% PRN Hydralazine Start lisinopril 11/09/2019 Feels better has no complaints Vital signs trend Blood pressure: 141-156/58-85 T-max 98.8 Heart rate: 70-85 Pulse ox >95% on 3 L/min New lab results WBC down from 12.71-10.22 Platelets up from 329-410 Potassium up from 3.3-3.5 GFR minimal decrease from greater than 60-57 Procalcitonin 0.99 (11/05) down to 0.54 (11/07) PLAN Continue Paxil Cognitive evaluation as an outpatient Aspiration precautions and HOB elevation Nicotine patch Continue incentive spirometer and Acapella Pulse ox goal greater than 92% PRN Hydralazine Start lisinopril Dietary follow-up Contact precautions 11/10/2019 Continues to improve Disposition pending PT/OT recommendations Vital signs trend: Tmax 98.2, HR 79-85, BP 155-125/88-69, RR 14-20, Oxygen saturations 91-92% on room air No labs obtained today Walked a few steps today with PT without a walker Last BM 11/09/19 PLAN Continue Paxil Cognitive evaluation as an outpatient Aspiration precautions and HOB elevation Nicotine patch Continue incentive spirometer and Acapella Pulse ox goal greater than 92% PRN Hydralazine Start lisinopril Dietary follow-up Contact precautions 11/11/2019 Continues to improve clinically PT/OT recommending SNF placement VSS No labs obtained today Wheezing on physical exam - RT to give nebulizer Ambulating short distances in room. Last BM: 11/11/19 [employer] evaluation today revealed severe cognitive deficit Remains off of oxygen Remains medically stable for discharge pending placement. PLAN Continue Paxil Cognitive evaluation as an outpatient Aspiration precautions and HOB elevation Nicotine patch Continue incentive spirometer and Acapella Pulse ox goal greater than 92% PRN Hydralazine Start lisinopril Dietary follow-up Contact precautions 11/12/2019 Ambulating around room VSS Potassium 2.8 -> Supplement Magnesium 1.7-> supplement Ramains off of oxygen Last BM: 11/11/2019 Remains medically stable to discharge pending placement D/C HOB elevation and aspiration precautions Change activity order to up add [facility] reportedly coming tomorrow to evaluate patient Discontinued scheduled duonebs. Changed to PRN PLAN: Continue Paxil Cognitive evaluation as an outpatient Aspiration precautions and HOB elevation Nicotine patch Continue incentive spirometer and Acapella Pulse ox goal greater than 92% PRN Hydralazine Start lisinopril Dietary follow-up -Supplement potassium now -Consider daily potassium supplementation once back WNL -Supplement magnesium now -Repeat labs in AM Contact precautions -TID famotidine 11/13/2019 Continues to improve clinically Ambulating around room Evaluated by [facility] today VSS Potassium 3.3 * Supplement 40mEq potassium today and tonight and then start 20mEq daily supplementation tomorrow Showered today Last BM: 11/12/19 Repeat BMP, magnesium, phosphorous tomorrow Decrease Lasix to 40mg daily Remains medically stable to discharge pending placement PLAN Continue Paxil Nicotine patch Continue incentive spirometer and Acapella Pulse ox goal greater than 92% PRN Hydralazine Start lisinopril Dietary follow-up -Supplement potassium now -Start daily potassium tomorrow -Repeat labs in AM Contact precautions -TID famotidine 11/14/2019 Remains clinically stable Continues to ambulate around room VSS Potassium up to 3.4 - will give 40mEq potassium tonight and continue 20mEq daily supplementation tomorrow Last BM 11/14/2019 Recheck CMP and magnesium tomorrow Will start daily magnesium supplementation Remains clinically stable for discharge pending placement 11/15/2019 Elevated ALT at 414. AST 53 Total bilirubin 0.5. Albumin still low at 2.3. This is improved from early in the hospital stay. Last ALT done on 11/05/2019 which was 61 and elevated from 39 the day before. No medications were found to explain the significant increase in her liver panel. Vital signs stable, afebrile, pulse ox 98% on room air. 11/16/2019 Patient continues to feel well. Her liver enzymes did improve today. Her ALT is down to 273. AST is 35 and total bilirubin is 0.3. Ultrasound scheduled for tomorrow. Hepatitis C antibodies are negative. WBC is down to 10, creatinine clearance is 60, albumin is still low at 2.2. Vital signs are stable and she continues on room air. 11/17/2019 Patient continues to do well Abdominal US "Normal" per radiologist report. Liver enzymes continue to trend down. Switched magnesium to BID. - recommend PCP follow-up with this after discharge. Resumed daily potassium supplementation Vital signs remain stable. Throughout Rosita's hospitalization there was significant discussion on discharge deposition. Cognitive eval was obtained showing significant cognitive impairment. Patient did wax and wane on plan for discharge. Original plan was to discharge to SNF for assistance with ADLs and due to her noted cognitive deficit. He was evaluated by PT and OT who continue to recommend SNF due to cognitive baseline. She was up ambulating in the room without a walker but they did recommend she continue to use when on discharge. Patient's significant other was in the room multiple times throughout her stay. She did note when he would leave that she wanted to go home with him often. She noted that he is responsible adult with no known cognitive deficit. We did discuss our concerns with her going home. She refused to see Dr. Del Rio, psychiatry, prior to discharge. [facility] does follow her with the continuous pillowcase cutter. They note that the patient and her boyfriend are hoarders. They will continue to follow her after discharge and social work contacted her continuous pillowcase cutter. Unfortunately we are only able to get close to acceptance at one facility and they required guardianship be appointed to the patient prior to acceptance. After much discussion with the patient she ultimately decided that she wanted to go home. From a medical standpoint she remains very stable. Recommend she follow-up outpatient psychiatry and outpatient speech-language pathology for cognitive assistance. Discharged home and left with her significant other. Commend follow-up with primary care provider within 7 to 10 days of discharge. Recommend recheck CBC, CMP, and magnesium at that point. See medication list for medication changes. She was offered nicotine patches on discharge and refused. We did discuss practical resources in the community such as [employer] and the [facility] quit line. He was given contact information for both. She was also advised to see her primary care provider should she change her mind. - Patient Instructions Diet: Usual Diet as Tolerated Activity: As Tolerated Driving: Do Not Drive Showering/Bathing: May Shower Notify Provider of: Fever, Increased Pain, Nausea and/or Vomiting Other/Special Instructions: Follow-up with your primary care provider within 7- 10 days of discharge, sooner if needed. Continue to follow-up with [facility] as directed. Resume home medications as directed. Take all new medications as precribed. Continue to utilize your incentive spirometer (clear/blue device you inhale through) for another week. Continue to stay active. Get up and move. Recommend you follow-up with outpatient speech therapy for continued cognative assistance. We discussed your smoking status. You indicated that you do not want patches or cessation aids on discharge. Should you change your mind you may contact [place] [employer] or the [facility] Tobacco quits program with the numbers provided. Should symptoms return or worsen contact your primary care provider or return to the Emergency Department. - Discharge Plan *PRESCRIPTION DRUG MONITORING PROGRAM REVIEWED*: No *COPY OF PRESCRIPTION DRUG MONITORING REPORT IN PATIENT ANAID: No Prescriptions/Med Rec: Furosemide [Lasix] 40 mg PO DAILY #20 tablet Magnesium Oxide 400 mg PO BID #20 tablet Famotidine [Pepcid] 10 mg PO BID #20 tablet Home Medications: Home Meds Albuterol [Proair HFA] 2 puff INH Q4H PRN 05/02/16 [History] Aspirin 81 mg PO DAILY 05/02/16 [History] Budesonide [Pulmicort] 1 dose NEB BID 05/02/16 [History] Enalapril [Vasotec] 10 mg PO DAILY 05/02/16 [History] Formoterol [Perforomist] 1 dose NEB BID 05/02/16 [History] Lurasidone [Latuda] 80 mg PO BEDTIME 05/02/16 [History] Oxybutynin 5 mg PO DAILY 05/02/16 [History] PARoxetine HCL [Paroxetine HCl] 30 mg PO DAILY 05/02/16 [History] Tiotropium [Spiriva Handihaler] 1 puff INH DAILY 05/02/16 [History] atorvaSTATin Calcium [Atorvastatin Calcium] 20 mg PO DAILY 05/02/16 [History] Potassium Chloride 20 meq PO DAILY 10/29/19 [History] Famotidine [Pepcid] 10 mg PO BID #20 tablet 11/17/19 [Rx] Furosemide [Lasix] 40 mg PO DAILY #20 tablet 11/17/19 [Rx] Magnesium Oxide 400 mg PO BID #20 tablet 11/17/19 [Rx] Oxygen Therapy Mode: Room Air Patient Handouts: MRSA Infection, Self-Care, Adult, Sepsis, Diagnosis, Adult, Colitis, Steps to Quit Smoking, Community-Acquired Pneumonia, Adult, [id number] Forms: ED Department Discharge Referrals: Sanjuana Haywood TIE BINDER [Primary Care Provider] - - Discharge Summary/Plan Comment DC Time >30 min.: Yes (45 mins ) - General Info Date of Service: 11/17/19 Functional Status: Reports: Pain Controlled, Tolerating Diet, Ambulating, Urinating, Incentive Spirometry, Other (acapella ). Denies: New Symptoms - Review of Systems General: Reports: No Symptoms. Denies: Fever, Weakness, Fatigue, Malaise, Chills HEENT: Reports: No Symptoms. Denies: Headaches, Sore Throat Pulmonary: Reports: No Symptoms. Denies: Shortness of Breath, Pleuritic Chest Pain, Cough, Sputum, Wheezing Cardiovascular: Reports: No Symptoms. Denies: Chest Pain, Palpitations, Dyspnea on Exertion Gastrointestinal: Reports: No Symptoms. Denies: Abdominal Pain, Constipation, Diarrhea, Nausea, Vomiting Genitourinary: Reports: No Symptoms. Denies: Pain Musculoskeletal: Reports: No Symptoms Skin: Reports: No Symptoms. Denies: Cyanosis Neurological: Reports: No Symptoms. Denies: Confusion, Difficulty Walking, Gait Disturbance Psychiatric: Reports: No Symptoms - Patient Data Vitals - Most Recent: Last Vital Signs Temp 98.4 F 11/17/19 14:44 Pulse 109 H 11/17/19 14:44 Resp 20 11/17/19 14:44 BP 129/86 11/17/19 14:44 Pulse Ox 96 11/17/19 14:44 Weight - Most Recent: 230 lb 8 oz I&O - Last 24 hours: Intake & Output 11/16/19 11/17/19 11/17/19 22:59 06:59 14:59 Intake Total 500 800 360 Output Total 400 Balance 500 400 360 Lab Results - Last 24 hrs: Laboratory Results - last 24 hr 11/17/19 11/17/19 Range/Units 05:17 05:17 WBC 9.18 (3.98-10.04) K/mm3 RBC 4.46 (3.98-5.22) M/mm3 Hgb 12.2 (11.2-15.7) gm/dl Hct 38.0 (34.1-44.9) % MCV 85.2 (79.4-94.8) fl MCH 27.4 (25.6-32.2) pg MCHC 32.1 L (32.2-35.5) g/dl RDW Std Deviation 43.4 (36.4-46.3) fL Plt Count 436 H (182-369) K/mm3 MPV 8.7 L (9.4-12.3) fl Neut % (Auto) 51.9 (34.0-71.1) % Lymph % (Auto) 30.5 (19.3-51.7) % [facility] % (Auto) 15.3 H (4.7-12.5) % Eos % (Auto) 1.1 (0.7-5.8) Baso % (Auto) 0.7 (0.1-1.2) % Neut # (Auto) 4.77 (1.56-6.13) K/mm3 Lymph # (Auto) 2.80 (1.18-3.74) K/mm3 [facility] # (Auto) 1.40 H (0.24-0.36) K/mm3 Eos # (Auto) 0.10 (0.04-0.36) K/mm3 Baso # (Auto) 0.06 (0.01-0.08) K/mm3 Manual Slide Review Abnormal smear Sodium 137 (136-145) mEq/L Potassium 3.6 (3.5-5.1) mEq/L Chloride 98 (98-107) mEq/L Carbon Dioxide 30 (21-32) mEq/L Anion Gap 12.6 (5-15) BUN 13 (7-18) mg/dL Creatinine 1.0 (0.55-1.02) mg/dL Est Cr Clr Drug Dosing 54.51 mL/min Estimated GFR (MDRD) 57 (>60) mL/min BUN/Creatinine Ratio 13.0 L (14-18) Glucose 139 H (74-106) mg/dL Calcium 8.8 (8.5-10.1) mg/dL Phosphorus 3.6 (2.6-4.7) mg/dL Magnesium 1.7 L (1.8-2.4) mg/dl Total Bilirubin 0.5 (0.2-1.0) mg/dL AST 40 H (15-37) U/L ALT 215 H (14-59) U/L Alkaline Phosphatase 99 (46-116) U/L Total Protein 6.6 (6.4-8.2) g/dl Albumin 2.3 L (3.4-5.0) g/dl Globulin 4.3 gm/dL Albumin/Globulin Ratio 0.5 L (1-2) Med Orders - Current: Current Medications Acetaminophen (Tylenol) 650 mg PO Q4H PRN PRN Reason: Pain (Mild 1-3)/fever Last Admin: 11/12/19 20:19 Dose: 650 mg Documented by: Al Hydroxide/Mg Hydroxide (Mag-Al Plus) 30 ml PO Q4H PRN PRN Reason: Heartburn Last Admin: 11/05/19 10:13 Dose: 30 ml Documented by: Albuterol (Proventil Neb Soln) 2.5 mg NEB Q2H PRN PRN Reason: Shortness Of Breath/wheezing Albuterol/Ipratropium (Duoneb 3.0-0.5 Mg/3 Ml) 3 ml NEB Q4H PRN PRN Reason: Shortness Of Breath/wheezing Last Admin: 11/12/19 21:55 Dose: 3 ml Documented by: Aspirin (Aspirin) 81 mg PO DAILY [facility] Last Admin: 11/17/19 10:05 Dose: 81 mg Documented by: Budesonide (Pulmicort) 0.5 mg NEB BID [facility] Last Admin: 11/17/19 08:50 Dose: 0.5 mg Documented by: Dextrose/Water (Dextrose 50% In Water) 50 ml IVPUSH ASDIRECTED PRN PRN Reason: Hypoglycemia Enoxaparin Sodium (Lovenox) 40 mg SUBCUT DAILY [facility] Last Admin: 11/17/19 10:08 Dose: 40 mg Documented by: Famotidine (Pepcid) 10 mg PO TID [facility] Last Admin: 11/17/19 10:05 Dose: 10 mg Documented by: Furosemide (Lasix) 40 mg PO DAILY [facility] Last Admin: 11/17/19 10:04 Dose: 40 mg Documented by: Glycopyrrolate (Seebri Neohaler) 15.6 mcg IH BID@1000,2200 [facility] Last Admin: 11/17/19 09:29 Dose: Not Given Documented by: Lisinopril (Prinivil) 10 mg PO BEDTIME [facility] Last Admin: 11/16/19 20:49 Dose: 10 mg Documented by: Lorazepam (Ativan) 1 mg IVPUSH Q2H PRN PRN Reason: Anxiety Last Admin: 11/03/19 02:01 Dose: 1 mg Documented by: Lurasidone HCl (Latuda) 80 mg PO BEDTIME [facility] Magnesium Oxide (Magnesium Oxide) 400 mg PO BID [facility] Last Admin: 11/17/19 10:05 Dose: 400 mg Documented by: Melatonin (Melatonin) 9 mg PO BEDTIME [facility] Last Admin: 11/16/19 20:49 Dose: 9 mg Documented by: Miscellaneous Information (Remove Patch) 1 ea TRDERM Q24H [facility] Last Admin: 11/17/19 10:09 Dose: 1 ea Documented by: Nicotine (Habitrol) 21 mg TRDERM Q24H [facility] Last Admin: 11/17/19 10:08 Dose: 21 mg Documented by: Ondansetron HCl (Zofran) 4 mg IV Q4H PRN PRN Reason: Nausea/Vomiting Last Admin: 11/04/19 16:00 Dose: 4 mg Documented by: Paroxetine HCl (Paxil) 30 mg PO DAILY [facility] Last Admin: 11/17/19 10:05 Dose: 30 mg Documented by: Potassium Chloride (Klor-Con M20) 20 meq PO DAILY [facility] Last Admin: 11/17/19 10:05 Dose: 20 meq Documented by: Saccharomyces Boulardii (Florastor) 500 mg PO TID [facility] Last Admin: 11/17/19 10:03 Dose: 500 mg Documented by: Sodium Chloride (Saline Flush) 20 ml FLUSH ASDIRECTED [facility] Last Admin: 11/06/19 12:25 Dose: 20 ml Documented by: Discontinued Medications Albuterol (Proventil Hfa) 0 gm INH Q4H PRN PRN Reason: Shortness of Breath Albuterol/Ipratropium (Duoneb 3.0-0.5 Mg/3 Ml) 3 ml NEB Q4HRRT [facility] Last Admin: 10/30/19 21:20 Dose: 3 ml Documented by: Albuterol/Ipratropium (Duoneb 3.0-0.5 Mg/3 Ml) Confirm Administered Dose 3 ml .ROUTE .STK-MED ONE Stop: 10/30/19 12:21 Last Admin: 10/30/19 12:24 Dose: Not Given Documented by: Albuterol/Ipratropium (Duoneb 3.0-0.5 Mg/3 Ml) 3 ml NEB Q6HRRT [facility] Last Admin: 11/07/19 09:00 Dose: 3 ml Documented by: Albuterol/Ipratropium (Duoneb 3.0-0.5 Mg/3 Ml) 3 ml NEB BIDRT [facility] Last Admin: 11/12/19 06:04 Dose: 3 ml Documented by: Benztropine Mesylate (Cogentin) 1 mg PO BID [facility] Last Admin: 11/03/19 09:20 Dose: 1 mg Documented by: Budesonide (Pulmicort) 0.5 mg NEB BIDRT [facility] Last Admin: 10/30/19 05:58 Dose: 0.5 mg Documented by: Budesonide (Pulmicort) 0.5 mg NEB BID@0600,1800 [facility] Last Admin: 11/02/19 07:08 Dose: Not Given Documented by: Ceftriaxone Sodium (Rocephin) Confirm Administered Dose 2 gm IV .STK-MED ONE Stop: 10/29/19 16:27 Last Admin: 10/29/19 19:17 Dose: Not Given Documented by: Enoxaparin Sodium (Lovenox) 40 mg SUBCUT Q12H [facility] Last Admin: 11/15/19 07:59 Dose: 40 mg Documented by: Famotidine (Pepcid) 10 mg PO TIDAC [facility] Last Admin: 11/12/19 12:19 Dose: 10 mg Documented by: Furosemide (Lasix) 20 mg IVPUSH ONETIME ONE Stop: 10/30/19 10:37 Last Admin: 10/30/19 10:53 Dose: 20 mg Documented by: Furosemide (Lasix) 20 mg IVPUSH NOW ONE Stop: 10/30/19 12:10 Last Admin: 10/30/19 12:20 Dose: 20 mg Documented by: Furosemide (Lasix) 20 mg IVPUSH NOW ONE Stop: 11/01/19 12:45 Last Admin: 11/01/19 13:11 Dose: 20 mg Documented by: Furosemide (Lasix) 20 mg IVPUSH BIDDIURETIC [facility] Last Admin: 11/01/19 21:04 Dose: 20 mg Documented by: Furosemide (Lasix) 20 mg IVPUSH BID [facility] Last Admin: 11/05/19 10:13 Dose: 20 mg Documented by: Furosemide (Lasix) 20 mg IVPUSH ONETIME ONE Stop: 11/03/19 15:01 Last Admin: 11/03/19 15:28 Dose: 20 mg Documented by: Furosemide (Lasix) 20 mg IVPUSH 0600,1400 [facility] Last Admin: 11/07/19 06:40 Dose: 20 mg Documented by: Furosemide (Lasix) 40 mg PO BIDDIURETIC [facility] Last Admin: 11/12/19 20:03 Dose: Not Given Documented by: Furosemide (Lasix) 40 mg PO BID@0600,1500 [facility] Last Admin: 11/13/19 14:19 Dose: 40 mg Documented by: Gadobenate Dimeglumine (Multihance) 20 ml IVPUSH ONETIME ONE Stop: 11/06/19 12:18 Last Admin: 11/06/19 12:25 Dose: 20 ml Documented by: Glycopyrrolate (Seebri Neohaler) 15.6 mcg IH BID [facility] Last Admin: 10/30/19 09:12 Dose: Not Given Documented by: Hydroxyzine HCl (Atarax) 25 mg PO BID [facility] Last Admin: 11/03/19 09:20 Dose: 25 mg Documented by: Sodium Chloride (Normal Saline) 1,000 mls @ 999 mls/hr IV ONETIME [facility] Last Admin: 10/29/19 14:01 Dose: 999 mls/hr Documented by: Ceftriaxone Sodium 2 gm/ (Sodium Chloride) 100 mls @ 200 mls/hr IV ONETIME ONE Stop: 10/29/19 15:13 Last Admin: 10/29/19 16:31 Dose: 200 mls/hr Documented by: Lactated Ringer's (Ringers, Lactated) 1,000 mls @ 999 mls/hr IV .BOLUS ONE Stop: 10/29/19 15:51 Last Admin: 10/29/19 15:09 Dose: 999 mls/hr Documented by: Lactated Ringer's (Ringers, Lactated) 1,000 mls @ 999 mls/hr IV .BOLUS ONE Stop: 10/29/19 17:38 Last Admin: 10/29/19 17:05 Dose: 999 mls/hr Documented by: Lactated Ringer's (Ringers, Lactated) 1,000 mls @ 999 mls/hr IV .BOLUS ONE Stop: 10/29/19 17:42 Last Admin: 10/29/19 17:33 Dose: Not Given Documented by: Sodium Chloride (Normal Saline) Confirm Administered Dose 100 mls @ as directed .ROUTE .STK-MED ONE Stop: 10/29/19 16:27 Last Admin: 10/29/19 19:17 Dose: Not Given Documented by: Lactated Ringer's (Ringers, Lactated) Confirm Administered Dose 1,000 mls @ as directed .ROUTE .STK-MED ONE Stop: 10/29/19 16:27 Last Admin: 10/29/19 19:17 Dose: Not Given Documented by: Sodium Chloride (Normal Saline) 1,000 mls @ 150 mls/hr IV ASDIRECTED [facility] Last Admin: 10/30/19 02:47 Dose: 150 mls/hr Documented by: Azithromycin 500 mg/ Sodium (Chloride) 250 mls @ 250 mls/hr IV Q24H [facility] Stop: 11/01/19 20:01 Last Admin: 10/29/19 20:18 Dose: 250 mls/hr Documented by: Ceftriaxone Sodium 2 gm/ (Sodium Chloride) 100 mls @ 200 mls/hr IV Q24H [facility] Last Admin: 10/30/19 15:25 Dose: 200 mls/hr Documented by: Azithromycin 500 mg/ Sodium (Chloride) 250 mls @ 250 mls/hr IV Q24H [facility] Stop: 10/31/19 20:59 Sodium Chloride (Normal Saline) 1,000 mls @ 75 mls/hr IV ASDIRECTED [facility] Cefepime HCl 2 gm/ Premix 50 mls @ 100 mls/hr IV Q24H [facility] Last Admin: 10/30/19 20:13 Dose: 100 mls/hr Documented by: Levofloxacin/Dextrose 750 mg/ (Premix) 150 mls @ 100 mls/hr IV Q48H [facility] Last Admin: 10/30/19 20:45 Dose: 100 mls/hr Documented by: Dextrose/Sodium Chloride (Dextrose 5%-1/2 Ns) 1,000 mls @ 100 mls/hr IV ASDIRECTED [facility] Last Admin: 11/02/19 02:30 Dose: 100 mls/hr Documented by: Vancomycin HCl 1.5 gm/ Sodium (Chloride) 500 mls @ 250 mls/hr IV ONETIME ONE Stop: 10/30/19 21:44 Last Admin: 10/30/19 22:28 Dose: 250 mls/hr Documented by: Sodium Chloride (Normal Saline) 500 mls @ 500 mls/hr IV BOLUS ONE Stop: 10/30/19 22:09 Last Admin: 10/30/19 21:36 Dose: 500 mls/hr Documented by: Vancomycin HCl 1 gm/ Sodium (Chloride) 250 mls @ 250 mls/hr IV Q12H [facility] Vancomycin HCl 1 gm/Vancomycin HCl 250 mg/ Sodium Chloride 250 mls @ 166.667 mls/hr IV Q12H [facility] Last Admin: 11/01/19 12:17 Dose: Not Given Documented by: Levofloxacin/Dextrose 750 mg/ (Premix) 150 mls @ 100 mls/hr IV Q24H [facility] Stop: 11/04/19 21:29 Last Admin: 11/03/19 20:18 Dose: 100 mls/hr Documented by: Piperacillin Sod/Tazobactam (Sod 4.5 gm/ Sodium Chloride) 100 mls @ 200 mls/hr IV ONETIME ONE Stop: 10/31/19 11:59 Last Admin: 10/31/19 11:39 Dose: 200 mls/hr Documented by: Piperacillin Sod/Tazobactam (Sod 4.5 gm/ Sodium Chloride) 100 mls @ 25 mls/hr IV Q8H [facility] Last Admin: 11/03/19 13:30 Dose: 25 mls/hr Documented by: Sodium Chloride (Normal Saline) 100 mls @ 75 mls/hr IV ASDIRECTED [facility] Stop: 10/31/19 13:00 Last Admin: 10/31/19 11:29 Dose: 75 mls/hr Documented by: Potassium Phosphate 30 mmole/ (Sodium Chloride) 510 mls @ 102 mls/hr IV ONETIME ONE Stop: 11/01/19 15:29 Last Admin: 11/01/19 10:58 Dose: 102 mls/hr Documented by: Vancomycin HCl 1 gm/Vancomycin HCl 250 mg/ Sodium Chloride 250 mls @ 166.667 mls/hr IV Q8H [facility] Last Admin: 11/05/19 19:27 Dose: Not Given Documented by: Potassium Chloride 10 meq/ (Premix) 100 mls @ 100 mls/hr IV Q1H [facility] Stop: 11/02/19 12:59 Last Admin: 11/02/19 13:26 Dose: 100 mls/hr Documented by: Potassium Phosphate 30 mmole/ (Sodium Chloride) 510 mls @ 102 mls/hr IV ONETIME ONE Stop: 11/02/19 17:59 Last Admin: 11/02/19 13:27 Dose: 102 mls/hr Documented by: Albumin Human (Flexbumin 25%) 25 gm in 100 mls @ 100 mls/hr IV Q1H [facility] Stop: 11/03/19 19:29 Last Admin: 11/03/19 20:02 Dose: Not Given Documented by: Albumin Human (Flexbumin 25%) 12.5 gm in 50 mls @ 50 mls/hr IV ONETIME ONE Stop: 11/04/19 01:59 Last Admin: 11/04/19 00:01 Dose: 50 mls/hr Documented by: Albumin Human (Flexbumin 25%) 25 gm in 100 mls @ 100 mls/hr IV Q1H [facility] Stop: 11/03/19 21:59 Last Admin: 11/03/19 23:20 Dose: 100 mls/hr Documented by: Piperacillin Sod/Tazobactam (Sod 4.5 gm/ Sodium Chloride) 100 mls @ 25 mls/hr IV Q8H [facility] Stop: 11/06/19 11:30 Last Admin: 11/06/19 06:46 Dose: 25 mls/hr Documented by: Potassium Chloride 10 meq/ (Premix) 100 mls @ 100 mls/hr IV Q1H [facility] Stop: 11/04/19 20:29 Last Admin: 11/04/19 20:16 Dose: Not Given Documented by: Potassium Chloride 10 meq/ (Premix) 100 mls @ 100 mls/hr IV Q1H [facility] Stop: 11/05/19 02:59 Last Admin: 11/05/19 02:25 Dose: 100 mls/hr Documented by: Potassium Chloride 10 meq/ (Premix) 100 mls @ 100 mls/hr IV Q1H [facility] Stop: 11/05/19 01:59 Last Admin: 11/05/19 03:10 Dose: Not Given Documented by: Vancomycin HCl 1 gm/Vancomycin HCl 500 mg/ Sodium Chloride 500 mls @ 250 mls/hr IV Q12H [facility] Stop: 11/06/19 05:59 Last Admin: 11/06/19 04:36 Dose: 250 mls/hr Documented by: Potassium Chloride 10 meq/ (Premix) 100 mls @ 100 mls/hr IV Q1H [facility] Stop: 11/07/19 12:29 Last Admin: 11/07/19 09:48 Dose: Not Given Documented by: Sodium Chloride (Normal Saline) 1,000 mls @ 50 [facility] Last Admin: 11/07/19 09:17 Dose: 50 mls/hr Documented by: Potassium Chloride 10 meq/ (Premix) 100 mls @ 100 mls/hr IV Q1H [facility] Stop: 11/07/19 13:59 Last Admin: 11/07/19 14:03 Dose: 100 mls/hr Documented by: Magnesium Sulfate (Magnesium Sulfate In Water Premix) 2 gm in 50 mls @ 25 mls/hr IV ONETIME ONE Stop: 11/12/19 10:59 Last Admin: 11/12/19 09:06 Dose: 25 mls/hr Documented by: Influenza Virus Vaccine (Fluzone Quad [id number] Syringe) 60 mcg IM .ONCE ONE Stop: 11/13/19 10:16 Insulin Human Lispro (Humalog) 0 unit SUBCUT QIDACANDBED [facility]; Protocol Last Admin: 10/31/19 12:44 Dose: Not Given Documented by: Insulin Human Lispro (Humalog) 0 unit SUBCUT Q6HR [facility]; Protocol Last Admin: 11/02/19 18:34 Dose: Not Given Documented by: Iopamidol (Isovue-300 (61%)) 50 ml IVPUSH ONETIME ONE Stop: 10/30/19 07:53 Last Admin: 10/30/19 08:36 Dose: 50 ml Documented by: Iopamidol (Isovue-300 (61%)) 100 ml IVPUSH ONETIME ONE Stop: 10/30/19 07:53 Last Admin: 10/30/19 08:37 Dose: 100 ml Documented by: Iopamidol (Isovue-370 (76%)) 100 ml IVPUSH ONETIME ONE Stop: 10/31/19 11:21 Last Admin: 10/31/19 11:28 Dose: 100 ml Documented by: Lorazepam (Ativan) 1 mg IVPUSH Q15M PRN PRN Reason: Other Last Admin: 10/30/19 08:47 Dose: 1 mg Documented by: Lorazepam (Ativan) Confirm Administered Dose 2 mg .ROUTE .STK-MED ONE Stop: 10/30/19 08:15 Last Admin: 10/30/19 08:47 Dose: Not Given Documented by: Lorazepam (Ativan) 1 mg IVPUSH ONETIME ONE Stop: 10/30/19 11:52 Last Admin: 09/17/20 11:58 Dose: 1 mg Documented by: Magnesium Oxide (Magnesium Oxide) 400 mg PO DAILY [facility] Last Admin: 11/16/19 08:36 Dose: 400 mg Documented by: Magnesium Oxide (Magnesium Oxide) 400 mg PO ONETIME ONE Stop: 11/17/19 09:01 Last Admin: 11/17/19 10:04 Dose: 400 mg Documented by: Miscellaneous Information (Remove Patch) 1 ea TRDERM Q24H [facility] Last Admin: 11/15/19 12:45 Dose: 1 ea Documented by: Nicotine (Habitrol) 21 mg TRDERM Q24H [facility] Last Admin: 11/15/19 12:46 Dose: 21 mg Documented by: Lurasidone Hcl [ (Latuda] 80 Mg) 0 each PO BEDTIME [facility] Last Admin: 11/16/19 20:48 Dose: 1 each Documented by: Lurasidone Hcl [ (Latuda] 80 Mg) 0 each PO BEDTIME [facility] Last Admin: 11/06/19 20:47 Dose: Not Given Documented by: Atorvastatin 20 Mg 0 each PO DAILY [facility] Potassium Chloride (Klor-Con M20) 40 meq PO ONETIME ONE Stop: 11/02/19 17:01 Last Admin: 11/02/19 18:25 Dose: 40 meq Documented by: Potassium Chloride (Klor-Con M20) 40 meq PO BID [facility] Stop: 11/03/19 21:01 Last Admin: 11/03/19 20:29 Dose: 40 meq Documented by: Potassium Chloride (Klor-Con M20) 40 meq PO ONETIME ONE Stop: 11/07/19 08:31 Last Admin: 11/07/19 09:20 Dose: 40 meq Documented by: Potassium Chloride (Klor-Con M20) 40 meq PO BID [facility] Stop: 11/13/19 09:01 Last Admin: 11/13/19 08:42 Dose: 40 meq Documented by: Potassium Chloride (Klor-Con M20) 40 meq PO BEDTIME [facility] Potassium Chloride (Klor-Con M20) 40 meq PO ONETIME ONE Stop: 11/13/19 21:01 Last Admin: 11/13/19 20:33 Dose: 40 meq Documented by: Potassium Chloride (Klor-Con M20) 40 meq PO ONETIME ONE Stop: 11/14/19 21:01 Last Admin: 11/14/19 20:18 Dose: 40 meq Documented by: Risperidone (Risperidal) 2 mg PO DAILY [facility] Last Admin: 11/03/19 09:19 Dose: 2 mg Documented by: Sodium Chloride (Saline Flush) 10 ml FLUSH ASDIRECTED PRN PRN Reason: Keep Vein Open Last Admin: 10/30/19 20:09 Dose: 10 ml Documented by: Sodium Chloride (Saline Flush) 10 ml FLUSH ONETIME PRN PRN Reason: IV FLUSH Last Admin: 10/30/19 08:37 Dose: 10 ml Documented by: Sodium Chloride (Saline Flush) 10 ml FLUSH ONETIME PRN PRN Reason: IV FLUSH Stop: 10/31/19 13:00 Last Admin: 10/31/19 11:29 Dose: 10 ml Documented by: Vancomycin HCl (Pharmacy To Dose - Vancomycin) 1 dose .XX ASDIRECTED PRN PRN Reason: RX TO DOSE VANCO - Exam Quality Assessment: Reports: DVT Prophylaxis. Denies: Supplemental Oxygen, Urine Catheter General: Reports: Alert, Oriented, Cooperative, No Acute Distress HEENT: Reports: Pupils Equal, Pupils Reactive, Mucous Membr. Moist/[place] Neck: Reports: Supple, +2 Carotid Pulse wo Bruit Lungs: Reports: Clear to Auscultation, Normal Respiratory Effort Cardiovascular: Reports: Regular Rate, Regular Rhythm GI/Abdominal Exam: Normal Bowel Sounds, Soft, Non-Tender, No Distention (Female) Exam: Deferred Rectal (Female) Exam: Deferred Back Exam: Reports: Normal Inspection, Full Range of Motion Extremities: Normal Inspection, Normal Range of Motion, Non-Tender, No Pedal Edema, Normal Capillary Refill Skin: Reports: Warm, Dry, Intact Neurological: Reports: No New Focal Deficit Psy/Mental Status: Reports: Alert
--- NOTE | 2019-12-22 12:36 | US ---
"PROCEDURE INFORMATION: Exam: US Abdomen Complete Exam date and time: 11/17/2019 7:34 AM Age: 59 years old Clinical indication: Abnormal findings; Abnormal lab test; Other: Elevated alt TECHNIQUE: Imaging protocol: Real-time ultrasound of the abdomen with image documentation. COMPARISON: CT Abdomen Pelvis w Cont 10/30/2019 8:23 AM FINDINGS: Liver: No liver masses or cirrhotic morphology. Normal echogenicity. Gallbladder: The gallbladder wall measures no more than 1.9 mm thick. No pericholecystic fluid, calculus or mass.The patient is not tender to transducer pressure directly over the gallbladder. Common bile duct: The common bile duct is normal and measures no more than 3.7 mm wide. Pancreas: The head of the pancreas is abnormally hyperechoic, finding correlating with fatty infiltration as viewed with CT. The pancreas is otherwise normal. Right kidney: Normal right renal sonographic corticomedullary differentiation. No mass, calculus, cyst or pelviectasis. 11.3 x 5.2 x 4.9 cm. Left kidney: Normal left renal sonographic corticomedullary differentiation. No mass, calculus, cyst or pelviectasis. 11.8 x 5.4 x 5.3 cm. Spleen: The spleen is normal and measures 10.2 x 4.0 x 4.5 cm. Aorta: Normal. Inferior vena cava: Normal. IMPRESSION: 1. No acute disease or suspicious findings. 2. Nonspecific fatty metamorphosis of the pancreas. Thank you for allowing us to participate in the care of your patient. KEM RIVERO | Final Radiology Report CONFIDENTIALITY STATEMENT This report is intended only for use by the referring physician, and only in accordance with law. If you received this in error, call [phone]. Page 2 of 2 Dictated and Authenticated by: Tamir Davies MD 12/22/2019 11:14 AM Central Time ([place] & [place]) JOSE"
== END 2019-11-17 15:23 | disposition home or self-care (01) | DRG 871 ==
LOC: JD.ED 13:15 → JD.ICU 18:06 → JD.MS 11-03 14:25
PROVIDERS: ADMIT Family Medicine; ATTEND Family Medicine
PROC: 5A09457 Assistance with Respiratory Ventilation, 24-96 Consecutive Hours, Continuous Positive Airway Pressure (ICD-10-PCS; principal; 2019-10-29)
DX: A40.8 Other streptococcal sepsis (principal); R65.21 Severe sepsis with septic shock; J15.4 Pneumonia due to other streptococci; F20.9 Schizophrenia, unspecified; J44.9 Chronic obstructive pulmonary disease, unspecified; R31.1 Benign essential microscopic hematuria; I10 Essential (primary) hypertension; N28.9 Disorder of kidney and ureter, unspecified; Z20.828 Contact with and (suspected) exposure to other viral communicable diseases; K52.9 Noninfective gastroenteritis and colitis, unspecified; E87.6 Hypokalemia; E88.09 Other disorders of plasma-protein metabolism, not elsewhere classified; R74.8 Abnormal levels of other serum enzymes; E78.5 Hyperlipidemia, unspecified; E83.42 Hypomagnesemia; K21.9 Gastro-esophageal reflux disease without esophagitis; K59.00 Constipation, unspecified; E83.39 Other disorders of phosphorus metabolism; F17.210 Nicotine dependence, cigarettes, uncomplicated; G31.84 Mild cognitive impairment of uncertain or unknown etiology; Z79.82 Long term (current) use of aspirin; Z79.899 Other long term (current) drug therapy
CPT/HCPCS: 36415; 36600; 51702; 51798; 70450; 70450-26; 70551; 70551-26; 70552; 70552-26; 71045; 71045-26; 71275; 71275-26; 74177; 74177-26; 76700; 76700-26; 80048; 80053; 80202; 80306; 80307; 81001; 82140; 82550; 82803; 82962; 83036; 83605; 83735; 83880; 84100; 84145; 84443; 84484; 85025; 85379; 85610; 86140; 86803; 87040; 87641; 87899; 92523-GN; 93005; 93010; 94640; 94660; 94667; 94668; 94761; 96361; 96365; 97110-GP; 97112-GP; 97116-GP; 97162-GP; 97530-GP; 99223; 99232; 99233; 99239; 99283; 99285-25; A9270-GY; A9577; J0456; J0692; J0696; J1650; J1815-GY; J1956; J2060; J2405; J2543; J3370; J3475; J3480; J3490; J7030; J7040; J7042; J7050; J7120; J7620-GY; P9047; Q9967; U0002

== ENCOUNTER 2021-07-20 10:51 | Emergency (ER) | payer BC, MEDICAID ==
[2021-07-20 11:04] VITALS: BP 131/78; PULSE 82
[2021-07-20 12:15] LABS: ESTIMATED GFR > 60 mL/min (>60)
[2021-07-20] MEDS ORDERED: Magnesium Citrate Solution 296 ML Bottle PO ONE (12:37)
== END 2021-07-20 12:50 | disposition home or self-care (01) ==
LOC: JD.ED 10:51
DX: K59.01 Slow transit constipation (principal)
CPT/HCPCS: 36415; 74019; 74019-26; 80053; 85025; 99283-25; 99284

== ENCOUNTER 2021-08-13 12:35 | Emergency (ER) | payer MEDICAID ==
[2021-08-13] MEDS ORDERED: Sodium Chloride 0.9% 10 ML Syringe FLUSH PRN ×2 (13:05→14:25)
[2021-08-13] MEDS ORDERED: Ondansetron 4 MG/2 ML SDV IVPUSH ONE (13:05)
[2021-08-13] MEDS ORDERED: Sodium Chloride 0.9% 1,000 ML IV ONE ×3 (13:12→16:29)
[2021-08-13] MEDS ORDERED: Iopamidol 612 MG/ML 100 ML Bottle IVPUSH ONE (14:25)
[2021-08-13 14:31] LABS: ESTIMATED GFR 25 mL/min (>60)
[2021-08-13 16:10] LABS: CORONAVIRUS COVID-19 NAA NEGATIVE (NEGATIVE)
[2021-08-13] MEDS ORDERED: Piperacillin/Tazobactam 4.5 GM in Sodium Chloride 0.9% 100 ML IV ONE (16:27)
[2021-08-13 17:12] LABS: ESTIMATED GFR 34 mL/min (>60)
[2021-08-13] MEDS ORDERED: Sodium Chloride 0.9% 100 ML ONE (17:18)
[2021-08-13 18:47] VITALS: BP 105/53; PULSE 98
[2021-08-13] MEDS ORDERED: Lactated Ringers 1,000 ML IV ONE (22:33)
== END 2021-08-14 04:00 ==
LOC: JD.ED 12:35
DX: K56.2 Volvulus (principal); J18.9 Pneumonia, unspecified organism; E78.00 Pure hypercholesterolemia, unspecified; I10 Essential (primary) hypertension; J44.9 Chronic obstructive pulmonary disease, unspecified; K21.9 Gastro-esophageal reflux disease without esophagitis; Z79.82 Long term (current) use of aspirin; Z79.899 Other long term (current) drug therapy; Z20.822 Contact with and (suspected) exposure to COVID-19
CPT/HCPCS: 0240U; 36415; 71045; 74176; 80053; 81001; 83605; 83690; 83735; 83880; 84484; 85007; 85027; 86140; 87040; 93005; 96361; 96365; 96375; 99285; J2405; J2543; J3490; J7030; J7120; 93010; 99284

== ENCOUNTER 2021-10-31 18:47 | Emergency (ER) | payer MEDICAID ==
[2021-10-31] MEDS ORDERED: Sodium Chloride 0.9% 1,000 ML IV SCH (19:15)
[2021-10-31] MEDS ORDERED: Sodium Chloride 0.9% 10 ML Syringe FLUSH PRN (19:15)
[2021-10-31] MEDS ORDERED: Ondansetron 4 MG/2 ML SDV IVPUSH ONE (19:15)
[2021-10-31 20:05] LABS: ESTIMATED GFR 73 mL/min (>60)
[2021-10-31] MEDS ORDERED: Potassium Chloride 20 MEQ Tab.ER PO ONE (21:16)
[2021-10-31 22:57] VITALS: BP 123/86; PULSE 114
== END 2021-10-31 21:59 | disposition home or self-care (01) ==
LOC: SUPCPDRO 18:47 → JD.ED 18:47
DX: R14.0 Abdominal distension (gaseous) (principal); E87.6 Hypokalemia; J45.909 Unspecified asthma, uncomplicated; E78.00 Pure hypercholesterolemia, unspecified; I10 Essential (primary) hypertension; F17.210 Nicotine dependence, cigarettes, uncomplicated; Z79.899 Other long term (current) drug therapy; Z79.82 Long term (current) use of aspirin
CPT/HCPCS: 36415; 74176; 80053; 81001; 83690; 85025; 96361; 96374; 99285; A9270; J2405; J3490; J7030; 99284

== ENCOUNTER 2022-04-27 14:09 | Emergency (ER) | payer MEDICAID ==
[2022-04-27] MEDS ORDERED: Sodium Chloride 0.9% 10 ML SDV FLUSH ONE (16:12)
[2022-04-27] MEDS ORDERED: Iopamidol 612 MG/ML 100 ML Bottle IVPUSH ONE (16:12)
[2022-04-27] MEDS ORDERED: HYDROmorphone 0.5 MG/0.5 ML Syringe IVPUSH ONE (16:26)
[2022-04-27] MEDS ORDERED: Ondansetron 4 MG/2 ML SDV IVPUSH ONE (16:26)
[2022-04-27] MEDS ORDERED: Sodium Chloride 0.9% 1,000 ML IV SCH (16:30)
[2022-04-27] MEDS ORDERED: Potassium Chloride 10 MEQ in Premix Bag 1 BAG IV ONE ×2 (16:44→18:06)
[2022-04-27 20:03] VITALS: BP 126/79; PULSE 100
== END 2022-04-27 20:03 | disposition home or self-care (01) ==
LOC: JD.ED 14:09
DX: R10.11 Right upper quadrant pain (principal); E78.00 Pure hypercholesterolemia, unspecified; I10 Essential (primary) hypertension; J44.9 Chronic obstructive pulmonary disease, unspecified; K21.9 Gastro-esophageal reflux disease without esophagitis; Z72.0 Tobacco use; Z79.899 Other long term (current) drug therapy; Z79.82 Long term (current) use of aspirin
CPT/HCPCS: 36415; 74019; 74177; 80053; 81001; 85025; 85610; 96365; 96366; 96375; 99285; J1170; J2405; J3480; J3490; J7030; Q9967

== ENCOUNTER 2023-02-09 09:31 | Emergency (ER) | payer SELFPAY ==
[2023-02-09 10:22] LABS: BASOPHILS ABSOLUTE AUTO 0.1 K/mm3 (0.0-0.2); BASOPHILS PERCENT AUTO 0.4 % (0.0-1.0); EOSINOPHILS PERCENT AUTO 0.1 % (0.0-6.0); HEMATOCRIT 47.7 % (37.0-47.0); HEMOGLOBIN 16.3 gm/dl (12.0-16.0); IMMATURE GRAN ABSOLUTE AUTO 0.03 K/mm3 (0.00-0.05); IMMATURE GRAN PERCENT AUTO 0.3 % (0.0-0.4); LYMPHOCYTES ABSOLUTE AUTO 1.7 K/mm3 (1.0-4.8); LYMPHOCYTES PERCENT AUTO 14.8 % (24.0-44.0); MEAN CORPUSCULAR HEMOGLOBIN 28.4 pg (28.0-32.0); MEAN CORPUSCULAR HGB CONC 34.2 g/dl (32.0-36.0); MEAN CORPUSCULAR VOLUME 83.1 fl (83.0-99.0); MEAN PLATELET VOLUME 9.3 fl (9.4-12.3); MONOCYTES ABSOLUTE AUTO 1.2 K/mm3 (0.0-0.8); MONOCYTES PERCENT AUTO 10.6 % (0.0-8.0); NEUTROPHILS ABSOLUTE AUTO 8.5 K/mm3 (1.8-7.7); NEUTROPHILS PERCENT AUTO 73.8 % (41.0-71.0); PLATELET COUNT,PLT 381 K/mm3 (150-400); RED BLOOD CELL COUNT 5.74 M/mm3 (4.10-5.30); WHITE BLOOD CELL COUNT,WBC 11.44 K/mm3 (3.9-11.3)
[2023-02-09] MEDS: Sodium Chloride 0.9% 10 ML Syringe FLUSH PRN ×2 (10:37→11:47)
[2023-02-09 10:39] LABS: APPEARANCE,URINE CLEAR (Clear); BILIRUBIN,URINE 2+ (Negative); COLOR,URINE DARK YELLOW (Yellow); GLUCOSE,URINE NEGATIVE (Negative); KETONES,URINE 1+ (Negative); LEUKOCYTE ESTERASE,URINE NEGATIVE (Negative); NITRITE,URINE NEGATIVE (Negative); OCCULT BLOOD,URINE NEGATIVE (Negative); PROTEIN,URINE TRACE (Negative)
[2023-02-09 10:49] LABS: BACTERIA,URINE FEW /hpf (FEW); HYALINE CASTS,URINE 0-5 /lpf (0-5); MUCUS,URINE RARE /hpf (FEW); RBC,URINE 0-5 /hpf (0-5); SQUAMOUS EPITHELIAL CELLS,UR 0-5 /hpf (0-5); WBC,URINE 0-5 /hpf (0-5)
[2023-02-09 10:49] LABS: A/G RATIO 0.8 (1-2); ALBUMIN 3.5 g/dl (3.4-5.0); ANION GAP 9.3 (5-15); BILIRUBIN TOTAL 1.4 mg/dL (0.2-1.0); BUN/CREATININE RATIO 23.9 (14-18); CALCIUM 9.3 mg/dL (8.5-10.1); CREATININE 1.8 mg/dL (0.55-1.02); EST CRCL DRUG DOSING (CG) 29.16 mL/min; MAGNESIUM 3.4 mg/dL (1.8-2.4); PROTEIN TOTAL,TP 7.7 g/dl (6.4-8.2)
[2023-02-09 10:50] LABS: POTASSIUM,K 2.3 mEq/L (3.5-5.1)
[2023-02-09] MEDS ORDERED: Potassium Chloride 20 MEQ Tab.ER PO ONE (11:12)
[2023-02-09] MEDS ORDERED: NS with KCl 40mEq 1,000 ML IV SCH (11:15)
[2023-02-09] MEDS ORDERED: Furosemide 40 MG/4 ML VIAL IVPUSH ONE (11:19)
[2023-02-09] MEDS ORDERED: Iopamidol 612 MG/ML 100 ML Bottle IVPUSH ONE ×2 (11:21→11:31)
[2023-02-09 11:23] LABS: CORONAVIRUS COVID-19 NAA NEGATIVE (NEGATIVE); INFLUENZA A NAA NEGATIVE (NEGATIVE); RESPIRATORY SYNCYTIAL VIR NAA NEGATIVE (NEGATIVE)
[2023-02-09] MEDS ORDERED: Sodium Chloride 0.9% 100 ML IV SCH (11:30)
[2023-02-09] MEDS ORDERED: Iopamidol 755 Mg/ML 100 ML Bottle IVPUSH ONE (11:31)
[2023-02-09] MEDS ORDERED: Ondansetron 4 MG/2 ML SDV IVPUSH ONE (11:55)
[2023-02-09] MEDS ORDERED: Ondansetron 4 MG/2 ML SDV ONE (11:56)
[2023-02-09 15:49] LABS: ANION GAP 7.5 (5-15); MAGNESIUM 3.1 mg/dL (1.8-2.4)
[2023-02-09 15:51] LABS: POTASSIUM,K 2.5 mEq/L (3.5-5.1)
[2023-02-09 19:07] VITALS: BP 129/85; PULSE 101
== END 2023-02-09 19:06 | disposition home or self-care (01) ==
LOC: JD.ED 09:31
DX: E83.41 Hypermagnesemia (principal); E87.6 Hypokalemia; R14.0 Abdominal distension (gaseous); R10.84 Generalized abdominal pain; I10 Essential (primary) hypertension; E78.00 Pure hypercholesterolemia, unspecified; F17.210 Nicotine dependence, cigarettes, uncomplicated; J44.9 Chronic obstructive pulmonary disease, unspecified; Z20.822 Contact with and (suspected) exposure to COVID-19; Z79.82 Long term (current) use of aspirin; Z79.899 Other long term (current) drug therapy
CPT/HCPCS: 0241U; 36415; 71045; 74177; 80051; 80053; 81001; 83735; 85025; 96365; 96366; 96375; 99284; A9270; C1758; J1940; J2405; J3480; J3490; Q9967